=== PATIENT | female | born 1965 | race Caucasian/White ===

== ENCOUNTER 2018-07-15 19:21 | Observation (INO) | payer OTHER, MEDICARE ==
[~2018-07-15] VITALS: Ht 152.4 cm; Wt 53.4 kg
[~2018-07-15 19:21] MED LIST: AMLO10 PO; CHOL10002 PO; FISH1000 PO; IBUHYD; IBUHYD PO; INSULANI SC; INSULANPEN SC; Imitrex100 MG PO; LISI20 PO; LORA.5 PO; META800 PO; METCAR500 PO; MILK THISTLE; MILK THISTLE PO; Milk Thistle175 M1 PO; NITR100CA PO; PARO10 PO; PARO20 PO; PARO30 PO; PROP160ER PO; PROP60 PO; SUMA25 PO; TOPI50 PO; WARF10 PO; ZEBUTAL 50-3251 EACH PO; ZESTRIL40 MG PO
[2018-07-15 21:04] LABS: BASOPHILS ABSOLUTE AUTO 0.02 K/mm3 (0.00-0.23); BASOPHILS PERCENT AUTO 0 % (0-2); EOSINOPHILS ABSOLUTE AUTO 0.29 K/mm3 (0.00-0.68); EOSINOPHILS PERCENT AUTO 4 % (0-6); Hematocrit 38.1 % (33.0-51.0); Hemoglobin 12.4 g/dL (11.5-16.0); IMMATURE GRAN ABSOLUTE AUTO 0.02 K/mm3 (0.00-0.10); IMMATURE GRAN PERCENT AUTO 0 % (0-1); LYMPHOCYTES ABSOLUTE AUTO 3.08 K/mm3 (0.84-5.20); LYMPHOCYTES PERCENT AUTO 44 % (21-46); MONOCYTES ABSOLUTE AUTO 0.39 K/mm3 (0.16-1.47); MONOCYTES PERCENT AUTO 6 % (4-13); Mean Corpuscular HGB Conc 32.5 g/dL (31.5-36.5); Mean Corpuscular Volume 92 fL (80-100); Mean Platelet Volume 11.9 fL (9.1-12.4); NEUTROPHILS ABSOLUTE AUTO 3.24 K/mm3 (1.96-9.15); NEUTROPHILS PERCENT AUTO 46 % (41-73); Platelet Count 112 K/mm3 (150-400); RDW Standard Deviation 46.7 fL (35.1-46.3); Red Blood Cell Count 4.14 M/mm3 (3.80-5.20); White Blood Cell Count 7.04 K/mm3 (4.00-11.30)
[2018-07-15 21:11] LABS: Alanine Aminotransfer (ALT/SGP 179 U/L (12-78); Albumin, Blood 3.2 g/dL (3.4-5.0); Albumin/Globulin Ratio 0.7 (0.8-1.8); Alk Phos 181 U/L (50-136); Anion Gap 8 mmol/L (6-16); Aspartate Aminotrans (AST/SGOT 156 U/L (12-37); Bilirubin, Total 0.3 mg/dL (0.1-1.0); Blood Urea Nitrogen 22 mg/dL (8-24); CO2, Blood 24 mmol/L (21-32); Calcium, Blood 9.3 mg/dL (8.5-10.1); Chloride, Blood 104 mmol/L (98-108); Creatinine, Blood 0.54 mg/dL (0.40-1.00); Globulin, Blood 4.9 g/dL (2.2-4.0); Glomerular Filtration Rate >60 (60-); Glucose, Blood 301 mg/dL (70-99); Potassium, Blood 3.9 mmol/L (3.5-5.5); Sodium, Blood 136 mmol/L (136-145); Total Protein, Blood 8.1 g/dL (6.4-8.2)
[2018-07-15 23:01] LABS: International Normalized Ratio 0.97
[2018-07-16 00:59] LABS: Source, Urine Clean Catch
[2018-07-16 01:02] LABS: Bilirubin, Urine Neg (Neg); Blood, Urine 2+ (Neg); Glucose Qualitative, Urine 4+ (Neg); Ketones, Urine Neg (Neg); Leukocyte Esterase, Urine 1+ (Neg); Nitrite, Urine Neg (Neg); Protein, Urine Neg (Neg); Urobilinogen, Urine NORM (Normal)
[2018-07-16 01:05] LABS: Appearance, Urine Hazy (Clear); Color, Urine Yellow (P-Yellow)
[2018-07-16 01:08] LABS: Bacteria Few /hpf; Mucus Light (0-Heavy); Red Blood Cells, Urine 0-2 /hpf (0-2); Squamous Epithelial Cells Mod /hpf (Few); White Blood Cells, Urine 0-2 /hpf (0-5)
[2018-07-16 02:55] LABS: Hematocrit 32.3 % (33.0-51.0); Hemoglobin 10.5 g/dL (11.5-16.0)
[2018-07-16 04:53] LABS: Hematocrit 32.3 % (33.0-51.0); Hemoglobin 10.3 g/dL (11.5-16.0); Mean Corpuscular HGB 29.9 pg (26.0-34.0); Mean Corpuscular HGB Conc 31.9 g/dL (31.5-36.5); Mean Corpuscular Volume 94 fL (80-100); Mean Platelet Volume 11.7 fL (9.1-12.4); Platelet Count 86 K/mm3 (150-400); RDW Coefficient Variation 13.8 % (11.7-14.2); Red Blood Cell Count 3.45 M/mm3 (3.80-5.20); White Blood Cell Count 4.07 K/mm3 (4.00-11.30)
[2018-07-16 05:33] LABS: Alanine Aminotransfer (ALT/SGP 153 U/L (12-78); Albumin, Blood 2.7 g/dL (3.4-5.0); Albumin/Globulin Ratio 0.7 (0.8-1.8); Alk Phos 155 U/L (50-136); Anion Gap 6 mmol/L (6-16); Aspartate Aminotrans (AST/SGOT 129 U/L (12-37); Bilirubin, Total 0.3 mg/dL (0.1-1.0); Blood Urea Nitrogen 16 mg/dL (8-24); Bun/Creatinine Ratio 30.9 (12.0-20.0); CO2, Blood 24 mmol/L (21-32); Calcium, Blood 7.8 mg/dL (8.5-10.1); Chloride, Blood 110 mmol/L (98-108); Creatinine, Blood 0.52 mg/dL (0.40-1.00); Globulin, Blood 3.9 g/dL (2.2-4.0); Glomerular Filtration Rate >60 (60-); Glucose, Blood 322 mg/dL (70-99); Potassium, Blood 3.7 mmol/L (3.5-5.5); Sodium, Blood 140 mmol/L (136-145); Total Protein, Blood 6.6 g/dL (6.4-8.2)
[2018-07-16 10:20] LABS: Hematocrit 32.4 % (33.0-51.0); Hemoglobin 10.2 g/dL (11.5-16.0)
[2018-07-16 12:29] LABS: Percent Saturation 73.2 % (15.0-50.0)
[2018-07-16 18:45] LABS: Hematocrit 33.9 % (33.0-51.0); Hemoglobin 10.9 g/dL (11.5-16.0)
[2018-07-17 01:56] LABS: Hematocrit 32.3 % (33.0-51.0); Hemoglobin 10.6 g/dL (11.5-16.0)
[2018-07-17 04:49] LABS: BASOPHILS ABSOLUTE AUTO 0.02 K/mm3 (0.00-0.23); BASOPHILS PERCENT AUTO 1 % (0-2); EOSINOPHILS ABSOLUTE AUTO 0.17 K/mm3 (0.00-0.68); EOSINOPHILS PERCENT AUTO 4 % (0-6); Hematocrit 32.4 % (33.0-51.0); Hemoglobin 10.6 g/dL (11.5-16.0); IMMATURE GRAN ABSOLUTE AUTO 0.01 K/mm3 (0.00-0.10); IMMATURE GRAN PERCENT AUTO 0 % (0-1); LYMPHOCYTES ABSOLUTE AUTO 2.02 K/mm3 (0.84-5.20); LYMPHOCYTES PERCENT AUTO 48 % (21-46); MONOCYTES ABSOLUTE AUTO 0.26 K/mm3 (0.16-1.47); MONOCYTES PERCENT AUTO 6 % (4-13); Mean Corpuscular HGB 30.3 pg (26.0-34.0); Mean Corpuscular HGB Conc 32.7 g/dL (31.5-36.5); Mean Corpuscular Volume 93 fL (80-100); Mean Platelet Volume 11.7 fL (9.1-12.4); NEUTROPHILS ABSOLUTE AUTO 1.74 K/mm3 (1.96-9.15); NEUTROPHILS PERCENT AUTO 41 % (41-73); Platelet Count 92 K/mm3 (150-400); RDW Coefficient Variation 13.7 % (11.7-14.2); RDW Standard Deviation 46.6 fL (35.1-46.3); White Blood Cell Count 4.22 K/mm3 (4.00-11.30)
[2018-07-17] MEDS ORDERED: Protonix40 M1 PO (11:14)
[2018-07-17] MEDS ORDERED: INSULANPEN SC (11:23)
[2018-07-18 16:08] LABS: T-TRANSGLUTAMINASE (TTG) IGA <2 U/mL (0-3); T-TRANSGLUTAMINASE (TTG) IGG <2 U/mL (0-5)
[2018-07-19 02:12] LABS: CERULOPLASMIN 27.3 mg/dL (19.0-39.0)
[2018-07-19 07:10] LABS: ALPHA-1-ANTITRYPSIN, SERUM 138 mg/dL (90-200)
[2018-07-19 10:07] LABS: HBSAG SCREEN Negative (Negative); HEP A AB, IGM Negative (Negative); HEP B CORE AB, IGM Negative (Negative); HEP C VIRUS AB >11.0 (0.0-0.9)
[2018-07-20 03:10] LABS: HBSAG SCREEN Negative (Negative); HEP B CORE AB, TOT Negative (Negative); HEP C VIRUS AB >11.0 (0.0-0.9)
== END 2018-07-17 12:52 | disposition home or self-care (01) ==
LOC: ER 19:21 → MEDS 19:22 → ENPENDDIS 07-17 08:46 → MEDS 07-17 12:52
PROVIDERS: Emergency Medicine; Hospitalist; Internal Medicine; Student in an Organized Health Care Education/Training Program
PROC: 0DJ08ZZ Inspection of Upper Intestinal Tract, Via Natural or Artificial Opening Endoscopic (ICD-10-PCS; principal; 2018-07-16 12:30)
PROC: 0DJD8ZZ Inspection of Lower Intestinal Tract, Via Natural or Artificial Opening Endoscopic (ICD-10-PCS; principal; 2018-07-16 12:30)
DX: K64.8 Other hemorrhoids (principal); K22.8 Other specified diseases of esophagus; K31.89 Other diseases of stomach and duodenum; K31.9 Disease of stomach and duodenum, unspecified; K57.30 Diverticulosis of large intestine without perforation or abscess without bleeding; F17.210 Nicotine dependence, cigarettes, uncomplicated; I10 Essential (primary) hypertension; E11.9 Type 2 diabetes mellitus without complications; E78.5 Hyperlipidemia, unspecified; Z88.8 Allergy status to other drugs, medicaments and biological substances; Z79.899 Other long term (current) drug therapy
CPT/HCPCS: 36415; 74177; 76705; 80053; 80074; 81001; 82103; 82272; 82390; 82728; 82947; 83516; 83540; 83550; 85014; 85018; 85025; 85027; 85610; 85730; 86038; 86317; 86704; 86708; 86803; 86850; 86900; 86901; 87086; 87340; 93005; 93010; 96365; 96375; 99285-25; C9113; J0696; J2250; J7030; J7050; J7120; Q9967

== ENCOUNTER 2018-10-14 07:19 | Day surgery (SDC) | payer OTHER, MEDICARE ==
[~2018-10-14] VITALS: Ht 154.9 cm; Wt 55.3 kg
[~2018-10-14 07:19] MED LIST changes: +Protonix40 M1 PO
== END 2018-10-14 10:22 | disposition home or self-care (01) ==
LOC: ORSCSDS 07:19
PROVIDERS: Internal Medicine Gastroenterology
PROC: 0DBN8ZX Excision of Sigmoid Colon, Via Natural or Artificial Opening Endoscopic, Diagnostic (ICD-10-PCS; principal; 2018-10-14 09:00)
PROC: 0DB68ZX Excision of Stomach, Via Natural or Artificial Opening Endoscopic, Diagnostic (ICD-10-PCS; principal; 2018-10-14 09:00)
PROC: 0DB48ZX Excision of Esophagogastric Junction, Via Natural or Artificial Opening Endoscopic, Diagnostic (ICD-10-PCS; principal; 2018-10-14 09:00)
DX: K62.5 Hemorrhage of anus and rectum (principal); R10.9 Unspecified abdominal pain; K63.5 Polyp of colon; K31.7 Polyp of stomach and duodenum; K20.9 Esophagitis, unspecified; K29.70 Gastritis, unspecified, without bleeding; K57.30 Diverticulosis of large intestine without perforation or abscess without bleeding; K64.8 Other hemorrhoids; B19.20 Unspecified viral hepatitis C without hepatic coma; I10 Essential (primary) hypertension; K21.9 Gastro-esophageal reflux disease without esophagitis; E11.9 Type 2 diabetes mellitus without complications; Z79.4 Long term (current) use of insulin; F17.210 Nicotine dependence, cigarettes, uncomplicated; Z79.899 Other long term (current) drug therapy
CPT/HCPCS: 82947; 88305; 88342; J0330; J1980; J2405; J7120

== ENCOUNTER 2019-03-27 09:32 | Day surgery (SDC) | payer OTHER, MEDICARE ==
[~2019-03-27 09:32] MED LIST changes: -PARO30 PO; +Paxil40 MG PO
--- NOTE | 2019-03-27 12:25 | NUR ---
Discharge instructions reviewed with patient. Patient verbalizes understanding. Copy given to patient to take home. PT SISTER IS HERE AND IS RIDE HOME. PT FEELING MUCH BETTER, BANDAIDE INTACT, Discharged via wheelchair to private car for ride home.
== END 2019-03-27 12:22 | disposition home or self-care (01) ==
LOC: US 09:32
DX: B18.2 Chronic viral hepatitis C (principal); K76.0 Fatty (change of) liver, not elsewhere classified
CPT/HCPCS: 47000; 76942; 88307; 88313

== ENCOUNTER 2019-05-15 18:13 | Inpatient (IN) | payer OTHER, MEDICARE ==
[~2019-05-15] VITALS: Ht 154.9 cm; Wt 53.1 kg
[2019-05-15 19:02] LABS: Alanine Aminotransfer (ALT/SGP 79 U/L (12-78); Albumin, Blood 2.8 g/dL (3.4-5.0); Albumin/Globulin Ratio 0.6 (0.8-1.8); Alk Phos 123 U/L (50-136); Anion Gap 9 mmol/L (6-16); Aspartate Aminotrans (AST/SGOT 41 U/L (12-37); Bilirubin, Total 1.1 mg/dL (0.1-1.0); Blood Urea Nitrogen 16 mg/dL (8-24); Bun/Creatinine Ratio 22.7 (12.0-20.0); CO2, Blood 24 mmol/L (21-32); Calcium, Blood 8.7 mg/dL (8.5-10.1); Chloride, Blood 98 mmol/L (98-108); Creatinine, Blood 0.71 mg/dL (0.40-1.00); Globulin, Blood 4.6 g/dL (2.2-4.0); Glomerular Filtration Rate >60 (60-); Glucose, Blood 343 mg/dL (70-99); Potassium, Blood 3.6 mmol/L (3.5-5.5); Sodium, Blood 131 mmol/L (136-145); Total Protein, Blood 7.4 g/dL (6.4-8.2)
[2019-05-15 19:45] LABS: BASOPHILS ABSOLUTE AUTO 0.02 K/mm3 (0.00-0.23); BASOPHILS PERCENT AUTO 0 % (0-2); Hematocrit 33.6 % (33.0-51.0); Hemoglobin 11.4 g/dL (11.5-16.0); LYMPHOCYTES ABSOLUTE AUTO 1.57 K/mm3 (0.84-5.20); LYMPHOCYTES PERCENT AUTO 17 % (21-46); MONOCYTES ABSOLUTE AUTO 0.61 K/mm3 (0.16-1.47); MONOCYTES PERCENT AUTO 7 % (4-13); Mean Corpuscular HGB 30.3 pg (26.0-34.0); Mean Corpuscular HGB Conc 33.9 g/dL (31.5-36.5); Mean Corpuscular Volume 89 fL (80-100); Mean Platelet Volume 12.7 fL (9.1-12.4); Platelet Count 53 K/mm3 (150-400); RDW Coefficient Variation 12.9 % (11.7-14.2); RDW Standard Deviation 42.5 fL (35.1-46.3); Red Blood Cell Count 3.76 M/mm3 (3.80-5.20); White Blood Cell Count 9.11 K/mm3 (4.00-11.30)
[2019-05-15 20:00] LABS: EOSINOPHILS ABSOLUTE AUTO 0.01 K/mm3 (0.00-0.68); EOSINOPHILS PERCENT AUTO 0 % (0-6); IMMATURE GRAN ABSOLUTE AUTO 0.26 K/mm3 (0.00-0.10); IMMATURE GRAN PERCENT AUTO 3 % (0-1); NEUTROPHILS ABSOLUTE AUTO 6.64 K/mm3 (1.96-9.15); NEUTROPHILS PERCENT AUTO 73 % (41-73)
[2019-05-15 20:24] LABS: Source, Urine Clean Catch
[2019-05-15 20:27] LABS: Appearance, Urine Hazy (Clear); Blood, Urine 4+ (Neg); Color, Urine Amber (P-Yellow); Glucose Qualitative, Urine 3+ (Neg); Ketones, Urine 2+ (Neg); Leukocyte Esterase, Urine 1+ (Neg); Nitrite, Urine Neg (Neg); Protein, Urine 3+ (Neg); Urobilinogen, Urine 1+ (Normal)
[2019-05-15 20:28] LABS: Bilirubin, Urine 1+ (Neg)
[2019-05-15 20:33] LABS: Amorphous Light (0-Heavy); Bacteria Many /hpf; Hyaline Casts 0-2 /lpf (0-2); Mucus Light (0-Heavy); Red Blood Cells, Urine 0-2 /hpf (0-2); Squamous Epithelial Cells Mod /hpf (Few)
[2019-05-15] MEDS ORDERED: OMEP20ER PO (21:08)
[2019-05-15] MEDS ORDERED: TRULICITY1.5 MG/0.5 SC (21:09)
[2019-05-16 05:41] LABS: Hematocrit 32.2 % (33.0-51.0); Hemoglobin 10.8 g/dL (11.5-16.0); Mean Corpuscular HGB 29.4 pg (26.0-34.0); Mean Corpuscular HGB Conc 33.5 g/dL (31.5-36.5); Mean Corpuscular Volume 88 fL (80-100); Mean Platelet Volume 11.8 fL (9.1-12.4); Platelet Count 55 K/mm3 (150-400); Red Blood Cell Count 3.67 M/mm3 (3.80-5.20); White Blood Cell Count 8.66 K/mm3 (4.00-11.30)
[2019-05-16 06:01] LABS: Alanine Aminotransfer (ALT/SGP 58 U/L (12-78); Albumin, Blood 2.1 g/dL (3.4-5.0); Albumin/Globulin Ratio 0.5 (0.8-1.8); Alk Phos 93 U/L (50-136); Anion Gap 7 mmol/L (6-16); Aspartate Aminotrans (AST/SGOT 25 U/L (12-37); Bilirubin, Total 0.6 mg/dL (0.1-1.0); Blood Urea Nitrogen 15 mg/dL (8-24); Bun/Creatinine Ratio 24.2 (12.0-20.0); CO2, Blood 23 mmol/L (21-32); Calcium, Blood 7.7 mg/dL (8.5-10.1); Chloride, Blood 105 mmol/L (98-108); Creatinine, Blood 0.62 mg/dL (0.40-1.00); Globulin, Blood 4.3 g/dL (2.2-4.0); Glomerular Filtration Rate >60 (60-); Glucose, Blood 263 mg/dL (70-99); Potassium, Blood 3.2 mmol/L (3.5-5.5); Sodium, Blood 135 mmol/L (136-145); Total Protein, Blood 6.4 g/dL (6.4-8.2)
--- NOTE | 2019-05-16 06:16 | NUR ---
SHIFT SUMMARY: PT IS ALERT AND ORIENTED. PT IS CALM AND COOPERATIVE WITH CARE. PT CALLS APPROPRIATELY. PT IS A STANDBY ASSIST TO THE BATHROOM. FLUIDS RUNNING ORDERED. NSR ON TELE. PT DENIES PAIN, NAUSEA, VOMITING, AND SOB. PT SLEPT INTERMITTENTLY THROUGHOUT THE NIGHT. NO ACUTE CHANGES OR COMPLICATIONS THIS SHIFT. BED IN LOW POSITION, CALL LIGHT WITHIN REACH. WILL CONTINUE TO MONITOR.
--- NOTE | 2019-05-16 17:28 | NUR ---
SHIFT SUMMARY: PT IS A/O X 4 THIS SHIFT WITH NO C/O PAIN. PT HAS BEEN NAPPING ON AND OFF WITH HER SISTER AT THE BEDSIDE. PT WAS ASSISTED WITH A SHOWER THIS AFTERNOON AND LINENS WERE CHANGED. PT DENIES ANY N/V BUT DID REPORT LOOSE STOOL X [address] GARVEY IS AWARE. THERE IS A STOOL SAMPLE PENDING. PT IS RESTING IN BED AND USES CALL LIGHT FOR HELP WHEN NEEDED.
[2019-05-17 05:08] LABS: BASOPHILS ABSOLUTE AUTO 0.01 K/mm3 (0.00-0.23); BASOPHILS PERCENT AUTO 0 % (0-2); EOSINOPHILS ABSOLUTE AUTO 0.12 K/mm3 (0.00-0.68); EOSINOPHILS PERCENT AUTO 2 % (0-6); Hematocrit 33.6 % (33.0-51.0); Hemoglobin 11.2 g/dL (11.5-16.0); IMMATURE GRAN ABSOLUTE AUTO 0.03 K/mm3 (0.00-0.10); IMMATURE GRAN PERCENT AUTO 0 % (0-1); LYMPHOCYTES ABSOLUTE AUTO 1.65 K/mm3 (0.84-5.20); LYMPHOCYTES PERCENT AUTO 25 % (21-46); MONOCYTES ABSOLUTE AUTO 0.34 K/mm3 (0.16-1.47); MONOCYTES PERCENT AUTO 5 % (4-13); Mean Corpuscular HGB 30.1 pg (26.0-34.0); Mean Corpuscular HGB Conc 33.3 g/dL (31.5-36.5); Mean Corpuscular Volume 90 fL (80-100); Mean Platelet Volume 12.5 fL (9.1-12.4); NEUTROPHILS ABSOLUTE AUTO 4.55 K/mm3 (1.96-9.15); NEUTROPHILS PERCENT AUTO 68 % (41-73); RDW Coefficient Variation 13.1 % (11.7-14.2); RDW Standard Deviation 43.2 fL (35.1-46.3); Red Blood Cell Count 3.72 M/mm3 (3.80-5.20)
[2019-05-17 05:10] LABS: Anion Gap 6 mmol/L (6-16); Blood Urea Nitrogen 12 mg/dL (8-24); CO2, Blood 22 mmol/L (21-32); Calcium, Blood 7.9 mg/dL (8.5-10.1); Chloride, Blood 114 mmol/L (98-108); Creatinine, Blood 0.52 mg/dL (0.40-1.00); Glomerular Filtration Rate >60 (60-); Glucose, Blood 215 mg/dL (70-99); Potassium, Blood 3.3 mmol/L (3.5-5.5); Sodium, Blood 142 mmol/L (136-145)
[2019-05-17 05:12] LABS: Platelet Count 74 K/mm3 (150-400)
--- NOTE | 2019-05-17 07:16 | NUR ---
a+o, no major medical changes noted during shift, call light in reach, saline locked, room air, indipendant in room bsr shared with returning day staff
[2019-05-17] MEDS ORDERED: LEVFLO500 (10:04)
--- NOTE | 2019-05-17 10:47 | NUR ---
PT DCD HOME WITH SISTER VIA PRIVATE CAR. ALL DC INSTRUCTIONS, F/U APPTS AND MEDS REVIEWED WITH PT WHO VERBALIZED AN UNDERSTANDING. MEDS FAXED TO [facility] PER HER REQUEST. ALL BELONGINGS SENT WITH PT AND PT STABLE UPON DC.
--- NOTE | 2019-05-29 19:20 | NUR ---
IMM MAILED TO PATIENT
== END 2019-05-17 10:47 | disposition home or self-care (01) | DRG 391 ==
LOC: ER 18:13 → MEDS 18:14 → ER 18:14 → MEDS 18:15 → ER 05-16 00:10 → MEDS 05-16 00:10 → ENPENDDIS 05-17 09:16 → MEDS 05-17 10:23
PROVIDERS: Emergency Medicine; Hospitalist; ADMIT Internal Medicine
DX: A08.4 Viral intestinal infection, unspecified (principal); J18.9 Pneumonia, unspecified organism; I10 Essential (primary) hypertension; E78.5 Hyperlipidemia, unspecified; D69.6 Thrombocytopenia, unspecified; F41.9 Anxiety disorder, unspecified; F32.9 Major depressive disorder, single episode, unspecified; E11.65 Type 2 diabetes mellitus with hyperglycemia; B19.20 Unspecified viral hepatitis C without hepatic coma; Z79.4 Long term (current) use of insulin; Z79.899 Other long term (current) drug therapy; Z88.8 Allergy status to other drugs, medicaments and biological substances
CPT/HCPCS: 36415; 71046; 80048; 80053; 81001; 82947; 83690; 84145; 85025; 85027; 87040; 87070; 87086; 87205; 93005; 93010; 96361; 96365; 96375; 99285-25; J0696; J1885; J1956; J2405; J7030

== ENCOUNTER → 2021-06-21 | Outpatient (CLI) | payer MEDICARE, OTHER ==
[~2021-06-21] MED LIST changes: +LEVFLO500; +OMEP20ER PO; +TRULICITY1.5 MG/0.5 SC
[2021-06-21 19:19] LABS: Source, Urine Clean Catch
[2021-06-21 19:32] LABS: BASOPHILS ABSOLUTE AUTO 0.02 K/mm3 (0.00-0.23); BASOPHILS PERCENT AUTO 0 % (0-2); EOSINOPHILS ABSOLUTE AUTO 0.32 K/mm3 (0.00-0.68); EOSINOPHILS PERCENT AUTO 4 % (0-6); Hematocrit 38.4 % (33.0-51.0); IMMATURE GRAN ABSOLUTE AUTO 0.02 K/mm3 (0.00-0.10); IMMATURE GRAN PERCENT AUTO 0 % (0-1); LYMPHOCYTES ABSOLUTE AUTO 2.02 K/mm3 (0.84-5.20); LYMPHOCYTES PERCENT AUTO 28 % (21-46); MONOCYTES ABSOLUTE AUTO 0.53 K/mm3 (0.16-1.47); MONOCYTES PERCENT AUTO 7 % (4-13); Mean Corpuscular HGB 29.1 pg (26.0-34.0); Mean Corpuscular HGB Conc 33.9 g/dL (31.5-36.5); Mean Corpuscular Volume 86 fL (80-100); Mean Platelet Volume 12.1 fL (9.1-12.4); NEUTROPHILS ABSOLUTE AUTO 4.37 K/mm3 (1.96-9.15); NEUTROPHILS PERCENT AUTO 60 % (41-73); Platelet Count 123 K/mm3 (150-400); RDW Coefficient Variation 13.7 % (11.7-14.2); Red Blood Cell Count 4.46 M/mm3 (3.80-5.20); White Blood Cell Count 7.28 K/mm3 (4.00-11.30)
[2021-06-21 19:44] LABS: Alanine Aminotransfer (ALT/SGP 78 U/L (12-78); Albumin, Blood 2.5 g/dL (3.4-5.0); Albumin/Globulin Ratio 0.5 (0.8-1.8); Alk Phos 222 U/L (50-136); Anion Gap 7 mmol/L (6-16); Aspartate Aminotrans (AST/SGOT 59 U/L (12-37); Bilirubin, Total 0.4 mg/dL (0.1-1.0); Blood Urea Nitrogen 23 mg/dL (8-24); Bun/Creatinine Ratio 32.8 (12.0-20.0); CO2, Blood 22 mmol/L (21-32); Calcium, Blood 8.7 mg/dL (8.5-10.1); Chloride, Blood 112 mmol/L (98-108); Globulin, Blood 5.2 g/dL (2.2-4.0); Glomerular Filtration Rate >60 (60-); Glucose, Blood 264 mg/dL (70-99); Sodium, Blood 141 mmol/L (136-145); Total Protein, Blood 7.7 g/dL (6.4-8.2)
[2021-06-21 19:49] LABS: Bilirubin, Urine Neg (Neg); Blood, Urine 4+ (Neg); Glucose Qualitative, Urine 3+ (Neg); Ketones, Urine Neg (Neg); Leukocyte Esterase, Urine Neg (Neg); Nitrite, Urine Neg (Neg); Protein, Urine 4+ (Neg); Specific Gravity, Urine 1.015 (1.003-1.022); Urobilinogen, Urine NORM (Normal)
[2021-06-21 19:57] LABS: Appearance, Urine Clear (Clear); Color, Urine Yellow (P-Yellow)
[2021-06-21 19:58] LABS: Bacteria Few /hpf; Red Blood Cells, Urine 25-50 /hpf (0-2); Squamous Epithelial Cells Few /hpf (Few); White Blood Cells, Urine Not Seen /hpf (0-5)
== END | disposition home or self-care (01) ==
LOC: LAB SHORT 17:45 → LAB 17:45
PROVIDERS: Nurse Practitioner Family
DX: R10.84 Generalized abdominal pain (principal); Z87.19 Personal history of other diseases of the digestive system
CPT/HCPCS: 80053; 81001; 83690; 85025

== ENCOUNTER → 2021-08-05 | Outpatient (CLI) | payer MEDICARE, OTHER ==
[2021-08-06 16:11] LABS: HPV 16 Negative (Negative); HPV 18 Negative (Negative); HPV OTHER HR TYPES Negative (Negative)
== END | disposition home or self-care (01) ==
LOC: LAB SHORT 14:44
PROVIDERS: Family Medicine
DX: Z01.419 Encounter for gynecological examination (general) (routine) without abnormal findings (principal)
CPT/HCPCS: 87624; G0145

== ENCOUNTER → 2021-10-16 | Outpatient (CLI) | payer MEDICARE, OTHER ==
[~2021-10-16] MED LIST changes: +BASAGLAR K100 UNIT/8 SC; +DYAZIDE 37.5-21 EACH PO; +FAMO20 PO; +PROPRANOLOL HCL80 MG PO; -TRULICITY1.5 MG/0.5 SC; +TRULICITY4.5 MG/0.5 SQ
[2021-10-16 18:56] LABS: Hematocrit 27.8 % (33.0-51.0); Hemoglobin 9.2 g/dL (11.5-16.0); Mean Corpuscular HGB 29.5 pg (26.0-34.0); Mean Corpuscular HGB Conc 33.1 g/dL (31.5-36.5); Mean Corpuscular Volume 89 fL (80-100); Mean Platelet Volume 11.4 fL (9.1-12.4); Platelet Count 124 K/mm3 (150-400); RDW Coefficient Variation 13.8 % (11.7-14.2); RDW Standard Deviation 44.1 fL (35.1-46.3); Red Blood Cell Count 3.12 M/mm3 (3.80-5.20); White Blood Cell Count 6.59 K/mm3 (4.00-11.30)
[2021-10-16 19:14] LABS: Alanine Aminotransfer (ALT/SGP 63 U/L (12-78); Albumin, Blood 2.7 g/dL (3.4-5.0); Albumin/Globulin Ratio 0.7 (0.8-1.8); Alk Phos 123 U/L (50-136); Anion Gap 7 mmol/L (6-16); Aspartate Aminotrans (AST/SGOT 58 U/L (12-37); Bilirubin, Direct <0.1 mg/dL (0.0-0.3); Bilirubin, Indirect Unable to Calculate mg/dL (0.1-0.7); Bilirubin, Total 0.4 mg/dL (0.1-1.0); Blood Urea Nitrogen 29 mg/dL (8-24); Bun/Creatinine Ratio 28.7 (12.0-20.0); CO2, Blood 23 mmol/L (21-32); Calcium, Blood 8.7 mg/dL (8.5-10.1); Chloride, Blood 115 mmol/L (98-108); Creatinine, Blood 1.01 mg/dL (0.40-1.00); Globulin, Blood 4.1 g/dL (2.2-4.0); Glomerular Filtration Rate 56 (60-); Glucose, Blood 145 mg/dL (70-99); Potassium, Blood 3.5 mmol/L (3.5-5.5); Sodium, Blood 145 mmol/L (136-145); Total Protein, Blood 6.8 g/dL (6.4-8.2)
[2021-10-16 19:47] LABS: BASOPHILS ABSOLUTE MAN 0.06 K/mm3 (0.00-0.23); BASOPHILS PERCENT MAN 1 % (0-2); EOSINOPHILS ABSOLUTE MAN 0.59 K/mm3 (0.00-0.68); EOSINOPHILS PERCENT MAN 9 % (0-6); LYMPHOCYTES % ATYPICAL MANUAL 1 % (0-0); LYMPHOCYTES ABSOLUTE MAN 2.17 K/mm3 (0.84-5.20); LYMPHOCYTES PERCENT MAN 32 % (21-46); MONOCYTES ABSOLUTE MAN 0.06 K/mm3 (0.16-1.47); MONOCYTES PERCENT MAN 1 % (4-13); NEUTROPHILS ABSOLUTE MAN 3.69 K/mm3 (1.96-9.15); SEG NEUTROPHILS PERCENT MAN 56 % (41-73); TOTAL CELLS COUNTED 100
== END | disposition home or self-care (01) ==
LOC: LAB SHORT 16:30
PROVIDERS: Nurse Practitioner
DX: K92.1 Melena (principal); R10.11 Right upper quadrant pain
CPT/HCPCS: 80053; 82248; 83690; 85007; 85027

== ENCOUNTER 2021-10-28 16:53 | Emergency (ER) | payer MEDICARE, OTHER ==
[~2021-10-28] VITALS: Ht 154.9 cm; Wt 56.7 kg
[~2021-10-28 16:53] MED LIST changes: -BASAGLAR K100 UNIT/8 SC; -DYAZIDE 37.5-21 EACH PO; -FAMO20 PO; -PROPRANOLOL HCL80 MG PO
[2021-10-28 18:00] LABS: BASOPHILS ABSOLUTE AUTO 0.03 K/mm3 (0.00-0.23); BASOPHILS PERCENT AUTO 0 % (0-2); EOSINOPHILS ABSOLUTE AUTO 0.55 K/mm3 (0.00-0.68); EOSINOPHILS PERCENT AUTO 8 % (0-6); Hemoglobin 11.1 g/dL (11.5-16.0); IMMATURE GRAN ABSOLUTE AUTO 0.02 K/mm3 (0.00-0.10); IMMATURE GRAN PERCENT AUTO 0 % (0-1); LYMPHOCYTES ABSOLUTE AUTO 1.83 K/mm3 (0.84-5.20); LYMPHOCYTES PERCENT AUTO 27 % (21-46); MONOCYTES ABSOLUTE AUTO 0.47 K/mm3 (0.16-1.47); MONOCYTES PERCENT AUTO 7 % (4-13); Mean Corpuscular HGB 29.8 pg (26.0-34.0); Mean Corpuscular HGB Conc 32.6 g/dL (31.5-36.5); Mean Corpuscular Volume 91 fL (80-100); Mean Platelet Volume 11.2 fL (9.1-12.4); NEUTROPHILS ABSOLUTE AUTO 3.86 K/mm3 (1.96-9.15); NEUTROPHILS PERCENT AUTO 57 % (41-73); Platelet Count 112 K/mm3 (150-400); Red Blood Cell Count 3.73 M/mm3 (3.80-5.20); White Blood Cell Count 6.76 K/mm3 (4.00-11.30)
[2021-10-28 18:18] LABS: Alanine Aminotransfer (ALT/SGP 101 U/L (12-78); Albumin/Globulin Ratio 0.7 (0.8-1.8); Alk Phos 147 U/L (50-136); Anion Gap 6 mmol/L (6-16); Aspartate Aminotrans (AST/SGOT 95 U/L (12-37); Bilirubin, Total 0.4 mg/dL (0.1-1.0); Blood Urea Nitrogen 19 mg/dL (8-24); Bun/Creatinine Ratio 22.2 (12.0-20.0); CO2, Blood 28 mmol/L (21-32); Calcium, Blood 8.6 mg/dL (8.5-10.1); Chloride, Blood 108 mmol/L (98-108); Creatinine, Blood 0.85 mg/dL (0.40-1.00); Globulin, Blood 4.2 g/dL (2.2-4.0); Glomerular Filtration Rate >60 (60-); Glucose, Blood 143 mg/dL (70-99); Potassium, Blood 3.5 mmol/L (3.5-5.5); Sodium, Blood 142 mmol/L (136-145); Total Protein, Blood 7.2 g/dL (6.4-8.2); Troponin I <0.015 ng/mL (0.000-0.040)
[2021-10-28] MEDS ORDERED: PROPRANOLOL HCL80 MG PO (19:33)
[2021-10-28] MEDS ORDERED: DYAZIDE 37.5-21 EACH PO (19:33)
[2021-10-28] MEDS ORDERED: FAMO20 PO (19:34)
[2021-10-28] MEDS ORDERED: BASAGLAR K100 UNIT/8 SC (19:35)
== END 2021-10-28 20:01 | disposition home or self-care (01) ==
LOC: ER 16:53
PROVIDERS: Physician Assistant
DX: I10 Essential (primary) hypertension (principal); E11.9 Type 2 diabetes mellitus without complications; E78.5 Hyperlipidemia, unspecified; Z79.899 Other long term (current) drug therapy
CPT/HCPCS: 36415; 80053; 84484; 85025; 93005; 93010; 99283-25; A9270

== ENCOUNTER 2021-12-10 07:36 | Day surgery (SDC) | payer MEDICARE, OTHER ==
[~2021-12-10] VITALS: Ht 154.9 cm; Wt 53.7 kg
[~2021-12-10 07:36] MED LIST changes: +BASAGLAR K100 UNIT/8 SC; +DYAZIDE 37.5-21 EACH PO; +FAMO20 PO; +PROPRANOLOL HCL80 MG PO
== END 2021-12-10 10:10 | disposition home or self-care (01) ==
LOC: ORSCSDS 07:36
PROVIDERS: Internal Medicine Gastroenterology
PROC: 0DJ08ZZ Inspection of Upper Intestinal Tract, Via Natural or Artificial Opening Endoscopic (ICD-10-PCS; principal; 2021-12-10 09:00)
DX: K74.60 Unspecified cirrhosis of liver (principal); D64.9 Anemia, unspecified; E11.9 Type 2 diabetes mellitus without complications; I10 Essential (primary) hypertension; B19.20 Unspecified viral hepatitis C without hepatic coma; F17.210 Nicotine dependence, cigarettes, uncomplicated; Z79.899 Other long term (current) drug therapy
CPT/HCPCS: 82947; J2704; J7120

== ENCOUNTER 2022-01-22 08:37 | Day surgery (SDC) | payer MEDICARE, OTHER ==
[~2022-01-22] VITALS: Ht 154.9 cm; Wt 51.5 kg
== END 2022-01-22 11:23 | disposition home or self-care (01) ==
LOC: ORSCSDS 08:37
PROVIDERS: Internal Medicine Gastroenterology
PROC: 0DB68ZX Excision of Stomach, Via Natural or Artificial Opening Endoscopic, Diagnostic (ICD-10-PCS; principal; 2022-01-22 10:15)
PROC: 0DBK8ZX Excision of Ascending Colon, Via Natural or Artificial Opening Endoscopic, Diagnostic (ICD-10-PCS; principal; 2022-01-22 10:15)
PROC: 0DB98ZX Excision of Duodenum, Via Natural or Artificial Opening Endoscopic, Diagnostic (ICD-10-PCS; principal; 2022-01-22 10:15)
DX: R11.2 Nausea with vomiting, unspecified (principal); D64.9 Anemia, unspecified; R68.81 Early satiety; K74.60 Unspecified cirrhosis of liver; Z12.11 Encounter for screening for malignant neoplasm of colon; Z86.010 Personal history of colon polyps; D12.2 Benign neoplasm of ascending colon; K64.8 Other hemorrhoids; B18.2 Chronic viral hepatitis C; E11.9 Type 2 diabetes mellitus without complications; K57.30 Diverticulosis of large intestine without perforation or abscess without bleeding; K29.70 Gastritis, unspecified, without bleeding; F17.210 Nicotine dependence, cigarettes, uncomplicated; Z79.4 Long term (current) use of insulin; Z79.899 Other long term (current) drug therapy
CPT/HCPCS: 82947; 88305; 88342; J2704; J7120

== ENCOUNTER → 2022-02-12 | Outpatient (CLI) | payer MEDICARE, OTHER ==
[2022-02-12 14:14] LABS: Source, Urine Voided
[2022-02-12 15:42] LABS: Appearance, Urine Clear (Clear); Bilirubin, Urine Neg (Neg); Blood, Urine Neg (Neg); Color, Urine Yellow (P-Yellow); Glucose Qualitative, Urine Neg (Normal); Ketones, Urine Neg (Neg); Leukocyte Esterase, Urine Neg (Neg); Nitrite, Urine Neg (Neg); Protein, Urine 3+ (Neg); Urobilinogen, Urine NORM (Normal)
[2022-02-12 15:46] LABS: Bacteria Not Seen /hpf; Red Blood Cells, Urine Rare /hpf (0-2); Squamous Epithelial Cells Few /hpf (Few); White Blood Cells, Urine 0-2 /hpf (0-5)
== END | disposition home or self-care (01) ==
LOC: LAB SHORT 08:50
PROVIDERS: Internal Medicine Endocrinology, Diabetes & Metabolism
DX: R94.4 Abnormal results of kidney function studies (principal)
CPT/HCPCS: 81001

== ENCOUNTER 2022-10-31 07:25 | Emergency (ER) | payer MEDICARE, OTHER ==
[~2022-10-31] VITALS: Ht 154.9 cm; Wt 61.7 kg
[2022-10-31] MEDS ORDERED: TORSE20 PO (08:09)
[2022-10-31 08:18] LABS: BASOPHILS ABSOLUTE AUTO 0.02 K/mm3 (0.00-0.23); BASOPHILS PERCENT AUTO 0 % (0-2); EOSINOPHILS ABSOLUTE AUTO 0.57 K/mm3 (0.00-0.68); EOSINOPHILS PERCENT AUTO 8 % (0-6); Hematocrit 24.3 % (33.0-51.0); Hemoglobin 7.8 g/dL (11.5-16.0); IMMATURE GRAN ABSOLUTE AUTO 0.02 K/mm3 (0.00-0.10); IMMATURE GRAN PERCENT AUTO 0 % (0-1); LYMPHOCYTES ABSOLUTE AUTO 1.52 K/mm3 (0.84-5.20); LYMPHOCYTES PERCENT AUTO 21 % (21-46); MONOCYTES ABSOLUTE AUTO 0.44 K/mm3 (0.16-1.47); MONOCYTES PERCENT AUTO 6 % (4-13); Mean Corpuscular HGB 29.8 pg (26.0-34.0); Mean Corpuscular HGB Conc 32.1 g/dL (31.5-36.5); Mean Corpuscular Volume 93 fL (80-100); Mean Platelet Volume 12.1 fL (9.1-12.4); NEUTROPHILS ABSOLUTE AUTO 4.52 K/mm3 (1.96-9.15); NEUTROPHILS PERCENT AUTO 64 % (41-73); Platelet Count 115 K/mm3 (150-400); RDW Coefficient Variation 14.9 % (11.7-14.2); RDW Standard Deviation 50.4 fL (35.1-46.3); Red Blood Cell Count 2.62 M/mm3 (3.80-5.20); White Blood Cell Count 7.09 K/mm3 (4.00-11.30)
[2022-10-31 09:26] LABS: Albumin, Blood 2.3 g/dL (3.4-5.0); Albumin/Globulin Ratio 0.5 (0.8-1.8); Bilirubin, Total 0.2 mg/dL (0.1-1.0); Bun/Creatinine Ratio 32.9 (12.0-20.0); Calcium, Blood 8.1 mg/dL (8.5-10.1); Creatinine, Blood 1.49 mg/dL (0.40-1.00); Globulin, Blood 4.2 g/dL (2.2-4.0); Total Protein, Blood 6.5 g/dL (6.4-8.2)
[2022-10-31 09:54] LABS: Influenza A, PCR NEGATIVE (NEGATIVE); Influenza B, PCR NEGATIVE (NEGATIVE); Resp Syncytial Virus, PCR NEGATIVE (NEGATIVE); SARS-Cov-2 (COVID-19) PCR, MMC NEGATIVE (NEGATIVE)
== END 2022-10-31 11:40 | disposition home or self-care (01) ==
LOC: ER 07:25
PROVIDERS: Emergency Medicine
DX: J81.0 Acute pulmonary edema (principal); I10 Essential (primary) hypertension; E11.9 Type 2 diabetes mellitus without complications; Z88.8 Allergy status to other drugs, medicaments and biological substances; Z79.4 Long term (current) use of insulin; Z20.822 Contact with and (suspected) exposure to COVID-19; Z79.899 Other long term (current) drug therapy
CPT/HCPCS: 0241U; 36415; 71046; 80053; 83880; 84484; 85025; 93005; 93010; J1940

== ENCOUNTER 2022-11-04 13:14 | Emergency (ER) | payer MEDICARE, OTHER ==
[~2022-11-04] VITALS: Ht 154.9 cm; Wt 59.0 kg
[~2022-11-04 13:14] MED LIST changes: +TORSE20 PO
[2022-11-04 13:52] LABS: BASOPHILS ABSOLUTE AUTO 0.03 K/mm3 (0.00-0.23); BASOPHILS PERCENT AUTO 0 % (0-2); EOSINOPHILS ABSOLUTE AUTO 0.56 K/mm3 (0.00-0.68); EOSINOPHILS PERCENT AUTO 8 % (0-6); Hematocrit 26.8 % (33.0-51.0); Hemoglobin 8.5 g/dL (11.5-16.0); IMMATURE GRAN ABSOLUTE AUTO 0.03 K/mm3 (0.00-0.10); IMMATURE GRAN PERCENT AUTO 0 % (0-1); LYMPHOCYTES ABSOLUTE AUTO 1.61 K/mm3 (0.84-5.20); LYMPHOCYTES PERCENT AUTO 22 % (21-46); MONOCYTES ABSOLUTE AUTO 0.63 K/mm3 (0.16-1.47); MONOCYTES PERCENT AUTO 8 % (4-13); Mean Corpuscular HGB 29.6 pg (26.0-34.0); Mean Corpuscular HGB Conc 31.7 g/dL (31.5-36.5); Mean Corpuscular Volume 93 fL (80-100); Mean Platelet Volume 11.7 fL (9.1-12.4); NEUTROPHILS ABSOLUTE AUTO 4.61 K/mm3 (1.96-9.15); NEUTROPHILS PERCENT AUTO 62 % (41-73); Platelet Count 136 K/mm3 (150-400); RDW Coefficient Variation 15.1 % (11.7-14.2); RDW Standard Deviation 51.1 fL (35.1-46.3); Red Blood Cell Count 2.87 M/mm3 (3.80-5.20); White Blood Cell Count 7.47 K/mm3 (4.00-11.30)
[2022-11-04 14:31] LABS: Albumin, Blood 2.5 g/dL (3.4-5.0); Albumin/Globulin Ratio 0.5 (0.8-1.8); Bilirubin, Total 0.2 mg/dL (0.1-1.0); Bun/Creatinine Ratio 27.9 (12.0-20.0); Creatinine, Blood 1.79 mg/dL (0.40-1.00); Globulin, Blood 4.6 g/dL (2.2-4.0); Potassium, Blood 3.4 mmol/L (3.5-5.5); Total Protein, Blood 7.1 g/dL (6.4-8.2)
[2022-11-04] MEDS ORDERED: SPIR50 PO (15:27)
[2022-11-04 16:23] LABS: International Normalized Ratio 0.95
== END 2022-11-04 17:05 | disposition home or self-care (01) ==
LOC: ER 13:14
PROVIDERS: Physician Assistant; Student in an Organized Health Care Education/Training Program
DX: I13.0 Hypertensive heart and chronic kidney disease with heart failure and stage 1 through stage 4 chronic kidney disease, or unspecified chronic kidney disease (principal); I50.30 Unspecified diastolic (congestive) heart failure; E11.22 Type 2 diabetes mellitus with diabetic chronic kidney disease; N18.9 Chronic kidney disease, unspecified; D64.9 Anemia, unspecified; E87.6 Hypokalemia; F17.210 Nicotine dependence, cigarettes, uncomplicated; Z79.4 Long term (current) use of insulin; Z79.899 Other long term (current) drug therapy
CPT/HCPCS: 36415; 71046; 80053; 83880; 84484; 85025; 85610; 93005; 93010; A9270

== ENCOUNTER 2022-11-05 13:39 | Observation (INO) | payer MEDICARE, OTHER ==
[~2022-11-05] VITALS: Wt 59.5 kg
[~2022-11-05 13:39] MED LIST changes: +SPIR50 PO
--- NOTE | 2022-11-05 14:17 | NUR ---
Pt. is awake in bed and welcmoes my visit. Pts. sister is present. Pt. is pleasant but displays evidence of concern over the unknowns of her condition. Listen with empathy and a calming presence. Pt. had requested a bible, and this wet plant operator presented her with one. Facilitated a life review and established rapport. Prayed with Pt. Pt. and sister verbalized gratitude for the spiritual care visit.
[2022-11-05 14:34] LABS: BASOPHILS ABSOLUTE AUTO 0.02 K/mm3 (0.00-0.23); BASOPHILS PERCENT AUTO 0 % (0-2); EOSINOPHILS ABSOLUTE AUTO 0.48 K/mm3 (0.00-0.68); EOSINOPHILS PERCENT AUTO 7 % (0-6); Hemoglobin 6.3 g/dL (11.5-16.0); IMMATURE GRAN ABSOLUTE AUTO 0.01 K/mm3 (0.00-0.10); IMMATURE GRAN PERCENT AUTO 0 % (0-1); LYMPHOCYTES ABSOLUTE AUTO 1.73 K/mm3 (0.84-5.20); LYMPHOCYTES PERCENT AUTO 25 % (21-46); MONOCYTES ABSOLUTE AUTO 0.54 K/mm3 (0.16-1.47); MONOCYTES PERCENT AUTO 8 % (4-13); Mean Corpuscular HGB 29.7 pg (26.0-34.0); Mean Corpuscular HGB Conc 31.5 g/dL (31.5-36.5); Mean Corpuscular Volume 94 fL (80-100); Mean Platelet Volume 12.1 fL (9.1-12.4); NEUTROPHILS ABSOLUTE AUTO 4.04 K/mm3 (1.96-9.15); NEUTROPHILS PERCENT AUTO 59 % (41-73); Platelet Count 121 K/mm3 (150-400); RDW Coefficient Variation 15.3 % (11.7-14.2); RDW Standard Deviation 52.8 fL (35.1-46.3); Red Blood Cell Count 2.12 M/mm3 (3.80-5.20); White Blood Cell Count 6.82 K/mm3 (4.00-11.30)
--- NOTE | 2022-11-05 14:45 | NUR ---
PT ADMITTED TO UNIT POST RENAL BX BLEED ON REPEAT IMMAGING. DR OLIVER IN TO ADMIT PT. PT NPO AT THIS TIME.HAD 2ND F/O CT AT APROX 1430. PT DENIES PAIN AT THIS TIME
[2022-11-05 14:47] LABS: International Normalized Ratio 0.98; Prothrombin Time Results 10.3 Sec (9.7-11.5)
[2022-11-05 14:53] LABS: Albumin, Blood 1.9 g/dL (3.4-5.0); Albumin/Globulin Ratio 0.5 (0.8-1.8); Bilirubin, Total 0.3 mg/dL (0.1-1.0); Bun/Creatinine Ratio 28.4 (12.0-20.0); Calcium, Blood 7.3 mg/dL (8.5-10.1); Creatinine, Blood 1.97 mg/dL (0.40-1.00); Globulin, Blood 3.7 g/dL (2.2-4.0); Potassium, Blood 3.9 mmol/L (3.5-5.5); Total Protein, Blood 5.6 g/dL (6.4-8.2)
--- NOTE | 2022-11-05 19:32 | NUR ---
IMAGING PT LEFT FOR IMAGING, IN NO DISTRESS.
[2022-11-05 20:37] LABS: Hematocrit 20.3 % (33.0-51.0); Hemoglobin 6.5 g/dL (11.5-16.0)
--- NOTE | 2022-11-05 21:15 | NUR ---
RADIOLOGY UPDATE DR PELAYO CALLED AND UPDATED ME, JAMAAL ORDOÑEZ, THAT THIS PATIENT HAS A GROWING RETROPERITONEAL HEMATOMA AND THAT THERE IS ONGOING BLEEDING AT THE INTERNAL BIOPSY SITE. DR BUCHANAN WAS THEN CALLED AND UPDATED ABOUT THIS, GAVE HIM DR ALEXANDER PHONE NUMBER. AWAITING A CALL BACK AT THIS TIME. PLAN TO CALL WITH FURTHER CONCERNS.
--- NOTE | 2022-11-05 21:24 | NUR ---
DR BUCHANAN UPDATE DR BUCHANAN CALLED BACK AFTER SPEAKING TO DR PELAYO AND INSTRUCTED ME TO GIVE THE PATIENT THE 1U OF PRBC THAT ARE ORDERED, DO AN H&H 15 MINUTES ATER, AND CONTINUE WITH THE ORDERED Q8 H&H CHECKS. INSTRUCTED TO TRANSFER THE PATIENT FOR INTERVENTIONAL RADIOLOGY IF THE PATIENTS LABS OR VITALS CONTINUE TO TREND DOWN
--- NOTE | 2022-11-06 02:51 | NUR ---
POD1 FOR A RIGHT KIDNEY BIOPSY. DRESSING ON RIGHT FLANK IS C/D/I. VSS. 1U PRCB INFUSED. PT REPORTS FEELING "BETTER". FIRST H&H POST INFUSION IS BEING DRAWN NOW. PLAN FOR Q8 H&H DRAWS. UNKNOWN IF THERE ARE PLANS FOR A REPEAT CT SCAN TODAY. IF LABS ARE STABLE PT SHOULD D/C HOME. NO N/V NOTED, PT TOLLERATING CLEAR LIQUID DIET. VOIDING AND PASSING STOOL W/O DIFFICULTY. THE PATIENT IS CURRENTLY RESTING IN BED, IN NO DISTRESS, CALL LIGHT IN REACH.
[2022-11-06 03:09] LABS: Hematocrit 22.7 % (33.0-51.0); Hemoglobin 7.5 g/dL (11.5-16.0)
[2022-11-06 04:10] LABS: Hematocrit 23.1 % (33.0-51.0); Hemoglobin 7.5 g/dL (11.5-16.0)
[2022-11-06 05:51] LABS: BASOPHILS ABSOLUTE AUTO 0.02 K/mm3 (0.00-0.23); BASOPHILS PERCENT AUTO 0 % (0-2); EOSINOPHILS ABSOLUTE AUTO 0.46 K/mm3 (0.00-0.68); EOSINOPHILS PERCENT AUTO 6 % (0-6); Hematocrit 22.8 % (33.0-51.0); Hemoglobin 7.5 g/dL (11.5-16.0); IMMATURE GRAN ABSOLUTE AUTO 0.03 K/mm3 (0.00-0.10); IMMATURE GRAN PERCENT AUTO 0 % (0-1); LYMPHOCYTES PERCENT AUTO 29 % (21-46); MONOCYTES ABSOLUTE AUTO 0.71 K/mm3 (0.16-1.47); MONOCYTES PERCENT AUTO 9 % (4-13); Mean Corpuscular HGB 29.5 pg (26.0-34.0); Mean Corpuscular HGB Conc 32.9 g/dL (31.5-36.5); Mean Corpuscular Volume 90 fL (80-100); Mean Platelet Volume 12.4 fL (9.1-12.4); NEUTROPHILS ABSOLUTE AUTO 4.61 K/mm3 (1.96-9.15); NEUTROPHILS PERCENT AUTO 56 % (41-73); Platelet Count 117 K/mm3 (150-400); RDW Coefficient Variation 15.6 % (11.7-14.2); RDW Standard Deviation 50.8 fL (35.1-46.3); Red Blood Cell Count 2.54 M/mm3 (3.80-5.20); White Blood Cell Count 8.23 K/mm3 (4.00-11.30)
[2022-11-06 06:15] LABS: Bun/Creatinine Ratio 26.6 (12.0-20.0); Calcium, Blood 7.4 mg/dL (8.5-10.1); Creatinine, Blood 1.88 mg/dL (0.40-1.00); Potassium, Blood 3.5 mmol/L (3.5-5.5)
--- NOTE | 2022-11-06 10:07 | NUR ---
PT REFUSED MEDICATION ADMINISTRATION BY RN SHE TOOK OWN HOME MEDS ROSENDO IN BY SISTER. PT STATES TOOK PROPRANOLOL ER 160MG, TOPIRAMATE 50MG, LISINOPRIL 40MG, AMLODIPINE 10MG, TORSEMIDE 20MG.
--- NOTE | 2022-11-06 11:04 | NUR ---
"Spiritual care | Pt. Request Pt. is awake in bed and welcomes my visit. Pts. sister is present. Pt. is pleasant and rapport is re-established. Pt. is waiting for results from recent scans, normalize the Pt. experience. Pt. displays evidence of encouragement and hope. Considered issues of william and belief. Prayed for Pt. pt. and sister both verbalized gratitude for the spiritual care visit."
[2022-11-06 12:26] LABS: Hematocrit 25.3 % (33.0-51.0); Hemoglobin 8.2 g/dL (11.5-16.0)
--- NOTE | 2022-11-06 17:53 | NUR ---
SHIFT SUMMARY PT HAS REMAINED STABLE T/O SHIFT. NO INCREASE IN PAIN AT/SURROUNDING INSERTION SITE. PT WORKED WITH THERAPY AND WALKER WAS DELIVERED BY [facility] FOR STABLILITY DUE TO RECENT RECCURENT FALLS AT HOME. PT ADVANCED TO LOW SODIUM DIET FOR DINNER. BLOOD GLUCOSE IMPROVED FROM ADMISSION. PLAN TO RE-SCAN IN AM.
[2022-11-07 05:54] LABS: BASOPHILS ABSOLUTE AUTO 0.03 K/mm3 (0.00-0.23); BASOPHILS PERCENT AUTO 0 % (0-2); EOSINOPHILS PERCENT AUTO 8 % (0-6); Hematocrit 22.5 % (33.0-51.0); Hemoglobin 7.2 g/dL (11.5-16.0); IMMATURE GRAN ABSOLUTE AUTO 0.03 K/mm3 (0.00-0.10); IMMATURE GRAN PERCENT AUTO 0 % (0-1); LYMPHOCYTES PERCENT AUTO 26 % (21-46); MONOCYTES ABSOLUTE AUTO 0.78 K/mm3 (0.16-1.47); MONOCYTES PERCENT AUTO 10 % (4-13); Mean Corpuscular HGB 28.9 pg (26.0-34.0); Mean Corpuscular Volume 90 fL (80-100); Mean Platelet Volume 11.7 fL (9.1-12.4); NEUTROPHILS ABSOLUTE AUTO 4.33 K/mm3 (1.96-9.15); NEUTROPHILS PERCENT AUTO 56 % (41-73); Platelet Count 118 K/mm3 (150-400); RDW Coefficient Variation 15.5 % (11.7-14.2); RDW Standard Deviation 50.4 fL (35.1-46.3); Red Blood Cell Count 2.49 M/mm3 (3.80-5.20); White Blood Cell Count 7.77 K/mm3 (4.00-11.30)
[2022-11-07 06:16] LABS: Bun/Creatinine Ratio 24.1 (12.0-20.0); Calcium, Blood 7.8 mg/dL (8.5-10.1); Creatinine, Blood 2.16 mg/dL (0.40-1.00); Potassium, Blood 3.5 mmol/L (3.5-5.5)
--- NOTE | 2022-11-07 07:15 | NUR ---
SUMMARY ALERT,TALKATIVE.NO DRESSING TO KIDNEY SITE.NO BLEEDING.
--- NOTE | 2022-11-07 15:13 | NUR ---
ASSUMED CARE OF PT FROM SARA Garcia RN. PT RESTING ON R SIDE IN BED. DENIES ANY NEEDS AT THIS TIME. CALL LIGHT IN REACH.
[2022-11-07 16:29] LABS: Hematocrit 21.2 % (33.0-51.0)
--- NOTE | 2022-11-07 17:08 | NUR ---
called DR OLIVER REGARDING H&H DC DISCHARGE ORDERS AND DR OLIVER PUTTING IN ORDERS TO TRANSFUSE 1 PRBCS. ADVISED PT. STARTED IV.
--- NOTE | 2022-11-08 05:04 | NUR ---
SHIFT SUMMARY PT HAS HAD A RESTFUL NIGHT OVERALL. SHE RECEIVED 1 UNIT OF PRBCS THAT WAS STARTED BY DAYSHIFT RN CLOSE TO SHIFT CHANGE. REPEAT H&H TO BE DONE THIS AM WITH PLANS FOR POSSIBLE DC TODAY PENDING LAB RESULTS. PT HAS BEEN INDEPENDENT IN ROOM. SHE REPORTS SOME SORENESS TO BIOPSY SITE BUT HAS NOT REQUESTED ANYTHING FOR PAIN, AND DENIES NEEDS WHEN ASKED. BIOPSY SITE WNL. NO ACUTE CHANGES OVERNIGHT. BED IN LOWEST POSITION, CALL LIGHT WITHIN REACH.
[2022-11-08 05:07] LABS: Hematocrit 24.8 % (33.0-51.0); Hemoglobin 8.3 g/dL (11.5-16.0)
[2022-11-08 06:15] LABS: BASOPHILS ABSOLUTE AUTO 0.02 K/mm3 (0.00-0.23); BASOPHILS PERCENT AUTO 0 % (0-2); EOSINOPHILS ABSOLUTE AUTO 0.52 K/mm3 (0.00-0.68); EOSINOPHILS PERCENT AUTO 7 % (0-6); Hematocrit 24.6 % (33.0-51.0); Hemoglobin 8.3 g/dL (11.5-16.0); IMMATURE GRAN ABSOLUTE AUTO 0.01 K/mm3 (0.00-0.10); IMMATURE GRAN PERCENT AUTO 0 % (0-1); LYMPHOCYTES ABSOLUTE AUTO 1.71 K/mm3 (0.84-5.20); LYMPHOCYTES PERCENT AUTO 23 % (21-46); MONOCYTES ABSOLUTE AUTO 0.79 K/mm3 (0.16-1.47); MONOCYTES PERCENT AUTO 11 % (4-13); Mean Corpuscular HGB 29.9 pg (26.0-34.0); Mean Corpuscular HGB Conc 33.7 g/dL (31.5-36.5); Mean Corpuscular Volume 89 fL (80-100); Mean Platelet Volume 11.7 fL (9.1-12.4); NEUTROPHILS ABSOLUTE AUTO 4.32 K/mm3 (1.96-9.15); NEUTROPHILS PERCENT AUTO 59 % (41-73); Platelet Count 115 K/mm3 (150-400); RDW Coefficient Variation 14.4 % (11.7-14.2); RDW Standard Deviation 46.7 fL (35.1-46.3); Red Blood Cell Count 2.78 M/mm3 (3.80-5.20); White Blood Cell Count 7.37 K/mm3 (4.00-11.30)
[2022-11-08 15:11] LABS: Hematocrit 25.5 % (33.0-51.0); Hemoglobin 8.5 g/dL (11.5-16.0)
--- NOTE | 2022-11-08 17:06 | NUR ---
DISCHARGE SUMMARY PT A/O X4; PLEASANT AND COOPERATIVE WITH CARE. H/H STABLE DURING THE SECOND DRAW AND CLEARED TO GO HOME. VSS. DISCHARGED HOME WITH SISTER.
[2022-11-08 17:08] LABS: Bun/Creatinine Ratio 28.5 (12.0-20.0); Calcium, Blood 7.5 mg/dL (8.5-10.1); Creatinine, Blood 1.79 mg/dL (0.40-1.00); Potassium, Blood 3.8 mmol/L (3.5-5.5)
== END 2022-11-08 17:05 | disposition home or self-care (01) ==
LOC: SURS 13:39
PROVIDERS: Internal Medicine; ADMIT Internal Medicine
DX: K91.871 Postprocedural hematoma of a digestive system organ or structure following other procedure (principal); I12.9 Hypertensive chronic kidney disease with stage 1 through stage 4 chronic kidney disease, or unspecified chronic kidney disease; N18.30 Chronic kidney disease, stage 3 unspecified; E11.22 Type 2 diabetes mellitus with diabetic chronic kidney disease; G43.909 Migraine, unspecified, not intractable, without status migrainosus; I50.32 Chronic diastolic (congestive) heart failure; I47.1 Supraventricular tachycardia; F32.A Depression, unspecified; F41.9 Anxiety disorder, unspecified; D62 Acute posthemorrhagic anemia; E11.40 Type 2 diabetes mellitus with diabetic neuropathy, unspecified; E11.319 Type 2 diabetes mellitus with unspecified diabetic retinopathy without macular edema; Z86.19 Personal history of other infectious and parasitic diseases; F15.11 Other stimulant abuse, in remission; K76.9 Liver disease, unspecified; Z79.899 Other long term (current) drug therapy
CPT/HCPCS: 36415; 74176; 74177; 80048; 80053; 82947; 85014; 85018; 85025; 85610; 85730; 86850; 86900; 86901; 86923; 97116; 97161; A9270; G0378; J1815; J7050; P9016; Q9967

== ENCOUNTER 2022-11-29 08:44 | Inpatient (IN) | payer MEDICARE, OTHER ==
[~2022-11-29] VITALS: Ht 152.4 cm; Wt 51.9 kg
[~2022-11-29 08:44] MED LIST changes: -AMLO10 PO; +AMLO5 PO; +PROPRANOLOL HC160 MG PO; -PROPRANOLOL HCL80 MG PO; +TRULICITY4.5 MG/0.5 SC; -TRULICITY4.5 MG/0.5 SQ
[2022-11-29 09:11] LABS: BASOPHILS ABSOLUTE AUTO 0.02 K/mm3 (0.00-0.23); BASOPHILS PERCENT AUTO 0 % (0-2); EOSINOPHILS ABSOLUTE AUTO 0.28 K/mm3 (0.00-0.68); EOSINOPHILS PERCENT AUTO 6 % (0-6); Hematocrit 33.4 % (33.0-51.0); Hemoglobin 11.2 g/dL (11.5-16.0); IMMATURE GRAN ABSOLUTE AUTO 0.01 K/mm3 (0.00-0.10); IMMATURE GRAN PERCENT AUTO 0 % (0-1); LYMPHOCYTES ABSOLUTE AUTO 1.37 K/mm3 (0.84-5.20); LYMPHOCYTES PERCENT AUTO 27 % (21-46); MONOCYTES ABSOLUTE AUTO 0.34 K/mm3 (0.16-1.47); MONOCYTES PERCENT AUTO 7 % (4-13); Mean Corpuscular HGB 29.5 pg (26.0-34.0); Mean Corpuscular HGB Conc 33.5 g/dL (31.5-36.5); Mean Corpuscular Volume 88 fL (80-100); Mean Platelet Volume 11.5 fL (9.1-12.4); NEUTROPHILS ABSOLUTE AUTO 2.99 K/mm3 (1.96-9.15); NEUTROPHILS PERCENT AUTO 60 % (41-73); Platelet Count 173 K/mm3 (150-400); RDW Coefficient Variation 15.4 % (11.7-14.2); RDW Standard Deviation 48.9 fL (35.1-46.3); White Blood Cell Count 5.01 K/mm3 (4.00-11.30)
[2022-11-29 09:25] LABS: Calcium, Ionized (POC) 1.34 mmol/L (1.10-1.46); Chloride (POC) 126 mmol/L (98-108); Creatinine (POC) 3.4 mg/dL (0.6-1.0); Glucose (ISTAT POC) 224 mg/dL (70-99); Hemoglobin (POC) 10.2 g/dL (12.0-16.0); Potassium (POC) 5.7 mmol/L (3.5-5.5); Sodium (POC) 142 mmol/L (135-148); Total CO2 (POC) 9 mmol/L (21-32)
[2022-11-29 09:27] LABS: International Normalized Ratio 0.96; Prothrombin Time Results 10.1 Sec (9.7-11.5)
[2022-11-29 09:30] LABS: Magnesium, Blood 2.8 mg/dL (1.6-2.4); Phosphorus, Blood 7.7 mg/dL (2.5-4.9)
[2022-11-29 09:31] LABS: Albumin, Blood 2.7 g/dL (3.4-5.0); Albumin/Globulin Ratio 0.5 (0.8-1.8); Bilirubin, Total 0.5 mg/dL (0.1-1.0); Bun/Creatinine Ratio 49.3 (12.0-20.0); Calcium, Blood 9.1 mg/dL (8.5-10.1); Creatinine, Blood 3.02 mg/dL (0.40-1.00); Globulin, Blood 5.6 g/dL (2.2-4.0); Potassium, Blood 5.5 mmol/L (3.5-5.5); Total Protein, Blood 8.3 g/dL (6.4-8.2)
[2022-11-29 10:20] LABS: Bicarbonate Venous 8.9 mmol/L (24.0-30.0); PCO2 Venous 26.5 mmHg (38-42)
[2022-11-29 10:25] LABS: pH Blood Venous 7.05 (7.34-7.37)
[2022-11-29] MEDS ORDERED: VITAMIN D5000 UNIT PO (13:50)
[2022-11-29] MEDS ORDERED: LISI20 PO (13:50)
--- NOTE | 2022-11-29 14:32 | NUR ---
PT ARRIVED TO ICU 12 FROM ED. PT STOOD AND TRANSFERRED TO BED WITH MODERATE ASSIST. PT ALERT, ORIENTED TO PERSON AND PLACE. WHEN ASKED THE DATE SHE GETS STUCK REPEATING OCTOBER, EVEN WHEN ASKED WHAT THE YEAR IS. LUNGS ARE CLEAR, RA. PT'S SISTER AT BEDSIDE AND UPDATED ON PLAN OF CARE. MED LIST UPDATED FROM LIST SISTER PROVIDED. PT RESTING QUIETLY. BED ALARM ON.
[2022-11-29 15:44] LABS: Albumin, Blood 2.4 g/dL (3.4-5.0); Anion Gap 8 mmol/L (6-16); Blood Urea Nitrogen 137 mg/dL (8-24); Bun/Creatinine Ratio 51.9 (12.0-20.0); CO2, Blood 10 mmol/L (21-32); Calcium, Blood 8.3 mg/dL (8.5-10.1); Chloride, Blood 126 mmol/L (98-108); Creatinine, Blood 2.64 mg/dL (0.40-1.00); Glomerular Filtration Rate 20 (60-); Glucose, Blood 287 mg/dL (70-99); Phosphorus, Blood 6.4 mg/dL (2.5-4.9); Potassium, Blood 4.6 mmol/L (3.5-5.5); Sodium, Blood 144 mmol/L (136-145)
[2022-11-29 15:52] LABS: Source, Urine Straight Cath
[2022-11-29 16:20] LABS: Bilirubin, Urine Neg (Neg); Blood, Urine 1+ (Neg); Glucose Qualitative, Urine 2+ (Neg); Ketones, Urine Neg (Neg); Leukocyte Esterase, Urine 1+ (Neg); Nitrite, Urine Neg (Neg); Protein, Urine 3+ (Neg); Urobilinogen, Urine NORM (Normal)
[2022-11-29 16:32] LABS: Appearance, Urine Hazy (Clear); Color, Urine Yellow (P-Yellow)
[2022-11-29 16:34] LABS: Amorphous Light (0-Heavy); Bacteria Mod /hpf; Hyaline Casts 0-2 /lpf (0-2); Squamous Epithelial Cells Few /hpf (Few)
--- NOTE | 2022-11-29 17:29 | NUR ---
SHIFT SUMMARY PT HAS BEEN RESTING WHEN LEFT ALONE. SHE REMAINS ALERT, ORIENTED TO PERSON AND PLACE. SHE TAKES AWHILE TO PROCESS COMMANDS, BUT IS ABLE TO EVENTUALLY FOLLOW THEM. SHE WAS ABLE TO GET UP TO THE COMMODE TO VOID WITH ASSISTANCE AND LOTS OF GUIDANCE. LUNGS ARE CLEAR, RA, SR. PT HAS 2 SISTERS AT THE BEDSIDE THAT TEND TO SPEAK FOR HER WHEN PRESENT. BOTH WERE UPDATED. CONTINUE TO MONITOR.
--- NOTE | 2022-11-29 23:19 | NUR ---
ASSUMPTION OF CARE/ASSESSMENT: ASSUMED CARE OF PT AT 1900. PT IS IN BED AND A&O X 2; PT IS ABLE TO STATE ONLY FIRST NAME, AND CITY/STATE CORRECTLY. PT IS CURRENTLY ON RA WITH SPO2 98< AND RR 20-22. PT SR MONITOR WITH HR IN THE 90'S AND SBP 130'S; NO C/O CHEST PAIN OR SOB. PT ABD FLAT WITH HYPERACTIVE BOWEL SOUNDS PRESENT; GOOD PO INTAKE. PPP X 4, SKIN INTACT AND WARM. PT HAS RAC PIC PRESENT AND PATENT; SODIUM BICARB GTT @ 100 MLS/HR. DR TORRES ASSESSED PT VIA TELEHEALTH AT 2144; NO NEW ORDERS RECIEVED. PT ABLE TO USE CALL LIGHT APPROPRIATELY, BED LOWERED, WILL CONTINUE TO MONITOR.
[2022-11-30 03:18] LABS: BASOPHILS ABSOLUTE AUTO 0.01 K/mm3 (0.00-0.23); BASOPHILS PERCENT AUTO 0 % (0-2); EOSINOPHILS ABSOLUTE AUTO 0.24 K/mm3 (0.00-0.68); EOSINOPHILS PERCENT AUTO 4 % (0-6); Hematocrit 22.8 % (33.0-51.0); Hemoglobin 7.9 g/dL (11.5-16.0); IMMATURE GRAN ABSOLUTE AUTO 0.02 K/mm3 (0.00-0.10); IMMATURE GRAN PERCENT AUTO 0 % (0-1); LYMPHOCYTES PERCENT AUTO 25 % (21-46); MONOCYTES ABSOLUTE AUTO 0.44 K/mm3 (0.16-1.47); MONOCYTES PERCENT AUTO 7 % (4-13); Mean Corpuscular HGB 29.4 pg (26.0-34.0); Mean Corpuscular HGB Conc 34.6 g/dL (31.5-36.5); Mean Corpuscular Volume 85 fL (80-100); Mean Platelet Volume 11.1 fL (9.1-12.4); NEUTROPHILS ABSOLUTE AUTO 3.89 K/mm3 (1.96-9.15); NEUTROPHILS PERCENT AUTO 64 % (41-73); Platelet Count 120 K/mm3 (150-400); RDW Coefficient Variation 14.9 % (11.7-14.2); RDW Standard Deviation 45.4 fL (35.1-46.3); Red Blood Cell Count 2.69 M/mm3 (3.80-5.20)
[2022-11-30 03:34] LABS: Albumin, Blood 2.1 g/dL (3.4-5.0); Anion Gap 8 mmol/L (6-16); Blood Urea Nitrogen 124 mg/dL (8-24); Bun/Creatinine Ratio 56.4 (12.0-20.0); CO2, Blood 15 mmol/L (21-32); Calcium, Blood 7.9 mg/dL (8.5-10.1); Chloride, Blood 122 mmol/L (98-108); Glomerular Filtration Rate 25 (60-); Glucose, Blood 244 mg/dL (70-99); Phosphorus, Blood 5.1 mg/dL (2.5-4.9); Potassium, Blood 3.5 mmol/L (3.5-5.5); Sodium, Blood 145 mmol/L (136-145)
--- NOTE | 2022-11-30 06:28 | NUR ---
SHIFT SUMMARY: NO ACUTE CHANGES OVERNIGHT. PT WAS ABLE TO SLEEP THROUGHOUT THE NIGHT. PT UP TO BEDSIDE COMMODE TWICE WITH SBA TO HELP WITH CORDS. VS STABLE THROUGHOUT THE SHIFT. SODIUM BICARB GTT @ 100 MLS. PT USES CALL LIGHT APPROPRIATELY, BED LOWERED, WILL CONTINUE TO MONITOR UNTIL ONCOMING RN ARRIVES.
--- NOTE | 2022-11-30 07:19 | NUR ---
Assumed care at approximately 0700. Report received from nightshift RN. Pt sleeping in bed, on RA. Bicarb infusing at 100 ml/hr. VS stable, no acute needs ATT. Continue to monitor.
--- NOTE | 2022-11-30 16:20 | NUR ---
TRANSFERRED PATIENT AT APPROXIMATELY 1610. VS STABLE, NO ACUTE NEEDS AT TIME OF TRANSFER. ALL PATIENT BELONGINGS SENT WITH PATIENT TO 327.
--- NOTE | 2022-11-30 23:32 | NUR ---
TRANSFER NOTE/SHIFT SUMMARY PT TRANSFERRED FROM PCU TO MED FLOOR TODAY AT APPROX 1630. PT IS AxOx3 WITH OCCASIONAL FORGETFULNESS. PT DENIES PAIN THIS SHIFT. FAMILY IN ROOM FOR SUPPORT. PER WIRELESS TELEGRAPHER, TELE RUNNING SR, VIVI CLEAR T/O. VS REVIEWED. PT IS CURRENTLY RESTING IN BED WITH CALL LIGHT IN REACH. BED ALARM ON FOR IMPULSIVITY AND WEAKNESS.
--- NOTE | 2022-12-01 05:37 | NUR ---
SHIFT SUMMARY PATIENT DENIES PAIN, NAUSEA, AND SHORTNESS OF BREATH. PATIENT IS A SBA WITH THE FWW. PATIENT STEADY, BUT NEEDS HELP WITH IV POLE. BICARB RUNNING AT 100MLS/HR. PATIENT SLEPT MOST OF SHIFT, GETTING UP TWICE TO USE RESTROOM. PATIENT A&O X3 THIS SHIFT. PATIENT VERY PLEASANT AND COOPERATIVE WITH CARE.
[2022-12-01 07:33] LABS: BASOPHILS ABSOLUTE AUTO 0.01 K/mm3 (0.00-0.23); BASOPHILS PERCENT AUTO 0 % (0-2); EOSINOPHILS ABSOLUTE AUTO 0.21 K/mm3 (0.00-0.68); EOSINOPHILS PERCENT AUTO 3 % (0-6); Hemoglobin 8.6 g/dL (11.5-16.0); IMMATURE GRAN ABSOLUTE AUTO 0.01 K/mm3 (0.00-0.10); IMMATURE GRAN PERCENT AUTO 0 % (0-1); LYMPHOCYTES ABSOLUTE AUTO 1.78 K/mm3 (0.84-5.20); LYMPHOCYTES PERCENT AUTO 25 % (21-46); MONOCYTES ABSOLUTE AUTO 0.55 K/mm3 (0.16-1.47); MONOCYTES PERCENT AUTO 8 % (4-13); Mean Corpuscular HGB 29.2 pg (26.0-34.0); Mean Corpuscular HGB Conc 33.1 g/dL (31.5-36.5); Mean Corpuscular Volume 88 fL (80-100); Mean Platelet Volume 11.4 fL (9.1-12.4); NEUTROPHILS ABSOLUTE AUTO 4.49 K/mm3 (1.96-9.15); NEUTROPHILS PERCENT AUTO 64 % (41-73); Platelet Count 120 K/mm3 (150-400); RDW Coefficient Variation 14.9 % (11.7-14.2); RDW Standard Deviation 47.4 fL (35.1-46.3); Red Blood Cell Count 2.95 M/mm3 (3.80-5.20); White Blood Cell Count 7.05 K/mm3 (4.00-11.30)
[2022-12-01 07:54] LABS: Albumin, Blood 2.2 g/dL (3.4-5.0); Albumin/Globulin Ratio 0.4 (0.8-1.8); Bilirubin, Total 0.5 mg/dL (0.1-1.0); Bun/Creatinine Ratio 43.2 (12.0-20.0); Calcium, Blood 7.9 mg/dL (8.5-10.1); Creatinine, Blood 1.92 mg/dL (0.40-1.00); Potassium, Blood 3.8 mmol/L (3.5-5.5); Total Protein, Blood 7.2 g/dL (6.4-8.2)
--- NOTE | 2022-12-01 18:20 | NUR ---
SHIFT SUMMARY- PT AAOX2 TODAY. CONFUSED ABOUT DATE AND PLACE. X1 TO BATHOOM. CALM AND PLEASANT.
--- NOTE | 2022-12-01 20:11 | NUR ---
NURSE NOTE--PHYSICIAN CONTACT PT ELEVATED ABP 174; CALL TO MANAGER DOMESTIC/DR CAMARENA; NEW ORDER FOR NORVASC 5MG PO DAILY AT BEDTIME.
[2022-12-02 07:26] LABS: BASOPHILS ABSOLUTE AUTO 0.01 K/mm3 (0.00-0.23); BASOPHILS PERCENT AUTO 0 % (0-2); EOSINOPHILS ABSOLUTE AUTO 0.19 K/mm3 (0.00-0.68); EOSINOPHILS PERCENT AUTO 3 % (0-6); Hematocrit 22.4 % (33.0-51.0); Hemoglobin 7.5 g/dL (11.5-16.0); IMMATURE GRAN ABSOLUTE AUTO 0.02 K/mm3 (0.00-0.10); IMMATURE GRAN PERCENT AUTO 0 % (0-1); LYMPHOCYTES ABSOLUTE AUTO 1.09 K/mm3 (0.84-5.20); LYMPHOCYTES PERCENT AUTO 15 % (21-46); MONOCYTES ABSOLUTE AUTO 0.49 K/mm3 (0.16-1.47); MONOCYTES PERCENT AUTO 7 % (4-13); Mean Corpuscular HGB 29.5 pg (26.0-34.0); Mean Corpuscular HGB Conc 33.5 g/dL (31.5-36.5); Mean Corpuscular Volume 88 fL (80-100); Mean Platelet Volume 11.3 fL (9.1-12.4); NEUTROPHILS ABSOLUTE AUTO 5.32 K/mm3 (1.96-9.15); NEUTROPHILS PERCENT AUTO 75 % (41-73); Platelet Count 90 K/mm3 (150-400); RDW Coefficient Variation 14.5 % (11.7-14.2); Red Blood Cell Count 2.54 M/mm3 (3.80-5.20); White Blood Cell Count 7.12 K/mm3 (4.00-11.30)
[2022-12-02 07:46] LABS: Anion Gap 3 mmol/L (6-16); Blood Urea Nitrogen 69 mg/dL (8-24); Bun/Creatinine Ratio 37.5 (12.0-20.0); CO2, Blood 24 mmol/L (21-32); Calcium, Blood 7.9 mg/dL (8.5-10.1); Chloride, Blood 115 mmol/L (98-108); Creatinine, Blood 1.84 mg/dL (0.40-1.00); Glomerular Filtration Rate 31 (60-); Glucose, Blood 123 mg/dL (70-99); Phosphorus, Blood 3.6 mg/dL (2.5-4.9); Potassium, Blood 3.8 mmol/L (3.5-5.5); Sodium, Blood 142 mmol/L (136-145)
--- NOTE | 2022-12-02 07:48 | NUR ---
INFORMATION TECHNOLOGY INTERN SUMMARY PT A/OX3. SBP >170; CALL TO SEAMING MACHINE OPERATOR/DR CAMARENA--NEW ORDER FOR 5MG NORVASC DAILY AT BEDTIME. PT PLEASANT AND COOERATIVE. SLEPT WELL T/O THE NIGHT. ABLE TO MAKE NEEDS KNOWN. CALL LIGHT ACCESSIBLE. BED LOCKED/LOW.
--- NOTE | 2022-12-02 12:14 | NUR ---
PT DC IN STABLE CONDITION HOME WITH HOME HEALTH. SISTER TOOK PT HOME. MORGAN ORDOÑEZ BROUGHT PT DOWN TO CAR. ALL BELONGINGS WITH PT.
[2022-12-03] MEDS ORDERED: PAXIL40 MG PO (17:40)
[2022-12-03] MEDS ORDERED: SPIR50 PO (17:41)
[2022-12-03] MEDS ORDERED: BUME1 PO (17:41)
[2022-12-03] MEDS ORDERED: TORSE20 PO (17:41)
[2022-12-03] MEDS ORDERED: Dyazide 37.5-21 EACH PO (17:42)
--- NOTE | 2022-12-08 22:33 | NUR ---
REVIEWED INFORMATION FOR PT'S CURRENT ADMISSION
== END 2022-12-02 12:18 | disposition home health service (06) | DRG 682 ==
LOC: ER 08:44 → ICUW 12:08 → MEDS 11-30 16:13
PROVIDERS: Emergency Medicine; Internal Medicine; Internal Medicine Nephrology; ADMIT Family Medicine
DX: N17.9 Acute kidney failure, unspecified (principal); G93.41 Metabolic encephalopathy; E72.20 Disorder of urea cycle metabolism, unspecified; E87.20 Acidosis, unspecified; I13.0 Hypertensive heart and chronic kidney disease with heart failure and stage 1 through stage 4 chronic kidney disease, or unspecified chronic kidney disease; I50.32 Chronic diastolic (congestive) heart failure; E87.0 Hyperosmolality and hypernatremia; Z66 Do not resuscitate; E11.22 Type 2 diabetes mellitus with diabetic chronic kidney disease; K74.60 Unspecified cirrhosis of liver; F41.9 Anxiety disorder, unspecified; F32.A Depression, unspecified; B18.2 Chronic viral hepatitis C; I35.2 Nonrheumatic aortic (valve) stenosis with insufficiency; N18.30 Chronic kidney disease, stage 3 unspecified; J44.9 Chronic obstructive pulmonary disease, unspecified; K76.9 Liver disease, unspecified; K29.70 Gastritis, unspecified, without bleeding; E87.8 Other disorders of electrolyte and fluid balance, not elsewhere classified; E11.42 Type 2 diabetes mellitus with diabetic polyneuropathy; K72.90 Hepatic failure, unspecified without coma; F17.210 Nicotine dependence, cigarettes, uncomplicated; K76.82 Hepatic encephalopathy; H81.399 Other peripheral vertigo, unspecified ear; F43.10 Post-traumatic stress disorder, unspecified; E11.21 Type 2 diabetes mellitus with diabetic nephropathy; E78.5 Hyperlipidemia, unspecified; E86.0 Dehydration; F15.11 Other stimulant abuse, in remission; E11.319 Type 2 diabetes mellitus with unspecified diabetic retinopathy without macular edema; G43.709 Chronic migraine without aura, not intractable, without status migrainosus; B95.1 Streptococcus, group B, as the cause of diseases classified elsewhere; Z98.890 Other specified postprocedural states; Z90.710 Acquired absence of both cervix and uterus; Z90.722 Acquired absence of ovaries, bilateral; Z88.8 Allergy status to other drugs, medicaments and biological substances; Z79.899 Other long term (current) drug therapy; Z79.4 Long term (current) use of insulin; Z79.811 Long term (current) use of aromatase inhibitors
CPT/HCPCS: 36415; 70450; 71045; 80047; 80053; 80069; 81001; 82140; 82803; 82947; 83735; 83880; 84100; 84145; 84484; 85014; 85025; 85610; 87040; 87086; 87147; 93005; 93010; 96361; 96365; 96366; 97110; 97161; 97165; 97530; 97535; 99285-25; A9270; J1644; J1815; J7030; J7070

== ENCOUNTER 2022-12-05 07:35 | Emergency (ER) | payer MEDICARE, OTHER ==
[~2022-12-05] VITALS: Ht 157.5 cm; Wt 54.4 kg
[~2022-12-05 07:35] MED LIST changes: +BUME1 PO; +Dyazide 37.5-21 EACH PO; +PAXIL40 MG PO; +VITAMIN D5000 UNIT PO
== END 2022-12-05 08:26 | disposition home or self-care (01) ==
LOC: ER 07:35
DX: Z48.00 Encounter for change or removal of nonsurgical wound dressing (principal); H73.22 Unspecified myringitis, left ear; I13.0 Hypertensive heart and chronic kidney disease with heart failure and stage 1 through stage 4 chronic kidney disease, or unspecified chronic kidney disease; I50.30 Unspecified diastolic (congestive) heart failure; N18.30 Chronic kidney disease, stage 3 unspecified; E11.22 Type 2 diabetes mellitus with diabetic chronic kidney disease; E11.40 Type 2 diabetes mellitus with diabetic neuropathy, unspecified; J44.9 Chronic obstructive pulmonary disease, unspecified; Z87.891 Personal history of nicotine dependence; Z88.6 Allergy status to analgesic agent; Z88.8 Allergy status to other drugs, medicaments and biological substances; Z79.899 Other long term (current) drug therapy; Z79.4 Long term (current) use of insulin
CPT/HCPCS: 99282

== ENCOUNTER 2022-12-08 17:27 | Inpatient (IN) | payer MEDICARE, OTHER ==
[~2022-12-08] VITALS: Ht 152.4 cm; Wt 55.7 kg
[2022-12-08 19:59] LABS: BASOPHILS ABSOLUTE AUTO 0.01 K/mm3 (0.00-0.23); BASOPHILS PERCENT AUTO 0 % (0-2); EOSINOPHILS ABSOLUTE AUTO 0.14 K/mm3 (0.00-0.68); EOSINOPHILS PERCENT AUTO 2 % (0-6); Hematocrit 20.7 % (33.0-51.0); Hemoglobin 6.9 g/dL (11.5-16.0); IMMATURE GRAN ABSOLUTE AUTO 0.04 K/mm3 (0.00-0.10); IMMATURE GRAN PERCENT AUTO 1 % (0-1); LYMPHOCYTES ABSOLUTE AUTO 1.22 K/mm3 (0.84-5.20); LYMPHOCYTES PERCENT AUTO 17 % (21-46); MONOCYTES ABSOLUTE AUTO 0.64 K/mm3 (0.16-1.47); MONOCYTES PERCENT AUTO 9 % (4-13); Mean Corpuscular HGB 29.1 pg (26.0-34.0); Mean Corpuscular HGB Conc 33.3 g/dL (31.5-36.5); Mean Corpuscular Volume 87 fL (80-100); Mean Platelet Volume 11.7 fL (9.1-12.4); NEUTROPHILS ABSOLUTE AUTO 5.07 K/mm3 (1.96-9.15); NEUTROPHILS PERCENT AUTO 71 % (41-73); Platelet Count 153 K/mm3 (150-400); RDW Standard Deviation 43.8 fL (35.1-46.3); Red Blood Cell Count 2.37 M/mm3 (3.80-5.20); White Blood Cell Count 7.12 K/mm3 (4.00-11.30)
[2022-12-08 20:30] LABS: Albumin, Blood 1.8 g/dL (3.4-5.0); Albumin/Globulin Ratio 0.3 (0.8-1.8); Bilirubin, Total 0.3 mg/dL (0.1-1.0); Bun/Creatinine Ratio 35.4 (12.0-20.0); Calcium, Blood 9.5 mg/dL (8.5-10.1); Creatinine, Blood 1.44 mg/dL (0.40-1.00); Globulin, Blood 5.5 g/dL (2.2-4.0); Potassium, Blood 3.7 mmol/L (3.5-5.5); Total Protein, Blood 7.3 g/dL (6.4-8.2)
[2022-12-08 22:01] LABS: International Normalized Ratio 0.98; Prothrombin Time Results 10.3 Sec (9.7-11.5)
[2022-12-08] MEDS ORDERED: TOPI50 PO (22:36)
[2022-12-08] MEDS ORDERED: AMOX-CLAV 500-1 EAC5 PO (22:39)
[2022-12-08] MEDS ORDERED: NEOMYCIN-POLYMY10 ML BOTHEARS (22:40)
[2022-12-09 04:51] LABS: BASOPHILS ABSOLUTE AUTO 0.02 K/mm3 (0.00-0.23); BASOPHILS PERCENT AUTO 0 % (0-2); EOSINOPHILS ABSOLUTE AUTO 0.13 K/mm3 (0.00-0.68); EOSINOPHILS PERCENT AUTO 2 % (0-6); Hematocrit 23.3 % (33.0-51.0); IMMATURE GRAN ABSOLUTE AUTO 0.03 K/mm3 (0.00-0.10); IMMATURE GRAN PERCENT AUTO 1 % (0-1); LYMPHOCYTES ABSOLUTE AUTO 1.43 K/mm3 (0.84-5.20); LYMPHOCYTES PERCENT AUTO 22 % (21-46); MONOCYTES ABSOLUTE AUTO 0.67 K/mm3 (0.16-1.47); MONOCYTES PERCENT AUTO 10 % (4-13); Mean Corpuscular HGB 29.5 pg (26.0-34.0); Mean Corpuscular HGB Conc 34.3 g/dL (31.5-36.5); Mean Corpuscular Volume 86 fL (80-100); Mean Platelet Volume 11.4 fL (9.1-12.4); NEUTROPHILS ABSOLUTE AUTO 4.32 K/mm3 (1.96-9.15); NEUTROPHILS PERCENT AUTO 65 % (41-73); Platelet Count 134 K/mm3 (150-400); RDW Coefficient Variation 13.6 % (11.7-14.2); Red Blood Cell Count 2.71 M/mm3 (3.80-5.20)
--- NOTE | 2022-12-09 05:16 | NUR ---
PATIENT ALERT AND ORIENTED, [place] DUE TO RIGHT EAR INFECTION, ULTRAM ORDERED FOR PAIN, ROOM AIR, NO TELE, NPO, CONSULT FOR GI FOR MELENA CALLED THIS AM, 20 RAC W/ LR @75, I UNIT PRBC ADMINISTERED 12/08, HGB NOW 8, UP AD RICHA, ACHS, NO EVENTS OVERNIGHT
[2022-12-09 05:18] LABS: Magnesium, Blood 1.8 mg/dL (1.6-2.4)
[2022-12-09 05:38] LABS: Albumin, Blood 1.7 g/dL (3.4-5.0); Albumin/Globulin Ratio 0.3 (0.8-1.8); Bilirubin, Total 0.5 mg/dL (0.1-1.0); Bun/Creatinine Ratio 33.8 (12.0-20.0); Calcium, Blood 8.7 mg/dL (8.5-10.1); Creatinine, Blood 1.42 mg/dL (0.40-1.00); Globulin, Blood 4.9 g/dL (2.2-4.0); Potassium, Blood 3.3 mmol/L (3.5-5.5); Total Protein, Blood 6.6 g/dL (6.4-8.2)
[2022-12-09] MEDS ORDERED: Ventolin/Prove6.7 GM INH (19:31)
--- NOTE | 2022-12-09 20:00 | NUR ---
SHIFT SUMMARY PTN VERY [place] DUE TO INFECTION IN EARS. PTN HAD SCAN OF EARS AND DR ACEVEDO REVIEWED. PTN SISTER JAYLEEN ADVOCATING FOR PTN AND PRESENT MOST OF SHIFT. DR ACEVEDO COMMUNICATED WITH PTN ON THE WHITE BOARD, EXPLAINING FINDINGS IN EARS AND PLAN. PTN WAS NPO FOR MOST OF DAY AND OFFERED A MEAL TRY WHEN IT WAS BELIEVED AN UPPER GI WOULD NOT BE DONE TODAY. POSSIBLE GI SCOPE TO BE DONE TOMORROW. IV ANTIBIOTICS AND DROPS FOR EARS. CONTINUE TO FOLLOW.
[2022-12-10 05:26] LABS: BASOPHILS ABSOLUTE AUTO 0.01 K/mm3 (0.00-0.23); BASOPHILS PERCENT AUTO 0 % (0-2); EOSINOPHILS ABSOLUTE AUTO 0.21 K/mm3 (0.00-0.68); EOSINOPHILS PERCENT AUTO 4 % (0-6); Hematocrit 23.5 % (33.0-51.0); IMMATURE GRAN ABSOLUTE AUTO 0.04 K/mm3 (0.00-0.10); IMMATURE GRAN PERCENT AUTO 1 % (0-1); LYMPHOCYTES ABSOLUTE AUTO 1.17 K/mm3 (0.84-5.20); LYMPHOCYTES PERCENT AUTO 21 % (21-46); MONOCYTES ABSOLUTE AUTO 0.44 K/mm3 (0.16-1.47); MONOCYTES PERCENT AUTO 8 % (4-13); Mean Corpuscular HGB 29.5 pg (26.0-34.0); Mean Corpuscular Volume 87 fL (80-100); Mean Platelet Volume 11.3 fL (9.1-12.4); NEUTROPHILS ABSOLUTE AUTO 3.65 K/mm3 (1.96-9.15); NEUTROPHILS PERCENT AUTO 66 % (41-73); Platelet Count 161 K/mm3 (150-400); RDW Coefficient Variation 13.9 % (11.7-14.2); RDW Standard Deviation 43.6 fL (35.1-46.3); Red Blood Cell Count 2.71 M/mm3 (3.80-5.20); White Blood Cell Count 5.52 K/mm3 (4.00-11.30)
--- NOTE | 2022-12-10 05:42 | NUR ---
PATIENT ALERT AND ORIENTED, VERY [place] DUE TO RIGHT EAR INFECTION, ON ANTIBIOTIC DROPS FOR OTITIS, ROOM AIR, NO TELE, UP AD RICHA, 20 RAC SL, NPO AT MIDNIGHT FOR EGD BUT GI SIGNED OFF STATING DR ACEVEDO GAVE DIET ORDER SO PATIENT COULD DO EGD OUTPATIENT WITH DR RAYGOZA, POSSIBLE DISCHARGE HOME TODAY. NO EVENTS OVERNIGHT
[2022-12-10 05:48] LABS: Albumin, Blood 1.6 g/dL (3.4-5.0); Albumin/Globulin Ratio 0.3 (0.8-1.8); Bilirubin, Total 0.2 mg/dL (0.1-1.0); Bun/Creatinine Ratio 24.4 (12.0-20.0); Calcium, Blood 8.7 mg/dL (8.5-10.1); Creatinine, Blood 1.8 mg/dL (0.40-1.00); Globulin, Blood 5.2 g/dL (2.2-4.0); Potassium, Blood 3.2 mmol/L (3.5-5.5); Total Protein, Blood 6.8 g/dL (6.4-8.2)
--- NOTE | 2022-12-10 15:54 | NUR ---
SHIFT SUMMARY PT AWAKE DURING SHIFT REPORT, RESTING QUIETLY. PT P[place] AT THIS TIME D/T EAR INFECTION. DR ACEVEDO TO EARLY TO SEE PT. PT CLEARED TO EAT; ADA DIET ORDERED. HX OF CIRRHOSIS, HEP C, CKD 3, HTN, AND DM. PT'S SISTER LATER IN TO SEE PT, ASKING MULTIPLE QUESTIONS. SISTER REQUESTING DIURETICS BE D/C'D. DR ACEVEDO NOTIFIED; NEW ORDERS PLACED. PT UP INDEPENDENTLY IN AND TO [facility]. NO C/O PAIN. CALL LT IN REACH. DENIED FURTHER NEEDS AT THIS TIME.
[2022-12-11 04:49] LABS: BASOPHILS ABSOLUTE AUTO 0.02 K/mm3 (0.00-0.23); BASOPHILS PERCENT AUTO 0 % (0-2); EOSINOPHILS ABSOLUTE AUTO 0.32 K/mm3 (0.00-0.68); EOSINOPHILS PERCENT AUTO 5 % (0-6); Hematocrit 23.3 % (33.0-51.0); IMMATURE GRAN ABSOLUTE AUTO 0.06 K/mm3 (0.00-0.10); IMMATURE GRAN PERCENT AUTO 1 % (0-1); LYMPHOCYTES ABSOLUTE AUTO 1.65 K/mm3 (0.84-5.20); LYMPHOCYTES PERCENT AUTO 24 % (21-46); MONOCYTES ABSOLUTE AUTO 0.55 K/mm3 (0.16-1.47); MONOCYTES PERCENT AUTO 8 % (4-13); Mean Corpuscular HGB 29.5 pg (26.0-34.0); Mean Corpuscular HGB Conc 34.3 g/dL (31.5-36.5); Mean Corpuscular Volume 86 fL (80-100); Mean Platelet Volume 10.9 fL (9.1-12.4); NEUTROPHILS ABSOLUTE AUTO 4.27 K/mm3 (1.96-9.15); NEUTROPHILS PERCENT AUTO 62 % (41-73); Platelet Count 175 K/mm3 (150-400); RDW Coefficient Variation 14.1 % (11.7-14.2); RDW Standard Deviation 43.4 fL (35.1-46.3); Red Blood Cell Count 2.71 M/mm3 (3.80-5.20); White Blood Cell Count 6.87 K/mm3 (4.00-11.30)
[2022-12-11 05:19] LABS: Albumin, Blood 1.8 g/dL (3.4-5.0); Albumin/Globulin Ratio 0.4 (0.8-1.8); Bilirubin, Total 0.2 mg/dL (0.1-1.0); Bun/Creatinine Ratio 28.2 (12.0-20.0); Calcium, Blood 8.4 mg/dL (8.5-10.1); Creatinine, Blood 1.88 mg/dL (0.40-1.00); Globulin, Blood 5.1 g/dL (2.2-4.0); Potassium, Blood 3.4 mmol/L (3.5-5.5); Total Protein, Blood 6.9 g/dL (6.4-8.2)
[2022-12-11] MEDS ORDERED: Acetaminophen325 M1 PO (14:19)
--- NOTE | 2022-12-11 16:39 | NUR ---
PT AWAKE DURING SHIFT REPORT. [place] D/T EAR INFECTION, BUT HEARING IMPROVING WITH MEDICATION. UP INDEPENDENTLY TO BTHRM AND AROUND . DR GARCIA IN TO SEE PT AND SISTER; DISCUSSED PLAN OF CARE. DR GARCIA WAITING FOR DR PERDOMO TO ADVISE ON EAR MEDICATION. DR GARCIA LATER TO TO DISCUSS PLAN OF CARE AND DISCHARGE INSTRUCTIONS. D/C ORDERS PLACED. MEDS FAXED TO [facility] PER PT REQUEST. D/C INSTRUCTIONS REVIEWED WITH PT AND SISTER; VERBALIZED UNDERSTANDING. PT ASSISTER OUT TO CAR VIA W/C WITH ALL BELONGINGS.
== END 2022-12-11 15:07 | disposition home or self-care (01) | DRG 812 ==
LOC: ER 17:27 → MEDS 17:28
PROVIDERS: Family Medicine; Student in an Organized Health Care Education/Training Program; ADMIT Student in an Organized Health Care Education/Training Program
PROC: 30233N1 Transfusion of Nonautologous Red Blood Cells into Peripheral Vein, Percutaneous Approach (ICD-10-PCS; principal; 2022-12-08)
DX: D62 Acute posthemorrhagic anemia (principal); K92.1 Melena; F17.213 Nicotine dependence, cigarettes, with withdrawal; I13.0 Hypertensive heart and chronic kidney disease with heart failure and stage 1 through stage 4 chronic kidney disease, or unspecified chronic kidney disease; I50.32 Chronic diastolic (congestive) heart failure; K92.2 Gastrointestinal hemorrhage, unspecified; K74.60 Unspecified cirrhosis of liver; H91.93 Unspecified hearing loss, bilateral; G43.709 Chronic migraine without aura, not intractable, without status migrainosus; H66.93 Otitis media, unspecified, bilateral; F32.A Depression, unspecified; F41.9 Anxiety disorder, unspecified; R04.0 Epistaxis; E11.22 Type 2 diabetes mellitus with diabetic chronic kidney disease; B18.2 Chronic viral hepatitis C; N18.30 Chronic kidney disease, stage 3 unspecified; I35.2 Nonrheumatic aortic (valve) stenosis with insufficiency; K29.70 Gastritis, unspecified, without bleeding; E11.319 Type 2 diabetes mellitus with unspecified diabetic retinopathy without macular edema; H92.03 Otalgia, bilateral; H72.93 Unspecified perforation of tympanic membrane, bilateral; K72.90 Hepatic failure, unspecified without coma; E78.5 Hyperlipidemia, unspecified; J44.9 Chronic obstructive pulmonary disease, unspecified; F43.10 Post-traumatic stress disorder, unspecified; E11.42 Type 2 diabetes mellitus with diabetic polyneuropathy; Z98.890 Other specified postprocedural states; Z90.710 Acquired absence of both cervix and uterus; Z88.8 Allergy status to other drugs, medicaments and biological substances; Z79.899 Other long term (current) drug therapy; Z79.4 Long term (current) use of insulin; Z90.722 Acquired absence of ovaries, bilateral; Z79.2 Long term (current) use of antibiotics
CPT/HCPCS: 36415; 36430; 70482; 80053; 82140; 82272; 82947; 83735; 85025; 85610; 86850; 86900; 86901; 86923; 96375; 96376; 97110; 97116; 97161; 97165; 97535; 99284-25; A9270; C9113; G0378; J0696; J1815; J7030; J7120; P9016; Q9967

== ENCOUNTER 2023-01-13 13:40 | Inpatient (IN) | payer MEDICARE, OTHER ==
[~2023-01-13] VITALS: Ht 152.4 cm; Wt 57.4 kg
[~2023-01-13 13:40] MED LIST changes: +AMOX-CLAV 500-1 EAC5 PO; +Acetaminophen325 M1 PO; +NEOMYCIN-POLYMY10 ML BOTHEARS; +Ventolin/Prove6.7 GM INH
[2023-01-13 14:21] LABS: BASOPHILS ABSOLUTE AUTO 0.01 K/mm3 (0.00-0.23); BASOPHILS PERCENT AUTO 0 % (0-2); EOSINOPHILS ABSOLUTE AUTO 0.31 K/mm3 (0.00-0.68); EOSINOPHILS PERCENT AUTO 5 % (0-6); Hematocrit 22.8 % (33.0-51.0); Hemoglobin 7.5 g/dL (11.5-16.0); IMMATURE GRAN ABSOLUTE AUTO 0.01 K/mm3 (0.00-0.10); IMMATURE GRAN PERCENT AUTO 0 % (0-1); LYMPHOCYTES PERCENT AUTO 22 % (21-46); MONOCYTES ABSOLUTE AUTO 0.41 K/mm3 (0.16-1.47); MONOCYTES PERCENT AUTO 7 % (4-13); Mean Corpuscular HGB 29.5 pg (26.0-34.0); Mean Corpuscular HGB Conc 32.9 g/dL (31.5-36.5); Mean Corpuscular Volume 90 fL (80-100); Mean Platelet Volume 10.6 fL (9.1-12.4); NEUTROPHILS ABSOLUTE AUTO 3.89 K/mm3 (1.96-9.15); NEUTROPHILS PERCENT AUTO 66 % (41-73); Platelet Count 112 K/mm3 (150-400); RDW Coefficient Variation 15.2 % (11.7-14.2); RDW Standard Deviation 49.4 fL (35.1-46.3); Red Blood Cell Count 2.54 M/mm3 (3.80-5.20); White Blood Cell Count 5.93 K/mm3 (4.00-11.30)
[2023-01-13 14:37] LABS: Albumin, Blood 2.3 g/dL (3.4-5.0); Albumin/Globulin Ratio 0.5 (0.8-1.8); Bilirubin, Total 0.3 mg/dL (0.1-1.0); Bun/Creatinine Ratio 24.1 (12.0-20.0); Calcium, Blood 9.3 mg/dL (8.5-10.1); Creatinine, Blood 1.91 mg/dL (0.40-1.00); Globulin, Blood 4.4 g/dL (2.2-4.0); Potassium, Blood 3.7 mmol/L (3.5-5.5); Total Protein, Blood 6.7 g/dL (6.4-8.2)
[2023-01-13 17:31] LABS: International Normalized Ratio 0.96; Prothrombin Time Results 10.1 Sec (9.7-11.5)
--- NOTE | 2023-01-13 22:31 | NUR ---
PATIENT TO ROOM FROM ER AT 1999. PATIENT IS ALERT AND ORIENTED X4. CAN BE FORGETFUL. 02 SATS >93 ON RA. DENIES SOB. HR ST 102, BP HYPERTENSIVE WITH NICARDIPINE INFUSING ON ARRIVAL. SYSTOLIC DROPPED TO 140s, DR. MAYERS NOTIFIED AND PO MEDICATION GIVEN AND NICARDIPNE STOPPED. PARAMETERS TO RESTART NICARDIPINE AND MAINTAIN BP <180, AND TURN OFF IF SYSTOLC <140. PATIENT DENIES CP/PRESSURE. CALLED PATIENTS SISTER WHO HELPS WITH HEALTH DECISIONS TO VERIFY MEDICATIONS. PATIENT AND HER SISTER ALSO AGREED THAT PATIENT WANTS TO BE A DNI. 1 UNIT PRBCs INFUSED. PATIENT INDEPENDENT IN THE BED. CALL LIGHT IN REACH
[2023-01-14 03:28] LABS: Hematocrit 24.2 % (33.0-51.0); Mean Corpuscular HGB Conc 33.1 g/dL (31.5-36.5); Mean Corpuscular Volume 88 fL (80-100); Mean Platelet Volume 10.6 fL (9.1-12.4); Platelet Count 95 K/mm3 (150-400); RDW Coefficient Variation 15.1 % (11.7-14.2); RDW Standard Deviation 47.8 fL (35.1-46.3); Red Blood Cell Count 2.76 M/mm3 (3.80-5.20); White Blood Cell Count 7.16 K/mm3 (4.00-11.30)
[2023-01-14 03:47] LABS: Bun/Creatinine Ratio 26.8 (12.0-20.0); Calcium, Blood 8.6 mg/dL (8.5-10.1); Creatinine, Blood 1.9 mg/dL (0.40-1.00); Potassium, Blood 3.3 mmol/L (3.5-5.5)
--- NOTE | 2023-01-14 05:44 | NUR ---
SHIFT SUMMARY PATIENT REMIANS ALERT AND ORIENTED X4. 02 SATS >93% ON RA, DENIES SOB. HR SR 80s, BP HYPERTENSIVE BUT REMAINS <180, NICARDIPINE GTT IS OFF, SEE FLOW SHEET. DENIES CP PRESSURE. UP TO BEDSIDE COMMADE, 1 PERSON ASSIST. INDEPENDENT IN BED. CALL LIGHT IN REACH
--- NOTE | 2023-01-14 09:22 | NUR ---
CARE OF PT ASSUMED AT 0700. PT AWAKE AND ALERT WITH SISTER AT THE BEST SIDE. PT C/O ANDERSON 12/25. C/O HEART BURN FROM K+. DENIES C/O CHEST PAIN, SOB. CRACKERS RELIEVED HEART BURN. BP TRENDING DOWN. NICARDIPINE GTT HAS BEEN OFF. PT SBA TO COMMODE THEN UP TO CHAIR FOR BREAKFAST. DR ORDOÑEZ PLACED NEW ORDERS. PT NOW MED STATUS W TELE.
--- NOTE | 2023-01-14 11:47 | NUR ---
PT TO HAVE MRI AT 1200, PT STATES SHE IS CLAUSTROPHOBIC. DR OLIVER CALLED, ATIVAN 1MG PO ORDERED AND GIVEN.
--- NOTE | 2023-01-14 12:03 | NUR ---
PT TO MRI AT 1150 VIA W/C.
--- NOTE | 2023-01-14 15:28 | NUR ---
Pt. is awake and sitting in a recliner and welcomes my visit. Pt. is pleasant. Pt. is unsettled about an unclear diagnosis. Listen with empathy and a calm presence. Facilitate a life review that included some family health history. Pt. didsplayed evidence of being aware and engaged. Rapport is established. Prayed with pt. Pt. verbalized gratitude for the spiritual care visit.
--- NOTE | 2023-01-14 16:04 | NUR ---
P.T. AND O.T. WORKED WITH PT TODAY. PT UP TO CHAIR FOR ENTIRE SHIFT. LABETALOL 10MG GIVEN ONCE FOR SBP >180. FAMILY AT BEDSIDE VISITING NOW, PT W/O COMPLAINTS.
--- NOTE | 2023-01-14 19:50 | NUR ---
SHIFT SUMMARY PTN TRANSFER FROM ICU AT 1700. PTN ACCOMPANIED BY HER SISTER JAYLEEN WHO SHE LIVES WITH AND WHO CARES FOR HER. PTN RESTS COMFORTABLY END SHIFT. REPORT GIVEN TO TECHNICAL SUPPORT [employer] TIAGO GAMEZ.
[2023-01-15 05:44] LABS: BASOPHILS ABSOLUTE AUTO 0.01 K/mm3 (0.00-0.23); BASOPHILS PERCENT AUTO 0 % (0-2); EOSINOPHILS ABSOLUTE AUTO 0.26 K/mm3 (0.00-0.68); EOSINOPHILS PERCENT AUTO 6 % (0-6); Hematocrit 24.4 % (33.0-51.0); IMMATURE GRAN ABSOLUTE AUTO 0.01 K/mm3 (0.00-0.10); IMMATURE GRAN PERCENT AUTO 0 % (0-1); LYMPHOCYTES ABSOLUTE AUTO 1.37 K/mm3 (0.84-5.20); LYMPHOCYTES PERCENT AUTO 31 % (21-46); MONOCYTES ABSOLUTE AUTO 0.37 K/mm3 (0.16-1.47); MONOCYTES PERCENT AUTO 8 % (4-13); Mean Corpuscular HGB 29.2 pg (26.0-34.0); Mean Corpuscular HGB Conc 32.8 g/dL (31.5-36.5); Mean Corpuscular Volume 89 fL (80-100); Mean Platelet Volume 11.3 fL (9.1-12.4); NEUTROPHILS ABSOLUTE AUTO 2.38 K/mm3 (1.96-9.15); NEUTROPHILS PERCENT AUTO 54 % (41-73); Platelet Count 82 K/mm3 (150-400); RDW Standard Deviation 48.7 fL (35.1-46.3); Red Blood Cell Count 2.74 M/mm3 (3.80-5.20)
[2023-01-15 06:00] LABS: Albumin/Globulin Ratio 0.5 (0.8-1.8); Bilirubin, Total 0.3 mg/dL (0.1-1.0); Calcium, Blood 8.1 mg/dL (8.5-10.1); Creatinine, Blood 2.3 mg/dL (0.40-1.00); Globulin, Blood 3.9 g/dL (2.2-4.0); Potassium, Blood 3.9 mmol/L (3.5-5.5); Total Protein, Blood 5.9 g/dL (6.4-8.2)
--- NOTE | 2023-01-15 07:51 | NUR ---
REELING MACHINE OPERATOR SUMMARY PATIENT SLEPT INTERMITTANTLY OVERNIGHT. NO CONFUSION, OR VERTIGO NOTED. BP'S STAYED IN THE 150'S TO 160'S THROUGHOUT THE SHIFT. PATIENT IS ALERT AND ORIENTED X4. QUIET, BUT PLEASANT AND COOPERATIVE WITH CARE. MAKES HER NEEDS KNOWN. LOOKING FORWARD TO GOING HOME SOON.
--- NOTE | 2023-01-15 16:37 | NUR ---
SHIFT SUMMARY: PATIENT A&OX4. CALM, PLEASANT AND COOPERATIVE c CARE. USES CALL LIGHT APPROPRIATELY AND ABLE TO MAKE NEEDS KNOWN. PATIENT WORK c PT/OT MOBILITY THIS AM. PT/OT RECOMMENEDED HH SERVICES. PATIENT AMBULATES TO BATHROOM c MINIMAL ASSIST. PATIENT HAD SHOWER AND TOLERATED WELL. DENIES SOB, CP/PRESSURE, N/V, AND GENERALIZED PAIN. PATIENT WAS OOB AND SITTING UP IN THE CHAIR FOR ABOUT 2 HRS THIS PM. ON TELE, SR HR 89 BPM T/O SHIFT, PER KNOCKOUT WORKER. SBP RANGES 160'S-180'S THIS SHIFT. RECEIVED SCHEDULED MEDS PER EMAR. IV TO LAC SALINE LOCKED. CALL LIGHT IN REACH.
[2023-01-16 05:30] LABS: BASOPHILS ABSOLUTE AUTO 0.01 K/mm3 (0.00-0.23); BASOPHILS PERCENT AUTO 0 % (0-2); EOSINOPHILS ABSOLUTE AUTO 0.39 K/mm3 (0.00-0.68); EOSINOPHILS PERCENT AUTO 7 % (0-6); Hematocrit 24.4 % (33.0-51.0); Hemoglobin 7.9 g/dL (11.5-16.0); IMMATURE GRAN ABSOLUTE AUTO 0.02 K/mm3 (0.00-0.10); IMMATURE GRAN PERCENT AUTO 0 % (0-1); LYMPHOCYTES ABSOLUTE AUTO 1.27 K/mm3 (0.84-5.20); LYMPHOCYTES PERCENT AUTO 22 % (21-46); MONOCYTES ABSOLUTE AUTO 0.49 K/mm3 (0.16-1.47); MONOCYTES PERCENT AUTO 8 % (4-13); Mean Corpuscular HGB 28.8 pg (26.0-34.0); Mean Corpuscular HGB Conc 32.4 g/dL (31.5-36.5); Mean Corpuscular Volume 89 fL (80-100); Mean Platelet Volume 11.5 fL (9.1-12.4); NEUTROPHILS ABSOLUTE AUTO 3.71 K/mm3 (1.96-9.15); NEUTROPHILS PERCENT AUTO 63 % (41-73); Platelet Count 93 K/mm3 (150-400); RDW Coefficient Variation 14.8 % (11.7-14.2); Red Blood Cell Count 2.74 M/mm3 (3.80-5.20); White Blood Cell Count 5.89 K/mm3 (4.00-11.30)
--- NOTE | 2023-01-16 06:02 | NUR ---
PATIENT IS ALERT AND ORIENTED X4, COOPERATIVE WITH CARE. STRICT I/O'S THIS SHIFT. HOWEVER, NO FLUID RESTRICTIONS ARE ORDERED? BLE EDEMA 3+ WITH NEW ONSET SMALL SCATTERED BLISTERS. LUNGS ARE CLEAR, TELE AFIB WITH BBB. NO PAIN OR SOB. WILL CONT TO MONITOR.
[2023-01-16 06:15] LABS: Bun/Creatinine Ratio 27.5 (12.0-20.0); Calcium, Blood 7.5 mg/dL (8.5-10.1); Potassium, Blood 3.6 mmol/L (3.5-5.5)
--- NOTE | 2023-01-16 06:22 | NUR ---
PATIENT SLEPT WELL THROUGH THE NIGHT, ORIENTED X4, TELE NS, HTN, OTHERWISE VSS. NO OTHER ISSUES TO REPORT.
[2023-01-16] MEDS ORDERED: CATAPRES0.1 MG PO (12:36)
--- NOTE | 2023-01-16 13:16 | NUR ---
SHIFT/DISCHARGE SUMMARY: PATIENT A&OX4. CALM, PLEASANT, AND COOPERATIVE c CARE. USES CALL LIGHT APPROPRIATELY AND ABLE TO MAKE NEEDS KNOWN. PATIENT DENIES CP/PRESSURE, SOB, N/V AND GENERALIZED PAIN. PATIENT ON TELE, SR HR AT 76 BPM, PER BIOFUELS PRODUCTION TECHNICIAN NOMI. PATIENT AMBULATES IN ROOM INDEPENDENTLY. CONTINENT OF URINE AND STOOL. PATIENT SBP IN THE 150'S IT'S IMPROVING. VITAL SIGNS REVIEWED. RECEIVED SCHEDULED MEDS PER EMAR. IV TO LAC DC'D. PATIENT DISCHARGE HOME. DISCHARGE INSTRUCTION PACKET GIVEN TO PATIENT. EDUCATE PATIENT REGARDING ADMITTING DX, S/S, TX AND NEW PRESCRIBED MEDICATIONS. PATIENT AND SISTER AT BEDSIDE STATED UNDERSTANDIMG AND NO FURTHER QUESTIONS. RX WAS FAXED TO PATIENT PREFERRED PHARMACY. ALL PATIENT PERSONAL BELONGINGS WERE SENT HOME c THE PATIENT. PATIENT LEFT THE ROOM AT AROUND 1315. PATIENT WAS TRANSPORTED VIA WHEELCHAIR BY VENEER STAPLER STAFF, [place] TO PATIENT SISTER VEHICLE.
== END 2023-01-16 13:23 | disposition home or self-care (01) | DRG 305 ==
LOC: ER 13:40 → ICUW 13:41 → ICUE 13:41 → MEDS 01-14 16:59
PROVIDERS: Emergency Medicine; Internal Medicine; Student in an Organized Health Care Education/Training Program; ADMIT Internal Medicine
PROC: 30233N1 Transfusion of Nonautologous Red Blood Cells into Peripheral Vein, Percutaneous Approach (ICD-10-PCS; principal; 2023-01-13)
DX: I16.0 Hypertensive urgency (principal); I16.1 Hypertensive emergency; N17.9 Acute kidney failure, unspecified; I50.32 Chronic diastolic (congestive) heart failure; K74.60 Unspecified cirrhosis of liver; E11.22 Type 2 diabetes mellitus with diabetic chronic kidney disease; N18.30 Chronic kidney disease, stage 3 unspecified; Z66 Do not resuscitate; D63.1 Anemia in chronic kidney disease; F41.8 Other specified anxiety disorders; B18.2 Chronic viral hepatitis C; I35.2 Nonrheumatic aortic (valve) stenosis with insufficiency; I13.0 Hypertensive heart and chronic kidney disease with heart failure and stage 1 through stage 4 chronic kidney disease, or unspecified chronic kidney disease; J44.9 Chronic obstructive pulmonary disease, unspecified; E11.42 Type 2 diabetes mellitus with diabetic polyneuropathy; F43.10 Post-traumatic stress disorder, unspecified; E11.319 Type 2 diabetes mellitus with unspecified diabetic retinopathy without macular edema; G43.709 Chronic migraine without aura, not intractable, without status migrainosus; E78.5 Hyperlipidemia, unspecified; F15.11 Other stimulant abuse, in remission; R41.0 Disorientation, unspecified; H81.399 Other peripheral vertigo, unspecified ear; Z87.19 Personal history of other diseases of the digestive system; Z88.8 Allergy status to other drugs, medicaments and biological substances; Z79.899 Other long term (current) drug therapy; Z79.4 Long term (current) use of insulin; Z79.2 Long term (current) use of antibiotics; Z79.51 Long term (current) use of inhaled steroids; Z98.890 Other specified postprocedural states; Z90.710 Acquired absence of both cervix and uterus; Z90.722 Acquired absence of ovaries, bilateral; Z87.891 Personal history of nicotine dependence
CPT/HCPCS: 36415; 36430; 70551; 71046; 80048; 80053; 82947; 84484; 85025; 85027; 85610; 86850; 86900; 86901; 86923; 93005; 93010; 94760; 96365; 96372; 96375; 96376; 97110; 97161; 97165; 97530; 97535; 99285-25; A9270; G0378; J0360; J1644; J1815; J2405; J7030; J7050; P9016

== ENCOUNTER → 2023-01-18 | Outpatient (CLI) | payer MEDICARE, OTHER ==
[~2023-01-18] MED LIST changes: +CATAPRES0.1 MG PO
[2023-01-18 15:44] LABS: BASOPHILS ABSOLUTE AUTO 0.01 K/mm3 (0.00-0.23); BASOPHILS PERCENT AUTO 0 % (0-2); EOSINOPHILS ABSOLUTE AUTO 0.39 K/mm3 (0.00-0.68); EOSINOPHILS PERCENT AUTO 8 % (0-6); Hematocrit 26.4 % (33.0-51.0); Hemoglobin 8.8 g/dL (11.5-16.0); IMMATURE GRAN ABSOLUTE AUTO 0.01 K/mm3 (0.00-0.10); IMMATURE GRAN PERCENT AUTO 0 % (0-1); LYMPHOCYTES ABSOLUTE AUTO 1.26 K/mm3 (0.84-5.20); LYMPHOCYTES PERCENT AUTO 25 % (21-46); MONOCYTES ABSOLUTE AUTO 0.36 K/mm3 (0.16-1.47); MONOCYTES PERCENT AUTO 7 % (4-13); Mean Corpuscular HGB 29.8 pg (26.0-34.0); Mean Corpuscular HGB Conc 33.3 g/dL (31.5-36.5); Mean Corpuscular Volume 90 fL (80-100); Mean Platelet Volume 11.1 fL (9.1-12.4); NEUTROPHILS PERCENT AUTO 60 % (41-73); Platelet Count 116 K/mm3 (150-400); RDW Coefficient Variation 15.1 % (11.7-14.2); RDW Standard Deviation 48.3 fL (35.1-46.3); Red Blood Cell Count 2.95 M/mm3 (3.80-5.20); White Blood Cell Count 5.13 K/mm3 (4.00-11.30)
[2023-01-18 15:54] LABS: Albumin, Blood 2.3 g/dL (3.4-5.0); Albumin/Globulin Ratio 0.5 (0.8-1.8); Bilirubin, Total 0.3 mg/dL (0.1-1.0); Bun/Creatinine Ratio 19.8 (12.0-20.0); Calcium, Blood 8.7 mg/dL (8.5-10.1); Creatinine, Blood 2.07 mg/dL (0.40-1.00); Globulin, Blood 4.4 g/dL (2.2-4.0); Potassium, Blood 3.8 mmol/L (3.5-5.5); Total Protein, Blood 6.7 g/dL (6.4-8.2)
== END | disposition home or self-care (01) ==
LOC: LAB 15:37 → LAB SHORT 15:37
PROVIDERS: Family Medicine
DX: I10 Essential (primary) hypertension (principal); D64.9 Anemia, unspecified; R07.89 Other chest pain
CPT/HCPCS: 80053; 84484; 85025; 85379

== ENCOUNTER 2023-01-29 10:03 | Emergency (ER) | payer MEDICARE, OTHER ==
[~2023-01-29] VITALS: Ht 154.9 cm; Wt 58.1 kg
[2023-01-29 13:00] VITALS: BP 208/88
[2023-01-29] MEDS ORDERED: AMOCLA875 PO (13:03)
== END 2023-01-29 13:25 | disposition home or self-care (01) ==
LOC: ER 10:03
DX: R04.0 Epistaxis (principal); I13.0 Hypertensive heart and chronic kidney disease with heart failure and stage 1 through stage 4 chronic kidney disease, or unspecified chronic kidney disease; I50.30 Unspecified diastolic (congestive) heart failure; N18.30 Chronic kidney disease, stage 3 unspecified; E11.22 Type 2 diabetes mellitus with diabetic chronic kidney disease; J44.9 Chronic obstructive pulmonary disease, unspecified; E11.40 Type 2 diabetes mellitus with diabetic neuropathy, unspecified; Z88.6 Allergy status to analgesic agent; Z88.8 Allergy status to other drugs, medicaments and biological substances; Z79.899 Other long term (current) drug therapy; Z79.4 Long term (current) use of insulin; Z87.891 Personal history of nicotine dependence
CPT/HCPCS: 30903; 99283-25; A9270

== ENCOUNTER 2023-05-06 17:27 | Inpatient (IN) | payer MEDICARE, OTHER ==
[~2023-05-06] VITALS: Ht 152.4 cm; Wt 57.7 kg
[~2023-05-06 17:27] MED LIST changes: +AMOCLA875 PO; +POTCHL20ER PO
[2023-05-06 18:01] LABS: BASOPHILS ABSOLUTE AUTO 0.02 K/mm3 (0.00-0.23); BASOPHILS PERCENT AUTO 0 % (0-2); EOSINOPHILS ABSOLUTE AUTO 0.76 K/mm3 (0.00-0.68); EOSINOPHILS PERCENT AUTO 9 % (0-6); Hematocrit 25.7 % (33.0-51.0); Hemoglobin 8.4 g/dL (11.5-16.0); IMMATURE GRAN ABSOLUTE AUTO 0.03 K/mm3 (0.00-0.10); IMMATURE GRAN PERCENT AUTO 0 % (0-1); LYMPHOCYTES ABSOLUTE AUTO 1.64 K/mm3 (0.84-5.20); LYMPHOCYTES PERCENT AUTO 18 % (21-46); MONOCYTES ABSOLUTE AUTO 0.53 K/mm3 (0.16-1.47); MONOCYTES PERCENT AUTO 6 % (4-13); Mean Corpuscular HGB 28.4 pg (26.0-34.0); Mean Corpuscular HGB Conc 32.7 g/dL (31.5-36.5); Mean Corpuscular Volume 87 fL (80-100); Mean Platelet Volume 11.5 fL (9.1-12.4); NEUTROPHILS ABSOLUTE AUTO 5.94 K/mm3 (1.96-9.15); NEUTROPHILS PERCENT AUTO 67 % (41-73); Platelet Count 150 K/mm3 (150-400); RDW Coefficient Variation 15.1 % (11.7-14.2); RDW Standard Deviation 47.4 fL (35.1-46.3); Red Blood Cell Count 2.96 M/mm3 (3.80-5.20); White Blood Cell Count 8.92 K/mm3 (4.00-11.30)
[2023-05-06 18:38] LABS: Albumin, Blood 2.6 g/dL (3.4-5.0); Albumin/Globulin Ratio 0.5 (0.8-1.8); Bilirubin, Total 0.6 mg/dL (0.1-1.0); Bun/Creatinine Ratio 15.7 (12.0-20.0); Creatinine, Blood 2.99 mg/dL (0.40-1.00); Globulin, Blood 4.9 g/dL (2.2-4.0); Total Protein, Blood 7.5 g/dL (6.4-8.2)
[2023-05-06] MEDS ORDERED: TORSE20 (19:28)
[2023-05-07 00:25] VITALS: BP 177/80
[2023-05-07] MEDS ORDERED: SPIR25 PO (00:32)
[2023-05-07] MEDS ORDERED: TORS10 PO (00:33)
[2023-05-07 01:15] LABS: BASOPHILS ABSOLUTE AUTO 0.03 K/mm3 (0.00-0.23); BASOPHILS PERCENT AUTO 0 % (0-2); EOSINOPHILS ABSOLUTE AUTO 0.55 K/mm3 (0.00-0.68); EOSINOPHILS PERCENT AUTO 6 % (0-6); Hematocrit 27.3 % (33.0-51.0); Hemoglobin 8.9 g/dL (11.5-16.0); IMMATURE GRAN ABSOLUTE AUTO 0.03 K/mm3 (0.00-0.10); IMMATURE GRAN PERCENT AUTO 0 % (0-1); LYMPHOCYTES ABSOLUTE AUTO 1.47 K/mm3 (0.84-5.20); LYMPHOCYTES PERCENT AUTO 16 % (21-46); MONOCYTES ABSOLUTE AUTO 0.42 K/mm3 (0.16-1.47); MONOCYTES PERCENT AUTO 5 % (4-13); Mean Corpuscular HGB 28.3 pg (26.0-34.0); Mean Corpuscular HGB Conc 32.6 g/dL (31.5-36.5); Mean Corpuscular Volume 87 fL (80-100); Mean Platelet Volume 11.8 fL (9.1-12.4); NEUTROPHILS PERCENT AUTO 72 % (41-73); Platelet Count 150 K/mm3 (150-400); RDW Coefficient Variation 15.3 % (11.7-14.2); RDW Standard Deviation 47.1 fL (35.1-46.3); Red Blood Cell Count 3.15 M/mm3 (3.80-5.20)
[2023-05-07 02:24] LABS: Albumin, Blood 2.7 g/dL (3.4-5.0); Albumin/Globulin Ratio 0.6 (0.8-1.8); Bilirubin, Total 0.6 mg/dL (0.1-1.0); Bun/Creatinine Ratio 14.9 (12.0-20.0); Calcium, Blood 9.1 mg/dL (8.5-10.1); Creatinine, Blood 3.08 mg/dL (0.40-1.00); Globulin, Blood 4.9 g/dL (2.2-4.0); Potassium, Blood 3.8 mmol/L (3.5-5.5); Total Protein, Blood 7.6 g/dL (6.4-8.2)
--- NOTE | 2023-05-07 04:45 | NUR ---
REPORT FROM ED RN- PT TRANSRERRED TO ROOM VIA GURARASH- PT ON 2L VIA NC- PT AMBULATED TO BR WITHOUT PROBLEMS, ASSESSED PT FOR RISK OF IGNITION SOURCE, PT DENIED HAVING IGNITION SOURCE- ADMIT ASSESSMENT DONE- PT REQUESTED SNACK- PT ATE SNACK WITHOUT C/O NAUSEA- BED LOW POSITION, CALL LIGHT WITHIN REACH
[2023-05-07 05:34] VITALS: BP 179/77
[2023-05-07] MEDS ORDERED: BASAGLAR K100 UNIT/1 SC (06:09)
[2023-05-07 06:30] LABS: Source, Urine Clean Catch
[2023-05-07 06:33] LABS: Bilirubin, Urine Neg (Neg); Blood, Urine 2+ (Neg); Glucose Qualitative, Urine 2+ (Neg); Ketones, Urine Neg (Neg); Leukocyte Esterase, Urine Neg (Neg); Nitrite, Urine Neg (Neg); Protein, Urine 4+ (Neg); Urobilinogen, Urine NORM (Normal)
[2023-05-07 07:18] LABS: Appearance, Urine Hazy (Clear); Color, Urine Pale Yellow (P-Yellow)
[2023-05-07 07:25] LABS: Bacteria Many /hpf; Squamous Epithelial Cells Rare /hpf (Few); White Blood Cells, Urine 0-2 /hpf (0-5)
[2023-05-07 07:36] VITALS: BP 176/81
[2023-05-07 15:37] VITALS: BP 163/77
--- NOTE | 2023-05-07 19:40 | NUR ---
SUMMARY- PT A/O X4. INDEPENDANT TO BATHROOM. RECEIVING DIURETICS AND VOIDING. STRICT I/O. PT HAS DECREASED APPETITE. DENIES PAIN. LUNGS HAVE CRACKLES IN THE BASES. EDEMA TO LE +1-2, RESOLVING. ARMS +1-2 EDEMA AND RESOLVING WELL. PT HAD ECHO DONE TODAY. SISTERS AT BEDSIDE ON/OFF ALL DAY, INVOLVED IN PT CARE. REPORT TO VICENTE ORDOÑEZ
[2023-05-07 20:14] VITALS: BP 169/79
[2023-05-08 03:36] VITALS: BP 178/75
--- NOTE | 2023-05-08 06:15 | NUR ---
Shift Summary AOx4, independent in the room, strict I+O. Pt slept well t/o the night. Only trace edema was noted BLE although pt still c/o difficulty breathing and a cough. HoB elevated 35 degrees. Pt has high systolic BP around 178, MAP of 109. Spoke to hospitalist about BP who reviewed her chart and BP meds, no new orders.
--- NOTE | 2023-05-08 08:00 | NUR ---
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 trace edema noted to b/l ankles and tops of feet, ppp+1, cap refill <3sec, vs stable, afebrile, btx4, voids without diff, skin c/w/d, maew, up ad josiah in room, gait steady, nikhil, call light in reach.
[2023-05-08 08:22] VITALS: BP 179/70
[2023-05-08 14:37] VITALS: BP 160/77
[2023-05-08 16:17] VITALS: BP 174/78
--- NOTE | 2023-05-08 18:15 | NUR ---
pt had lots of company today, is doing well, states she is breathing easier, no acute changes this shift. call light in reach.
[2023-05-08 20:55] VITALS: BP 174/75
[2023-05-09] VITALS (7 sets, daily range): BP systolic 151–177; BP diastolic 67–79
--- NOTE | 2023-05-09 06:55 | NUR ---
BP'S RUNNING HIGH IN THE 170'S OVER 70'S. APPRESOLINE ADDED QID AND AMLODIPINE MODIFIED TO BID. OK TO WAIT FOR AM ADMINISTRATION. NO OTHER CHANGES TO REPORT.
--- NOTE | 2023-05-09 08:15 | NUR ---
pt laying in bed awake a/ox4, pleasant and coopertive with care, follows commands well, reports woke up with a h/a, but already had tylenol, slept well last night, lungs are clear in upper sawyer, dim in bases, crackles very faint, no cough noted, on 2 liters o2 via n/c, hrr, murmur noted, very trace edema noted to b/l ankles, pppd+2, cap refill <3sec, vs stable, afebrile, iv site to lfa site is clear and patent, btx4, hypoactive, reports no bm since she has been in hosp, will ask for bowel care, voids without diff, skin c/w/d, nikhil decker, call light in reach.
[2023-05-09 10:02] LABS: BASOPHILS ABSOLUTE AUTO 0.01 K/mm3 (0.00-0.23); BASOPHILS PERCENT AUTO 0 % (0-2); EOSINOPHILS ABSOLUTE AUTO 0.42 K/mm3 (0.00-0.68); EOSINOPHILS PERCENT AUTO 7 % (0-6); Hematocrit 26.5 % (33.0-51.0); Hemoglobin 8.7 g/dL (11.5-16.0); IMMATURE GRAN ABSOLUTE AUTO 0.02 K/mm3 (0.00-0.10); IMMATURE GRAN PERCENT AUTO 0 % (0-1); LYMPHOCYTES ABSOLUTE AUTO 1.01 K/mm3 (0.84-5.20); LYMPHOCYTES PERCENT AUTO 17 % (21-46); MONOCYTES ABSOLUTE AUTO 0.39 K/mm3 (0.16-1.47); MONOCYTES PERCENT AUTO 7 % (4-13); Mean Corpuscular HGB 28.6 pg (26.0-34.0); Mean Corpuscular HGB Conc 32.8 g/dL (31.5-36.5); Mean Corpuscular Volume 87 fL (80-100); Mean Platelet Volume 11.8 fL (9.1-12.4); NEUTROPHILS PERCENT AUTO 69 % (41-73); Platelet Count 116 K/mm3 (150-400); RDW Coefficient Variation 14.9 % (11.7-14.2); RDW Standard Deviation 47.1 fL (35.1-46.3); Red Blood Cell Count 3.04 M/mm3 (3.80-5.20); White Blood Cell Count 5.95 K/mm3 (4.00-11.30)
[2023-05-09 10:13] LABS: Bun/Creatinine Ratio 17.1 (12.0-20.0); Calcium, Blood 8.9 mg/dL (8.5-10.1); Creatinine, Blood 3.22 mg/dL (0.40-1.00); Potassium, Blood 3.5 mmol/L (3.5-5.5)
--- NOTE | 2023-05-09 18:32 | NUR ---
pt was started on bowel care today and did have results, no acute changes this shift, call light in reach.
[2023-05-10] VITALS (8 sets, daily range): BP systolic 119–171; BP diastolic 58–86
[2023-05-10 05:16] LABS: BASOPHILS ABSOLUTE AUTO 0.02 K/mm3 (0.00-0.23); BASOPHILS PERCENT AUTO 0 % (0-2); EOSINOPHILS PERCENT AUTO 7 % (0-6); Hematocrit 24.8 % (33.0-51.0); Hemoglobin 7.9 g/dL (11.5-16.0); IMMATURE GRAN ABSOLUTE AUTO 0.03 K/mm3 (0.00-0.10); IMMATURE GRAN PERCENT AUTO 1 % (0-1); LYMPHOCYTES ABSOLUTE AUTO 1.34 K/mm3 (0.84-5.20); LYMPHOCYTES PERCENT AUTO 24 % (21-46); MONOCYTES ABSOLUTE AUTO 0.47 K/mm3 (0.16-1.47); MONOCYTES PERCENT AUTO 8 % (4-13); Mean Corpuscular HGB 28.1 pg (26.0-34.0); Mean Corpuscular HGB Conc 31.9 g/dL (31.5-36.5); Mean Corpuscular Volume 88 fL (80-100); Mean Platelet Volume 11.6 fL (9.1-12.4); NEUTROPHILS ABSOLUTE AUTO 3.36 K/mm3 (1.96-9.15); NEUTROPHILS PERCENT AUTO 60 % (41-73); Platelet Count 108 K/mm3 (150-400); RDW Coefficient Variation 14.9 % (11.7-14.2); RDW Standard Deviation 47.1 fL (35.1-46.3); Red Blood Cell Count 2.81 M/mm3 (3.80-5.20); White Blood Cell Count 5.62 K/mm3 (4.00-11.30)
[2023-05-10 05:43] LABS: Bun/Creatinine Ratio 18.2 (12.0-20.0); Creatinine, Blood 3.25 mg/dL (0.40-1.00); Potassium, Blood 3.5 mmol/L (3.5-5.5)
--- NOTE | 2023-05-10 06:29 | NUR ---
PATIENT REMAINS ALERT ANDORIENTED X4, COOPERATIVE WITH CARE. REPORTS SOME DIZZINESS WITH AMBULATION AND WAS COOPERATIVE WITH CALLING FOR A STAND BY ASSIST. SOME HTN, BUT LOOKS TO BE IMPROVING. CRACKLES IN THE BASES WITH A PRODUCTIVE COUGH. NO OTHER ISSUES TO REPORT.
--- NOTE | 2023-05-10 18:01 | NUR ---
PATIENT IS ALERT AND ORIENTED AND COOPERATIVE WITH CARE. CHANGES WERE MADE TO HER BP MEDS THIS MORNING. HER BP THIS AFTERNOON WAS 134/65 mm Hg. CRACKLES IN THE LUNG BASES. NO NEW CONCERNS TODAY. WILL CONTINUE TO MONITOR
[2023-05-11 01:49] VITALS: BP 147/74
--- NOTE | 2023-05-11 05:27 | NUR ---
PATIENT REMAINS ALERT AND ORIENTED X4, COOPERATIVE WITH CARE. SHE REQUESTED TO HOLD CATAPRES DUE TO BP OF 119/86, WHICH SHE FELT WAS TOO LOW. ADMINSITERED LATER IN THE SHIFT PER HER REQUEST SHE FELT ANXIOUS AND HAD A ANDERSON HER BP WAS RISING 147/74. NO OTHER ISSUES THROUGHOUT THE NIGHT. WILL CONT TO MONITOR.
[2023-05-11 07:50] VITALS: BP 143/68
[2023-05-11 09:26] VITALS: BP 139/39
[2023-05-11] MEDS ORDERED: FURO40 PO (12:55)
[2023-05-11] MEDS ORDERED: TOPI50 PO (12:55)
[2023-05-11] MEDS ORDERED: MIRALAX17 GM PO (12:55)
[2023-05-11] MEDS ORDERED: NIFE60ER PO (12:55)
--- NOTE | 2023-05-11 14:42 | NUR ---
PATIENT DISCHARGED AT 1400. THE PATIENT'S SISTER GAVE HER A RIDE HOME. MEDS FAXED TO [facility]. DISCHARGE PAPERWORK WAS DISCUSSED WITH THE PATIENT, WHO SHOWED A CLEAR UNDERSTANDING OF THE ORDERS. ANNETTE REMOVED THE IV.
== END 2023-05-11 14:01 | disposition home or self-care (01) | DRG 291 ==
LOC: ER 17:27 → MEDS 23:25 → EDPENDDISDT 05-11 13:58 → EDPENDDISTM 05-11 13:58 → ENPENDDIS 05-11 13:58 → MEDS 05-11 14:01
PROVIDERS: Family Medicine; Internal Medicine; Physician Assistant; ADMIT Student in an Organized Health Care Education/Training Program
DX: I13.0 Hypertensive heart and chronic kidney disease with heart failure and stage 1 through stage 4 chronic kidney disease, or unspecified chronic kidney disease (principal); I50.33 Acute on chronic diastolic (congestive) heart failure; J96.01 Acute respiratory failure with hypoxia; N18.4 Chronic kidney disease, stage 4 (severe); C22.0 Liver cell carcinoma; I35.1 Nonrheumatic aortic (valve) insufficiency; K74.60 Unspecified cirrhosis of liver; B19.20 Unspecified viral hepatitis C without hepatic coma; E11.22 Type 2 diabetes mellitus with diabetic chronic kidney disease; E78.5 Hyperlipidemia, unspecified; D63.1 Anemia in chronic kidney disease; G43.709 Chronic migraine without aura, not intractable, without status migrainosus; F41.0 Panic disorder [episodic paroxysmal anxiety]; E87.8 Other disorders of electrolyte and fluid balance, not elsewhere classified; J44.9 Chronic obstructive pulmonary disease, unspecified; E21.3 Hyperparathyroidism, unspecified; F41.8 Other specified anxiety disorders; I35.0 Nonrheumatic aortic (valve) stenosis; F43.10 Post-traumatic stress disorder, unspecified; G62.9 Polyneuropathy, unspecified; Z85.05 Personal history of malignant neoplasm of liver; Z88.8 Allergy status to other drugs, medicaments and biological substances; Z79.899 Other long term (current) drug therapy; Z79.4 Long term (current) use of insulin
CPT/HCPCS: 36415; 71046; 80048; 80053; 81001; 82947; 83880; 84145; 84484; 85025; 87077; 87086; 87186; 93005; 93010; 93306; 94760; 96374; 96375; 99285-25; A9270; J1650; J1815; J1940; J2405

== ENCOUNTER 2023-05-16 16:53 | Inpatient (IN) | payer MEDICARE, OTHER ==
[~2023-05-16] VITALS: Ht 154.9 cm; Wt 54.5 kg
[2023-05-16] VITALS (9 sets, daily range): BP systolic 149–176; BP diastolic 83–121
[~2023-05-16 16:53] MED LIST changes: +BASAGLAR K100 UNIT/1 SC; +FURO40 PO; +MIRALAX17 GM PO; +NIFE90ER PO; +SPIR25 PO; +TORS10 PO; +TORSE20
[2023-05-16 17:12] LABS: BASOPHILS ABSOLUTE AUTO 0.07 K/mm3 (0.00-0.23); BASOPHILS PERCENT AUTO 1 % (0-2); EOSINOPHILS ABSOLUTE AUTO 0.88 K/mm3 (0.00-0.68); EOSINOPHILS PERCENT AUTO 7 % (0-6); Hematocrit 30.7 % (33.0-51.0); Hemoglobin 9.2 g/dL (11.5-16.0); IMMATURE GRAN ABSOLUTE AUTO 0.06 K/mm3 (0.00-0.10); IMMATURE GRAN PERCENT AUTO 1 % (0-1); LYMPHOCYTES ABSOLUTE AUTO 4.27 K/mm3 (0.84-5.20); LYMPHOCYTES PERCENT AUTO 33 % (21-46); MONOCYTES ABSOLUTE AUTO 0.92 K/mm3 (0.16-1.47); MONOCYTES PERCENT AUTO 7 % (4-13); Mean Corpuscular HGB 28.7 pg (26.0-34.0); Mean Corpuscular Volume 96 fL (80-100); Mean Platelet Volume 11.6 fL (9.1-12.4); NEUTROPHILS ABSOLUTE AUTO 6.85 K/mm3 (1.96-9.15); NEUTROPHILS PERCENT AUTO 53 % (41-73); Platelet Count 225 K/mm3 (150-400); RDW Standard Deviation 52.4 fL (35.1-46.3); Red Blood Cell Count 3.21 M/mm3 (3.80-5.20); White Blood Cell Count 13.05 K/mm3 (4.00-11.30)
[2023-05-16 17:18] LABS: PCO2 Arterial 51.2 mmHg (35-45); PO2 Arterial 71.9 mmHg (80-100); pH Blood Arterial 7.08 (7.35-7.45)
[2023-05-16 17:26] LABS: Albumin, Blood 2.6 g/dL (3.4-5.0); Albumin/Globulin Ratio 0.5 (0.8-1.8); Bilirubin, Total 0.5 mg/dL (0.1-1.0); Bun/Creatinine Ratio 19.6 (12.0-20.0); Calcium, Blood 8.3 mg/dL (8.5-10.1); Creatinine, Blood 3.01 mg/dL (0.40-1.00); Globulin, Blood 5.5 g/dL (2.2-4.0); Potassium, Blood 5.2 mmol/L (3.5-5.5); Total Protein, Blood 8.1 g/dL (6.4-8.2)
[2023-05-16 17:45] LABS: Calcium, Ionized (POC) 1.14 mmol/L (1.10-1.46); Chloride (POC) 113 mmol/L (98-108); Creatinine (POC) 3.3 mg/dL (0.6-1.0); Glucose (ISTAT POC) 215 mg/dL (70-99); Hemoglobin (POC) 9.5 g/dL (12.0-16.0); Potassium (POC) 5.2 mmol/L (3.5-5.5); Sodium (POC) 141 mmol/L (135-148); Total CO2 (POC) 18 mmol/L (21-32)
[2023-05-16 18:43] LABS: Influenza A, PCR NEGATIVE (NEGATIVE); Influenza B, PCR NEGATIVE (NEGATIVE); Resp Syncytial Virus, PCR NEGATIVE (NEGATIVE); SARS-Cov-2 (COVID-19) PCR, MMC NEGATIVE (NEGATIVE)
[2023-05-16] MEDS ORDERED: TRULICITY4.5 MG/0.5 SQ (21:07)
[2023-05-17] VITALS (71 sets, daily range): BP systolic 84–188; BP diastolic 55–135
[2023-05-17 01:42] LABS: Source, Urine Foley catheter
[2023-05-17 01:50] LABS: Bilirubin, Urine Neg (Neg); Blood, Urine 2+ (Neg); Glucose Qualitative, Urine 3+ (Neg); Ketones, Urine Neg (Neg); Leukocyte Esterase, Urine Neg (Neg); Nitrite, Urine Neg (Neg); Protein, Urine 4+ (Neg); Specific Gravity, Urine 1.015 (1.003-1.022); Urobilinogen, Urine NORM (Normal)
[2023-05-17 01:52] LABS: Appearance, Urine Clear (Clear); Color, Urine Yellow (P-Yellow)
[2023-05-17 01:57] LABS: Red Blood Cells, Urine 0-2 /hpf (0-2)
[2023-05-17 01:58] LABS: Bacteria Few /hpf; Squamous Epithelial Cells Rare /hpf (Few)
[2023-05-17 03:55] LABS: BASOPHILS ABSOLUTE AUTO 0.01 K/mm3 (0.00-0.23); BASOPHILS PERCENT AUTO 0 % (0-2); EOSINOPHILS ABSOLUTE AUTO 0.04 K/mm3 (0.00-0.68); EOSINOPHILS PERCENT AUTO 1 % (0-6); Hematocrit 22.9 % (33.0-51.0); Hemoglobin 7.5 g/dL (11.5-16.0); IMMATURE GRAN ABSOLUTE AUTO 0.05 K/mm3 (0.00-0.10); IMMATURE GRAN PERCENT AUTO 1 % (0-1); LYMPHOCYTES ABSOLUTE AUTO 0.76 K/mm3 (0.84-5.20); LYMPHOCYTES PERCENT AUTO 12 % (21-46); MONOCYTES ABSOLUTE AUTO 0.19 K/mm3 (0.16-1.47); MONOCYTES PERCENT AUTO 3 % (4-13); Mean Corpuscular HGB 28.7 pg (26.0-34.0); Mean Corpuscular HGB Conc 32.8 g/dL (31.5-36.5); Mean Platelet Volume 11.8 fL (9.1-12.4); NEUTROPHILS ABSOLUTE AUTO 5.39 K/mm3 (1.96-9.15); NEUTROPHILS PERCENT AUTO 84 % (41-73); Platelet Count 152 K/mm3 (150-400); RDW Coefficient Variation 14.8 % (11.7-14.2); RDW Standard Deviation 47.8 fL (35.1-46.3); Red Blood Cell Count 2.61 M/mm3 (3.80-5.20); White Blood Cell Count 6.44 K/mm3 (4.00-11.30)
[2023-05-17 03:56] LABS: Mean Corpuscular Volume 88 fL (80-100)
[2023-05-17 04:14] LABS: Albumin, Blood 2.1 g/dL (3.4-5.0); Albumin/Globulin Ratio 0.5 (0.8-1.8); Bilirubin, Total 0.4 mg/dL (0.1-1.0); Bun/Creatinine Ratio 18.9 (12.0-20.0); Calcium, Blood 7.8 mg/dL (8.5-10.1); Creatinine, Blood 3.34 mg/dL (0.40-1.00); Globulin, Blood 4.5 g/dL (2.2-4.0); Magnesium, Blood 2.6 mg/dL (1.6-2.4); Potassium, Blood 4.2 mmol/L (3.5-5.5); Total Protein, Blood 6.6 g/dL (6.4-8.2)
[2023-05-17 05:04] LABS: PCO2 Arterial 32.2 mmHg (35-45); PO2 Arterial 144 mmHg (80-100); pH Blood Arterial 7.36 (7.35-7.45)
--- NOTE | 2023-05-17 05:44 | NUR ---
NOC SHIFT SUMMARY PT ADMITTED TO ICU FROM ER AT 2024. ARRIVED INTUBATED AND LIGHTLY SEDATED. SISTER (MARTHA) AND OTHER FAMILY MEMBERS TO BEDSIDE. ADVISED FAMILY OF VISITING HOURS AND ORIENTED TO ROOM AND UNIT. PT WAS RECENTLY (1 WEEK AGO) HOSPITALIZED HERE. SISTER TO BRING IN ADVANCED DIRECTIVE AND POLST 05/17 AM. PT FOLLOWS ALL COMMANDS AND NODS APPROPRIATELY. ADMISSION COMPLETED WITH FAMILY. SR, BP ELEVATED, ON NITRO DRIP. BP DROPPED SIGNIFICANTLY AFTER STARTING PO/PT ANTIHYPERTENSIVE, NITRO DRIP PLACED ON STANDBY. SLIGHT CRACKLES BILATERALLY, 40 MG LASIX IV GIVEN ORDERED AT 0200. VENT SETTINGS 16/350/5/30%, MORNING ABG COMPLETED BY RT. OGT CLAMPED. ABD SLIGHTLY DISTENDED BUT SOFT. GARCIA TO GRAVITY DRAINING CLEAR YELLOW URINE. SKIN INTACT. PIV X3 ALL FLUSH WELL. FAMILY UPDATED VIA PHONE THIS AM. ALL QUESTIONS ANSWERED AND SUPPORT PROVIDED. HOURLY ROUNDING COMPLETED FOR SAFETY. NO IGNITION SOURCES IDENTIFIED IN ROOM, PT IS NOT IGNITION RISK WHILE INTUBATED, SEDATED AND RESTRAINED. QUIT SMOKING 1-2 WEEKS AGO PER FAMILY. FAMILY ADVISED OF DANGER OF IGNITION SOURCES AND AGREE NOT TO HAVE THEM PRESENT IN PT'S ROOM OR ON CAMPUS.
--- NOTE | 2023-05-17 09:19 | NUR ---
SHIFT ASSESSMENT ASSUMED CARE OF PT @ 0700. BEDSIDE REPORT RECEIVED FROM ALBERTO ORDOÑEZ. PT INTUBATED AND LIGHTLY SEDATED. OPENS EYES TO VERBAL STIMULI, SHAKES HEAD YES/NO TO QUESTIONS. COMMUNICATES THE BEST SHE CAN BY POINTING, USING CALL LIGHT APPROPRIATELY. TOLERATING VENTILATOR BUT OCCASIONALLY REACHES FOR ETT, REMAINS IN SOFT WRIST RESTRAINTS. GARCIA CATH PATENT, DRAINING ALBERTO URINE.
--- NOTE | 2023-05-17 14:18 | NUR ---
Upon receiving a referral for spiritual care, I visited the patient. Patient is lying in bed and alert. PAtient is intubated and so communication is strained. When asked if the patient is holding up okay, the patient waffles her hand back and forth. I asked her if I could say a prayer for her the patient nodded affirmingly. I gladly provided prayer according to the Faith [employer] william that is listed under her christian preference. She is tearful during the prayerbut looks me in the eyes and nods a "yes'" and gives me a thumbs up following the prayer. She works hard to mouth a "thank you." I will continue to remain available to patient and family.
--- NOTE | 2023-05-17 19:22 | NUR ---
SHIFT SUMMARY PT REMAINS INTUBATED AND LIGHTLY SEDATED. VENT SETTINGS-SPONT:09/21 @ 30% c SATS >95%. PROPOFOL @ 15MCG'S. PT ALERT AND ORIENTED, COMMUNICATING EFFECTIVELY WITH PEN & PAPER, ASSISTING WITH TURNS. OGT CLAMPED, NO BM. GARCIA CATH DRAINING LIGHT YELLOW URINE. PT DENIES PAIN AT THIS TIME. PT REMINDED THAT THIS IS A NO SMOKING FACILITY, DOES NOT SMOKE ANYMORE NOR HAS ACCESS TO DUCTFIXING PLUMBER/ TOBACCO.
[2023-05-18] VITALS (52 sets, daily range): BP systolic 130–188; BP diastolic 70–103
--- NOTE | 2023-05-18 00:11 | NUR ---
ASSUMED CARE OF PT AT 1915 BEDSIDE REPORT RECEIVED FROM TIAGO OMER. PT IS INTUBATED ON SPONTANEOUS SETTINGS, PLAN IS TO EXTUBATE IN AM IF REMAINS STABLE. A/O, WRITING TO COMMUNICATE AND IS UNRESTRAINED. MOVES SELF IN BED, ASSISTED WITH LINES/TUBES/CORDS. SR-ST 90'S-100'S. BP ELEVATED AT 156/80. ORAL ANTIHYPERTENSIVES GIVEN. OGT CLAMPED, MEDS GIVEN PER TUBE. GARCIA IN PLACE, PATENT AND DRAINING CLEAR YELLOW URINE. BUMEX IVP GIVEN. SKIN UNCHANED. WEAKNESS IMPROVING. SEVERAL FAMILY MEMBERS IN TO VISIT TODAY, UPDATED ON POC AND PT CONDITION. PIV X3, ALL FLUSH WELL. RN TO CONTINUE TO MONITOR.
[2023-05-18 03:40] LABS: Hemoglobin 8.1 g/dL (11.5-16.0); Mean Corpuscular HGB 28.7 pg (26.0-34.0); Mean Corpuscular HGB Conc 32.4 g/dL (31.5-36.5); Mean Corpuscular Volume 89 fL (80-100); Mean Platelet Volume 11.3 fL (9.1-12.4); Platelet Count 157 K/mm3 (150-400); RDW Coefficient Variation 15.1 % (11.7-14.2); RDW Standard Deviation 49.1 fL (35.1-46.3); Red Blood Cell Count 2.82 M/mm3 (3.80-5.20); White Blood Cell Count 9.99 K/mm3 (4.00-11.30)
[2023-05-18 04:00] LABS: Bun/Creatinine Ratio 17.5 (12.0-20.0); Calcium, Blood 7.8 mg/dL (8.5-10.1); Creatinine, Blood 3.65 mg/dL (0.40-1.00); Magnesium, Blood 2.6 mg/dL (1.6-2.4); Potassium, Blood 3.9 mmol/L (3.5-5.5)
--- NOTE | 2023-05-18 05:20 | NUR ---
NOC SHIFT SUMMARY PT PLEASANT AND COOPERATIVE, FOLLOWS ALL COMMANDS, MAKES NEEDS KNOWN BY WRITING OR NODDING. RESTRAINTS REMAIN OFF AND PT VERY CAREFUL WITH LINES/TUBES AT THIS TIME. SR-ST 90'S-LOW 100'S. BP 164/89. SCHEDULED ANTIHYPERTENSIVES AND DIURETIC GIVEN ORDERED. VENT SETTINGS REMAIN UNCHANGED, PT HAS TOLERATED SPONTANEOUS SETTINGS FOR THE DURATION OF THE SHIFT WITH NO DISTRESS NOTED. ETT SECRETIONS LESS TODAY. EXPECT EXTUBATION THIS AM IF PT REMAINS STABLE. PIV X3 FLUSH WELL. 2 BROTHERS IN TO VISIT EARLY IN SHIFT, UPDATED ON POC AND QUESTIONS ANSWERED. RN TO CONTINUE TO MONITOR
--- NOTE | 2023-05-18 10:42 | NUR ---
SHIFT ASSESSMENT ASSUMED CARE OF PT @ 0700. BEDSIDE REPORT RECEIVED FROM TIAGO DOMINGUEZ. PT INITIALLY INTUBATED AND LIGHTLY SEDATED. EXTUBATED @ 0900 TO 2L VIA NC. PT A&OX4, FOLLOWING COMMANDS, ANDRES. VOICE REMAINS WEAK BUT COMMUNICATING. GARCIA CATH DRAINING LIGHT YELLOW URINE, STRICT I&O'S. PT NPO, WILL PERFORM BEDSIDE SWALLOW THIS MORNING.
--- NOTE | 2023-05-18 18:19 | NUR ---
SHIFT SUMMARY THIS RN ASSUMED CARE OF THE PT AT APPROX 1630. THE PT WAS EXTUBATED TODAY AND IS MAINTAINING SPO2 >94% ON RM AIR. PT DENIES ANY PAIN OR SOB. PT HAD VISITORS ALL AFTERNOON SHE SAT IN THE RECLINER AND VISITED WITH THEM . HER BP IS MODERATELY ELEVATED W SBP IN THE 140'S. THE MONITOR IS SHOWING AFIB 110'S-120'S. THE PT'S GARCIA CATHETER WAS DC'D THIS AFTERNOON AND SHE IS VOIDING WELL ON THE TOILET. PT IS EATING HER DINNER AND DENYING ANY FURTHER NEEDS AT THIS TIME.
--- NOTE | 2023-05-18 19:37 | NUR ---
ASSUMED CARE OF PT AT 1915 PT IS RESTING ON HER SIDE, A/0x4. C/O MILD THROAT DISCOMFORT FROM ETT BUT DENIES ANY OTHER PAIN OR DISCOMFORT. BP 163/87. PT CONVERTED FROM AFIB 130'S TO SR DURING BEDSIDE SHIFT REPORT. ON ROOM AIR, CLEAR LIQUID DIET, APPETITE POOR. DENIES NAUSEA. HAS NOT VOIDED SINCE REMOVAL OF GARCIA, DOES NOT CURRENTLY FEEL THE URGE TO VOID. SKIN UNCHANGED. PIV X3. RN TO CONTINUE TO MONITOR.
[2023-05-19] VITALS (12 sets, daily range): BP systolic 135–185; BP diastolic 66–114
[2023-05-19 03:39] LABS: BASOPHILS ABSOLUTE AUTO 0.02 K/mm3 (0.00-0.23); BASOPHILS PERCENT AUTO 0 % (0-2); EOSINOPHILS ABSOLUTE AUTO 0.42 K/mm3 (0.00-0.68); EOSINOPHILS PERCENT AUTO 6 % (0-6); Hematocrit 25.4 % (33.0-51.0); Hemoglobin 8.3 g/dL (11.5-16.0); IMMATURE GRAN ABSOLUTE AUTO 0.03 K/mm3 (0.00-0.10); IMMATURE GRAN PERCENT AUTO 0 % (0-1); LYMPHOCYTES ABSOLUTE AUTO 1.88 K/mm3 (0.84-5.20); LYMPHOCYTES PERCENT AUTO 28 % (21-46); MONOCYTES ABSOLUTE AUTO 0.61 K/mm3 (0.16-1.47); MONOCYTES PERCENT AUTO 9 % (4-13); Mean Corpuscular HGB 28.9 pg (26.0-34.0); Mean Corpuscular HGB Conc 32.7 g/dL (31.5-36.5); Mean Corpuscular Volume 89 fL (80-100); Mean Platelet Volume 11.2 fL (9.1-12.4); NEUTROPHILS ABSOLUTE AUTO 3.74 K/mm3 (1.96-9.15); NEUTROPHILS PERCENT AUTO 56 % (41-73); Platelet Count 166 K/mm3 (150-400); RDW Coefficient Variation 14.7 % (11.7-14.2); RDW Standard Deviation 47.4 fL (35.1-46.3); Red Blood Cell Count 2.87 M/mm3 (3.80-5.20)
[2023-05-19 03:56] LABS: Bun/Creatinine Ratio 17.4 (12.0-20.0); Calcium, Blood 7.6 mg/dL (8.5-10.1); Creatinine, Blood 3.8 mg/dL (0.40-1.00); Magnesium, Blood 2.6 mg/dL (1.6-2.4); Phosphorus, Blood 7.4 mg/dL (2.5-4.9); Potassium, Blood 3.7 mmol/L (3.5-5.5)
--- NOTE | 2023-05-19 05:13 | NUR ---
NOC SHIFT SUMMARY PT SLEPT MOST OF SHIFT. OOB WITH STANDBY ASSIST TO THE COMMODE. PT STABLE ON HER FEET, REPORTEDLY USES A WALKER AT BASELINE, HAS DECLINED TO USE ONE IN ICU ROOM. CONVERTED OUT OF AFIB TO SR AT APPROX 1900 WITH NO RETURN OF AFIB. ON ROOM AIR TO MAINTAIN O2 SAT > 94%. DENIES SOB. SNACK GIVEN AND TOLERATED WELL WITH NO GI UPSET. SMALL BMX 1, HAS VOIDED 3 TIMES. SKIN INTACT, NO BREAKDOWN FROM PRESSURE OBSERVED. PIV X3, ALL FLUSH WELL. PT STATES SHE QUIT SMOKING THIS PAST MONTH AND HAS NO ACCESS TO IGNITION SOURCES. SISTER TOOK ALL BELONGINGS HOME. NO FAMILY AT BEDSIDE CURRENTLY. HOURLY ROUNDING COMPLETED TO ENSURE SAFETY. RN TO CONTINUE TO MONITOR.
--- NOTE | 2023-05-19 07:16 | NUR ---
Assumed care. Bedside report received from nightshift RN. Pt resting in bed, A&O, on RA. No acute needs at time of report. Pt hypertensive, VS otherwise in normal range. Will continue to monitor.
--- NOTE | 2023-05-19 15:56 | NUR ---
Patient is lying in bed and alert. She tells me about her son that at age 1, her divorce, her struggles with drugs and alcohol and her medical problems. She also talks about her spiritual journey, and how she has struggled with william at times but states that, at this season of her life, she feels close to God and finds much inspiration from prayer. She understands that she has a rough road ahead but feels that "with God's help" she can make it through all the obstacles. I provide therapeutic listening and prayer. I will continue to remain available to patient and family,
--- NOTE | 2023-05-19 19:05 | NUR ---
Shift summary. Pt independent in room today. Status changed to PCU. Pt had urinary retention this afternoon requiring straight cath. VS stable this shift see chart for further details. Hourly rounding for ignition risk completed, nothing noted. Report given to restaurant shift leader RN.
--- NOTE | 2023-05-19 20:50 | NUR ---
ASSUMED CARE PT IS A&O X4; SPO2 >92% ON RA; MAP >65. PT DENIES CP, SOB, OR NAUSEA. CRACKLES NOTED IN BILATERAL LOWER LOBES.
--- NOTE | 2023-05-20 00:30 | NUR ---
TRANSFER PT TRANSFERRED TO PCU 18 W/ BELONGINGS AND MEDICATION. IGNITION RISK EDUCATION AND HOURLY ROUNDING DONE.
[2023-05-20 04:15] LABS: BASOPHILS ABSOLUTE AUTO 0.02 K/mm3 (0.00-0.23); BASOPHILS PERCENT AUTO 0 % (0-2); EOSINOPHILS ABSOLUTE AUTO 0.57 K/mm3 (0.00-0.68); EOSINOPHILS PERCENT AUTO 8 % (0-6); Hematocrit 22.2 % (33.0-51.0); Hemoglobin 7.2 g/dL (11.5-16.0); IMMATURE GRAN ABSOLUTE AUTO 0.02 K/mm3 (0.00-0.10); IMMATURE GRAN PERCENT AUTO 0 % (0-1); LYMPHOCYTES ABSOLUTE AUTO 2.01 K/mm3 (0.84-5.20); LYMPHOCYTES PERCENT AUTO 28 % (21-46); MONOCYTES ABSOLUTE AUTO 0.52 K/mm3 (0.16-1.47); MONOCYTES PERCENT AUTO 7 % (4-13); Mean Corpuscular HGB 28.8 pg (26.0-34.0); Mean Corpuscular HGB Conc 32.4 g/dL (31.5-36.5); Mean Corpuscular Volume 89 fL (80-100); Mean Platelet Volume 11.7 fL (9.1-12.4); NEUTROPHILS ABSOLUTE AUTO 3.99 K/mm3 (1.96-9.15); NEUTROPHILS PERCENT AUTO 56 % (41-73); Platelet Count 176 K/mm3 (150-400); RDW Coefficient Variation 14.7 % (11.7-14.2); RDW Standard Deviation 47.5 fL (35.1-46.3); White Blood Cell Count 7.13 K/mm3 (4.00-11.30)
[2023-05-20 04:31] LABS: Calcium, Blood 7.4 mg/dL (8.5-10.1); Creatinine, Blood 3.99 mg/dL (0.40-1.00); Magnesium, Blood 2.6 mg/dL (1.6-2.4); Phosphorus, Blood 7.5 mg/dL (2.5-4.9); Potassium, Blood 3.2 mmol/L (3.5-5.5)
--- NOTE | 2023-05-20 05:14 | NUR ---
EOS NOTE: PATIENT A/OX4, SBA DUE TO HX OF FALLS AND MULTIPLE LINES/CORDS ATTACHED. Q4 BLADDER SCANNED >650, PT HAD MULTIPLE UNSUCCESSFUL ATTEMPTS TO EMPTY BLADDER ON HER OWN. STRAIGHT CATH OUTPUT 750ML. BREATH SOUNDS ARE CLEAR THROUGHOUT, CRACKLES ARE AUDIBLE TO BASES OF THE LUNGS. VSS.
[2023-05-20 07:16] VITALS: BP 144/84
[2023-05-20 08:10] VITALS: BP 177/89
--- NOTE | 2023-05-20 10:24 | NUR ---
DR. MILLER WAS CONSULTED I CALLED DR. MILLER THIS AM ABOUT THE NEW CONSULT. HE ORDERED SOME PO K DUE TO A LOW K OF 3.2. A RENAL ULTRA SOUND WAS OBTAINED, A GARCIA CATH WAS PLACED, AND A 24HR URINE WAS STARTED 05/19 1000. ANGELA SAW THIS PT THIS AM.
[2023-05-20 10:35] LABS: Source, Urine Foley catheter
[2023-05-20 11:27] LABS: Appearance, Urine Clear (Clear); Bilirubin, Urine Neg (Neg); Blood, Urine 2+ (Neg); Color, Urine Yellow (P-Yellow); Glucose Qualitative, Urine 2+ (Neg); Ketones, Urine Neg (Neg); Leukocyte Esterase, Urine Neg (Neg); Nitrite, Urine Neg (Neg); Protein, Urine 4+ (Neg); Urobilinogen, Urine NORM (Normal)
[2023-05-20 11:34] VITALS: BP 103/56
[2023-05-20 11:43] LABS: Amorphous Light (0-Heavy); Bacteria Not Seen /hpf; Granular Casts 0-2 /lpf (0); Mucus Light (0-Heavy); Squamous Epithelial Cells Not Seen /hpf (Few); White Blood Cells, Urine Not Seen /hpf (0-5)
[2023-05-20 14:11] LABS: Hematocrit 24.7 % (33.0-51.0); Hemoglobin 8.2 g/dL (11.5-16.0)
[2023-05-20 15:11] VITALS: BP 113/104
--- NOTE | 2023-05-20 17:07 | NUR ---
SHIFT SUMMARY PT IS A&OX4, SBA FOR TRANSFER, HAD A GARCIA PLACED DUE TO RETENTION AND A 24 HR URINE WAS STARTED TODAY AT 1000. BP WAS ELEVATED THIS AM AND DR. ORDOÑEZ MADE SOME CHANGES TO BETTER CONTROL HER PRESSURES. DR. MILLER WAS CONSULTED AND IS FOLLOWING THE PT'S CASE. ON TELE SHE HAS BEEN SR 70'S-90'S AN SHE HAS BEEN ON ROOM AIR. PT DENIES ANGINA OR SOB. NO ACUTE EVENTS. PT AND FAMILY EDUCATED ON FIRE IGNITION RISK AND SAFETY. SEE NOTES FOR ANY UPDATES.
[2023-05-20 20:00] VITALS: BP 138/75
[2023-05-21] VITALS (12 sets, daily range): BP systolic 123–180; BP diastolic 71–124
[2023-05-21 04:15] LABS: BASOPHILS ABSOLUTE AUTO 0.01 K/mm3 (0.00-0.23); BASOPHILS PERCENT AUTO 0 % (0-2); EOSINOPHILS ABSOLUTE AUTO 0.36 K/mm3 (0.00-0.68); EOSINOPHILS PERCENT AUTO 7 % (0-6); Hemoglobin 6.9 g/dL (11.5-16.0); IMMATURE GRAN ABSOLUTE AUTO 0.01 K/mm3 (0.00-0.10); IMMATURE GRAN PERCENT AUTO 0 % (0-1); LYMPHOCYTES ABSOLUTE AUTO 1.41 K/mm3 (0.84-5.20); LYMPHOCYTES PERCENT AUTO 28 % (21-46); MONOCYTES ABSOLUTE AUTO 0.43 K/mm3 (0.16-1.47); MONOCYTES PERCENT AUTO 9 % (4-13); Mean Corpuscular HGB Conc 32.9 g/dL (31.5-36.5); Mean Corpuscular Volume 88 fL (80-100); Mean Platelet Volume 11.4 fL (9.1-12.4); NEUTROPHILS ABSOLUTE AUTO 2.79 K/mm3 (1.96-9.15); NEUTROPHILS PERCENT AUTO 56 % (41-73); Platelet Count 136 K/mm3 (150-400); RDW Coefficient Variation 14.7 % (11.7-14.2); RDW Standard Deviation 47.1 fL (35.1-46.3); Red Blood Cell Count 2.38 M/mm3 (3.80-5.20); White Blood Cell Count 5.01 K/mm3 (4.00-11.30)
[2023-05-21 04:37] LABS: Albumin, Blood 2.1 g/dL (3.4-5.0); Anion Gap 9 mmol/L (6-16); Blood Urea Nitrogen 74 mg/dL (8-24); Bun/Creatinine Ratio 19.3 (12.0-20.0); CO2, Blood 23 mmol/L (21-32); Calcium, Blood 7.6 mg/dL (8.5-10.1); Chloride, Blood 110 mmol/L (98-108); Creatinine, Blood 3.84 mg/dL (0.40-1.00); Glomerular Filtration Rate 13 (60-); Glucose, Blood 165 mg/dL (70-99); Magnesium, Blood 2.4 mg/dL (1.6-2.4); Phosphorus, Blood 6.4 mg/dL (2.5-4.9); Potassium, Blood 3.5 mmol/L (3.5-5.5); Sodium, Blood 142 mmol/L (136-145)
--- NOTE | 2023-05-21 07:02 | NUR ---
SHIFT SUMMARY PT HAS SLEPT WELL THROUGHOUT THE SHIFT. PT HAS BEEN DRINKING FLUIDS WELL. PT GARCIA HAS BEEN DRAINING TO GRAVITY. PT 24 HR URINE IS BEING COLLECTED. PT HGB WAS NOTED AND RESIDENT WAS CALLED AND UNIT OF PRBC WAS ORDERED. PT DENIES SOB OR CX PAIN. CALL LIGHT IN REACH.
[2023-05-21 11:19] LABS: Protein, Urine Quantitative 236.9 mg/dL (0.0-11.9)
[2023-05-21 17:00] LABS: Hematocrit 30.9 % (33.0-51.0); Hemoglobin 10.4 g/dL (11.5-16.0)
--- NOTE | 2023-05-21 18:03 | NUR ---
PT RECIEVED 1 UNIT OF PRBC TODAY, WITH INCREASE IN HGB TO 10.4. PT A/O X4. DENIES SOB OR CP. LUNGS COARSE TO CLEAR IN UPPER LOBES AND DIMENISHED IN THE BASES BILAT. VSS, WITH SOME HYPERTENSION THIS AFTERNOON THAT RESOLVED WITH SCHEDULED MEDICATIONS. PT WAS ABLE TO AMBULATE TO BATHROOM FOR SHOWER WITH FWW. PT ABLE TO MAKE NEEDS KNOWN, USES CALL LIGHT APPROPRIATELY. ANSWERS QUESTIONS APPROPRIATELY IN FULL SENTENCES
--- NOTE | 2023-05-21 21:14 | NUR ---
ASSUMPTION OF CARE: IGNITION EDUCATION PROVIDED. NO CONCERNS. PATIENT IS ALERT AND ORIENTED X 4. PLEASANT COOPERATIVE WITH CARE. RA, COARSE TO DIM LUNGS. IMPROVING. SPO2 >96% ON RA AT THIS TIME DENIES CHEST PAIN PRESSURE OR SOB. INFUSING NS. VSS WILL CONTINUE TO MONITOR SHIFT CHANGE.
[2023-05-22] VITALS: BP 146/69
--- NOTE | 2023-05-22 03:46 | NUR ---
EOS: ONLY CHANGE TO PATIENT SINCE ASSUMPTION IS PATIENT BLOOD PRESSURE HAS BEEN SLIGHLTY INCREASING TO A SYSTOLIC NOW OF 160'S. PATIENT KIDNEY PATIENT, ALONG WITH LAYING ON ARM, WILL CONTINUE TO MONITOR UNTIL >170 THEN CALL PROVIDER FOR RECOMMENDATIONS. PATIENT HAS ALSO BEEN ON HYDRATION OF FLUIDS, LUNGS SOUNDS FREE OF FLUID DURING REASSESSMENT AT 031. ADM REASON FLASH PULM ACCORDING TO HOSPITALIST NOTE.
[2023-05-22 04:13] LABS: Hematocrit 25.4 % (33.0-51.0); Hemoglobin 8.4 g/dL (11.5-16.0)
[2023-05-22 04:32] LABS: Albumin, Blood 2.1 g/dL (3.4-5.0); Anion Gap 10 mmol/L (6-16); Blood Urea Nitrogen 80 mg/dL (8-24); Bun/Creatinine Ratio 22.2 (12.0-20.0); CO2, Blood 21 mmol/L (21-32); Calcium, Blood 7.9 mg/dL (8.5-10.1); Chloride, Blood 114 mmol/L (98-108); Creatinine, Blood 3.61 mg/dL (0.40-1.00); Glomerular Filtration Rate 14 (60-); Glucose, Blood 128 mg/dL (70-99); Magnesium, Blood 2.3 mg/dL (1.6-2.4); Phosphorus, Blood 5.8 mg/dL (2.5-4.9); Potassium, Blood 3.7 mmol/L (3.5-5.5); Sodium, Blood 145 mmol/L (136-145)
[2023-05-22 08:23] VITALS: BP 178/77
--- NOTE | 2023-05-22 11:51 | NUR ---
PT A/O X4. DENIES CP OR SOB. VSS, WITH SOME HYPERTENSION. PT IS SEEN BY DR ORDOÑEZ, PT WILL BE D/C HOME TODAY. PT'S CATHETER IS CLAMPED TO BLADDER TRAIN PRIOR TO DC. LS COARSE TO DIM T/O. NO RESPIRATORY DISTRESS NOTED. FAMILY IN AND OUT OF ROOM.
--- NOTE | 2023-05-22 12:52 | NUR ---
PT EDUCATED ON FIRE SAFETY RISK, DENIES FIRE IGNITION SOURCES
[2023-05-22] MEDS ORDERED: BUME1 PO (14:11)
[2023-05-22 15:30] VITALS: BP 157/75
--- NOTE | 2023-05-22 16:24 | NUR ---
IV D/C AND DRESSED BY TECH. PT PROVIDED WITH DC TEACHING, SHE EXPRESSED UNDERSTANDING OF DC TEACHING. PT WAS ABLE TO VOID 200ML URINE 2 HOURS POST GARCIA REMOVAL. PT EDUCATED ON BLADDER TRAINING AND EXPRESSED UNDERSTANDING OF TEACHING. MEDICATIONS FAXED TO [facility]
== END 2023-05-22 16:57 | disposition home or self-care (01) | DRG 208 ==
LOC: ER 16:53 → PCU 19:03 → ICUE 19:03 → PCU 05-20 00:22
PROVIDERS: Internal Medicine; Internal Medicine Critical Care Medicine; Internal Medicine Nephrology; Student in an Organized Health Care Education/Training Program; ADMIT Student in an Organized Health Care Education/Training Program
PROC: 5A09357 Assistance with Respiratory Ventilation, Less than 24 Consecutive Hours, Continuous Positive Airway Pressure (ICD-10-PCS; 2023-05-15)
PROC: 5A1945Z Respiratory Ventilation, 24-96 Consecutive Hours (ICD-10-PCS; principal; 2023-05-16)
PROC: 0BH17EZ Insertion of Endotracheal Airway into Trachea, Via Natural or Artificial Opening (ICD-10-PCS; 2023-05-16)
PROC: 4A133R1 Monitoring of Arterial Saturation, Peripheral, Percutaneous Approach (ICD-10-PCS; 2023-05-16)
PROC: 0DH67UZ Insertion of Feeding Device into Stomach, Via Natural or Artificial Opening (ICD-10-PCS; 2023-05-19)
PROC: 0T9B70Z Drainage of Bladder with Drainage Device, Via Natural or Artificial Opening (ICD-10-PCS; 2023-05-20)
PROC: 30233N1 Transfusion of Nonautologous Red Blood Cells into Peripheral Vein, Percutaneous Approach (ICD-10-PCS; 2023-05-21)
DX: J96.21 Acute and chronic respiratory failure with hypoxia (principal); I50.33 Acute on chronic diastolic (congestive) heart failure; I13.0 Hypertensive heart and chronic kidney disease with heart failure and stage 1 through stage 4 chronic kidney disease, or unspecified chronic kidney disease; E87.29 Other acidosis; N18.4 Chronic kidney disease, stage 4 (severe); N17.9 Acute kidney failure, unspecified; K76.6 Portal hypertension; J96.22 Acute and chronic respiratory failure with hypercapnia; D63.1 Anemia in chronic kidney disease; E11.22 Type 2 diabetes mellitus with diabetic chronic kidney disease; J44.9 Chronic obstructive pulmonary disease, unspecified; E11.319 Type 2 diabetes mellitus with unspecified diabetic retinopathy without macular edema; I08.3 Combined rheumatic disorders of mitral, aortic and tricuspid valves; Z79.4 Long term (current) use of insulin; Z79.899 Other long term (current) drug therapy; G43.909 Migraine, unspecified, not intractable, without status migrainosus; E86.9 Volume depletion, unspecified; F41.9 Anxiety disorder, unspecified; E87.6 Hypokalemia; E83.39 Other disorders of phosphorus metabolism; E83.41 Hypermagnesemia; E78.5 Hyperlipidemia, unspecified; Z20.822 Contact with and (suspected) exposure to COVID-19; K74.60 Unspecified cirrhosis of liver; R77.8 Other specified abnormalities of plasma proteins; R33.9 Retention of urine, unspecified; F15.11 Other stimulant abuse, in remission; E11.40 Type 2 diabetes mellitus with diabetic neuropathy, unspecified; F43.10 Post-traumatic stress disorder, unspecified; F32.A Depression, unspecified; Z90.710 Acquired absence of both cervix and uterus; Z90.722 Acquired absence of ovaries, bilateral; Z98.890 Other specified postprocedural states; Z87.891 Personal history of nicotine dependence; Z88.8 Allergy status to other drugs, medicaments and biological substances; Z86.19 Personal history of other infectious and parasitic diseases
CPT/HCPCS: 0241U; 31500; 36415; 36430; 36600; 51701; 51702; 71045; 76770; 80047; 80048; 80053; 80069; 81001; 82570; 82803; 82947; 83605; 83735; 83880; 84100; 84156; 84300; 84484; 84540; 85014; 85018; 85025; 85027; 86850; 86900; 86901; 86923; 87040; 87070; 87205; 93005; 93010; 93971; 94002; 94003; 94640; 94664; 94760; 94762; 96365-59; 96366-59; 96368; 96375-59; 97110; 97162; 97165; 97530; 99285-25; A9270; C9113; J0360; J0456; J0696; J0881; J1644; J1815; J1940; J2704; J2930; J7030; J7050; P9016

== ENCOUNTER → 2023-06-10 | Outpatient (CLI) | payer MEDICARE, OTHER ==
[~2023-06-10] MED LIST changes: +BUME2 PO; +TRULICITY4.5 MG/0.5 SQ
[2023-06-10 12:28] LABS: Protein, Urine Quantitative 573.7 mg/dL (0.0-11.9)
== END | disposition home or self-care (01) ==
LOC: LAB 08:13 → LAB SHORT 08:13
PROVIDERS: Internal Medicine Nephrology
DX: N18.30 Chronic kidney disease, stage 3 unspecified (principal); D63.1 Anemia in chronic kidney disease; N25.81 Secondary hyperparathyroidism of renal origin; E55.9 Vitamin D deficiency, unspecified; E78.00 Pure hypercholesterolemia, unspecified; R76.9 Abnormal immunological finding in serum, unspecified; R94.5 Abnormal results of liver function studies; R94.6 Abnormal results of thyroid function studies
CPT/HCPCS: 81050; 82043; 82570; 84156

== ENCOUNTER 2023-06-13 20:51 | Emergency (ER) | payer MEDICARE, OTHER ==
[~2023-06-13] VITALS: Ht 154.9 cm; Wt 57.1 kg
[~2023-06-13 20:51] MED LIST changes: -BUME2 PO
[2023-06-13 21:27] LABS: BASOPHILS ABSOLUTE AUTO 0.03 K/mm3 (0.00-0.23); BASOPHILS PERCENT AUTO 0 % (0-2); EOSINOPHILS ABSOLUTE AUTO 0.62 K/mm3 (0.00-0.68); EOSINOPHILS PERCENT AUTO 8 % (0-6); Hematocrit 30.6 % (33.0-51.0); Hemoglobin 9.9 g/dL (11.5-16.0); IMMATURE GRAN ABSOLUTE AUTO 0.01 K/mm3 (0.00-0.10); IMMATURE GRAN PERCENT AUTO 0 % (0-1); LYMPHOCYTES ABSOLUTE AUTO 1.74 K/mm3 (0.84-5.20); LYMPHOCYTES PERCENT AUTO 24 % (21-46); MONOCYTES ABSOLUTE AUTO 0.53 K/mm3 (0.16-1.47); MONOCYTES PERCENT AUTO 7 % (4-13); Mean Corpuscular HGB 28.7 pg (26.0-34.0); Mean Corpuscular HGB Conc 32.4 g/dL (31.5-36.5); Mean Corpuscular Volume 89 fL (80-100); Mean Platelet Volume 11.7 fL (9.1-12.4); NEUTROPHILS ABSOLUTE AUTO 4.41 K/mm3 (1.96-9.15); NEUTROPHILS PERCENT AUTO 60 % (41-73); Platelet Count 128 K/mm3 (150-400); RDW Coefficient Variation 15.5 % (11.7-14.2); RDW Standard Deviation 49.9 fL (35.1-46.3); Red Blood Cell Count 3.45 M/mm3 (3.80-5.20); White Blood Cell Count 7.34 K/mm3 (4.00-11.30)
[2023-06-13 22:03] LABS: Albumin, Blood 2.5 g/dL (3.4-5.0); Albumin/Globulin Ratio 0.6 (0.8-1.8); Bilirubin, Total 0.4 mg/dL (0.1-1.0); Bun/Creatinine Ratio 19.4 (12.0-20.0); Calcium, Blood 7.8 mg/dL (8.5-10.1); Creatinine, Blood 2.83 mg/dL (0.40-1.00); Globulin, Blood 4.3 g/dL (2.2-4.0); Potassium, Blood 4.3 mmol/L (3.5-5.5); Total Protein, Blood 6.8 g/dL (6.4-8.2)
[2023-06-13] MEDS ORDERED: BUME2 PO (22:20)
[2023-06-13] MEDS ORDERED: BUME1 PO (22:21)
[2023-06-13 22:28] VITALS: BP 148/75
== END 2023-06-13 23:15 | disposition home or self-care (01) ==
LOC: ER 20:51
PROVIDERS: Physician Assistant
DX: I13.0 Hypertensive heart and chronic kidney disease with heart failure and stage 1 through stage 4 chronic kidney disease, or unspecified chronic kidney disease (principal); I50.9 Heart failure, unspecified; N18.30 Chronic kidney disease, stage 3 unspecified; E11.22 Type 2 diabetes mellitus with diabetic chronic kidney disease; G43.909 Migraine, unspecified, not intractable, without status migrainosus; Z88.8 Allergy status to other drugs, medicaments and biological substances; Z79.899 Other long term (current) drug therapy; Z79.4 Long term (current) use of insulin
CPT/HCPCS: 71046; 80053; 83880; 85025; 99284-25; A9270

== ENCOUNTER → 2023-07-05 | Outpatient (CLI) | payer MEDICARE, OTHER ==
[~2023-07-05] MED LIST changes: +BUME2 PO
[2023-07-05 11:46] LABS: Protein, Urine Quantitative 480.3 mg/dL (0.0-11.9)
== END ==
LOC: LAB 10:18 → LAB SHORT 10:18
PROVIDERS: Internal Medicine Nephrology
DX: N18.30 Chronic kidney disease, stage 3 unspecified (principal); R76.9 Abnormal immunological finding in serum, unspecified; R94.5 Abnormal results of liver function studies; R94.6 Abnormal results of thyroid function studies; D52.8 Other folate deficiency anemias; N25.81 Secondary hyperparathyroidism of renal origin
CPT/HCPCS: 81050; 82043; 82570; 84156

== ENCOUNTER 2023-07-21 08:55 | Inpatient (IN) | payer MEDICARE, OTHER ==
[~2023-07-21] VITALS: Ht 162.6 cm; Wt 50.7 kg
[2023-07-21] VITALS (32 sets, daily range): BP systolic 150–208; BP diastolic 72–142
[2023-07-21 09:04] LABS: Base Excess Venous -9.4 mmol/L; Bicarbonate Venous 16.9 mmol/L (24.0-30.0); PCO2 Venous 49.3 mmHg (38-42)
[2023-07-21 09:05] LABS: pH Blood Venous 7.19 (7.34-7.37)
[2023-07-21 09:55] LABS: Calcium, Ionized (POC) 1.11 mmol/L (1.10-1.46); Chloride (POC) 113 mmol/L (98-108); Creatinine (POC) 4.1 mg/dL (0.6-1.0); Glucose (ISTAT POC) 227 mg/dL (70-99); Hemoglobin (POC) 13.6 g/dL (12.0-16.0); Potassium (POC) 4.5 mmol/L (3.5-5.5); Sodium (POC) 143 mmol/L (135-148); Total CO2 (POC) 22 mmol/L (21-32)
[2023-07-21 09:57] LABS: BASOPHILS ABSOLUTE AUTO 0.05 K/mm3 (0.00-0.23); BASOPHILS PERCENT AUTO 0 % (0-2); EOSINOPHILS ABSOLUTE AUTO 1.32 K/mm3 (0.00-0.68); EOSINOPHILS PERCENT AUTO 10 % (0-6); Hematocrit 39.3 % (33.0-51.0); Hemoglobin 11.8 g/dL (11.5-16.0); IMMATURE GRAN ABSOLUTE AUTO 0.06 K/mm3 (0.00-0.10); IMMATURE GRAN PERCENT AUTO 0 % (0-1); LYMPHOCYTES ABSOLUTE AUTO 2.16 K/mm3 (0.84-5.20); LYMPHOCYTES PERCENT AUTO 16 % (21-46); MONOCYTES ABSOLUTE AUTO 0.76 K/mm3 (0.16-1.47); MONOCYTES PERCENT AUTO 6 % (4-13); Mean Corpuscular HGB 28.8 pg (26.0-34.0); Mean Corpuscular Volume 96 fL (80-100); Mean Platelet Volume 11.5 fL (9.1-12.4); NEUTROPHILS ABSOLUTE AUTO 9.29 K/mm3 (1.96-9.15); NEUTROPHILS PERCENT AUTO 68 % (41-73); NRBC ABSOLUTE 0.02 K/mm3 (0.00-0.02); NRBC Auto 0.1 /100 WBC (0.0-0.2); Platelet Count 176 K/mm3 (150-400); RDW Coefficient Variation 17.4 % (11.7-14.2); RDW Standard Deviation 58.3 fL (35.1-46.3); White Blood Cell Count 13.64 K/mm3 (4.00-11.30)
[2023-07-21 10:39] LABS: Calcium, Blood 8.3 mg/dL (8.5-10.1); Creatinine, Blood 3.67 mg/dL (0.40-1.00); Potassium, Blood 4.6 mmol/L (3.5-5.5); Total Protein, Blood 8.2 g/dL (6.4-8.2)
[2023-07-21 10:40] LABS: Albumin, Blood 2.6 g/dL (3.4-5.0); Albumin/Globulin Ratio 0.5 (0.8-1.8); Bilirubin, Total 0.7 mg/dL (0.1-1.0); Globulin, Blood 5.6 g/dL (2.2-4.0)
[2023-07-21 12:29] LABS: Influenza A, PCR NEGATIVE (NEGATIVE); Influenza B, PCR NEGATIVE (NEGATIVE); Resp Syncytial Virus, PCR NEGATIVE (NEGATIVE); SARS-Cov-2 (COVID-19) PCR, MMC NEGATIVE (NEGATIVE)
[2023-07-21 13:21] LABS: PCO2 Arterial 35.9 mmHg (35-45); PO2 Arterial 83.5 mmHg (80-100); pH Blood Arterial 7.32 (7.35-7.45)
[2023-07-21 13:27] LABS: Source, Urine Foley catheter
[2023-07-21 13:30] LABS: Appearance, Urine Clear (Clear); Bilirubin, Urine Neg (Neg); Blood, Urine 3+ (Neg); Color, Urine Yellow (P-Yellow); Glucose Qualitative, Urine 3+ (Neg); Ketones, Urine Neg (Neg); Leukocyte Esterase, Urine Neg (Neg); Nitrite, Urine Neg (Neg); Protein, Urine 4+ (Neg); Specific Gravity, Urine 1.015 (1.003-1.022); Urobilinogen, Urine NORM (Normal)
[2023-07-21 13:48] LABS: Bacteria Few /hpf; Squamous Epithelial Cells Few /hpf (Few); Yeast/Fungi Urine Few /hpf
--- NOTE | 2023-07-21 14:43 | NUR ---
ARRIVAL TO ICU PT ARRIVES AT 1300 FOR RESP FAILURE. REPORT FROM JER ORDOÑEZ. PT ON VENT, AC/VC 16/380/7/55%. LUNGS COARSE THROUGHOUT, DIM IN BASES. MODERATE AMOUNT OF THICK YELLOW/PINK SPUTUM FROM ETT. PROPOFOL GTT INFUSING, FENTANYL ORDERED. RASS -4 ON ARRIVAL, NOW -2. NODDING HEAD, FOLLOWING COMMANDS. SR, RATE 80'S. HTN NOTED. 1+ EDEMA TO BLE, LASIX GIVEN. OGT TO LIS, ABD ROUND, SOFT, NON TENDER, BT X 4. GARCIA PATENT, DRAINING CLEAR YELLOW URINE TO GRAVITY. ECCHYMOSIS TO LUE, PETECHIA TO RUE. BLANCHABLE REDNESS TO COCCYX. PIV X 2. SISTER AT BEDSIDE. UPDATED. WILL CONTINUE TO MONITOR.
[2023-07-21] MEDS ORDERED: BASAGLAR K100 UNIT/8 SQ (14:56)
[2023-07-21] MEDS ORDERED: POTA8 PO (15:00)
--- NOTE | 2023-07-21 17:46 | NUR ---
SHIFT SUMMARY NO ACUTE CHANGES SINCE ARRIVAL. VENT SETTINGS AC/VC 16/380/7/35%. LUNGS COARSE. SMALL AMOUNT OF SECRETIONS FROM ETT. RASS -2. PROPOFOL AND FENTANYL GTT STARTED FOR SEDATION AND PAIN. HTN NOTED, MEDICATED c HYDRALAZINE AND LABATOLOL c MINIMAL RESULTS. PT HAS HX OF HTN AND SISTER JAYLEEN STATES HTN DESPITE MEDS. SR, RATE 80-90'S. GARCIA PATENT, DIURESED, 700 ML CLEAR YELLOW URINE OUT. WILL CONTINUE TO MONITOR UNTIL REPORT TO ONCOMING NURSE.
--- NOTE | 2023-07-21 19:15 | NUR ---
ASSUMPTION OF CARE: RECEIVED REPORT FROM GONZÁLEZ ORDOÑEZ. PT INTUBATED AND SEDATED. VENT SETTINGS AC/VC 16/380/7/35%. SPO2 >94%. PROPOFOL INFUSING AT 40 MCG/MIN. FENTANYL INFUSING VIA RELAY TELEGRAPHER AT 25 AN ADJUNCT TO SEDATION. AWAKENS TO VERBAL STIMULI, ABLE TO SHAKE HEAD YES AND NO AND FOLLOW COMMANDS. SUCTIONING THICK SANTOYO SECRETIONS. COUGH, GAG AND SWALLOW IN TACT. LUNG SOUNDS COARSE AND DIM. CONTINUOUS CARDIAC MONITORING IN PLACE, SR WITH HR 80'S. SBP 170'S, MEDICATED PER DEC. GARCIA IN PLACE AND DRAINING YELLOW URINE TO GRAVITY. PER DR. MILLER 2 MG BUMEX ADMINISTERED. MEDIUM FORMED BM THIS SHIFT. OG TUBE SET TO LOW INTERMITTENT SUCTION PUTTING OUT MODERATE AMOUNTS OF GREEN LIQUID.
[2023-07-21 21:47] LABS: Albumin, Blood 2.1 g/dL (3.4-5.0); Anion Gap 12 mmol/L (6-16); Blood Urea Nitrogen 90 mg/dL (8-24); Bun/Creatinine Ratio 25.3 (12.0-20.0); CO2, Blood 20 mmol/L (21-32); Calcium, Blood 7.9 mg/dL (8.5-10.1); Chloride, Blood 116 mmol/L (98-108); Creatinine, Blood 3.56 mg/dL (0.40-1.00); Glomerular Filtration Rate 14 (60-); Glucose, Blood 153 mg/dL (70-99); Phosphorus, Blood 8.3 mg/dL (2.5-4.9); Potassium, Blood 3.7 mmol/L (3.5-5.5); Sodium, Blood 148 mmol/L (136-145)
[2023-07-22] VITALS (47 sets, daily range): BP systolic 130–196; BP diastolic 65–114
[2023-07-22 03:39] LABS: BASOPHILS ABSOLUTE AUTO 0.02 K/mm3 (0.00-0.23); BASOPHILS PERCENT AUTO 0 % (0-2); EOSINOPHILS ABSOLUTE AUTO 0.18 K/mm3 (0.00-0.68); EOSINOPHILS PERCENT AUTO 2 % (0-6); Hematocrit 32.1 % (33.0-51.0); Hemoglobin 9.7 g/dL (11.5-16.0); IMMATURE GRAN ABSOLUTE AUTO 0.03 K/mm3 (0.00-0.10); IMMATURE GRAN PERCENT AUTO 0 % (0-1); LYMPHOCYTES ABSOLUTE AUTO 0.91 K/mm3 (0.84-5.20); LYMPHOCYTES PERCENT AUTO 11 % (21-46); MONOCYTES ABSOLUTE AUTO 0.51 K/mm3 (0.16-1.47); MONOCYTES PERCENT AUTO 6 % (4-13); Mean Corpuscular HGB 28.7 pg (26.0-34.0); Mean Corpuscular HGB Conc 30.2 g/dL (31.5-36.5); Mean Corpuscular Volume 95 fL (80-100); NEUTROPHILS ABSOLUTE AUTO 6.51 K/mm3 (1.96-9.15); NEUTROPHILS PERCENT AUTO 80 % (41-73); Platelet Count 116 K/mm3 (150-400); RDW Coefficient Variation 17.4 % (11.7-14.2); RDW Standard Deviation 57.7 fL (35.1-46.3); Red Blood Cell Count 3.38 M/mm3 (3.80-5.20); White Blood Cell Count 8.16 K/mm3 (4.00-11.30)
[2023-07-22 04:06] LABS: Magnesium, Blood 2.4 mg/dL (1.6-2.4)
[2023-07-22 04:18] LABS: Anion Gap 13 mmol/L (6-16); Blood Urea Nitrogen 88 mg/dL (8-24); Bun/Creatinine Ratio 23.3 (12.0-20.0); CO2, Blood 18 mmol/L (21-32); Calcium, Blood 7.7 mg/dL (8.5-10.1); Chloride, Blood 116 mmol/L (98-108); Creatinine, Blood 3.78 mg/dL (0.40-1.00); Glomerular Filtration Rate 13 (60-); Glucose, Blood 147 mg/dL (70-99); Potassium, Blood 3.8 mmol/L (3.5-5.5); Sodium, Blood 147 mmol/L (136-145)
[2023-07-22 04:19] LABS: Phosphorus, Blood 8.6 mg/dL (2.5-4.9)
--- NOTE | 2023-07-22 06:17 | NUR ---
SHIFT SUMMARY: PT REMAINS INTUBATED AND SEDATED T/O THE SHIFT. AC/VC 16/380/7/35%. SPO2 >95%. SUCTIONING SANTOYO, THICK SECRETIONS T/O THE NIGHT. LUNG SOUNDS REMAIN COARSE AND DIM. PROPOFOL INFUSING AT 45 MCG/MIN. TITRATED FOR VENT COMPLIANCE AND COMFORT. PT TOLERATING WELL. FENTANYL ASSISTANT TEACHER PRIMARY AT 25 MCG/HR AN ADJUNCT TO SEDATION. ABLE TO OPEN EYES TO VERBAL STIMULI. ABLE TO FOLLOW COMMANDS AND SHAKE HEAD YES AND NO. CARDIAC MONITORING IN PLACE SINUS RHYTHM, WITH AN EPISODE OF AFIB, WHICH RESOLVED ON ITS OWN. SBP 170'S, MEDICATED PER DEC WITH MINIMAL CHANGES. HR 70'S-80'S. OG TUBE IN PLACE WITH FREE WATER FLUSHES AT [address] SPRAGUE. GARCIA REMAINS IN PLACE, PATENT AND DRAINING MODERATE AMOUNTS OF YELLOW URINE TO GRAVITY. FREQUENT BOWEL MOVEMENTS T/O THE SHIFT. PIV TO RIGHT AC INFUSING. PIV TO LEFT WRIST SALINE LOCKED. SOFT WRIST RESTRAINTS BILATERAL FOR SAFETY AND PREVENTION OF PULLING OF TUBE. BED LOW AND LOCKED.
--- NOTE | 2023-07-22 08:53 | NUR ---
ASSUMED CARE REPORT FROM BRENDAN/LAUREN RN AT 0700. PT INTUBATED AND SEDATED. VENT SETTINGS AC/VC 16/380/7/35%. LUNGS CLEAR, DIM IN BASES. MODERATE AMOUNT OF THICK, SANTOYO/YELLOW SECRETIONS FROM ETT. COUGH/GAG/SWALLOW REFLEX PRESENT. PROPOFOL AND FENTANYL GTT FOR PAIN AND SEDATION. RASS -2. SEDATION VACATION AND SBT TO BE COMPLETED DURING ROUNDS. PT OPENS EYES TO VERBAL STIMULI, FOLLOWS SIMPLE COMMANDS, NODS HEAD TO YES/NO QUESTIONS. SR, RATE 70-80'S. HTN NOTED. HOME HTN MEDS VIA OGT. OGT c 250 ML FLUSHES q6. ABD ROUND, SOFT, NON TENDER, BT X 4. SOFT, BROWN BM'S. GARCIA PATENT, DRAINING CLEAR YELLOW URINE TO GRAVITY FOR STRICK I&O'S. PIV X 2. WILL CONTINUE TO MONITOR.
--- NOTE | 2023-07-22 11:32 | NUR ---
EXTUBATED SEDATION ON STANDBY AND ON SPONT FOR APPROX 1 HOURS. TOLERATED WELL. EXTUBATED AT 1120. RESTRAINTS REMOVED. FAMILY AT BEDSIDE. RESTING VOICE, ABLE TO NOD AND FOLLOW COMMANDS. PLACED ON 3L VIA NC. LUNGS CLEAR. WILL CONTINUE TO MONITOR.
--- NOTE | 2023-07-22 17:34 | NUR ---
SHIFT SUMMARY PT EXTUBATED THIS SHIFT, SEE PREVIOUS NOTE. TOLERATING WELL. 3L VIA NC, O2 SATS >92%. LUNGS CLEAR, SLIGHTLY DIM IN BASES. ENCOURAGED USE OF FLUTTER VALVE. A&OX 3. FOLLOWS COMMANDS. PT IN SR MOST OF SHIFT, RECENTLY CONVERTED TO AFIB, RATE 90-120'S. ASYMPTOMATIC. HTN THIS SHIFT, PT REPORTS BP DIFFICULT TO CONTROL, OFTEN >200 SBP AT HOME. MEDICATED c HOME CLONIDINE AND HYDRALYZINE IVP ORDERED. PASSED BEDSIDE SWALLOW. TOLERATING PO WELL. GARCIA PATENT, DRAINING CLEAR YELLOW URINE TO GRAVITY. PIV X 2. WILL CONTINUE TO MONITOR.
--- NOTE | 2023-07-22 19:25 | NUR ---
ASSESSMENT/ASSUMED CARE PT SITTING UP IN BED WITH BLANKET OVER HER HEAD. ANSWERS QUESTIONS APPROP. A&O X4. DENIES PAIN OR DISCOMFORT. LUNGS CLEAR BUT DECREASED ON 3 LITERS VIA NC. PT STATES,"MY SOB IS IMPROVED. JUST A LITTLE BIT THERE WITH MOVEMENT". OCC PRODUCTIVE COUGH. HEART RATE IRREGULAR AFIB IN THE 130-140'S. BP STABLE. TRACE TO 1+ BILAT LOWER EXT EDEMA. PT MAWE. TURNING SELF IN BED. BT+ HYPOACTIVE. TAKING CLEAR LIQUIDS WITHOUT DIFFICULTY. GARCIA CATH PATENT DRAINING CLEAR YELLOW URINE. CATH CARE DONE. PT INCONT STOOL. JAELYN CARE AND LINEN CHANGE DONE. IV LEFT WRIST WITH NS TKO, SITE CLEAR. IV RIGHT AC SALINE LOCKED, SITE CLEAR. TEMP 100.5, WILL CALL .
--- NOTE | 2023-07-22 20:22 | NUR ---
SPOKE WITH DR HENSON REGARDING PT HEART RATE 130-140'S AFIB, BP 131/91, AND TEMP 100.5. RECEIVED ORDER FOR TYENOL FOR FEVER. PT RECEIVED TOPROL XL ALREADY FOR HEART RATE, NO NEW ORDERS FOR HEART RATE AT THIS TIME.
--- NOTE | 2023-07-22 21:47 | NUR ---
RHYTHM CHANGE PT CONVERTED TO SINUS RHYTHM IN THE 'S. SEE STRIP.
[2023-07-23] VITALS (33 sets, daily range): BP systolic 150–191; BP diastolic 67–88
--- NOTE | 2023-07-23 | NUR ---
PT SITTING UP IN BED EATING SNACK AFTER RECEIVING 2 UNIT INSULIN.
--- NOTE | 2023-07-23 02:37 | NUR ---
PT UP TO BSC WITH ONE ASSIST. HAD SMALL LIQUID BROWN STOOL. STOOD WITH WALKER AND WALKED TO TOP OF BED WITH STANDBY ASSIST. MIN HELP GETTING BACK TO BED. PT MOVING AND TURNING SELF IN BED. WARM BLANKETS GIVEN
[2023-07-23 04:01] LABS: BASOPHILS ABSOLUTE AUTO 0.03 K/mm3 (0.00-0.23); BASOPHILS PERCENT AUTO 0 % (0-2); EOSINOPHILS ABSOLUTE AUTO 0.31 K/mm3 (0.00-0.68); EOSINOPHILS PERCENT AUTO 3 % (0-6); Hematocrit 31.9 % (33.0-51.0); Hemoglobin 9.5 g/dL (11.5-16.0); IMMATURE GRAN ABSOLUTE AUTO 0.04 K/mm3 (0.00-0.10); IMMATURE GRAN PERCENT AUTO 0 % (0-1); LYMPHOCYTES ABSOLUTE AUTO 1.46 K/mm3 (0.84-5.20); LYMPHOCYTES PERCENT AUTO 14 % (21-46); MONOCYTES ABSOLUTE AUTO 0.63 K/mm3 (0.16-1.47); MONOCYTES PERCENT AUTO 6 % (4-13); Mean Corpuscular HGB 28.6 pg (26.0-34.0); Mean Corpuscular HGB Conc 29.8 g/dL (31.5-36.5); Mean Corpuscular Volume 96 fL (80-100); Mean Platelet Volume 12.5 fL (9.1-12.4); NEUTROPHILS ABSOLUTE AUTO 8.07 K/mm3 (1.96-9.15); NEUTROPHILS PERCENT AUTO 77 % (41-73); Platelet Count 119 K/mm3 (150-400); RDW Coefficient Variation 17.8 % (11.7-14.2); RDW Standard Deviation 61.6 fL (35.1-46.3); Red Blood Cell Count 3.32 M/mm3 (3.80-5.20); White Blood Cell Count 10.54 K/mm3 (4.00-11.30)
[2023-07-23 04:15] LABS: Magnesium, Blood 2.7 mg/dL (1.6-2.4)
--- NOTE | 2023-07-23 04:41 | NUR ---
HTN BP 164/80 MAP 105 HEART RATE 84, MED WITH HYDRALAZINE 10 MG
[2023-07-23 04:44] LABS: Anion Gap 11 mmol/L (6-16); Blood Urea Nitrogen 94 mg/dL (8-24); Bun/Creatinine Ratio 22.1 (12.0-20.0); CO2, Blood 18 mmol/L (21-32); Calcium, Blood 7.4 mg/dL (8.5-10.1); Chloride, Blood 115 mmol/L (98-108); Creatinine, Blood 4.25 mg/dL (0.40-1.00); Glomerular Filtration Rate 11 (60-); Glucose, Blood 169 mg/dL (70-99); Potassium, Blood 4.2 mmol/L (3.5-5.5); Sodium, Blood 144 mmol/L (136-145)
[2023-07-23 04:45] LABS: Phosphorus, Blood 9.6 mg/dL (2.5-4.9)
--- NOTE | 2023-07-23 05:42 | NUR ---
SHIFT SUMMARY PT RESTING QUIETLY. MOVING SELF IN BED. UP TO BSC WITH STANDBY ASSIST DURING THE NIGHT, HAD SMALL LIQUID STOOL. PT CONVERTED FROM AFIB WITH RVR IN THE 130-140'S TO NSR 80-90'S DURING THE NIGHT. HTN MED WITH HYDRALAZINE ONCE DURING THE NIGHT FOR SBP GREATER THAN 160. PT ALSO RECEIVED TOPROL XL AND CATAPRES BEFORE CONVERTING BACK TO SINUS RHYTHM. CRITICAL PHOS 9.[address] MILLER THIS AM, NO NEW ORDERS. DECREASED URINE OUTPUT NOTED WITH WORSENING KIDNEY FUCTION THIS AM. PT REMAINS ON 3 LITERS O2 VIA NC. SOB NOTED WITH ACTIVITY, BUT RESOLVES WITH REST. REPORT TO ON COMING NURSE
--- NOTE | 2023-07-23 09:33 | NUR ---
RESPIRATORY DISTRESS PT INITIALLY AWAKE, ALERT, AND ON 3L O2 NC AT START OF SHIFT WITHOUT DIFFICULTY BREATHING. PT REPORTED INCREASING SOB AND NAUSEA. 02 TITRATED UP TO 15L HIFLOW AND PT WITH CONTINUED DISTRESS WITH RR LOW 40'S. RT NOTIFIED AND DR DE LA ROSA NOTIFIED. PT PLACED ON BIPAP 10/5, FIO2 60%. PT MED WITH ATIVAN PER EMAR. PT RESTING QUIETLY AT THIS TIME ON BIPAP. SPO2 RECOVERED TO >92% AT THIS TIME. DR HENSON IN TO SEE PT AND UPDATED PT FAMILY AT BEDSIDE. WILL CONTINUE TO MONITOR.
--- NOTE | 2023-07-23 17:31 | NUR ---
SHIFT SUMMARY PT HAS MADE IMPROVEMENTS WITH RESPIRATORY STATUS THIS AFTERNOON SINCE EPISODE OF DISTRESS THIS AM. SEE PREVIOUS NOTE FOR MORE INFO. PT IS DROWSEY, BUT AWAKENS EASILY TO VERBAL STIMULI AND ANSWERS QUESTIONS APPROPRIATELY. PT DOES NOT COMPLAIN OF SOB AT THIS TIME. PT HAS ALTERNATED FROM BIPAP 10/5, FIO2 45% AND HIFLOW NC AT 5L. SPO2 REMAINS >90%. PT HAS RECIEVED 2 DOSES OF IV BUMEX PER EMAR. GARCIA TEMP PROBE REMAINS IN PLACE WITH CLEAR YELLOW URINE OUTPUT NOTED. PT TAKING PO INTAKE WELL THIS EVENING. PT ABLE TO ASSIST WITH REPOSITIONING IN BED. VITAL SIGNS STABLE AT THIS TIME. PT FAMILY AT BEDSIDE MOST OF THIS SHIFT. WILL CONTINUE TO MONITOR AND REPORT OFF TO ONCOMING RN.
--- NOTE | 2023-07-23 19:50 | NUR ---
ASSUMED CARE CARE WAS ASSUMED OF PT AT 1900, REPORT GIVEN BY HE ORDOÑEZ. PT A/O X4. PT IS ABLE TO ANSWER QUESTIONS APPROPRIATELY AND PARTICIPATE IN CONVERSATION. PT ON 5 L HI-FLOW N/C, TOLERATING WELL. O2 SATS > 90%. LUNG CORTES CLEAR T/O. CARDIAC MONITORING REFLECTS NSR, HR 80s. SBP HYPERTENSIVE, SBP 180s. PT MEDICATED PER EMAR WITH SCHEDULED BP MED. NS TKO INFUSING THROUGH L PIV. RIGHT PIV SL. GARCIA PATENT AND DRAINING TO GRAVITY. BIPAP AT BEDSIDE IF PT BEGINS TO FEEL SHORT OF BREATH.
--- NOTE | 2023-07-23 20:30 | NUR ---
PT BEGAN TO FEEL SOB,
--- NOTE | 2023-07-23 20:35 | NUR ---
PT BEGAN TO FEEL SOB, LUNG CORTES SOUNDING MORE COARSE. RT CALLED TO BEDSIDE, PT PUT ON BIPAP. BIPAP SETTINGS CURRENTLY 06/22, PT TOLERATING WELL, O2 SATS > 90%.
[2023-07-24] VITALS (38 sets, daily range): BP systolic 115–185; BP diastolic 48–144
[2023-07-24 04:12] LABS: Hematocrit 28.8 % (33.0-51.0); Hemoglobin 8.9 g/dL (11.5-16.0); Mean Corpuscular HGB 28.6 pg (26.0-34.0); Mean Corpuscular HGB Conc 30.9 g/dL (31.5-36.5); Mean Corpuscular Volume 93 fL (80-100); Mean Platelet Volume 12.9 fL (9.1-12.4); Platelet Count 110 K/mm3 (150-400); RDW Coefficient Variation 17.5 % (11.7-14.2); RDW Standard Deviation 57.9 fL (35.1-46.3); Red Blood Cell Count 3.11 M/mm3 (3.80-5.20); White Blood Cell Count 11.76 K/mm3 (4.00-11.30)
[2023-07-24 04:55] LABS: Magnesium, Blood 2.6 mg/dL (1.6-2.4)
[2023-07-24 05:52] LABS: Albumin, Blood 1.9 g/dL (3.4-5.0); Anion Gap 11 mmol/L (6-16); Blood Urea Nitrogen 97 mg/dL (8-24); Bun/Creatinine Ratio 21.1 (12.0-20.0); CO2, Blood 18 mmol/L (21-32); Calcium, Blood 7.1 mg/dL (8.5-10.1); Chloride, Blood 113 mmol/L (98-108); Creatinine, Blood 4.59 mg/dL (0.40-1.00); Glomerular Filtration Rate 10 (60-); Glucose, Blood 145 mg/dL (70-99); Phosphorus, Blood 8.1 mg/dL (2.5-4.9); Potassium, Blood 3.6 mmol/L (3.5-5.5); Sodium, Blood 142 mmol/L (136-145)
--- NOTE | 2023-07-24 06:20 | NUR ---
SHIFT SUMMARY SHAHRZAD REMAINS A/O X4. PT HAS SWITCHED BETWEEN 5 L HI-FLOW N/C AND BIPAP DURING THE NIGHT. PT CURRENTLY ON 5 L HI-FLOW N/C, O2 SATS > 95%. CARDIAC MONITORING REFLECTED NSR AT THE BEGINNING OF THE SHIFT, PT NOW HAVING PAROXYSMAL AFIB. SBP HAS REMAINED HYPERTENSIVE, MEDICATED PER EMAR. HR 80s-110s. NS TKO INFUSING. GARCIA PATENT AND DRAINING TO GRAVITY. DR. MILLER NOTIFIED OF AM LABS. WILL CONTINUE TO MONITOR UNTIL CARE IS TRANSITIONED TO DAY SHIFT.
--- NOTE | 2023-07-24 11:55 | NUR ---
REASSESSMENT PT HAS BEEN UP IN THE CHAIR MOST OF THE MORNING ON 4L/NC WITH SPO2 IN THE LOW 90S, CURRENTLY 92% WHILE EATING LUNCH. HER LUNGS HAVE BEEN CLEAR IN THE UPPERS, DIM AND COARSE IN THE BASES. SR IN THE 70S, BP ELEVATED STILL WITH SBP IN THE 60S AT TIMES. PT IS ON HER HOME CLONIDINE ALREADY AND DISCUSSED STARTING SOME OF HER OTHER HOME BP MEDS WITH DR HENSON AND HE WILL REVIEW AND PLACE ORDERS. EATING WELL, GOOD URINE OUTPUT SO FAR. PT'S SISTERS VISITED AND WERE UPDATED. DR. HENSON GAVE ORDER FOR PT TO BE PCU STATUS.
--- NOTE | 2023-07-24 16:26 | NUR ---
PT REQUESTED TO TAKE A BREAK OFF OF BIPAP, SO SHE WAS PLACED ON 4L/NC. PT'S BREATHING QUICKLY BECAME MORE LABORED AND SPO2 WAS ONLY 85%. OXYGEN INCREAED TO 6L AND SPO2 89%, BUT BREATHING STILL LABORED AND RR MID 30S. LUNG SOUNDS HAVE CRACKLES IN THE BASE ON THE L AND PRISON UP ON THE R. AFTER ABOUT 10 MINUTES PT PLACED BACK ON BIPAP AND SPO2 UP TO 92% AND BREATHING MORE RELAXED. CALLED DR. DE LA ROSA AND NOTIFIED HIM OF CHANGE FROM THIS MORNING. PT HAS BEEN DRINKING A LOT OF FLUIDS TODAY SO 1500 FLUID RESTRICTION ORDERED AND EXPLAINED TO PT. ORDER FOR DIURETICS RECEIVED WELL, SEE MAR. CONTINUING TO MONITOR.
--- NOTE | 2023-07-24 17:49 | NUR ---
SHIFT SUMMARY PT DID WELL ON 4L/NC THIS AM, BUT AROUND LUNCH TIME SHE STARTED FEELING A LITTLE SHORT OF BREATH AND WENT BACK ON THE BIPAP. THE DYSPNEA HAS CONTINUED THROUGHOUT THE AFTERNOON AND PT REMAINS ON BIPAP CURRENTLY. PT RECEIVED THE BUMEX, BUT HAS ONLY HAD 135ML OF URINE OUT SINCE. SPOKE WITH DR. MILLER AND RECEIVED ORDERS FOR METOLAZONE AND ALSO TO START PHOSLO WITH MEALS. PT'S HR IS SR WITH PAC, RATE IN THE 90S, SBP 170S. PT ATE BREAKFAST AND LUNCH, DINNER HELD DUE TO DYSPNEA AND PT REQUIRING THE BIPAP. CONTINUING TO MONITOR.
--- NOTE | 2023-07-24 22:25 | NUR ---
ASSUMED CARE CARE WAS ASSUMED OF PT AT 1900, REPORT GIVEN BY JORDY ORDOÑEZ. PT A/O X4. PT ABLE TO PARTICIPATE IN CONVERSATION AND ANSWER QUESTIONS APPROPRIATELY. PT ON BIPAP, TOLERATING WELL. O2 SATS > 90%. BIPAP SETTINGS 9/5 FiO2 40%. CARDIAC MONITORING REFLECTS PT HAVING PAROXYSMAL AFIB AND THEN CONVERTING BACK TO NSR. HR 80s-110s. SBP 150s-160s. RECIEVED VERBAL ORDERS FROM DR. MILLER FOR PT TO RECIEVE IV BUMEX, MEDICATED PER EMAR. JOSE PATENT AND DRAINING TO GRAVITY.
[2023-07-25] VITALS (28 sets, daily range): BP systolic 100–141; BP diastolic 51–99
[2023-07-25 03:54] LABS: BASOPHILS ABSOLUTE AUTO 0.02 K/mm3 (0.00-0.23); BASOPHILS PERCENT AUTO 0 % (0-2); EOSINOPHILS ABSOLUTE AUTO 0.15 K/mm3 (0.00-0.68); EOSINOPHILS PERCENT AUTO 1 % (0-6); Hematocrit 29.2 % (33.0-51.0); Hemoglobin 9.2 g/dL (11.5-16.0); IMMATURE GRAN ABSOLUTE AUTO 0.04 K/mm3 (0.00-0.10); IMMATURE GRAN PERCENT AUTO 0 % (0-1); LYMPHOCYTES ABSOLUTE AUTO 0.85 K/mm3 (0.84-5.20); LYMPHOCYTES PERCENT AUTO 7 % (21-46); MONOCYTES ABSOLUTE AUTO 0.73 K/mm3 (0.16-1.47); MONOCYTES PERCENT AUTO 6 % (4-13); Mean Corpuscular HGB 28.8 pg (26.0-34.0); Mean Corpuscular HGB Conc 31.5 g/dL (31.5-36.5); Mean Corpuscular Volume 91 fL (80-100); Mean Platelet Volume 12.1 fL (9.1-12.4); NEUTROPHILS ABSOLUTE AUTO 11.03 K/mm3 (1.96-9.15); NEUTROPHILS PERCENT AUTO 86 % (41-73); Platelet Count 122 K/mm3 (150-400); RDW Coefficient Variation 17.1 % (11.7-14.2); RDW Standard Deviation 56.4 fL (35.1-46.3); White Blood Cell Count 12.82 K/mm3 (4.00-11.30)
[2023-07-25 04:14] LABS: Albumin, Blood 1.9 g/dL (3.4-5.0); Anion Gap 12 mmol/L (6-16); Blood Urea Nitrogen 93 mg/dL (8-24); CO2, Blood 17 mmol/L (21-32); Calcium, Blood 7.5 mg/dL (8.5-10.1); Chloride, Blood 110 mmol/L (98-108); Creatinine, Blood 4.42 mg/dL (0.40-1.00); Glomerular Filtration Rate 11 (60-); Glucose, Blood 198 mg/dL (70-99); Magnesium, Blood 2.4 mg/dL (1.6-2.4); Phosphorus, Blood 7.6 mg/dL (2.5-4.9); Potassium, Blood 3.3 mmol/L (3.5-5.5); Sodium, Blood 139 mmol/L (136-145)
--- NOTE | 2023-07-25 06:02 | NUR ---
SHIFT SUMMARY PT REMAINS A/O X4. PT HAS BEEN ABLE TO MAKE NEEDS KNOWN AND PARTICIPATE IN CONVERSATION. PT HAS SWITCHED BETWEEN BIPAP AND 5 L N/C DURING THE NIGHT. PT TOLERATES BOTH WELL. O2 SATS > 02%. CARDIAC MONITORING HAS SHOWN RHYTHM THAT CONVERTS FROM AFIB TO NSR T/O THE NIGHT. AT ONE POINT PT HAD A HR THAT SUSTAINED ABOVE 140, MEDICATION GIVEN PER EMAR. PT'S HR CURRENTLY 90s-110s. SBP 120s-130s. GARCIA PATENT AND DRAINING TO GRAVITY. PT HAD 1300 ML OUT THIS SHIFT. PT ABLE TO AMBULATE TO BSC WITH 1 NURSE ASSIST. WILL CONTINUE TO MONITOR UNTIL CARE IS TRANSITIONED TO DAY SHIFT.
--- NOTE | 2023-07-25 08:46 | NUR ---
ASSUMPTION OF CARE REPORT RECEIVED FROM NOC RN. PT RESTING IN BED, ALERT AND ORIENTED X4. PT ASKS APPROPRIATE QUESTIONS, FOLLOWS COMMANDS AND IS ABLE TO MAKE HER NEEDS KNOWN. HR 90-100'S, MAP >65. CRACKLES AUSCULTATED BILATERALLY, PT ON 5LPM VIA NC, OXYGEN SATURATION >95%. TEMP GARCIA IN PLACE DRAINING TO GRAVITY. PIV TO RAC, PIV TO LEFT FOREARM. SISTER AT THE BEDSIDE.
--- NOTE | 2023-07-25 09:36 | NUR ---
PT UPDATE DR. DE LA ROSA AT THE BEDSIDE, PT/OT ORDERED.
--- NOTE | 2023-07-25 10:21 | NUR ---
RESPIRATORY UPDATE PT BEGINNING TO FEEL SHORT OF BREATH, OXYGEN SATURATION DECREASED TO 84%, BIPAP PLACED. OXYGEN SATURATION NOW >95%.
--- NOTE | 2023-07-25 11:45 | NUR ---
PT UPDATE PT OFF BIPAP AND PLACED BACK ON 5LPM VIA NC, OXYGEN SATURATION >95%. PT UP TO BEDSIDE RECLINER FOR LUNCH.
--- NOTE | 2023-07-25 17:40 | NUR ---
SHIFT SUMMARY PT UP IN BEDSIDE RECLINER, PT HAS BEEN IN THE RECLINER FOR THE MAJORITY OF THE SHIFT. ALERT AND ORIENTED X4, ASKS APPROPRIATE QUESTIONS AND FOLLOWS COMMANDS. HR 90-110 SINUS WITH PAC'S, MAP > 65. PT HAD ONE BOUT OF SHORTNESS OF BREATH, BIPAP PLACED AND LEFT ON FOR ABOUT 2 HOURS. BIPAP REMOVED AND PT SWITCHED TO 5L VIA NC. OXYGEN TITRATED DOWN TO 2LPM VIA NC, OXYGEN SATURATION >95%. NO COMPLAINTS OF SOB OR DIZZINESS. PIV TO RAC AND LEFT FOREARM. JOSE SOARES'Dwaine TODAY. PATIENT WORKED WITH PT THIS SHIFT.
--- NOTE | 2023-07-25 19:00 | NUR ---
ASSUME CARE: I have assumed care of this patient.
[2023-07-26] VITALS (11 sets, daily range): BP systolic 107–159; BP diastolic 54–109
[2023-07-26 03:22] LABS: Hematocrit 24.8 % (33.0-51.0); Hemoglobin 7.7 g/dL (11.5-16.0)
[2023-07-26 04:04] LABS: Albumin, Blood 1.7 g/dL (3.4-5.0); Anion Gap 8 mmol/L (6-16); Blood Urea Nitrogen 100 mg/dL (8-24); Bun/Creatinine Ratio 22.6 (12.0-20.0); CO2, Blood 22 mmol/L (21-32); Chloride, Blood 110 mmol/L (98-108); Creatinine, Blood 4.42 mg/dL (0.40-1.00); Glomerular Filtration Rate 11 (60-); Glucose, Blood 166 mg/dL (70-99); Magnesium, Blood 2.7 mg/dL (1.6-2.4); Phosphorus, Blood 7.1 mg/dL (2.5-4.9); Potassium, Blood 3.7 mmol/L (3.5-5.5); Sodium, Blood 140 mmol/L (136-145)
--- NOTE | 2023-07-26 05:30 | NUR ---
SHIFT SUMMARY: Yuliya has been out of bed to the commode several times. She is plesantly A/O x 4 and denies any complaints of pain. She tolerated BIPAP for several hours, but requested NC at 0300 due to claustrophobia. PO intake 200mls this shift. IVs saline locked. Total fluid balance -570. HR converting between afib and sinus arrythmia.
--- NOTE | 2023-07-26 07:15 | NUR ---
CARE ASSUMPTION DURING BEDSIDE SHIFT REPORT W MEKA ORDOÑEZ THE PT IS LYING IN BED AWAKE WEARING 5L NC. PT IS ALERT AND COMMUNICATING APPROPRIATELY W STAFF. PT DENIES ANY PAIN OR NAUSEA AT THIS TIME. MONITOR SHOWING SINUS ARRYTHMIA IN THE 80'S. BP WNL ND STABLE AT THIS TIME.
--- NOTE | 2023-07-26 13:02 | NUR ---
ASSUMED CARE PT BROUGHT OVER FROM ICU BY WHEELCHAIR. PT ABLE TO STAND AND TRANSFER WITH 1 ASSIST TO BED. BP STABLE. HR SINUS ARRHYTHMIA. 02 SATS ABOVE 90% ON 3L NC. PT DENIES ANY PAIN. PT ANSWERING ORIENTATION QUESTIONS APPROPRIATELY. LS CRACKLES IN THE BASES. WILL CONTINUE TO MONITOR CLOSELY. BED ALARM ON FOR SAFETY
--- NOTE | 2023-07-26 13:22 | NUR ---
Spiritual care visit conducted. Patient is lying in bed and alert. She immeidately tells me about her medical issues and the topics of discussion for her. She talks about balancing dialysis with heart issues and with liver cancer. She wonders about with dignity and how one who is a [employer] might approach this subject. She also emphasizes her strong feelings of hope and solid reasons to live and to fight. She shares about her solid support from her sister Pearl and her william. I normalize her experience, reinforce helpful attitudes and perspectives and provide therapeutic listening, gentle application counselor, theological insights and prayer. Patient showed signs of being inspired and encouraged. I will continue to remain available to patient and family.
--- NOTE | 2023-07-26 17:21 | NUR ---
SHIFT SUMMARY PT REMAINS ALERT AND ORIENTED. BP STABLE. 02 SATS REMAIN ABOVE 90% ON 3L NC. PT CONTINUES TO DENY ANY PAIN. PT ABLE TO REPOSITION HERSELF IN THE BED INDEPENDENTLY. WILL CONTINUE TO MONITOR AND REPORT TO ONCOMING RN
--- NOTE | 2023-07-26 21:13 | NUR ---
ASSUMED CARE PT IS A&O X4; VSS EXCEPT FOR HR IN 90-100'S AFIB. PT IS PLEASANT AND COOPERATIVE. AMBULATES WELL TO RESTROOM WITH STAND BY ASSIST. UPDATE PT'S SISTER CALLED TO NOTIFY THAT PT WAS HALLUCINATING WHILE ON THE PHONE AND STATED THAT PT WAS "SEEING PEOPLE". ASKED PT WHAT SHE WAS SEEING AND PT STATED THAT SHE WOULD RANDOMLY SEE PEOPLE THAT LOOKED LIKE "PROJECTIONS", MADE WORSE WHEN HOLDING A SHEET UP. PT STATED THAT SHE WAS NOT SEEING ANYONE WHILE THIS RN WAS IN THE ROOM. DR PICHARDO NOTIFIED AND STATED HE WILL COME TAKE A LOOK AT THE PT. PT IS RESTING QUIETLY OTHERWISE.
--- NOTE | 2023-07-26 22:53 | NUR ---
UPDATE PT HAVING PANIC ATTACK AND CALLED SISTER. SISTER IS NOW AT BEDSIDE AND IS STAYING THE NIGHT. PT STATES SHE IS DOING BETTER; STILL HAS NOT HAD ANY MORE HALLUCINATIONS SINCE INITIAL COMPLAINT.
[2023-07-27 04:04] LABS: Hematocrit 23.7 % (33.0-51.0); Hemoglobin 7.3 g/dL (11.5-16.0)
[2023-07-27 04:37] LABS: Albumin, Blood 1.8 g/dL (3.4-5.0); Anion Gap 7 mmol/L (6-16); Blood Urea Nitrogen 96 mg/dL (8-24); Bun/Creatinine Ratio 22.3 (12.0-20.0); CO2, Blood 23 mmol/L (21-32); Calcium, Blood 8.4 mg/dL (8.5-10.1); Chloride, Blood 112 mmol/L (98-108); Glomerular Filtration Rate 11 (60-); Glucose, Blood 168 mg/dL (70-99); Magnesium, Blood 2.9 mg/dL (1.6-2.4); Phosphorus, Blood 7.6 mg/dL (2.5-4.9); Potassium, Blood 4.2 mmol/L (3.5-5.5); Sodium, Blood 142 mmol/L (136-145)
--- NOTE | 2023-07-27 05:09 | NUR ---
SHIFT SUMMARY PT REMAINS A&O X4; AND HASN'T HAD ANY HALLUCINATIONS SINCE INITIAL COMPLAINT PER PT. SISTER AT BEDSIDE HELPED W/ PT'S ANXIETY. PT'S SISTER ALSO STATED THAT PT HALLUCINATED DURING LAST ADMIT WHEN PT WAS ADMITTED FOR DEHYDRATION. USING CALL LIGHT APPROPRIATELY AND AMBULATING WELL. ON BIPAP WHILE SLEEPING, TOLERATING WELL. NO OTHER ACUTE EVENTS OVERNIGHT.
[2023-07-27 06:53] VITALS: BP 151/79
--- NOTE | 2023-07-27 07:39 | NUR ---
Received in room report from Mc ORDOÑEZ. Patient awake with family at bedside. She is alert and oriented and able to communuicate her needs. She is on BiPAP 9/5 and sats 100% and transferred her to MD at 2L O2 and sats 100%. She states visual hallucinations and family states post eye injections left eye patient states looks like robotic figures with objects. Patient recieved 150 ml ice chips post bipap for hydration. She is on 1L fluid restriction. No current signs of edema on distal extremities. Patient is spontaneous getting out of bed and family in room allows, bed alarm on. Patient MAEW but weak and needs SBA with transfer.
[2023-07-27 11:49] VITALS: BP 149/74
--- NOTE | 2023-07-27 12:21 | NUR ---
Patient has had PT and OT work with her and Dr Vee also has been by. She continues to be alert and oriented and able to communicate her needs. She remains on NC 1.5 L O2 and sats >95%. She is SBA and bed alarm on. She has ST by and because no lower denture will have to remains on soft diet and she is ok with that. VSS.
--- NOTE | 2023-07-27 15:30 | NUR ---
patient has been resting on 1.5 L O2 via NC and sats >95%. She remains a SBA and up to BSC. Family at bedside. No significant changes with patient.
--- NOTE | 2023-07-27 17:52 | NUR ---
Patient went off to imaging in wheelchair and tolerated well. She has been sitting at bedside watching TV. She remains on 1L Fluid restriction. She is alert and oriented and is able to communicate her needs. She continues on 1.5 Liter O2 via NC and sats >90%. She will have BiPAP available for sleep 06/22 if needed. SBA with transfer and bed alarm in place for patient safety. CBG's today below 200 and all needed 2 units coverage each time. Patient denies no current needs.
[2023-07-27 19:59] VITALS: BP 153/74
[2023-07-28] VITALS (41 sets, daily range): BP systolic 114–198; BP diastolic 56–129
[2023-07-28 03:40] LABS: BASOPHILS ABSOLUTE AUTO 0.01 K/mm3 (0.00-0.23); BASOPHILS PERCENT AUTO 0 % (0-2); EOSINOPHILS ABSOLUTE AUTO 0.32 K/mm3 (0.00-0.68); EOSINOPHILS PERCENT AUTO 7 % (0-6); Hematocrit 22.4 % (33.0-51.0); Hemoglobin 6.8 g/dL (11.5-16.0); IMMATURE GRAN ABSOLUTE AUTO 0.03 K/mm3 (0.00-0.10); IMMATURE GRAN PERCENT AUTO 1 % (0-1); LYMPHOCYTES ABSOLUTE AUTO 0.91 K/mm3 (0.84-5.20); LYMPHOCYTES PERCENT AUTO 20 % (21-46); MONOCYTES ABSOLUTE AUTO 0.38 K/mm3 (0.16-1.47); MONOCYTES PERCENT AUTO 9 % (4-13); Mean Corpuscular HGB 28.6 pg (26.0-34.0); Mean Corpuscular HGB Conc 30.4 g/dL (31.5-36.5); Mean Corpuscular Volume 94 fL (80-100); Mean Platelet Volume 12.2 fL (9.1-12.4); NEUTROPHILS ABSOLUTE AUTO 2.83 K/mm3 (1.96-9.15); NEUTROPHILS PERCENT AUTO 63 % (41-73); Platelet Count 128 K/mm3 (150-400); RDW Coefficient Variation 16.3 % (11.7-14.2); RDW Standard Deviation 55.2 fL (35.1-46.3); Red Blood Cell Count 2.38 M/mm3 (3.80-5.20); White Blood Cell Count 4.48 K/mm3 (4.00-11.30)
[2023-07-28 04:15] LABS: Magnesium, Blood 2.7 mg/dL (1.6-2.4)
[2023-07-28 04:18] LABS: Albumin, Blood 1.7 g/dL (3.4-5.0); Albumin/Globulin Ratio 0.4 (0.8-1.8); Bilirubin, Total 0.3 mg/dL (0.1-1.0); Bun/Creatinine Ratio 26.8 (12.0-20.0); Calcium, Blood 8.6 mg/dL (8.5-10.1); Creatinine, Blood 4.07 mg/dL (0.40-1.00); Globulin, Blood 4.5 g/dL (2.2-4.0); Phosphorus, Blood 6.5 mg/dL (2.5-4.9); Potassium, Blood 4.5 mmol/L (3.5-5.5); Total Protein, Blood 6.2 g/dL (6.4-8.2)
[2023-07-28 04:40] LABS: PCO2 Arterial 42.5 mmHg (35-45); pH Blood Arterial 7.36 (7.35-7.45)
--- NOTE | 2023-07-28 06:02 | NUR ---
PATIENT UPDATE/SHIFT SUMMARY PT HAD BEEN SR WITH PAC'S DURING THE MAJORITY OF THIS SHIFT, SHORT RUNS OF SVT NOTED WITH HR INCREASING BRIEFLY TO THE 150'S. OTHER VITALS HAD BEEN STABLE. NO NEW CHANGES TO NEURO; OCCASIONAL ANXIETY. AT APPROXIMATELY 0342 AM, THIS RN WAS CALLED INTO THE ROOM D/T PT REPORTING CHEST PAIN WHICH WAS 2/10 AND DULL. EKG DONE. CALLED. MD PICHARDO TO BEDSIDE TO EXAMINE PATIENT. AROUND 0400. AT THIS TIME THE CHEST PAIN INCREASED TO 10/10 PT WITH SEVERE ANXIETY AND WAS CALLING OUT FOR HELP. PT REMAINED ON BIPAP BUT BEGAN TO REMOVE IT AND WAS DESATTING TO THE 70'S DESPITE BIPAP WITH BLEED IN OF 15L. RT TASHA CALLED TO BEDSIDE TO ADJUST BIPAP SETTINGS AND PLACE BACK ON V60 BIPAP MACHINE. REPEAT EKG RECEIVED AT TIME OF MD'S ARRIVAL TO ROOM. MD MAYERS NOTIFIED AND SENT EKG'S TO VERIFY IF STEMI, D/T SUSPICIOUS ST ELEVATION'S NOTED IN V2; MD MAYERS VERBALIZED NO CONCERN FOR STEMI AFTER SEEING EKG. ORDER FOR STAT CXR AND ABG. MORPHINE AND ATIVAN GIVEN PER MD PICHARDO ORDER FOR ANXIETY AND CHEST PAIN. PT WITH TACHYCARDIA AT THIS TIME, SVT WITH HR 150-170'S. BP ELEVATED WITH SBP 200'S. LOPRESSOR PUSH GIVEN PER EMAR. HR DECREASED TO 80'S; WITH NO FURTHER TACHYCARDIA NOTED. SBP 160-170'S. MD MAYERS TO BEDSIDE TO EXAMINE PATIENT. ORDER FOR IV BUMEX PER MD MAYERS. MD MAYERS WITH ORDER TO NOT GIVE UNIT OF PRBC'S D/T RESPIRATORY DISTRESS. PT IS LETHARGIC BUT RESPONDS TO VERBAL STIMULUS. PUREWICK PLACED AND PT EDUCATED ON BEDREST STATUS. IV BUMEX GIVEN PER EMAR. IV LABETALOL GIVEN FOR CONTINUED SBP 170'S. PT REMAINS ON BIPAP 16/8 AND 60% FIO2, RR 20-22 AT THIS TIME. PT ANXIOUS WHEN AROUSED. BED ALARM ON FOR SAFETY. PT REMAINS ON FLUID RESTRICTION AND ONLY RECEIVED 100ML'S DURING THIS SHIFT PRIOR TO EVENT. EKG'S ON CHART. PT APPEARS TO BE SLEEPING AT THIS TIME WITH EQUAL CHEST RISE/FALL NOTED. NO ACUTE DISTRESS NOTED AT THIS TIME.
[2023-07-28 09:15] LABS: PCO2 Arterial 41.2 mmHg (35-45); PO2 Arterial 104 mmHg (80-100); pH Blood Arterial 7.39 (7.35-7.45)
--- NOTE | 2023-07-28 10:11 | NUR ---
[address] Felix during rounding. He had talked with Dr. Barnes and the pt will be having a dialysis port placed, hopefully today. PRACHI Cerda consultation was called into the office by Aubrie Holland RN for this purpose. Pt is tolerating eating while on room air, sitting on the side of the bed. She is still somewhat confused, but directable. Two sisters Nancy and Pearl are in the room with her. After breakfast she was tired and lay down on the bed, spo2 dropped to 83%. she refused the bipap mask. Able to place 2 l/min of O2 by nasal prongs and she recovered her spo2 to 90%.
--- NOTE | 2023-07-28 10:55 | NUR ---
Assisted minimally to bedside commode. she is still somewhat disoriented, but is voicing needs and following directions. Her sister Pearl is at the bedside. Pt is asking "what is going on". Staff and family are reoriented her as needed. She is cooperative.
--- NOTE | 2023-07-28 12:45 | NUR ---
pt NPO after lunch for possible permacath placement today. No word back yet from Dr. Ugalde's office.
--- NOTE | 2023-07-28 12:47 | NUR ---
Abdominal ultrasound completed in the pt's room. PT's son Antoine is at bedside, sleeping in the recliner chair.
--- NOTE | 2023-07-28 14:02 | NUR ---
PT IS ALERT AND ORIENTED X 3, WAS UNABLE TO TELL ME WHY SHE IS IN THE HOSPITAL THIS MORNING, SLEEPY BUT EASILY AROUSABLE. SR 90'S-100'S, BP ELEVATED & MEDICATED PER MD JYOTI DISCUSSED GETTING A PORT PLACED FOR DIALYSIS, PT NOW NPO. PT DENIES CHEST PAIN/PRESSURE. PT ON RA-2L, PT HAS BEEN DROUSY TODAY, 2L NC NEEDED WHEN SHE FALLS ASLEEP, BIPAP AT NIGHT. PT HAD PURWICK IN PLACE AT BEGINNING OF SHIFT, WE HAVE BEEN GETTING HER UP TO BEDSIDE COMMODE TODAY AND PT IS TOLERATING WELL. IV L FOREARM PATENT, FLUSHED AND SALINE LOCKED WHEN MEDS NOT BEING GIVEN. PT HAS BEEN VISIING WITH FAMILY THE MAJORITY OF THE DAY. SHE IS TAKING A NAP NOW AND FAMILY WENT DOWN TO [place]. PT STATED SLIGHT PAIN ON SIDE OF HER R RIBS, BUT PT STATED THAT IS NORMAL FOR HER. LUNG SOUNDS ARE CLEAR YET DIMINISHED IN BASES. CIRILO HOSE ARE IN PLACE. PT RESTING IN BED, CALL LIGHT WITHIN REACH.
--- NOTE | 2023-07-28 18:19 | NUR ---
SHIFT SUMMARY NO ACUTE CHANGES, SEE PREVIOUS NOTES. AWAITING PT TO HAVE PORT PLACED FOR DIALYSIS, [facility] HAD AN EMERGENCY THAT HAD TO GO BEFORE HER. SOON PATIENT LEAVES TO HAVE PORT PLACED, NURSE FOR DIALYSIS NEEDS TO BE CALLED SO SHE CAN GET PREPARED AND BE READY TO DIALYZE PT WHEN SHE RETURNS TO UNIT FROM [facility], IF PT HAS NOT LEFT BEFORE SHIFT CHANGE I PLAN TO PASS THAT ON IN REPORT. ATTEMPTED TO CALL PT'S SISTER AND UPDATE HER BUT THE NUMBER GIVEN WON'T GO THROUGH. PT'S HR CURRENTLY FLUCTUATING BETWEEN 90'S-150'S, BP 142/89, WOKE PT UP TO ASSESS HER & SHE DENIES CHEST PAIN/PRESSURE, DIZZINESS, ANXIETY, SOB. PT FELL BACK TO SLEEP QUICKLY. LINE ASSIGNER HERE TO TAKE PT TO HAVE DIALYSIS PORT PLACED.
--- NOTE | 2023-07-28 20:43 | NUR ---
PATIENT UPDATE/ASSUMPTION OF CARE PT BACK FROM [facility] AT 1940. PT A&O X4. BEDSIDE REPORT TAKEN FROM CODING SPEC RN'S. PERMCATH HEPARIN LOCKED IN RIGHT CHEST WALL. DRESSING C/D/I. PT DENIES TENDERNESS. NO BLEEDING, DISCOLORATION, SWELLING NOTED AT THIS TIME. BP ELEVATED WITH SBP 170'S AT TIME OF ARRIVAL. SBP NOW 140'S AT TIME OF WRITING THIS NOTE AFTER SCHEDULED MEDICATIONS. ON 3L VIA NC WITH SPO2 >90%. SR WITH PAC'S, HR 80'S. PT DENIES CHEST PAIN/PRESSURE AND SOB. PT VERBALIZED UNDERSTANDING DIALYSIS PROCEDURE. THIS RN SPOKE WITH MD MILLER REGARDING HGB OF 6.8; ORDER FOR 1UNIT PRBC'S TO BE TRANSFUSED WITH DIALYSIS. ORDERS PLACED. BORDER GUARD MEENAKSHI AWARE. PT CURRENTLY RECEIVED DIALYSIS WITH BORDER GUARD AT BEDSIDE. THIS RN ATTEMPTED TO CALL SISTER JAYLEEN AND NIECE VINI X2; BUSY SIGNALS HEARD FOR BOTH PHONE NUMBERS; PT AWARE. BED IN LOWEST POSITION AND CALL LIGHT WITHIN REACH.
--- NOTE | 2023-07-28 23:28 | NUR ---
PATIENT UPDATE PATIENT FINISHED WITH DIALYSIS AT THIS TIME. PT NOTED TO BE GOING IN/OUT OF AFIB/SVT AT TIMES DURING DIALYSIS; OTHERWISE PT HAS BEEN SR WITH HR 80'S. PT DENIES CHEST PAIN/PRESSURE. PT DISCONNECTED FROM DIALYSIS WITH NOTED HR MAINTAINING 120-140'S. SBP 130'S. IV LOPRESSOR PUSH GIVEN; SEE EMAR. AT THIS TIME HR 100'S; OCCASIONAL P WAVES NOTED. BP REMAINS STABLE. PT REPORTS COMFORT. BED IN LOWEST POSITION. BED ALARM ON. CALL LIGHT WITHIN REACH.
[2023-07-29] VITALS (22 sets, daily range): BP systolic 121–185; BP diastolic 54–91
[2023-07-29 04:03] LABS: Hematocrit 24.6 % (33.0-51.0); Hemoglobin 7.8 g/dL (11.5-16.0)
--- NOTE | 2023-07-29 04:23 | NUR ---
SHIFT SUMMARY SEE PREVIOUS NOTES. PT CURRENTLY IN SR WITH PAC'S, HR 80-90'S. OCCASIONALLY PT APPEARS TO BE FLIPPING INTO AFIB PER MORTGAGE LOAN INTERVIEWER YONATAN, WITH HR 90-110'S. SHORT RUNS OF SVT NOTED. PT DENIES CHEST PAIN/PRESSURE AND SOB AT REST. PT ON 2L VIA NC WITH SPO2 >90%. BIPAP 12/6 AND 25% FIO2 USED FOR 3-4 HOURS WHILE SLEEPING. PT REPORTS FEELING "BETTER" SINCE FINISHING DIALYSIS. PT UP TO BSC WITH STANDBY ASSIST AND FWW. PERMCATH ON RIGHT CHEST WALL CONTINUES TO BE WNL AND UNCHANGED FROM PRIOR ASSESSMENT. DRESSING C/D/I. PT REPORTS OCCASIONAL TENDERNESS WHEN MOVING SHOULDER. NO NEURO CHANGES NOTED. PT A&O X4 AND CALLING APPROPRIATELY. BED IN LOWEST POSITION AND CALL LIGHT WITHIN REACH. BED ALARM ON. THIS RN WILL REPORT TO ONCOMING RN.
[2023-07-29 04:26] LABS: Albumin, Blood 1.8 g/dL (3.4-5.0); Anion Gap 4 mmol/L (6-16); Blood Urea Nitrogen 50 mg/dL (8-24); Bun/Creatinine Ratio 21.6 (12.0-20.0); CO2, Blood 31 mmol/L (21-32); Calcium, Blood 7.9 mg/dL (8.5-10.1); Chloride, Blood 102 mmol/L (98-108); Creatinine, Blood 2.31 mg/dL (0.40-1.00); Glomerular Filtration Rate 24 (60-); Glucose, Blood 143 mg/dL (70-99); Phosphorus, Blood 3.6 mg/dL (2.5-4.9); Potassium, Blood 3.6 mmol/L (3.5-5.5); Sodium, Blood 137 mmol/L (136-145)
--- NOTE | 2023-07-29 07:52 | NUR ---
Dr. Barnes here to see the patient. Sister Pearl is at the bedside. Pt is much less confused and less drowsy this morning compared to yesterday. States that she still feels a little disoriented, but she is much clearer.
--- NOTE | 2023-07-29 08:58 | NUR ---
PT AWAKE, ALERT, AND ORIENTED X 4 TODAY. HER SISTERS GOT HERE THIS MORNING AND HAVE BEEN IN THE ROOM VISITING WITH HER. PT IS MORE TALKATIVE AND LESS DROWSY THAN YESTERDAY. PT HR/RHYTHM MAT PER TELE MONITOR 80'S-130'S. PT DENIES CHEST PAIN/PRESSURE. PT ON 2L NC MAINTAINING O2 SATURATION ABOVE 92%, PT DENIES SOB. PT UP TO BEDSIDE COMMODE. PT RECEIVING DIALYSIS IN HER ROOM NOW.
--- NOTE | 2023-07-29 13:10 | NUR ---
Pt resting in bed upon arrival. Pt's brother CJ at bedside. Engaged in therapeutic listening as Pt reports not being and has one son. She reports having a child that at the age of 1 due to heart issues. Pt reports her nephew, brother, and sisters are supportive. Engaged in therapeutic conversation regarding advanced care planning. Educated on disease process including trajectory. Discussed the importance of planning for the future including considering hospice at some point. Continued therapeutic listening, validated concerns, and answered questions. Pt reports having anxiety being a DNR. Validated concerns, educated on life sustaining treatments including risks and implications to CPR. Pt appears to be more at ease regarding choice of DNR. Pt's brother also discusses his experience regarding CPR performed on his late by paramedics. He reports his and was disturbing for him to watch resuscitation efforts on his . Continued therapeutic visit. Spoke with Primary RN Nitza and discussed case. Palliative Care will remain available
--- NOTE | 2023-07-29 17:08 | NUR ---
SHIFT SUMMARY; BOB TRANSFERRED TO MED FLOOR FROM PCU AT 1400 TODAY. HER FAMILY ACCOMPANIED HER. PATIENT RECEIVED DIALYSIS TODAY. HER BLOOD PRESSURE REMAINS ELEVATED AND CLONIDINE AND COREG ARE ADMIN PER SCHEDULED ORDERS. SHE IS AO X S4. SHE HAS MUCH CONCERN ABOUT HER CODE STATUS AND IS WANTING TO THINK MORE ABOUT WHETHER OR NOT TO BE A FULL CODE OR A DNR. CALL TO HE [facility] OK TO CHANGE HER TO FULL CODE.
[2023-07-30] VITALS (16 sets, daily range): BP systolic 126–212; BP diastolic 65–114
--- NOTE | 2023-07-30 03:44 | NUR ---
SHIFT SUMMARY. SHIFT HAS BEEN MOSTLY UNREMARKABLE. PT IS AOX4, PLEASANT, COOPERATIVE WITH CARE. SOMEWHAT MUMBLED SPEECH. SBA TO BEDSIDE COMMODE, CALLS APPROPRIATELY. BED ALARM REMAINS IN PLACE FOR SAFETY. TELE ON WITH NO EVENTS THUS FAR THIS SHIFT. TOLERATING FLUID RESTRICTION WELL. REFUSED NIGHT TIME CPAP BUT REQUESTED 1.5 L O2 VIA NC IN ITS PLACE. SATTING WELL ON THAT WHILE SLEEPING AND HAS BEEN SATTING WELL ON ROOM AIR WHILE AWAKE, CONTINUOUS PULSE OX REMAINS IN PLACE. NO COMPLAINTS OF PAIN THIS SHIFT. BED LOCKED IN LOWEST POSITION. CALL LIGHT LEFT WITHIN REACH.
[2023-07-30 05:38] LABS: BASOPHILS ABSOLUTE AUTO 0.02 K/mm3 (0.00-0.23); BASOPHILS PERCENT AUTO 0 % (0-2); EOSINOPHILS PERCENT AUTO 6 % (0-6); Hematocrit 25.7 % (33.0-51.0); Hemoglobin 8.1 g/dL (11.5-16.0); IMMATURE GRAN ABSOLUTE AUTO 0.03 K/mm3 (0.00-0.10); IMMATURE GRAN PERCENT AUTO 1 % (0-1); LYMPHOCYTES PERCENT AUTO 24 % (21-46); MONOCYTES PERCENT AUTO 11 % (4-13); Mean Corpuscular HGB 28.3 pg (26.0-34.0); Mean Corpuscular HGB Conc 31.5 g/dL (31.5-36.5); Mean Corpuscular Volume 90 fL (80-100); NEUTROPHILS ABSOLUTE AUTO 3.17 K/mm3 (1.96-9.15); NEUTROPHILS PERCENT AUTO 58 % (41-73); Platelet Count 137 K/mm3 (150-400); RDW Coefficient Variation 15.1 % (11.7-14.2); RDW Standard Deviation 49.6 fL (35.1-46.3); Red Blood Cell Count 2.86 M/mm3 (3.80-5.20); White Blood Cell Count 5.42 K/mm3 (4.00-11.30)
[2023-07-30 06:20] LABS: Albumin, Blood 1.9 g/dL (3.4-5.0); Albumin/Globulin Ratio 0.4 (0.8-1.8); Bilirubin, Total 0.3 mg/dL (0.1-1.0); Bun/Creatinine Ratio 16.3 (12.0-20.0); Calcium, Blood 8.1 mg/dL (8.5-10.1); Creatinine, Blood 2.83 mg/dL (0.40-1.00); Globulin, Blood 4.5 g/dL (2.2-4.0); Magnesium, Blood 2.2 mg/dL (1.6-2.4); Phosphorus, Blood 4.9 mg/dL (2.5-4.9); Potassium, Blood 3.9 mmol/L (3.5-5.5); Total Protein, Blood 6.4 g/dL (6.4-8.2)
--- NOTE | 2023-07-30 20:54 | NUR ---
SHIFT SUMMARY: AT START OF SHIFT, PT'S BREATHING WAS LABORED, HAD O2 @ 1.5 L/MIN NC. SHE WAS QUITE ANXIOUS, AFRAID SHE WAS GOING TO . EDUCATED HER ABOUT HER FLUID STATUS AND THAT SHE WOULD FEEL BETTER AFTER HD. DIRECTOR OF SUSTAINABILITY PROGRAMS CALLED SEVERAL TIMES REGARDING PT'S HR ESCALATING TO 150'S AT TIMES DURING DIALYSIS (NO MEDS GIVEN PRIOR TO HD). AFTER MEDICATIONS GIVEN, HR RETURNED WNL. BREATHING MUCH BETTER AFTER HD; ROOM AIR SATURATION WAS 86-88% ON RA WHILE NAPPING, PLACED O2 @ 1 L/MIN NC AND O2 SAT RECOVERED TO 95%. UNDERSTANDS AND IS COMPLIANT WITH FLUID RESTRICTION. POLST FORM SIGNED BY PROVIDER, COPY IN CHART.
[2023-07-31] VITALS (18 sets, daily range): BP systolic 77–183; BP diastolic 40–108
--- NOTE | 2023-07-31 03:55 | NUR ---
SHIFT SUMMARY. SHIFT HAS BEEN MOSTLY UNREMARKABLE. PT AOX4, PLEASANT, COOPERATIVE WITH CARE. SOMEWHAT ANXIOUS. CONTINUES TO SAT WELL ON ROOM AIR WHILE AWAKE BUT WEARS 1-1.5 L O2 WHILE SLEEPING PRIMARILY FOR COMFORT SHE DOES NOT WANT TO WEAR CPAP. NO PAIN REPORTED THIS SHIFT. HIGH BP THIS MORNING ON VITAL ROUNDS. ADMINISTERED PRN LABETALOL, NOTIFIED TELE, AND EDUCATED PT. PT HAS BEEN ABLE TO SLEEP THROUGH MOST OF SHIFT AND CALLS APPROPRIATELY FOR ASSISTANCE. BED LOCKED IN LOWEST POSITION. CALL LIGHT LEFT WITHIN REACH.
[2023-07-31 04:47] LABS: Hematocrit 24.5 % (33.0-51.0); Hemoglobin 7.7 g/dL (11.5-16.0)
[2023-07-31 05:08] LABS: Magnesium, Blood 2.1 mg/dL (1.6-2.4)
[2023-07-31 05:10] LABS: Albumin, Blood 1.8 g/dL (3.4-5.0); Anion Gap 6 mmol/L (6-16); Blood Urea Nitrogen 37 mg/dL (8-24); Bun/Creatinine Ratio 12.5 (12.0-20.0); CO2, Blood 35 mmol/L (21-32); Chloride, Blood 99 mmol/L (98-108); Creatinine, Blood 2.95 mg/dL (0.40-1.00); Glomerular Filtration Rate 18 (60-); Glucose, Blood 146 mg/dL (70-99); Phosphorus, Blood 4.8 mg/dL (2.5-4.9); Potassium, Blood 3.7 mmol/L (3.5-5.5); Sodium, Blood 140 mmol/L (136-145)
--- NOTE | 2023-07-31 16:00 | NUR ---
SHIFT SUMMARY PT AWAKE DURING SHIFT REPORT, SITTING UP IN BED, WATCHING TV. NO C/O. PT ON CONT BIOX WITH SAT AT 100% ON 1L FOR HS. PT PLACED ON RA WITH BIOX AT 97%. PT TO D/C TO HOME WHEN DIALYSIS BED AVAILABLE. PT HAVING DIALYSIS IN HOSPITAL FOR PAST 4 DAYS. VISITORS TO EARLY AND STAYING OFF AND ON THRU OUT THE DAY. LUNGS T/O WITH FINE CRACKLES SCATTERED IN BASES. 1L FR PER DAY. PT TOLERATING WELL TO PRESENT. UP INDEPENDENTLY TO BSC. UP TO SHOWER THIS AFTERNOON. DENIES FURTHER NEEDS. CALL LT IN REACH.
[2023-08-01 03:55] VITALS: BP 178/75
[2023-08-01 04:52] LABS: Hematocrit 23.8 % (33.0-51.0); Hemoglobin 7.3 g/dL (11.5-16.0)
--- NOTE | 2023-08-01 05:18 | NUR ---
SHIFT SUMMARY PRN LABETALOL GIVEN X2 THIS SHIFT FOR SBP OVER 160.
[2023-08-01 05:20] LABS: Albumin, Blood 1.9 g/dL (3.4-5.0); Anion Gap 4 mmol/L (6-16); Blood Urea Nitrogen 39 mg/dL (8-24); Bun/Creatinine Ratio 13.3 (12.0-20.0); CO2, Blood 34 mmol/L (21-32); Calcium, Blood 8.2 mg/dL (8.5-10.1); Chloride, Blood 103 mmol/L (98-108); Creatinine, Blood 2.94 mg/dL (0.40-1.00); Glomerular Filtration Rate 18 (60-); Glucose, Blood 173 mg/dL (70-99); Magnesium, Blood 2.2 mg/dL (1.6-2.4); Potassium, Blood 3.6 mmol/L (3.5-5.5); Sodium, Blood 141 mmol/L (136-145)
[2023-08-01 07:36] VITALS: BP 185/97
[2023-08-01 13:11] LABS: HBSAG SCREEN Negative (Negative); HCV AB Reactive (Non Reactive); HEP A AB, IGM Negative (Negative); HEP B CORE AB, IGM Negative (Negative); HEPATITIS C QUANTITATION HCV Not Detected IU/mL (.)
--- NOTE | 2023-08-01 15:46 | NUR ---
SHIFT SUMMARY PT AWAKE AT START OF SHIFT, SITTING UP IN BED WATCHING TV. VISITORS IN EARLY TODAY AT BS BEFORE BREAKFAST AND HERE OFF AND ON ALL DAY. DR ACEVEDO IN TO SEE PT EARLY AND DISCUSS PLAN OF CARE. BP MEDS ADJUSTED FOR CONTINUED HTN. PT CONTINUES TO WAIT FOR OUTPT DIALYSIS CHAIR. NO DIALYSIS IN HOSPITAL TODAY. PT TO HAVE DIALYSIS TOMORROW, PRIOR TO D/C HOME. PT IS NOW UP INDEPENDENTLY IN AND TO BTHRM, USING FWW. PT REMAINS ON BASELINE RA. VÁSQUEZ AND CO-OP WITH CARE. NO C/O. CALL LT IN REACH.
--- NOTE | 2023-08-01 16:22 | NUR ---
PT'S SISTER IN THIS AFTERNOON REQUESTING RENAL DIET EDU; OBTAINED AND GIVEN TO PT AND SISTER FOR D/C TOMORROW. DIETARY CONSULT ORDERED FOR TOMORROW.
[2023-08-01 19:14] VITALS: BP 186/67
[2023-08-01 20:57] VITALS: BP 189/70
[2023-08-02] VITALS (15 sets, daily range): BP systolic 161–199; BP diastolic 72–88
--- NOTE | 2023-08-02 04:46 | NUR ---
SHIFT SUMMARY BP ELEVATED ALL NIGHT. PRN HYRDALAZINE GIVEN X1 WITH NO EFFECT. LAST SET OF VS, BP ELEVATED, HOWEVER PT DID NOT WANT TO TAKE HYDRALAZINE AT THIS TIME BECAUSE IT DID NOT WORK PREVIOUSLY AND SHES NERVOUS ABOUT TAKING TOO MUCH BP MEDS.
[2023-08-02 05:07] LABS: Hematocrit 25.7 % (33.0-51.0)
[2023-08-02 05:18] LABS: Albumin, Blood 2.1 g/dL (3.4-5.0); Anion Gap 7 mmol/L (6-16); Blood Urea Nitrogen 58 mg/dL (8-24); Bun/Creatinine Ratio 16.7 (12.0-20.0); CO2, Blood 31 mmol/L (21-32); Calcium, Blood 8.7 mg/dL (8.5-10.1); Chloride, Blood 102 mmol/L (98-108); Creatinine, Blood 3.47 mg/dL (0.40-1.00); Glomerular Filtration Rate 15 (60-); Glucose, Blood 158 mg/dL (70-99); Magnesium, Blood 2.5 mg/dL (1.6-2.4); Phosphorus, Blood 4.9 mg/dL (2.5-4.9); Potassium, Blood 3.9 mmol/L (3.5-5.5); Sodium, Blood 140 mmol/L (136-145)
[2023-08-02] MEDS ORDERED: Isosorbide Mono30 MG PO (12:35)
[2023-08-02] MEDS ORDERED: CARV3.125 PO (12:35)
[2023-08-02] MEDS ORDERED: LOSA50 PO (12:36)
--- NOTE | 2023-08-02 14:04 | NUR ---
PATIENT DISCHARGED TO HOME ACCOMPANIED BY HER SISTER. TELEMETRY AND IV SALINE LOCK REMOVED WITHOUT INCIDENT. PT AND HER SISTER HAD TEACHING SESSION WITH Angel RITCHIE EVENT DESIGNER ABOUT FOOD RESTRICTIONS R/T DIALYSIS AND RENAL DISEASE. VERBALIZED UNDERSTANDING OF D/C INSTRUCTIONS. OFF UNIT VIA W/C AT 1350. NO PERSONAL BELONGINGS LEFT BEHIND IN ROOM.
== END 2023-08-02 13:50 | disposition home or self-care (01) | DRG 871 ==
LOC: ER 08:55 → MEDS 11:15 → ICUE 11:15 → PCU 11:15 → ICUE 12:53 → PCU 07-26 12:40 → MEDS 07-29 13:32
PROVIDERS: Emergency Medicine; Internal Medicine Critical Care Medicine; Internal Medicine Nephrology; Student in an Organized Health Care Education/Training Program; ADMIT Family Medicine
PROC: 5A1935Z Respiratory Ventilation, Less than 24 Consecutive Hours (ICD-10-PCS; principal; 2023-07-21)
PROC: 0BH17EZ Insertion of Endotracheal Airway into Trachea, Via Natural or Artificial Opening (ICD-10-PCS; 2023-07-21)
PROC: 3E03329 Introduction of Other Anti-infective into Peripheral Vein, Percutaneous Approach (ICD-10-PCS; 2023-07-21)
PROC: 5A09457 Assistance with Respiratory Ventilation, 24-96 Consecutive Hours, Continuous Positive Airway Pressure (ICD-10-PCS; 2023-07-22)
PROC: B24BZZZ Ultrasonography of Heart with Aorta (ICD-10-PCS; 2023-07-23)
PROC: 0JH63XZ Insertion of Tunneled Vascular Access Device into Chest Subcutaneous Tissue and Fascia, Percutaneous Approach (ICD-10-PCS; 2023-07-28)
PROC: 02HV33Z Insertion of Infusion Device into Superior Vena Cava, Percutaneous Approach (ICD-10-PCS; 2023-07-28)
PROC: B518ZZA Fluoroscopy of Superior Vena Cava, Guidance (ICD-10-PCS; 2023-07-28)
PROC: 5A1D70Z Performance of Urinary Filtration, Intermittent, Less than 6 Hours Per Day (ICD-10-PCS; 2023-08-02)
DX: A41.9 Sepsis, unspecified organism (principal); I50.33 Acute on chronic diastolic (congestive) heart failure; J96.01 Acute respiratory failure with hypoxia; J96.02 Acute respiratory failure with hypercapnia; J18.9 Pneumonia, unspecified organism; N18.6 End stage renal disease; I13.2 Hypertensive heart and chronic kidney disease with heart failure and with stage 5 chronic kidney disease, or end stage renal disease; N17.9 Acute kidney failure, unspecified; C22.0 Liver cell carcinoma; J44.0 Chronic obstructive pulmonary disease with (acute) lower respiratory infection; K76.6 Portal hypertension; N25.81 Secondary hyperparathyroidism of renal origin; E87.20 Acidosis, unspecified; E87.0 Hyperosmolality and hypernatremia; Z66 Do not resuscitate; E11.22 Type 2 diabetes mellitus with diabetic chronic kidney disease; D63.1 Anemia in chronic kidney disease; K74.60 Unspecified cirrhosis of liver; I48.91 Unspecified atrial fibrillation; K72.90 Hepatic failure, unspecified without coma; F41.8 Other specified anxiety disorders; E83.39 Other disorders of phosphorus metabolism; E83.41 Hypermagnesemia; F17.210 Nicotine dependence, cigarettes, uncomplicated; B18.2 Chronic viral hepatitis C; G43.909 Migraine, unspecified, not intractable, without status migrainosus; I08.0 Rheumatic disorders of both mitral and aortic valves; E78.5 Hyperlipidemia, unspecified; E11.40 Type 2 diabetes mellitus with diabetic neuropathy, unspecified; E11.319 Type 2 diabetes mellitus with unspecified diabetic retinopathy without macular edema; Z88.8 Allergy status to other drugs, medicaments and biological substances; Z79.4 Long term (current) use of insulin; Z99.2 Dependence on renal dialysis; Z87.19 Personal history of other diseases of the digestive system; Z88.6 Allergy status to analgesic agent; Z11.52 Encounter for screening for COVID-19
CPT/HCPCS: 0241U; 31500; 36415; 36430; 36558; 36600; 51702; 71045; 71046; 76770; 76937; 77001; 80047; 80053; 80069; 80074; 81001; 82803; 82947; 83036; 83605; 83735; 83880; 84100; 84484; 85014; 85018; 85025; 85027; 86850; 86900; 86901; 86923; 87040; 87070; 87077; 87147; 87186; 87205; 92526; 92610; 93005; 93010; 93306; 94002; 94003; 94660; 94664; 94762; 96365-59; 96366-59; 96368; 96375-59; 97110; 97116; 97162; 97166; 97530; 97535; 99152; 99291-25; 99292; A9270; C1750; C1769; C1894; C9113; J0330; J0360; J0456; J0696; J0881; J1644; J1940; J2060; J2250; J2270; J2405; J2704; J3010; J7030; J7040; J7050; P9016

== ENCOUNTER → 2023-09-24 | Outpatient (CLI) | payer MEDICARE, OTHER ==
[~2023-09-24] MED LIST changes: +BASAGLAR K100 UNIT/8 SQ; +CARV3.125 PO; +Isosorbide Mono30 MG PO; +LOSA50 PO; +POTA8 PO
[2023-09-24 15:45] LABS: BASOPHILS ABSOLUTE AUTO 0.01 K/mm3 (0.00-0.23); BASOPHILS PERCENT AUTO 0 % (0-2); EOSINOPHILS ABSOLUTE AUTO 0.09 K/mm3 (0.00-0.68); EOSINOPHILS PERCENT AUTO 3 % (0-6); Hematocrit 25.5 % (33.0-51.0); Hemoglobin 8.7 g/dL (11.5-16.0); IMMATURE GRAN ABSOLUTE AUTO 0.01 K/mm3 (0.00-0.10); IMMATURE GRAN PERCENT AUTO 0 % (0-1); LYMPHOCYTES ABSOLUTE AUTO 0.35 K/mm3 (0.84-5.20); LYMPHOCYTES PERCENT AUTO 12 % (21-46); MONOCYTES ABSOLUTE AUTO 0.45 K/mm3 (0.16-1.47); MONOCYTES PERCENT AUTO 15 % (4-13); Mean Corpuscular HGB Conc 34.1 g/dL (31.5-36.5); Mean Corpuscular Volume 91 fL (80-100); Mean Platelet Volume 11.6 fL (9.1-12.4); NEUTROPHILS ABSOLUTE AUTO 2.01 K/mm3 (1.96-9.15); NEUTROPHILS PERCENT AUTO 69 % (41-73); Platelet Count 98 K/mm3 (150-400); RDW Coefficient Variation 15.7 % (11.7-14.2); RDW Standard Deviation 50.4 fL (35.1-46.3); Red Blood Cell Count 2.81 M/mm3 (3.80-5.20); White Blood Cell Count 2.92 K/mm3 (4.00-11.30)
[2023-09-24 15:53] LABS: Albumin/Globulin Ratio 0.8 (0.8-1.8); Bilirubin, Total 0.7 mg/dL (0.1-1.0); Bun/Creatinine Ratio 13.9 (12.0-20.0); Calcium, Blood 9.3 mg/dL (8.5-10.1); Creatinine, Blood 5.96 mg/dL (0.40-1.00); Potassium, Blood 4.6 mmol/L (3.5-5.5)
== END ==
LOC: LAB SHORT 15:40 → LAB 15:40
PROVIDERS: Physician Assistant Surgical
DX: N18.9 Chronic kidney disease, unspecified (principal)
CPT/HCPCS: 80053; 83880; 85025

== ENCOUNTER 2023-11-22 22:03 | Emergency (ER) | payer MEDICARE, OTHER ==
[~2023-11-22] VITALS: Ht 152.4 cm; Wt 59.0 kg
[2023-11-23 00:12] LABS: BASOPHILS ABSOLUTE AUTO 0.02 K/mm3 (0.00-0.23); BASOPHILS PERCENT AUTO 0 % (0-2); EOSINOPHILS ABSOLUTE AUTO 0.34 K/mm3 (0.00-0.68); EOSINOPHILS PERCENT AUTO 7 % (0-6); Hematocrit 29.7 % (33.0-51.0); Hemoglobin 9.8 g/dL (11.5-16.0); IMMATURE GRAN ABSOLUTE AUTO 0.01 K/mm3 (0.00-0.10); IMMATURE GRAN PERCENT AUTO 0 % (0-1); LYMPHOCYTES ABSOLUTE AUTO 1.09 K/mm3 (0.84-5.20); LYMPHOCYTES PERCENT AUTO 21 % (21-46); MONOCYTES ABSOLUTE AUTO 0.46 K/mm3 (0.16-1.47); MONOCYTES PERCENT AUTO 9 % (4-13); Mean Corpuscular HGB 31.3 pg (26.0-34.0); Mean Corpuscular Volume 95 fL (80-100); Mean Platelet Volume 10.6 fL (9.1-12.4); NEUTROPHILS ABSOLUTE AUTO 3.35 K/mm3 (1.96-9.15); NEUTROPHILS PERCENT AUTO 64 % (41-73); Platelet Count 131 K/mm3 (150-400); RDW Coefficient Variation 13.1 % (11.7-14.2); RDW Standard Deviation 45.2 fL (35.1-46.3); Red Blood Cell Count 3.13 M/mm3 (3.80-5.20); White Blood Cell Count 5.27 K/mm3 (4.00-11.30)
[2023-11-23 00:30] LABS: Albumin, Blood 3.2 g/dL (3.4-5.0); Albumin/Globulin Ratio 0.7 (0.8-1.8); Bilirubin, Total 0.6 mg/dL (0.1-1.0); Bun/Creatinine Ratio 16.6 (12.0-20.0); Calcium, Blood 9.6 mg/dL (8.5-10.1); Creatinine, Blood 3.38 mg/dL (0.40-1.00); Globulin, Blood 4.6 g/dL (2.2-4.0); Potassium, Blood 4.7 mmol/L (3.5-5.5); Total Protein, Blood 7.8 g/dL (6.4-8.2)
[2023-11-23 01:25] VITALS: BP 163/73
[2023-11-23] MEDS ORDERED: BASAGLAR K100 UNIT/1 SC (16:30)
[2023-11-23] MEDS ORDERED: Calcium Acetat667 MG PO (16:32)
== END 2023-11-23 01:24 | disposition home or self-care (01) ==
LOC: ER 22:03
PROVIDERS: Emergency Medicine
DX: T82.42XA Displacement of vascular dialysis catheter, initial encounter (principal); Y71.8 Miscellaneous cardiovascular devices associated with adverse incidents, not elsewhere classified; I13.0 Hypertensive heart and chronic kidney disease with heart failure and stage 1 through stage 4 chronic kidney disease, or unspecified chronic kidney disease; E11.22 Type 2 diabetes mellitus with diabetic chronic kidney disease; N18.30 Chronic kidney disease, stage 3 unspecified; I50.30 Unspecified diastolic (congestive) heart failure; E11.40 Type 2 diabetes mellitus with diabetic neuropathy, unspecified; E11.319 Type 2 diabetes mellitus with unspecified diabetic retinopathy without macular edema; J44.9 Chronic obstructive pulmonary disease, unspecified; Z88.8 Allergy status to other drugs, medicaments and biological substances; Z79.899 Other long term (current) drug therapy; Z79.4 Long term (current) use of insulin; Z87.891 Personal history of nicotine dependence
CPT/HCPCS: 80053; 85025; 99284

== ENCOUNTER 2023-11-24 06:54 | Day surgery (SDC) | payer MEDICARE, OTHER ==
[~2023-11-24] VITALS: Ht 152.4 cm; Wt 61.2 kg
[2023-11-24] VITALS (9 sets, daily range): BP systolic 179–210; BP diastolic 86–101
[~2023-11-24 06:54] MED LIST changes: +Calcium Acetat667 MG PO
[2023-11-24] MEDS ORDERED: NS 250 ML IV ONE (07:44)
[2023-11-24] MEDS ORDERED: Heparin Sodium 1000 Units/ML 10ML MDV ONE (07:45)
[2023-11-24] MEDS ORDERED: FentaNYL Citrate 50 MCG/ML 2 ML Injection ONE (08:14)
[2023-11-24] MEDS ORDERED: NS 1,000 ML IV ONE (08:14)
[2023-11-24] MEDS ORDERED: Midazolam HCl 1MG / ML 2ML Vial ONE (08:14)
[2023-11-24] MEDS ORDERED: HydrALAZINE HCl 20 MG / ML 1ML Vial IV PRN (10:10)
[2023-11-24] MEDS ORDERED: HydrALAZINE HCl 20 MG / ML 1ML Vial ONE (10:11)
--- NOTE | 2023-11-24 10:14 | NUR ---
ICE PACK PROVIDED TO PATIENT PER REQUEST FOR PAIN RELIEF. PT BP IS ELEVATED SEE FLOW SHEET. DR. HOFFMAN NOTIFIED AND HYDRALAZINE ORDERED. 10MG IV GIVEN AT THIS TIME, ORDERS FOR ADDITIONAL 10MG IN 30 MIN IF BP DOES NOT REDUCE.
--- NOTE | 2023-11-24 10:50 | NUR ---
bp reduced with hydralazine admin. vss. pt assisted to get dressed. discharge instructions reviewed. iv removed cathter intact. pt. assisted out via wheel chair to front doors where sister is to drive pt home. dialysis catheter dressing cdi.
== END 2023-11-24 11:25 | disposition home or self-care (01) ==
LOC: MHTC 06:54
DX: Z45.2 Encounter for adjustment and management of vascular access device (principal); N18.6 End stage renal disease; D63.1 Anemia in chronic kidney disease; Z87.891 Personal history of nicotine dependence; Z88.8 Allergy status to other drugs, medicaments and biological substances; E11.622 Type 2 diabetes mellitus with other skin ulcer
CPT/HCPCS: 36581; 76937; 99152; 99153; C1750; C1769; C1894; J0360; J1644; J2250; J3010; J7030; J7050

== ENCOUNTER 2024-02-01 09:47 | Inpatient (IN) | payer MEDICARE, OTHER ==
[~2024-02-01] VITALS: Ht 152.4 cm; Wt 60.3 kg
[~2024-02-01 09:47] MED LIST changes: +HYDR1TAB94 PO; +LIDO700A20 TOP; +LOSA25 PO; -LOSA50 PO
[2024-02-01 10:20] LABS: BASOPHILS ABSOLUTE AUTO 0.01 K/mm3 (0.00-0.23); BASOPHILS PERCENT AUTO 0 % (0-2); EOSINOPHILS ABSOLUTE AUTO 0.07 K/mm3 (0.00-0.68); EOSINOPHILS PERCENT AUTO 1 % (0-6); Hematocrit 29.2 % (33.0-51.0); Hemoglobin 9.7 g/dL (11.5-16.0); IMMATURE GRAN ABSOLUTE AUTO 0.02 K/mm3 (0.00-0.10); IMMATURE GRAN PERCENT AUTO 0 % (0-1); LYMPHOCYTES ABSOLUTE AUTO 0.72 K/mm3 (0.84-5.20); LYMPHOCYTES PERCENT AUTO 13 % (21-46); MONOCYTES ABSOLUTE AUTO 0.43 K/mm3 (0.16-1.47); MONOCYTES PERCENT AUTO 8 % (4-13); Mean Corpuscular HGB 30.3 pg (26.0-34.0); Mean Corpuscular HGB Conc 33.2 g/dL (31.5-36.5); Mean Corpuscular Volume 91 fL (80-100); Mean Platelet Volume 11.3 fL (9.1-12.4); NEUTROPHILS ABSOLUTE AUTO 4.48 K/mm3 (1.96-9.15); NEUTROPHILS PERCENT AUTO 78 % (41-73); Platelet Count 168 K/mm3 (150-400); RDW Coefficient Variation 13.8 % (11.7-14.2); RDW Standard Deviation 46.3 fL (35.1-46.3); White Blood Cell Count 5.73 K/mm3 (4.00-11.30)
[2024-02-01 10:49] LABS: Albumin, Blood 2.6 g/dL (3.4-5.0); Albumin/Globulin Ratio 0.6 (0.8-1.8); Bilirubin, Total 0.5 mg/dL (0.1-1.0); Bun/Creatinine Ratio 12.7 (12.0-20.0); Creatinine, Blood 4.24 mg/dL (0.40-1.00); Globulin, Blood 4.7 g/dL (2.2-4.0); Magnesium, Blood 2.2 mg/dL (1.6-2.4); Phosphorus, Blood 5.7 mg/dL (2.5-4.9); Potassium, Blood 3.9 mmol/L (3.5-5.5); Total Protein, Blood 7.3 g/dL (6.4-8.2)
[2024-02-01] MEDS ORDERED: Furosemide 10 MG/ML 10ML Vial IV ONE ×2 (11:20→17:50)
[2024-02-01 11:56] LABS: Bicarbonate Venous 30.1 mmol/L (24.0-30.0); PCO2 Venous 45.9 mmHg (38-42); pH Blood Venous 7.44 (7.34-7.37)
[2024-02-01] MEDS ORDERED: Ondansetron HCl 2 MG / ML 2ML Vial IV PRN (14:30)
[2024-02-01] MEDS ORDERED: Insulin Human Lispro 100 Units/ML 3ML Syringe SC SCH (16:30)
[2024-02-01 16:42] VITALS: BP 167/67
[2024-02-01] MEDS ORDERED: Carvedilol 3.125 MG Tab PO SCH (17:00)
[2024-02-01] MEDS ORDERED: Darbepoetin Alfa in Polysorbat 25 MCG/0.42 ML Syringe SC ONE (18:00)
--- NOTE | 2024-02-01 18:30 | NUR ---
ADMISSION AND SHIFT SUMMARY PATIENT ADMITTED TO MEDICAL FLOOR FOR FLUID OVERLOAD. PATIENT ALERT AND INTERACTIVE. PATIENT STATES THAT SHE DOES NOT KNOW HER MEDICATIONS. PATIENT STATES HER SISTER MANAGES HER MEDICATIONS. PATIENT ABLE TO AMBULATE INDEPENDENTLY BUT NEEDS SUPERVISION BECAUSE OF O2 TUBING. PATIENT NEW TO DIALYSIS AND NEEDING MORE EDUCATION RELATED TO DIET AND DIALYSIS.
[2024-02-01 19:51] VITALS: BP 205/71
[2024-02-01] MEDS ORDERED: Insulin Glargine-Yfgn 100 Unit/mL 3 ML SYR SC SCH (21:00)
[2024-02-01] MEDS ORDERED: Isosorbide Mononitrate 30 MG TABCR PO SCH (21:00)
[2024-02-01] MEDS ORDERED: CloNIDine 0.1 MG Tab PO SCH (21:00)
[2024-02-01] MEDS ORDERED: Losartan Potassium 25 MG Tab PO SCH (21:00)
[2024-02-01] MEDS ORDERED: TRULICITY4.5 MG/0.5 SC (22:43)
[2024-02-01] MEDS ORDERED: CALCIUM ACETAT667 M2 PO (22:45)
[2024-02-01] MEDS ORDERED: HYDROCODONE-AC1 EA19 PO (22:46)
[2024-02-01] MEDS ORDERED: MIDO5 PO (22:47)
[2024-02-01 23:10] VITALS: BP 182/67
[2024-02-02] VITALS (16 sets, daily range): BP systolic 125–191; BP diastolic 47–108
[2024-02-02 06:24] LABS: Hemoglobin 8.8 g/dL (11.5-16.0)
[2024-02-02 07:11] LABS: Albumin, Blood 2.5 g/dL (3.4-5.0); Anion Gap 12 mmol/L (3-11); Blood Urea Nitrogen 72 mg/dL (8-24); Bun/Creatinine Ratio 13.7 (12.0-20.0); CO2, Blood 29 mmol/L (21-32); Calcium, Blood 11.6 mg/dL (8.5-10.1); Chloride, Blood 95 mmol/L (98-108); Creatinine, Blood 5.24 mg/dL (0.40-1.00); Glomerular Filtration Rate 9 (60-); Glucose, Blood 242 mg/dL (70-99); Magnesium, Blood 2.2 mg/dL (1.6-2.4); Phosphorus, Blood 7.7 mg/dL (2.5-4.9); Potassium, Blood 3.9 mmol/L (3.5-5.5); Sodium, Blood 132 mmol/L (136-145)
--- NOTE | 2024-02-02 07:22 | NUR ---
shift summary BP at begining of shift 205/71. scheduled bp meds given as ordered. bp recheck = 182/67. will continue to monitor. no other events overnight.
[2024-02-02] MEDS ORDERED: Heparin Sodium,Porcine 5,000 UNIT/0.5 ML SDV SC SCH (09:00)
[2024-02-02] MEDS ORDERED: Bumetanide 1 MG Tab PO SCH (09:00)
[2024-02-02] MEDS ORDERED: AmLODIPine Besylate 5 MG Tab PO SCH (09:00)
[2024-02-02] MEDS ORDERED: Anticoagulant Sod Citrate Soln 3 ML SYR INJ PRN (10:50)
--- NOTE | 2024-02-02 18:00 | NUR ---
SHIFT SUMMARY PATIENT ALERT AND INTERACTIVE BUT FLAT. PATIENT CONTINUES TO ASK QUESTIONS ABOUT DIALYSIS, DIET AND DIABETES. PATIENT MAKES EXCUSES OF WHY SHE IS UNABLE TO FOLLOW PLAN. PATIENT ALSO ADMITS THAT SHE HAS TROUBLE TAKING HER MEDS ORDERED. PATIENT REPORTS THAT SHE TELLS DIALYSIS THAT SHE DOES NOT LIKE TO HAVE MORE THAN 2 L REMOVED EACH DIALYSIS. PATIENT HAD INPATIENT DIALYSIS TODAY. EDUCATION PROVIDED TO SISTER ALONG WITH PATIENT ABOUT DIALYSIS, DIET, DIABETES, AND SAFETY RISK WITH LIVING ALONE.
[2024-02-02] MEDS ORDERED: BUME2 PO (19:13)
[2024-02-02] MEDS ORDERED: PROPRANOLOL HC160 MG PO (19:14)
[2024-02-03 03:16] VITALS: BP 152/66
--- NOTE | 2024-02-03 04:14 | NUR ---
pt awoke once durring night with c/o panic feeling. pt states she feels some discomfort in her chest and then talked about the feeling of being "kidnaped like on tv and you have to find your way out". pt given a cool wash cloth for her forehead and alowed to talk about her life stressers with theraputic listening. pt able to calm down and states she feels better.
[2024-02-03 05:36] LABS: Hematocrit 27.2 % (33.0-51.0); Hemoglobin 8.9 g/dL (11.5-16.0)
[2024-02-03 06:03] LABS: Albumin, Blood 2.4 g/dL (3.4-5.0); Anion Gap 9 mmol/L (3-11); Blood Urea Nitrogen 47 mg/dL (8-24); Bun/Creatinine Ratio 11.4 (12.0-20.0); CO2, Blood 31 mmol/L (21-32); Calcium, Blood 10.5 mg/dL (8.5-10.1); Chloride, Blood 102 mmol/L (98-108); Creatinine, Blood 4.14 mg/dL (0.40-1.00); Glomerular Filtration Rate 12 (60-); Glucose, Blood 136 mg/dL (70-99); Magnesium, Blood 2.1 mg/dL (1.6-2.4); Phosphorus, Blood 5.7 mg/dL (2.5-4.9); Potassium, Blood 3.4 mmol/L (3.5-5.5); Sodium, Blood 139 mmol/L (136-145)
[2024-02-03] MEDS ORDERED: Potassium Chloride 10 Meq Tablet SA PO ONE (06:40)
[2024-02-03 07:37] VITALS: BP 159/71
[2024-02-03] MEDS ORDERED: Regadenoson 0.4 MG/5 ML SYRINGE ONE (14:30)
[2024-02-03 15:28] VITALS: BP 161/54
--- NOTE | 2024-02-03 17:11 | NUR ---
SHIFT SUMMARY: PATIENT IS ALERT AND ORIENTED X4, BUT CONFUSED/FORGETFUL/FLIGHTS OR IDEAS. SHE IS PLEASANT AND COOPERATIVE/SBA, SHE UNDERWENT A STRESS TEST TODAY AND DUE TO THAT, DIALYSIS GOT RESCHEDULED TO TOMORROW 02/04/24. HER SISTERS HAVE BEEN VISITING THROUGHOUT THE SHIFT AND HAVE BEEN ASSISTING IN PATIENT CARE. THEY MADE A COMMENT ABOUT TAKING THE PATIENT HOME. CHEST CT SHOWED FINDINGS OF PNEUMONIA/PNEUMONITIS; PULMONOLY DR. HENSON WAS CONSULTED; HE CAME BY. PATIENT IS BACK IN BED FROM THE SHOWER, CALL LIGHT WITHIN REACH, NO SIGNS OR SYMPTOMS OF DISTRESS, PLAN OF CARE ONGOING.
[2024-02-03 19:38] VITALS: BP 154/67
[2024-02-04] VITALS (17 sets, daily range): BP systolic 124–176; BP diastolic 56–85
[2024-02-04 05:31] LABS: Hematocrit 26.9 % (33.0-51.0); Hemoglobin 8.8 g/dL (11.5-16.0)
[2024-02-04 05:57] LABS: Albumin, Blood 2.4 g/dL (3.4-5.0); Anion Gap 11 mmol/L (3-11); Blood Urea Nitrogen 65 mg/dL (8-24); Bun/Creatinine Ratio 12.7 (12.0-20.0); CO2, Blood 28 mmol/L (21-32); Calcium, Blood 10.5 mg/dL (8.5-10.1); Chloride, Blood 101 mmol/L (98-108); Creatinine, Blood 5.12 mg/dL (0.40-1.00); Glomerular Filtration Rate 9 (60-); Glucose, Blood 236 mg/dL (70-99); Magnesium, Blood 2.1 mg/dL (1.6-2.4); Phosphorus, Blood 6.1 mg/dL (2.5-4.9); Potassium, Blood 3.9 mmol/L (3.5-5.5); Sodium, Blood 136 mmol/L (136-145)
--- NOTE | 2024-02-04 16:07 | NUR ---
SHIFT SUMMARY MS PONCE IS ABLE TO ANSWER ORIENTATION QUESTIONS APPROPRIATELY, IS GENERALLY FORGETFUL. SHE HAS A LEFT CHEST HEMODIALYSIS CATHETER AND R ARM FISTULA WITH GOOD BRUIT/THRILL. SHE HAD DIALYSIS THIS MORNING. SUPPORTIVE FAMILY AT BEDSIDE. PT C/O GENERAL WEAKNESS AND OCCASIONAL SHORT-LASTING DIZZY EPISODES, ABLE TO STAND AND WALK TO THE BATHROOM WITH MINIMAL ASSISTANCE. TOLERATED SITTING UP IN THE CHAIR WELL FOR ABOUT 2 HOURS. BREATHING WELL WITHOUT SOB ON ROOM AIR, PULSE OX CHECKS MID 90S. NO COUGH OBSERVED THIS SHIFT, SPUTUM REMAINS UNCOLLECTED. BED LOW, CALL LIGHT IN REACH, BED ALARM ON.
--- NOTE | 2024-02-04 16:21 | NUR ---
RN NOTE O2 SAT LOW TO MID 80S ON AMBULATING. 90S AT REST. USING 2L NC WHEN WALKING.
--- NOTE | 2024-02-04 17:29 | NUR ---
RN UPDATE ON 1L NC AT REST AFTER FEELING SLIGHTLY SOB AND SAT 86% RA MID 90S ON 1L NC
[2024-02-04] MEDS ORDERED: PARoxetine HCl 20 MG Tab PO SCH (20:10)
[2024-02-05] VITALS (15 sets, daily range): BP systolic 111–168; BP diastolic 54–83
--- NOTE | 2024-02-05 04:48 | NUR ---
NO ACUTE CHANGES, PLEASANT TO CARE, ALERT AND ORIENTED FORGETFUL AT TIMES, DENIES NV OR PAIN, REPORTS FEELING ANXIOUS WITH SOB, PATIENT HAD NOT BEEN RECEIVING PAXIL, PAXIL RESTARTED LAST NIGHT, NO TELE EVENTS, 1L NC AT REST, BASELINE AT HOME NO OXYGEN, PATIENT LIVES BY HERSELF, GOOD FAMILY SUPPORT, HOME HEALTH ORDERED, WILL RELAY TO AM RN
[2024-02-05 04:57] LABS: BASOPHILS ABSOLUTE AUTO 0.01 K/mm3 (0.00-0.23); BASOPHILS PERCENT AUTO 0 % (0-2); EOSINOPHILS ABSOLUTE AUTO 0.18 K/mm3 (0.00-0.68); EOSINOPHILS PERCENT AUTO 4 % (0-6); Hemoglobin 9.5 g/dL (11.5-16.0); IMMATURE GRAN ABSOLUTE AUTO 0.04 K/mm3 (0.00-0.10); IMMATURE GRAN PERCENT AUTO 1 % (0-1); LYMPHOCYTES ABSOLUTE AUTO 0.89 K/mm3 (0.84-5.20); LYMPHOCYTES PERCENT AUTO 19 % (21-46); MONOCYTES ABSOLUTE AUTO 0.43 K/mm3 (0.16-1.47); MONOCYTES PERCENT AUTO 9 % (4-13); Mean Corpuscular HGB 29.8 pg (26.0-34.0); Mean Corpuscular HGB Conc 31.7 g/dL (31.5-36.5); Mean Corpuscular Volume 94 fL (80-100); NEUTROPHILS ABSOLUTE AUTO 3.07 K/mm3 (1.96-9.15); NEUTROPHILS PERCENT AUTO 66 % (41-73); Platelet Count 177 K/mm3 (150-400); RDW Coefficient Variation 14.1 % (11.7-14.2); RDW Standard Deviation 48.2 fL (35.1-46.3); Red Blood Cell Count 3.19 M/mm3 (3.80-5.20); White Blood Cell Count 4.62 K/mm3 (4.00-11.30)
[2024-02-05 05:21] LABS: Albumin, Blood 2.5 g/dL (3.4-5.0); Albumin/Globulin Ratio 0.5 (0.8-1.8); Bilirubin, Total 0.6 mg/dL (0.1-1.0); Bun/Creatinine Ratio 10.1 (12.0-20.0); Calcium, Blood 10.5 mg/dL (8.5-10.1); Creatinine, Blood 4.47 mg/dL (0.40-1.00); Globulin, Blood 4.9 g/dL (2.2-4.0); Phosphorus, Blood 5.9 mg/dL (2.5-4.9); Potassium, Blood 3.9 mmol/L (3.5-5.5); Total Protein, Blood 7.4 g/dL (6.4-8.2)
[2024-02-05] MEDS ORDERED: Losartan Potassium 50 MG Tab PO SCH (09:00)
--- NOTE | 2024-02-05 15:25 | NUR ---
SHIFT SUMMARY MS PONCE HAD DIALYSIS THIS MORNING. THIS AFTERNOON SHE SAT UP IN THE CHAIR FOR A COUPLE OF HOURS, WALKED IN THE HALLWAY WITH WALKER ON 2L O2 NC. SHE SAT AND RESTED HALF WAY THROUGH HER WALK. ON 1L NC WHEN RESTING. FLUID RESTRICTION OF 1L OVER 24HRS EXPLAINED TO MS PONCE AND HER SISTERS. PLAN IS FOR DISCHARGE HOME TOMORROW, HER SISTER IS PLANNING TO STAY WITH HER FOR A FEW DAYS UNTIL A EMERGENCY MANAGEMENT COORDINATOR IS ESTABLISHED. BED LOW, CALL LIGHT IN REACH, BED AND CHAIR ALARMS IN USE.
[2024-02-06] VITALS (13 sets, daily range): BP systolic 104–169; BP diastolic 49–76
--- NOTE | 2024-02-06 05:11 | NUR ---
NO ACUTE CHANGES, WORKING ON HOME WITH HOME HEALTH ORDERS, PLEASANT TO CARE, USES CALL LIGHT APPROPRIATELY, 91% ON 1L NC, OXYGEN BASELINE AT HOME IS NO OXYGEN, WILL RELAY TO PM TIAGO
[2024-02-06 05:37] LABS: BASOPHILS ABSOLUTE AUTO 0.01 K/mm3 (0.00-0.23); BASOPHILS PERCENT AUTO 0 % (0-2); EOSINOPHILS ABSOLUTE AUTO 0.16 K/mm3 (0.00-0.68); EOSINOPHILS PERCENT AUTO 3 % (0-6); Hematocrit 30.5 % (33.0-51.0); IMMATURE GRAN ABSOLUTE AUTO 0.04 K/mm3 (0.00-0.10); IMMATURE GRAN PERCENT AUTO 1 % (0-1); LYMPHOCYTES ABSOLUTE AUTO 0.94 K/mm3 (0.84-5.20); LYMPHOCYTES PERCENT AUTO 19 % (21-46); MONOCYTES PERCENT AUTO 10 % (4-13); Mean Corpuscular HGB 30.6 pg (26.0-34.0); Mean Corpuscular HGB Conc 32.8 g/dL (31.5-36.5); Mean Corpuscular Volume 93 fL (80-100); Mean Platelet Volume 11.1 fL (9.1-12.4); NEUTROPHILS ABSOLUTE AUTO 3.25 K/mm3 (1.96-9.15); NEUTROPHILS PERCENT AUTO 66 % (41-73); Platelet Count 199 K/mm3 (150-400); RDW Coefficient Variation 14.2 % (11.7-14.2); RDW Standard Deviation 47.5 fL (35.1-46.3); Red Blood Cell Count 3.27 M/mm3 (3.80-5.20)
[2024-02-06 06:06] LABS: Albumin, Blood 2.6 g/dL (3.4-5.0); Albumin/Globulin Ratio 0.5 (0.8-1.8); Bilirubin, Total 0.5 mg/dL (0.1-1.0); Bun/Creatinine Ratio 9.4 (12.0-20.0); Calcium, Blood 10.9 mg/dL (8.5-10.1); Creatinine, Blood 4.14 mg/dL (0.40-1.00); Globulin, Blood 5.1 g/dL (2.2-4.0); Magnesium, Blood 2.3 mg/dL (1.6-2.4); Phosphorus, Blood 5.7 mg/dL (2.5-4.9); Potassium, Blood 3.7 mmol/L (3.5-5.5); Total Protein, Blood 7.7 g/dL (6.4-8.2)
--- NOTE | 2024-02-06 15:32 | NUR ---
DISCHARGE NOTE MS PONCE WAS DISCHARGED HOME AT 1530HRS WITH HOME OXYGEN, ESCORTED VIA WHEELCHCAIR WITH RESOURCE TEACHER AND HER SISTER. PT AND HER SISTER VERBALISED UNDERSTANDING OF WRITTEN AND VERBAL DISCHARGE INSTRUCTIONS WITH NO NEW QUESTIONS OR CONCERNS. PIV WAS REMOVED PRIOR TO DISCHARGE. MS PONCE GOT HEMODIALYSIS THIS MORNING, HAD PHYSICAL THERAPY EVALUATION AND HOME OXYGEN EVALUATION TODAY. SHE WALKED IN THE HALLS WITH MOSTLY STEADY GAIT WITH 4 WHEEL WALKER. O2 SAT HIGH 90S AT REST, REQUIRING OXYGEN WITH EXCERTION. HER SISTER SAID THAT SHE IS STAYING WITH HER UNTIL MORE PERMANENT SOLUTION.
== END 2024-02-06 15:31 | disposition home health service (06) | DRG 291 ==
LOC: ER 09:47 → MEDS 14:29 → ENPENDDIS 02-06 15:11 → EDPENDDIS 02-06 15:11 → MEDS 02-06 15:31
PROVIDERS: Family Medicine; Internal Medicine Nephrology; Student in an Organized Health Care Education/Training Program; ADMIT Hospitalist
PROC: 5A1D70Z Performance of Urinary Filtration, Intermittent, Less than 6 Hours Per Day (ICD-10-PCS; principal; 2024-02-01)
DX: I13.2 Hypertensive heart and chronic kidney disease with heart failure and with stage 5 chronic kidney disease, or end stage renal disease (principal); I50.33 Acute on chronic diastolic (congestive) heart failure; N18.6 End stage renal disease; C22.0 Liver cell carcinoma; N25.81 Secondary hyperparathyroidism of renal origin; E87.1 Hypo-osmolality and hyponatremia; E11.22 Type 2 diabetes mellitus with diabetic chronic kidney disease; J98.4 Other disorders of lung; J44.9 Chronic obstructive pulmonary disease, unspecified; I20.9 Angina pectoris, unspecified; B19.20 Unspecified viral hepatitis C without hepatic coma; D63.1 Anemia in chronic kidney disease; E86.9 Volume depletion, unspecified; E83.52 Hypercalcemia; F32.9 Major depressive disorder, single episode, unspecified; Z98.890 Other specified postprocedural states; Z99.2 Dependence on renal dialysis; Z90.710 Acquired absence of both cervix and uterus; Z88.8 Allergy status to other drugs, medicaments and biological substances; Z79.899 Other long term (current) drug therapy; Z79.4 Long term (current) use of insulin
CPT/HCPCS: 36415; 71046; 71250; 78452; 80053; 80069; 82140; 82803; 82947; 83735; 83880; 83970; 84100; 85014; 85018; 85025; 93005; 93010; 93017; 94760; 94761; 96374; 97110; 97161; 97530; 99285-25; A9270; A9500; J0881; J1644; J1815; J1940; J2785

== ENCOUNTER 2024-02-14 09:11 | Emergency (ER) | payer MEDICARE, OTHER ==
[~2024-02-14] VITALS: Ht 152.4 cm; Wt 60.3 kg
[~2024-02-14 09:11] MED LIST changes: +CALCIUM ACETAT667 M2 PO; +HYDROCODONE-AC1 EA19 PO; +MIDO5 PO
[2024-02-14 09:57] LABS: BASOPHILS ABSOLUTE AUTO 0.01 K/mm3 (0.00-0.23); BASOPHILS PERCENT AUTO 0 % (0-2); EOSINOPHILS ABSOLUTE AUTO 0.12 K/mm3 (0.00-0.68); EOSINOPHILS PERCENT AUTO 3 % (0-6); Hematocrit 27.5 % (33.0-51.0); Hemoglobin 9.1 g/dL (11.5-16.0); IMMATURE GRAN ABSOLUTE AUTO 0.02 K/mm3 (0.00-0.10); IMMATURE GRAN PERCENT AUTO 0 % (0-1); LYMPHOCYTES ABSOLUTE AUTO 0.74 K/mm3 (0.84-5.20); LYMPHOCYTES PERCENT AUTO 16 % (21-46); MONOCYTES ABSOLUTE AUTO 0.44 K/mm3 (0.16-1.47); MONOCYTES PERCENT AUTO 9 % (4-13); Mean Corpuscular HGB 31.1 pg (26.0-34.0); Mean Corpuscular HGB Conc 33.1 g/dL (31.5-36.5); Mean Corpuscular Volume 94 fL (80-100); Mean Platelet Volume 11.6 fL (9.1-12.4); NEUTROPHILS ABSOLUTE AUTO 3.33 K/mm3 (1.96-9.15); NEUTROPHILS PERCENT AUTO 72 % (41-73); Platelet Count 152 K/mm3 (150-400); RDW Coefficient Variation 14.8 % (11.7-14.2); RDW Standard Deviation 50.2 fL (35.1-46.3); Red Blood Cell Count 2.93 M/mm3 (3.80-5.20); White Blood Cell Count 4.66 K/mm3 (4.00-11.30)
[2024-02-14 10:20] LABS: Albumin, Blood 2.8 g/dL (3.4-5.0); Albumin/Globulin Ratio 0.6 (0.8-1.8); Bilirubin, Total 0.6 mg/dL (0.1-1.0); Bun/Creatinine Ratio 8.4 (12.0-20.0); Calcium, Blood 10.2 mg/dL (8.5-10.1); Creatinine, Blood 2.15 mg/dL (0.40-1.00); Globulin, Blood 4.8 g/dL (2.2-4.0); Potassium, Blood 3.3 mmol/L (3.5-5.5); Total Protein, Blood 7.6 g/dL (6.4-8.2)
--- NOTE | 2024-02-14 11:54 | NUR ---
Pt sent to ER for poor tolerance of Dialysis today and UF. Noted to have confussiona dn low blood pressure. Family relays worsening tolerance of fluid removal and and feeling more fatigued, constipated and decline in activity. They had questions about levels of care. Pt was concerned that if she stopped dialysis it would be like assited suicide. Review what assited suicide looks like. She is a person of william and had fear over this process. He family feels she is getting closer to the end of her life. Pt looks fvery pale and frail. She is trudggling with tolerance and senses she may not be able to do dialysis. [facility]. We reviewed that hospice is comfort and dignity and support in the natural progression of of end of life and she can limit her medications and work with the staff and chaplian on a william based comforting passing with her family support. Will update [facility] on ER visit and follw up with family.
[2024-02-14 12:01] VITALS: BP 198/64
== END 2024-02-14 12:05 | disposition home or self-care (01) ==
LOC: ER 09:11
PROVIDERS: Emergency Medicine
DX: I13.2 Hypertensive heart and chronic kidney disease with heart failure and with stage 5 chronic kidney disease, or end stage renal disease (principal); E11.22 Type 2 diabetes mellitus with diabetic chronic kidney disease; N18.6 End stage renal disease; I50.30 Unspecified diastolic (congestive) heart failure; J81.1 Chronic pulmonary edema; Z99.2 Dependence on renal dialysis; E78.5 Hyperlipidemia, unspecified; J44.9 Chronic obstructive pulmonary disease, unspecified; F43.10 Post-traumatic stress disorder, unspecified; E11.40 Type 2 diabetes mellitus with diabetic neuropathy, unspecified; Z87.891 Personal history of nicotine dependence
CPT/HCPCS: 71045; 80053; 85025; 99285-25

== ENCOUNTER 2024-06-23 13:18 | Emergency (ER) | payer MEDICARE, OTHER ==
[~2024-06-23] VITALS: Ht 152.4 cm; Wt 64.4 kg
[2024-06-23 19:24] LABS: BASOPHILS ABSOLUTE AUTO 0.01 K/mm3 (0.00-0.23); BASOPHILS PERCENT AUTO 0 % (0-2); EOSINOPHILS ABSOLUTE AUTO 0.18 K/mm3 (0.00-0.68); EOSINOPHILS PERCENT AUTO 2 % (0-6); Hematocrit 29.6 % (33.0-51.0); Hemoglobin 9.7 g/dL (11.5-16.0); IMMATURE GRAN ABSOLUTE AUTO 0.05 K/mm3 (0.00-0.10); IMMATURE GRAN PERCENT AUTO 1 % (0-1); LYMPHOCYTES ABSOLUTE AUTO 1.05 K/mm3 (0.84-5.20); LYMPHOCYTES PERCENT AUTO 12 % (21-46); MONOCYTES ABSOLUTE AUTO 0.55 K/mm3 (0.16-1.47); MONOCYTES PERCENT AUTO 6 % (4-13); Mean Corpuscular HGB 30.4 pg (26.0-34.0); Mean Corpuscular HGB Conc 32.8 g/dL (31.5-36.5); Mean Corpuscular Volume 93 fL (80-100); Mean Platelet Volume 11.5 fL (9.1-12.4); NEUTROPHILS ABSOLUTE AUTO 7.16 K/mm3 (1.96-9.15); NEUTROPHILS PERCENT AUTO 80 % (41-73); Platelet Count 147 K/mm3 (150-400); RDW Coefficient Variation 15.3 % (11.7-14.2); RDW Standard Deviation 49.7 fL (35.1-46.3); Red Blood Cell Count 3.19 M/mm3 (3.80-5.20)
[2024-06-23 19:41] LABS: Albumin, Blood 3.2 g/dL (3.4-5.0); Albumin/Globulin Ratio 0.6 (0.8-1.8); Bilirubin, Total 0.9 mg/dL (0.1-1.0); Bun/Creatinine Ratio 21.2 (12.0-20.0); Calcium, Blood 9.4 mg/dL (8.5-10.1); Creatinine, Blood 3.26 mg/dL (0.40-1.00); Globulin, Blood 5.1 g/dL (2.2-4.0); Potassium, Blood 4.2 mmol/L (3.5-5.5); Total Protein, Blood 8.3 g/dL (6.4-8.2)
[2024-06-23] MEDS ORDERED: RENVELA800 MG PO (19:41)
[2024-06-23] MEDS ORDERED: GABA100 PO (19:42)
[2024-06-23 20:30] LABS: Source, Urine Clean Catch
[2024-06-23 20:35] LABS: Appearance, Urine Hazy (Clear); Bilirubin, Urine Neg (Neg); Blood, Urine 2+ (Neg); Color, Urine Yellow (P-Yellow); Glucose Qualitative, Urine 4+ (Neg); Ketones, Urine Neg (Neg); Leukocyte Esterase, Urine Neg (Neg); Nitrite, Urine Neg (Neg); Protein, Urine 4+ (Neg); Specific Gravity, Urine 1.015 (1.003-1.022); Urobilinogen, Urine NORM (Normal)
[2024-06-23] MEDS ORDERED: Insulin Regular 100 Unit/ML 1ML Dose SC ONE (20:35)
[2024-06-23 20:46] LABS: Amorphous Light (0-Heavy); Bacteria Many /hpf; Mucus Light (0-Heavy); Squamous Epithelial Cells Mod /hpf (Few)
[2024-06-23 22:00] VITALS: BP 185/100
== END 2024-06-23 22:15 | disposition home or self-care (01) ==
LOC: ER 13:18
PROVIDERS: Emergency Medicine
DX: R41.82 Altered mental status, unspecified (principal); E11.65 Type 2 diabetes mellitus with hyperglycemia; E86.1 Hypovolemia; I13.2 Hypertensive heart and chronic kidney disease with heart failure and with stage 5 chronic kidney disease, or end stage renal disease; I50.30 Unspecified diastolic (congestive) heart failure; N18.6 End stage renal disease; Z99.2 Dependence on renal dialysis; Z88.8 Allergy status to other drugs, medicaments and biological substances; Z79.899 Other long term (current) drug therapy; Z79.4 Long term (current) use of insulin; E11.22 Type 2 diabetes mellitus with diabetic chronic kidney disease; E78.5 Hyperlipidemia, unspecified; J44.9 Chronic obstructive pulmonary disease, unspecified; E11.40 Type 2 diabetes mellitus with diabetic neuropathy, unspecified; E11.319 Type 2 diabetes mellitus with unspecified diabetic retinopathy without macular edema; Z87.891 Personal history of nicotine dependence
CPT/HCPCS: 70450; 80053; 81001; 82947; 85025; J1815

== ENCOUNTER 2024-10-20 09:00 | Inpatient (IN) | payer MEDICARE, OTHER ==
[2024-10-20] VITALS (13 sets, daily range): BP systolic 97–161; BP diastolic 61–83
[~2024-10-20] VITALS: Ht 152.4 cm; Wt 69.2 kg
[~2024-10-20 09:00] MED LIST changes: +GABA100 PO; +RENVELA800 MG PO
[2024-10-20] MEDS ORDERED: CILO100 PO (09:26)
[2024-10-20] MEDS ORDERED: LOSA25 PO (09:27)
[2024-10-20] MEDS ORDERED: PANT40 PO (09:28)
[2024-10-20] MEDS ORDERED: Diltiazem HCl 5 MG / ML 5ML Vial IV ONE ×3 (09:35→11:15)
[2024-10-20] MEDS ORDERED: Ondansetron HCl 2 MG / ML 2ML Vial IV ONE (09:55)
[2024-10-20 09:56] LABS: BASOPHILS ABSOLUTE AUTO 0.03 K/mm3 (0.00-0.23); BASOPHILS PERCENT AUTO 1 % (0-2); EOSINOPHILS ABSOLUTE AUTO 0.26 K/mm3 (0.00-0.68); EOSINOPHILS PERCENT AUTO 4 % (0-6); Hematocrit 41.7 % (33.0-51.0); Hemoglobin 13.8 g/dL (11.5-16.0); IMMATURE GRAN ABSOLUTE AUTO 0.01 K/mm3 (0.00-0.10); IMMATURE GRAN PERCENT AUTO 0 % (0-1); LYMPHOCYTES ABSOLUTE AUTO 1.12 K/mm3 (0.84-5.20); LYMPHOCYTES PERCENT AUTO 17 % (21-46); MONOCYTES ABSOLUTE AUTO 0.67 K/mm3 (0.16-1.47); MONOCYTES PERCENT AUTO 10 % (4-13); Mean Corpuscular HGB 31.2 pg (26.0-34.0); Mean Corpuscular HGB Conc 33.1 g/dL (31.5-36.5); Mean Corpuscular Volume 94 fL (80-100); Mean Platelet Volume 10.4 fL (9.1-12.4); NEUTROPHILS ABSOLUTE AUTO 4.48 K/mm3 (1.96-9.15); NEUTROPHILS PERCENT AUTO 68 % (41-73); Platelet Count 203 K/mm3 (150-400); RDW Coefficient Variation 14.6 % (11.7-14.2); RDW Standard Deviation 50.4 fL (35.1-46.3); Red Blood Cell Count 4.42 M/mm3 (3.80-5.20); White Blood Cell Count 6.57 K/mm3 (4.00-11.30)
[2024-10-20 10:26] LABS: Albumin/Globulin Ratio 0.7 (0.8-1.8); Bilirubin, Total 1.1 mg/dL (0.1-1.0); Bun/Creatinine Ratio 8.4 (12.0-20.0); Calcium, Blood 10.1 mg/dL (8.5-10.1); Creatinine, Blood 2.96 mg/dL (0.40-1.00); Globulin, Blood 5.6 g/dL (2.2-4.0); Potassium, Blood 3.3 mmol/L (3.5-5.5); Total Protein, Blood 9.6 g/dL (6.4-8.2)
[2024-10-20] MEDS ORDERED: dilTIAZem HCL 100 MG in NS 100 ML IV SCH (11:15)
[2024-10-20] MEDS ORDERED: dilTIAZem HCL 125 MG in Dextrose 5% 100 ML IV SCH (11:40)
[2024-10-20] MEDS ORDERED: Potassium Chloride 20 MEQ TabCR PO ONE ×2 (13:00→15:35)
[2024-10-20] MEDS ORDERED: FLU VACC TS2024-25(6MOS UP)/PF 45 MCG/0.5 ML SYRINGE IM SCH (13:00)
[2024-10-20] MEDS ORDERED: Ondansetron 4 MG TAB PO PRN (13:00)
[2024-10-20] MEDS ORDERED: Sevelamer Carbonate 800 MG Tab PO SCH (14:00)
[2024-10-20] MEDS ORDERED: CloNIDine 0.1 MG Tab PO SCH (14:00)
[2024-10-20] MEDS ORDERED: Propranolol HCL 80 MG CAPCR PO SCH (14:00)
--- NOTE | 2024-10-20 14:32 | NUR ---
ARRIVAL TO UNIT REPORT RECEIVED FROM [facility]ITY CENTER COORDINATOR. PT ARRIVES ON HOSPITAL BED AND TRANSFERED TO PCU BED VIA SLIDE SHEET. SHE IS ON ROOM AIR, SATTING ABOVE 90%, HR IN 100'S, BP STABLE. A/OX4, MAKES NEEDS KNOWN, OBEYS COMMANDS.
[2024-10-20] MEDS ORDERED: Potassium Chloride 10 Meq Tablet SA PO ONE ×2 (15:40→16:50)
[2024-10-20 16:30] LABS: Magnesium, Blood 2.1 mg/dL (1.6-2.4)
[2024-10-20 16:33] LABS: Potassium, Blood 3.5 mmol/L (3.5-5.5); Thyroid Stimulating Hormone 1.28 uIU/mL (0.360-4.800)
--- NOTE | 2024-10-20 17:36 | NUR ---
THIS AFTERNOON, IMAGING CALLED REGARDING ORDERED CT SCAN WITH CONTRAST FOR AN ORDER FOR DIALYSIS AFTER CT WITH CONTRAST DUE TO KIDNEY FUNCTION. DR MILLER CONTACTED AND AGREED. ON-CALL REPAIR COIL WINDER CONTACTED AND CONFIRMED DIALYSIS IN THE MORNING. IMAGING NOTIFIED OF TIME OF ANTICIPATED DIALYSIS.
--- NOTE | 2024-10-20 17:43 | NUR ---
SHIFT SUMMARY NO ACUTE EVENTS THIS SHIFT. PT CURRENTLY ON 1L NC (BASELINE IS 2L NC PRN) AND SATTING ABOVE 90%. VSS. CARDIZEM RUNNING AT 10.
[2024-10-20] MEDS ORDERED: Acetaminophen 325 MG TABLET PO PRN (19:50)
[2024-10-20] MEDS ORDERED: Insulin Glargine-Yfgn 100 Unit/mL 3 ML SYR SC SCH (21:00)
[2024-10-20] MEDS ORDERED: Cilostazol 50 MG Tab PO SCH (21:00)
[2024-10-20] MEDS ORDERED: Isosorbide Mononitrate 30 MG TABCR PO SCH (21:00)
[2024-10-20] MEDS ORDERED: Losartan Potassium 25 MG Tab PO SCH (21:00)
[2024-10-20] MEDS ORDERED: Gabapentin 100 MG Cap PO SCH (21:00)
[2024-10-21] VITALS (16 sets, daily range): BP systolic 81–129; BP diastolic 40–73
[2024-10-21 05:32] LABS: BASOPHILS ABSOLUTE AUTO 0.03 K/mm3 (0.00-0.23); BASOPHILS PERCENT AUTO 1 % (0-2); EOSINOPHILS ABSOLUTE AUTO 0.35 K/mm3 (0.00-0.68); EOSINOPHILS PERCENT AUTO 6 % (0-6); IMMATURE GRAN ABSOLUTE AUTO 0.01 K/mm3 (0.00-0.10); IMMATURE GRAN PERCENT AUTO 0 % (0-1); LYMPHOCYTES ABSOLUTE AUTO 1.54 K/mm3 (0.84-5.20); LYMPHOCYTES PERCENT AUTO 24 % (21-46); MONOCYTES ABSOLUTE AUTO 0.74 K/mm3 (0.16-1.47); MONOCYTES PERCENT AUTO 12 % (4-13); Mean Corpuscular HGB 31.3 pg (26.0-34.0); Mean Corpuscular HGB Conc 32.5 g/dL (31.5-36.5); Mean Corpuscular Volume 96 fL (80-100); Mean Platelet Volume 10.6 fL (9.1-12.4); NEUTROPHILS ABSOLUTE AUTO 3.63 K/mm3 (1.96-9.15); NEUTROPHILS PERCENT AUTO 58 % (41-73); Platelet Count 202 K/mm3 (150-400); RDW Standard Deviation 52.9 fL (35.1-46.3); Red Blood Cell Count 4.15 M/mm3 (3.80-5.20)
[2024-10-21 05:51] LABS: Albumin, Blood 3.5 g/dL (3.4-5.0); Albumin/Globulin Ratio 0.7 (0.8-1.8); Bilirubin, Total 0.9 mg/dL (0.1-1.0); Bun/Creatinine Ratio 9.3 (12.0-20.0); Creatinine, Blood 5.07 mg/dL (0.40-1.00); Magnesium, Blood 2.2 mg/dL (1.6-2.4); Phosphorus, Blood 4.8 mg/dL (2.5-4.9); Potassium, Blood 4.3 mmol/L (3.5-5.5); Total Protein, Blood 8.5 g/dL (6.4-8.2)
[2024-10-21] MEDS ORDERED: Pantoprazole Sodium 40 MG Tab PO SCH (06:00)
--- NOTE | 2024-10-21 06:37 | NUR ---
SHIFT SUMMARY: PT IS A&OX4, PLEASANT AND COOPERATIVE WITH CARE. VSS ON 1L NC. PT IS SR 70'S- 80'S, THE ENTIRETY OF THIS SHIFT. DC'D DILTIAZEM GTT AROUND 2350. DENIES PAIN THIS SHIFT. TOLERATING A CONS CARB/HEART HEALTHY DIET. VOIDING SCANT AMOUNT OF YELLOW URINE. X1 SMALL HARD PELLET BM. PT FEELS CONSTIPATED. X1 ASSIST. BED IN LOWEST POSITION, CALL LIGHT WITHIN REACH. CALLS APPROPRIATELY AND IS ABLE TO ADVOCATE NEEDS EFFECTIVELY.
[2024-10-21] MEDS ORDERED: Insulin Human Lispro 100 Units/ML 3ML Syringe SC SCH (07:30)
[2024-10-21] MEDS ORDERED: Heparin Sodium 5000 Units/ML 1ML MDV SC SCH (08:00)
--- NOTE | 2024-10-21 08:34 | NUR ---
PT DOWN TO DIALYSIS VIA HOSPITAL BED AND ON RA AT 0830 . PT ABLE TO TRANSFER FROM CHAIR TO BED ON HER OWN FOR TRANSSPORT TO DIALYSIS, TOLERATED WELL.
[2024-10-21] MEDS ORDERED: PARoxetine HCl 20 MG Tab PO SCH ×2 (09:00)
[2024-10-21] MEDS ORDERED: Enoxaparin 30 MG/0.3 ML SYR SC SCH (09:00)
[2024-10-21] MEDS ORDERED: Enoxaparin 40 MG/0.4 ML SYR SC SCH (09:00)
[2024-10-21] MEDS ORDERED: Bumetanide 1 MG Tab PO SCH (09:00)
[2024-10-21] MEDS ORDERED: Cholecalciferol 1000 Unit Tablet (=25MCG) PO SCH (09:00)
[2024-10-21] MEDS ORDERED: Midodrine 5 MG Tab PO SCH (09:13)
--- NOTE | 2024-10-21 09:55 | NUR ---
MORNING NOTE ASSUMED CARE AT 0700, PT IN IMAGING FOR CT WITH CONTRAST. PT RETURNED AT 0720. VSS. PT ON 1L OF O2, SATS ABOVE 90%. PT TO DIALYSIS THIS MORNING.
--- NOTE | 2024-10-21 11:01 | NUR ---
PT BACK TO PCU FROM DIALYSIS AT 1100. PT ON 2L NC, TITRATED TO RA PT SATS WERE AT 100%. VSS UPON RETURN TO ROOM.
--- NOTE | 2024-10-21 12:25 | NUR ---
1200 PT CURRENTLY RESTING IN BED. NO REPORT OF SOB, CHEST PAIN/PRESSURE AT THIS TIME. PT SISTER AT BEDSIDE AND UPDATED. PT A/OX4 AND COOPERATIVE OF CARE. HR REMAINS SR AT THIS TIME.
[2024-10-21] MEDS ORDERED: MIDO5 PO (13:10)
[2024-10-21] MEDS ORDERED: ONDA4 PO (13:11)
--- NOTE | 2024-10-21 14:07 | NUR ---
DISCHARGE UPDATE DISCHARGE PACKET GONE OVER WITH PT AND PT SISTER AT 1350. PT DISCHARGED AT 1405 VIA WHEELCAHIR AND ON RA. PT ABLE TO TRANSFER SELF TO AND FROM WHEELCHAIR ON HER OWN, TOERATED WELL. PT PERSONAL BELONGS IN BAGS AND WITH PT AT TIME OF DISCHARGE. DISCHARGE PACKET WITH PT AT TIME OF DISCHARGE.
[2024-10-22] MEDS ORDERED: Misc. Injectable SC SCH (13:25)
== END 2024-10-21 14:00 | disposition home or self-care (01) | DRG 308 ==
LOC: ER 09:00 → ERHOLD 12:57 → PCU 12:57
PROVIDERS: Emergency Medicine; Internal Medicine Nephrology; ADMIT Internal Medicine
DX: I48.91 Unspecified atrial fibrillation (principal); N18.6 End stage renal disease; I50.32 Chronic diastolic (congestive) heart failure; I13.2 Hypertensive heart and chronic kidney disease with heart failure and with stage 5 chronic kidney disease, or end stage renal disease; C22.0 Liver cell carcinoma; K72.90 Hepatic failure, unspecified without coma; E11.22 Type 2 diabetes mellitus with diabetic chronic kidney disease; Z99.2 Dependence on renal dialysis; G43.909 Migraine, unspecified, not intractable, without status migrainosus; E78.5 Hyperlipidemia, unspecified; J44.9 Chronic obstructive pulmonary disease, unspecified; I35.0 Nonrheumatic aortic (valve) stenosis; F43.10 Post-traumatic stress disorder, unspecified; B18.2 Chronic viral hepatitis C; E87.6 Hypokalemia; M81.0 Age-related osteoporosis without current pathological fracture; G25.81 Restless legs syndrome; E11.40 Type 2 diabetes mellitus with diabetic neuropathy, unspecified; E11.319 Type 2 diabetes mellitus with unspecified diabetic retinopathy without macular edema; E11.51 Type 2 diabetes mellitus with diabetic peripheral angiopathy without gangrene; Z90.710 Acquired absence of both cervix and uterus; Z88.8 Allergy status to other drugs, medicaments and biological substances; Z79.899 Other long term (current) drug therapy; Z90.722 Acquired absence of ovaries, bilateral; Z90.79 Acquired absence of other genital organ(s); Z98.890 Other specified postprocedural states; Z87.891 Personal history of nicotine dependence
CPT/HCPCS: 36415; 71045; 71260; 74177; 80053; 82947; 83735; 84100; 84132; 84443; 84484; 85025; 93005; 93010; 96374; 96375; 96376; 99285-25; A9270; J1644; J1815; J2405; Q9967

== ENCOUNTER 2024-10-30 10:55 | Inpatient (IN) | payer MEDICARE, OTHER ==
[~2024-10-30] VITALS: Ht 154.9 cm; Wt 69.9 kg
[2024-10-30] VITALS (16 sets, daily range): BP systolic 100–165; BP diastolic 50–88
[~2024-10-30 10:55] MED LIST changes: +CILO100 PO; +ONDA4 PO; +PANT40 PO
[2024-10-30 11:49] LABS: BASOPHILS ABSOLUTE AUTO 0.03 K/mm3 (0.00-0.23); BASOPHILS PERCENT AUTO 0 % (0-2); EOSINOPHILS PERCENT AUTO 3 % (0-6); Hematocrit 36.3 % (33.0-51.0); Hemoglobin 12.1 g/dL (11.5-16.0); IMMATURE GRAN ABSOLUTE AUTO 0.03 K/mm3 (0.00-0.10); IMMATURE GRAN PERCENT AUTO 0 % (0-1); LYMPHOCYTES ABSOLUTE AUTO 1.15 K/mm3 (0.84-5.20); LYMPHOCYTES PERCENT AUTO 13 % (21-46); MONOCYTES ABSOLUTE AUTO 0.72 K/mm3 (0.16-1.47); MONOCYTES PERCENT AUTO 8 % (4-13); Mean Corpuscular HGB Conc 33.3 g/dL (31.5-36.5); Mean Corpuscular Volume 96 fL (80-100); Mean Platelet Volume 11.6 fL (9.1-12.4); NEUTROPHILS ABSOLUTE AUTO 6.49 K/mm3 (1.96-9.15); NEUTROPHILS PERCENT AUTO 75 % (41-73); Platelet Count 151 K/mm3 (150-400); RDW Coefficient Variation 15.4 % (11.7-14.2); RDW Standard Deviation 53.2 fL (35.1-46.3); Red Blood Cell Count 3.78 M/mm3 (3.80-5.20); White Blood Cell Count 8.72 K/mm3 (4.00-11.30)
[2024-10-30 12:00] LABS: Albumin, Blood 3.4 g/dL (3.4-5.0); Albumin/Globulin Ratio 0.7 (0.8-1.8); Bilirubin, Total 1.2 mg/dL (0.1-1.0); Bun/Creatinine Ratio 16.4 (12.0-20.0); Calcium, Blood 9.6 mg/dL (8.5-10.1); Creatinine, Blood 5.6 mg/dL (0.40-1.00); Globulin, Blood 4.9 g/dL (2.2-4.0); Potassium, Blood 5.2 mmol/L (3.5-5.5); Total Protein, Blood 8.3 g/dL (6.4-8.2)
[2024-10-30] MEDS ORDERED: Diltiazem HCl 5 MG / ML 5ML Vial IV ONE (12:35)
[2024-10-30 13:17] LABS: Source, Urine Clean Catch
[2024-10-30] MEDS ORDERED: TRULICITY0.75 MG/01 (13:20)
[2024-10-30] MEDS ORDERED: Rena-Vite Tabl0.8 MG PO (13:21)
[2024-10-30] MEDS ORDERED: CLOP75 PO (13:21)
[2024-10-30 13:29] LABS: Appearance, Urine Clear (Clear); Bilirubin, Urine Neg (Neg); Blood, Urine 3+ (Neg); Color, Urine Yellow (P-Yellow); Glucose Qualitative, Urine 3+ (Neg); Ketones, Urine Neg (Neg); Leukocyte Esterase, Urine Neg (Neg); Nitrite, Urine Neg (Neg); Protein, Urine 4+ (Neg); Urobilinogen, Urine NORM (Normal)
[2024-10-30 13:57] LABS: Bacteria Few /hpf; Red Blood Cells, Urine 0-2 /hpf (0-2); Squamous Epithelial Cells Few /hpf (Few); White Blood Cells, Urine 0-2 /hpf (0-5)
[2024-10-30] MEDS ORDERED: Ondansetron HCl 2 MG / ML 2ML Vial IV PRN (16:05)
[2024-10-30] MEDS ORDERED: FLU VACC TS2024-25(6MOS UP)/PF 45 MCG/0.5 ML SYRINGE IM SCH (16:10)
[2024-10-30] MEDS ORDERED: Bisacodyl 10 MG Supp PR PRN (16:10)
[2024-10-30] MEDS ORDERED: Ondansetron 4 MG TAB PO PRN (16:20)
[2024-10-30] MEDS ORDERED: Midodrine 5 MG Tab PO SCH (18:00)
--- NOTE | 2024-10-30 18:37 | NUR ---
RECEIVED REPORT FROM ED RN FOR TRANSFER POST DIALYSIS
[2024-10-30] MEDS ORDERED: Metoprolol Tartrate 25 MG Tab PO SCH (21:00)
[2024-10-30] MEDS ORDERED: Heparin Sodium,Porcine 5,000 UNIT/0.5 ML SDV SC SCH (21:00)
[2024-10-30] MEDS ORDERED: Gabapentin 100 MG Cap PO SCH (21:00)
[2024-10-30] MEDS ORDERED: Cilostazol 50 MG Tab PO SCH (21:00)
[2024-10-30] MEDS ORDERED: Heparin Sodium 5000 Units/ML 1ML MDV SC SCH (21:00)
[2024-10-30] MEDS ORDERED: Losartan Potassium 25 MG Tab PO SCH (21:00)
[2024-10-30] MEDS ORDERED: Isosorbide Mononitrate 30 MG TABCR PO SCH (21:00)
[2024-10-30] MEDS ORDERED: Insulin Regular 100 UNIT/ML 10ML Vial SC SCH (21:00)
[2024-10-31] VITALS (27 sets, daily range): BP systolic 71–149; BP diastolic 39–86
[2024-10-31 05:08] LABS: BASOPHILS ABSOLUTE AUTO 0.01 K/mm3 (0.00-0.23); BASOPHILS PERCENT AUTO 0 % (0-2); EOSINOPHILS PERCENT AUTO 3 % (0-6); Hematocrit 36.8 % (33.0-51.0); Hemoglobin 12.4 g/dL (11.5-16.0); IMMATURE GRAN ABSOLUTE AUTO 0.02 K/mm3 (0.00-0.10); IMMATURE GRAN PERCENT AUTO 0 % (0-1); LYMPHOCYTES ABSOLUTE AUTO 1.34 K/mm3 (0.84-5.20); LYMPHOCYTES PERCENT AUTO 23 % (21-46); MONOCYTES ABSOLUTE AUTO 0.66 K/mm3 (0.16-1.47); MONOCYTES PERCENT AUTO 11 % (4-13); Mean Corpuscular HGB 31.8 pg (26.0-34.0); Mean Corpuscular HGB Conc 33.7 g/dL (31.5-36.5); Mean Corpuscular Volume 94 fL (80-100); Mean Platelet Volume 11.2 fL (9.1-12.4); NEUTROPHILS ABSOLUTE AUTO 3.71 K/mm3 (1.96-9.15); NEUTROPHILS PERCENT AUTO 62 % (41-73); Platelet Count 163 K/mm3 (150-400); RDW Coefficient Variation 15.2 % (11.7-14.2); White Blood Cell Count 5.94 K/mm3 (4.00-11.30)
[2024-10-31 05:23] LABS: Albumin, Blood 3.3 g/dL (3.4-5.0); Albumin/Globulin Ratio 0.7 (0.8-1.8); Bun/Creatinine Ratio 13.8 (12.0-20.0); Calcium, Blood 8.7 mg/dL (8.5-10.1); Creatinine, Blood 4.48 mg/dL (0.40-1.00); Globulin, Blood 4.9 g/dL (2.2-4.0); Magnesium, Blood 2.3 mg/dL (1.6-2.4); Phosphorus, Blood 6.8 mg/dL (2.5-4.9); Potassium, Blood 4.1 mmol/L (3.5-5.5); Total Protein, Blood 8.2 g/dL (6.4-8.2)
[2024-10-31] MEDS ORDERED: Vitamin B Cmplx/Vit C/Folic Ac 1 Tab PO SCH (06:00)
[2024-10-31] MEDS ORDERED: Pantoprazole Sodium 40 MG Tab PO SCH (06:00)
[2024-10-31] MEDS ORDERED: Calcium Acetate 667 MG Gel Cap PO SCH (08:30)
[2024-10-31] MEDS ORDERED: Sevelamer Carbonate 800 MG Tab PO SCH ×2 (08:30)
[2024-10-31] MEDS ORDERED: Insulin Glargine-Yfgn 100 Unit/mL 3 ML SYR SC SCH (09:00)
[2024-10-31] MEDS ORDERED: PARoxetine HCl 10 MG Tab PO SCH (09:00)
[2024-10-31] MEDS ORDERED: Clopidogrel Bisulfate 75 MG Tab PO SCH (09:00)
[2024-10-31] MEDS ORDERED: Bumetanide 1 MG Tab PO SCH (09:00)
[2024-10-31] MEDS ORDERED: Cholecalciferol 1000 Unit Tablet (=25MCG) PO SCH (09:00)
[2024-10-31] MEDS ORDERED: Anticoagulant Sod Citrate Soln 3 ML SYR INJ PRN (09:25)
--- NOTE | 2024-10-31 11:16 | NUR ---
PT TRANSPORTED TO DIALYSIS VIA PCU BED AROUND 0840. DIALYSIS COMPLETE, PT TRANSPORTED BACK TO PCU ROOM.
--- NOTE | 2024-10-31 18:25 | NUR ---
SHIFT SUMMARY PT A&O X4, CALM, COOPERATIVE TO CARE. PT HAS BEEN CONVERTING FROM AFIB TO SINUS FREQUENTLY, HR IN THE 90'S-130'S, DENIES CP/PRESSURE, NUMB/TINGLING, SBP SOFT AT TIMES, MIDOR[place] ORDERED TID. O2 >92% PT ON RA AT THIS TIME, SHE REPORTS 2L NOC AT HOME. PT ON DIAYLISIS, SHE HAS A FISTULA AND RIGHT PORT. PT RECEIVED DIALYSIS THIS MORNING. SHE IS ON A CARDIZEM GTT AT 5. CARDIOLOGY CONSULT CALLED IN. PT RESTING IN BED. DENIES ANY QUESTIONS/CONCERNS AT THIS TIME. WILL MONITOR PT AND REPORT TO CONSTRUCTION SALES REPRESENTATIVE RN.
[2024-11-01] VITALS (24 sets, daily range): BP systolic 77–143; BP diastolic 35–86
[2024-11-01 04:05] LABS: Hematocrit 35.8 % (33.0-51.0); Hemoglobin 11.7 g/dL (11.5-16.0)
[2024-11-01 04:23] LABS: Albumin, Blood 3.2 g/dL (3.4-5.0); Anion Gap 14 mmol/L (3-11); Blood Urea Nitrogen 50 mg/dL (8-24); Bun/Creatinine Ratio 10.3 (12.0-20.0); CO2, Blood 27 mmol/L (21-32); Calcium, Blood 8.7 mg/dL (8.5-10.1); Chloride, Blood 102 mmol/L (98-108); Creatinine, Blood 4.84 mg/dL (0.40-1.00); Glomerular Filtration Rate 10 (60-); Glucose, Blood 155 mg/dL (70-99); Magnesium, Blood 2.3 mg/dL (1.6-2.4); Phosphorus, Blood 6.2 mg/dL (2.5-4.9); Sodium, Blood 139 mmol/L (136-145)
--- NOTE | 2024-11-01 04:55 | NUR ---
shift summary. shift has been unremarkable. pt aox4, pleasant, cooperative, able to make needs known. has been able to rest comfortably throughout most of shift. vitals have remained stable. has maintained adequate saturation on 2 l o2 via nc. dilt shut off early in shift d/t pt heart rate being consistently below <90. since that time, pt has run anywhere in the 80s-100s range with no instances of sustained tachycardia. running sinus rhythm at this time. has denied pain throughout shift. no urine output this shift. pt reports not typically peeing on days after receiving dialysis. bed locked in lowest position. call light left within reach. continuing to monitor.
[2024-11-01] MEDS ORDERED: Anticoagulant Sod Citrate Soln 3 ML SYR INJ PRN (07:20)
[2024-11-01] MEDS ORDERED: Metoprolol Tartrate 25 MG Tab PO SCH (14:00)
[2024-11-01] MEDS ORDERED: Metoprolol Tartrate 50 MG Tab PO SCH (18:00)
--- NOTE | 2024-11-01 18:37 | NUR ---
SHIFT SUMMARY PT A&O X4, CALM, COOPERATIVE TO CARE. AT START OF SHIFT PT IN SR IN THE 90'S. PT LEFT FOR DIALYSIS AROUND 0830, WHILE IN DIALYSIS PT CONVERTED TO AFIB WITH HR IN THE 120'S. PT REPORTED FLUTTERING FEELING IN HER CHEST BUT DENIES ANDERSON/DIZZY. PT ARRIVED BACK TO PCU SBP IN THE 120'S, HR STILL IN THE 120'S. PT HR INCREASED TO 170 BUT THEN DECREASED BACK TO THE 130'S. CARDIZEM GTT RESTARTED AT 5 WITH NO IMPROVMENT IN HR THEN INCREASED TO 10. PROVIDER NOTIFIED OF INCREASE IN HR AND PT CONVERSION TO AFIB. CARDIOLOGY NOTIFIED, ORDER FOR METOPROLOL INCREASED. PT THEN CONVERTED BACK TO SR, HR IN THE 90'S TO LOW 100'S, SBP STABLE. O2 >92% ON RA, PT DENIES SOB. PT REPORTS 2L VIA NC AT BEDTIME/DAY NEEDED. PT RESTING IN BED AT THIS TIME. PROVIDER TO DISCUSS PLAN WITH DR. MILLER AND F/U WITH PT. PLAN FOR PT TO D/C TOMORROW. PT DENIES QUESTIONS/CONCERNS AT THIS TIME. WILL MONITOR PT AND REPORT TO FIRE BATTALION CHIEF RN.
[2024-11-01] MEDS ORDERED: Apixaban 5 MG Tab PO SCH (21:00)
[2024-11-02 00:35] VITALS: BP 112/69
[2024-11-02 03:59] LABS: Hematocrit 36.2 % (33.0-51.0); Hemoglobin 11.8 g/dL (11.5-16.0)
[2024-11-02 04:54] VITALS: BP 146/68
[2024-11-02 04:56] LABS: Magnesium, Blood 2.1 mg/dL (1.6-2.4)
[2024-11-02 04:57] LABS: Albumin, Blood 3.2 g/dL (3.4-5.0); Anion Gap 15 mmol/L (3-11); Blood Urea Nitrogen 57 mg/dL (8-24); Bun/Creatinine Ratio 11.2 (12.0-20.0); CO2, Blood 24 mmol/L (21-32); Calcium, Blood 8.3 mg/dL (8.5-10.1); Chloride, Blood 101 mmol/L (98-108); Creatinine, Blood 5.07 mg/dL (0.40-1.00); Glomerular Filtration Rate 9 (60-); Glucose, Blood 160 mg/dL (70-99); Phosphorus, Blood 6.3 mg/dL (2.5-4.9); Potassium, Blood 4.5 mmol/L (3.5-5.5); Sodium, Blood 135 mmol/L (136-145)
--- NOTE | 2024-11-02 05:10 | NUR ---
SHIFT SUMMARY. SHIFT HAS BEEN UNREMARKABLE. PT AOX4, PLEASANT, COOPERATIVE WITH CARE, ABLE TO MAKE NEEDS KNOWN. SHIFT HAS BEEN UNREMARKABLE. CONTINUES TO DENY PAIN. HAS BEEN RUNNING SINUS THROUGHOUT SHIFT. VITALS HAVE BEEN STABLE. INDEPENDENT TRANSFER WITHIN ROOM, CALLS APPROPRIATELY FOR ASSISTANCE. NO URINE OUTPUT GIVEN PT HAD DIALYSIS YESTERDAY. 1 BM THIS SHIFT. BED LOCKED IN LOWEST POSITION. CALL LIGHT LEFT WITHIN REACH. CONTINUING TO MONITOR.
[2024-11-02 07:27] VITALS: BP 122/78
[2024-11-02 11:21] VITALS: BP 131/75
[2024-11-02] MEDS ORDERED: PARO30 PO (11:22)
[2024-11-02] MEDS ORDERED: METO100 PO (11:23)
[2024-11-02] MEDS ORDERED: ELIQUIS5 M2 PO (11:23)
--- NOTE | 2024-11-02 12:45 | NUR ---
Discharge Home Pt A&O x4. VSS. Spo2 > 92% on 1L NC. Pt reports having oxygen at home & wearing 2L NC at home while sleeping & PRN during the day w/ activities. Monitor showing SR, HR 80s-90s this shift. w/ orders for discharge home w/ home health. Pt scheduled for dialysis tomorrow morning per usual home routine & has follow up appointment w/ PCP. Pt sister at bedside, discharge instructions reviewed w/ pt & pt sister. Discharge instructions sent home w/ pt. PIV removed. Pt taken out in wheelchair w/ belongings @ 4020.
[2024-11-02] MEDS ORDERED: Metoprolol Tartrate 50 MG Tab PO SCH (21:00)
== END 2024-11-02 12:35 | disposition home health service (06) | DRG 308 ==
LOC: ER 10:55 → PCU 10:56
PROVIDERS: Internal Medicine Nephrology; Student in an Organized Health Care Education/Training Program; ADMIT Family Medicine
PROC: 5A1D70Z Performance of Urinary Filtration, Intermittent, Less than 6 Hours Per Day (ICD-10-PCS; principal; 2024-10-30)
DX: I48.0 Paroxysmal atrial fibrillation (principal); N18.6 End stage renal disease; I50.32 Chronic diastolic (congestive) heart failure; I13.2 Hypertensive heart and chronic kidney disease with heart failure and with stage 5 chronic kidney disease, or end stage renal disease; E87.1 Hypo-osmolality and hyponatremia; E87.20 Acidosis, unspecified; C22.0 Liver cell carcinoma; Z66 Do not resuscitate; E11.22 Type 2 diabetes mellitus with diabetic chronic kidney disease; E11.51 Type 2 diabetes mellitus with diabetic peripheral angiopathy without gangrene; M81.0 Age-related osteoporosis without current pathological fracture; G25.81 Restless legs syndrome; D63.1 Anemia in chronic kidney disease; E87.5 Hyperkalemia; K74.69 Other cirrhosis of liver; K21.9 Gastro-esophageal reflux disease without esophagitis; F32.A Depression, unspecified; E11.42 Type 2 diabetes mellitus with diabetic polyneuropathy; I25.10 Atherosclerotic heart disease of native coronary artery without angina pectoris; Z99.2 Dependence on renal dialysis; E88.09 Other disorders of plasma-protein metabolism, not elsewhere classified; E83.39 Other disorders of phosphorus metabolism; Z88.8 Allergy status to other drugs, medicaments and biological substances; Z79.4 Long term (current) use of insulin; Z79.02 Long term (current) use of antithrombotics/antiplatelets; Z79.85 Long-term (current) use of injectable non-insulin antidiabetic drugs; Z87.891 Personal history of nicotine dependence; Z86.19 Personal history of other infectious and parasitic diseases
CPT/HCPCS: 36415; 71046; 76705; 80053; 80069; 81001; 82947; 83735; 84100; 84484; 85014; 85018; 85025; 93005; 93010; 94760; 94762; 96365; 96366; 99285-25; A9270; G0378; J1644; J1815

== ENCOUNTER 2024-11-13 04:43 | Inpatient (IN) | payer MEDICARE, OTHER ==
[~2024-11-13] VITALS: Ht 154.9 cm; Wt 77.3 kg
[2024-11-13] VITALS (16 sets, daily range): BP systolic 70–168; BP diastolic 30–83
[~2024-11-13 04:43] MED LIST changes: +CLOP75 PO; +ELIQUIS5 M2 PO; +METO100 PO; +PARO30 PO; +Rena-Vite Tabl0.8 MG PO; +TRULICITY0.75 MG/01
[2024-11-13 06:30] LABS: BASOPHILS ABSOLUTE AUTO 0.02 K/mm3 (0.00-0.23); BASOPHILS PERCENT AUTO 0 % (0-2); EOSINOPHILS ABSOLUTE AUTO 0.21 K/mm3 (0.00-0.68); EOSINOPHILS PERCENT AUTO 2 % (0-6); Hematocrit 26.6 % (33.0-51.0); Hemoglobin 8.5 g/dL (11.5-16.0); IMMATURE GRAN ABSOLUTE AUTO 0.02 K/mm3 (0.00-0.10); IMMATURE GRAN PERCENT AUTO 0 % (0-1); LYMPHOCYTES ABSOLUTE AUTO 0.92 K/mm3 (0.84-5.20); LYMPHOCYTES PERCENT AUTO 11 % (21-46); MONOCYTES PERCENT AUTO 7 % (4-13); Mean Corpuscular HGB 31.8 pg (26.0-34.0); Mean Corpuscular Volume 100 fL (80-100); Mean Platelet Volume 10.6 fL (9.1-12.4); NEUTROPHILS ABSOLUTE AUTO 6.98 K/mm3 (1.96-9.15); NEUTROPHILS PERCENT AUTO 80 % (41-73); Platelet Count 138 K/mm3 (150-400); RDW Coefficient Variation 16.1 % (11.7-14.2); RDW Standard Deviation 58.1 fL (35.1-46.3); Red Blood Cell Count 2.67 M/mm3 (3.80-5.20); White Blood Cell Count 8.75 K/mm3 (4.00-11.30)
[2024-11-13 06:54] LABS: Magnesium, Blood 2.5 mg/dL (1.6-2.4)
[2024-11-13 07:08] LABS: Albumin, Blood 2.8 g/dL (3.4-5.0); Albumin/Globulin Ratio 0.7 (0.8-1.8); Bilirubin, Total 0.6 mg/dL (0.1-1.0); Bun/Creatinine Ratio 15.5 (12.0-20.0); Creatinine, Blood 6.21 mg/dL (0.40-1.00); Globulin, Blood 4.2 g/dL (2.2-4.0); Potassium, Blood 6.2 mmol/L (3.5-5.5)
[2024-11-13] MEDS ORDERED: CALCIUM GLUC IN NACL, ISO-OSM 100 ML IV ONE (07:10)
[2024-11-13] MEDS ORDERED: Insulin Regular 100 Unit/ML 1ML Dose IV ONE (07:15)
[2024-11-13] MEDS ORDERED: FLU VACC TS2024-25(6MOS UP)/PF 45 MCG/0.5 ML SYRINGE IM PRN (09:05)
[2024-11-13] MEDS ORDERED: Insulin Human Lispro 100 Units/ML 3ML Syringe SC SCH (11:30)
[2024-11-13 12:08] LABS: Hematocrit 20.2 % (33.0-51.0); Hemoglobin 6.5 g/dL (11.5-16.0)
[2024-11-13] MEDS ORDERED: Sodium Zirconium Cyclosilicate 10 GM Packet PO SCH (12:25)
--- NOTE | 2024-11-13 12:25 | NUR ---
arrival to pcu patient arrived to pcu at 1130 and walked into the room from [facility] in the hallway. patient reports dizziness when getting up and walking, and once sitting back down dizzines is subsides. vital signs stable. bp soft, map 60. tele sinus rhythm 80s. patient is alert and oriented x4. patient is able to make needs known and uses call light appropriately since arriving to unit. see admit shift assessment for further detials. patient med rec is complete. admit is compelte. md talavera in to see patient and discussed plan of care. md ern in to see patient and plan to go to dialysis today. md guaman spoke on the phone with this rn.
[2024-11-13] MEDS ORDERED: Anticoagulant Sod Citrate Soln 3 ML SYR INJ PRN (13:40)
[2024-11-13] MEDS ORDERED: Midodrine 5 MG Tab PO SCH (14:00)
[2024-11-13] MEDS ORDERED: Ondansetron HCl 2 MG / ML 2ML Vial IV PRN (15:15)
[2024-11-13] MEDS ORDERED: Metoprolol Tartrate 1 MG/ML 5 ML VIAL IV PRN (17:00)
[2024-11-13 17:26] LABS: International Normalized Ratio 1.01
[2024-11-13 17:27] LABS: Prothrombin Time Results 10.8 Sec (9.7-11.5)
--- NOTE | 2024-11-13 18:11 | NUR ---
shift summary patient had dialysis today and during dialysis patient blood pressure dropped and dialysis nurse gave a bolus due to patient blood pressure in systolic in the 70s and throwing up. after bolus blood pressure systolic 160s. see vital signs section. patient tele aflutter at 1442 from sinus rhythm. patient returned from dialysis and blood pressure stable. this rn updated md talavera on patient time at dialysis and switching into aflutter. medications ordered see orders. petre in to see patient while in dialysis and plan to monitor at this time. plan up to date
[2024-11-13 18:25] LABS: Hematocrit 31.4 % (33.0-51.0); Hemoglobin 10.4 g/dL (11.5-16.0)
[2024-11-13] MEDS ORDERED: Insulin Human Lispro 100 Units/ML 3ML Syringe SC ONE (20:35)
[2024-11-13] MEDS ORDERED: Gabapentin 100 MG Cap PO SCH (21:00)
[2024-11-13] MEDS ORDERED: Insulin Glargine-Yfgn 100 Unit/mL 3 ML SYR SC SCH (21:00)
[2024-11-14] VITALS (24 sets, daily range): BP systolic 77–164; BP diastolic 40–82
[2024-11-14 00:35] LABS: Hematocrit 24.8 % (33.0-51.0); Hemoglobin 8.5 g/dL (11.5-16.0)
[2024-11-14] MEDS ORDERED: Pantoprazole Sodium 40 MG Tab PO SCH (06:00)
[2024-11-14] MEDS ORDERED: Vitamin B Cmplx/Vit C/Folic Ac 1 Tab PO SCH (06:00)
[2024-11-14 06:38] LABS: BASOPHILS ABSOLUTE AUTO 0.02 K/mm3 (0.00-0.23); BASOPHILS PERCENT AUTO 0 % (0-2); EOSINOPHILS ABSOLUTE AUTO 0.21 K/mm3 (0.00-0.68); EOSINOPHILS PERCENT AUTO 3 % (0-6); Hematocrit 23.1 % (33.0-51.0); IMMATURE GRAN ABSOLUTE AUTO 0.05 K/mm3 (0.00-0.10); IMMATURE GRAN PERCENT AUTO 1 % (0-1); LYMPHOCYTES ABSOLUTE AUTO 1.23 K/mm3 (0.84-5.20); LYMPHOCYTES PERCENT AUTO 16 % (21-46); MONOCYTES ABSOLUTE AUTO 0.64 K/mm3 (0.16-1.47); MONOCYTES PERCENT AUTO 8 % (4-13); Mean Corpuscular HGB 31.7 pg (26.0-34.0); Mean Corpuscular HGB Conc 34.6 g/dL (31.5-36.5); NEUTROPHILS ABSOLUTE AUTO 5.52 K/mm3 (1.96-9.15); NEUTROPHILS PERCENT AUTO 72 % (41-73); Platelet Count 128 K/mm3 (150-400); RDW Coefficient Variation 16.4 % (11.7-14.2); Red Blood Cell Count 2.52 M/mm3 (3.80-5.20); White Blood Cell Count 7.67 K/mm3 (4.00-11.30)
[2024-11-14 06:41] LABS: Mean Corpuscular Volume 92 fL (80-100)
[2024-11-14 06:56] LABS: Albumin, Blood 2.4 g/dL (3.4-5.0); Anion Gap 16 mmol/L (3-11); Blood Urea Nitrogen 78 mg/dL (8-24); Bun/Creatinine Ratio 15.3 (12.0-20.0); CO2, Blood 25 mmol/L (21-32); Calcium, Blood 7.9 mg/dL (8.5-10.1); Chloride, Blood 99 mmol/L (98-108); Creatinine, Blood 5.09 mg/dL (0.40-1.00); Glomerular Filtration Rate 9 (60-); Glucose, Blood 214 mg/dL (70-99); Magnesium, Blood 1.9 mg/dL (1.6-2.4); Phosphorus, Blood 6.4 mg/dL (2.5-4.9); Potassium, Blood 4.5 mmol/L (3.5-5.5); Sodium, Blood 135 mmol/L (136-145)
[2024-11-14] MEDS ORDERED: Albumin (Human) 25gm/100ml 100 ML IV PRN (08:25)
[2024-11-14] MEDS ORDERED: Cholecalciferol 1000 Unit Tablet (=25MCG) PO SCH (09:00)
[2024-11-14] MEDS ORDERED: PARoxetine HCl 20 MG Tab PO SCH (09:00)
[2024-11-14] MEDS ORDERED: Sevelamer Carbonate 800 MG Tab PO SCH (09:00)
[2024-11-14 14:32] LABS: Hemoglobin 6.4 g/dL (11.5-16.0)
[2024-11-14] MEDS ORDERED: NS 500 ML IV SCH (15:20)
--- NOTE | 2024-11-14 17:52 | NUR ---
SHIFT SUMMARY PT A&Ox4, CALLS AND COMMUNICATES NEEDS APROPRIATELY. BP STABLE, SINUS 80's, DENIES CP/PRESSURE. PT CONVERTED TO AFIB AT APPROXIMATELY 0945, REPORTED MILD CHEST DISCOMFORT, BP REMAINED STABLE, CONVERTED BACK TO SINUS 80's WITHOUT INTERVENTION. PT WITH SMALL, INCONTINENT BLOODY STOOLS, REPORTS THEY ARE LESS FREQUENT THAN PREVIOUS SHIFT. NO C/O PAIN. ONE EPISODE OF NAUSEA WITH NO EMESIS. PT RECIEVING UNIT OF PRBCs AT THIS TIME. NO OTHER EVENTS, WILL REPORT TO ONCOMING RN.
[2024-11-14] MEDS ORDERED: Metoprolol Tartrate 25 MG Tab PO SCH (21:00)
[2024-11-15] VITALS (15 sets, daily range): BP systolic 90–149; BP diastolic 49–104
[2024-11-15 04:47] LABS: Hematocrit 23.3 % (33.0-51.0); Hemoglobin 8.1 g/dL (11.5-16.0)
[2024-11-15 04:57] LABS: Albumin, Blood 2.8 g/dL (3.4-5.0); Anion Gap 11 mmol/L (3-11); Blood Urea Nitrogen 51 mg/dL (8-24); Bun/Creatinine Ratio 12.4 (12.0-20.0); CO2, Blood 28 mmol/L (21-32); Calcium, Blood 7.9 mg/dL (8.5-10.1); Chloride, Blood 100 mmol/L (98-108); Creatinine, Blood 4.12 mg/dL (0.40-1.00); Glomerular Filtration Rate 12 (60-); Glucose, Blood 141 mg/dL (70-99); Magnesium, Blood 2.1 mg/dL (1.6-2.4); Phosphorus, Blood 6.1 mg/dL (2.5-4.9); Potassium, Blood 3.4 mmol/L (3.5-5.5); Sodium, Blood 136 mmol/L (136-145)
--- NOTE | 2024-11-15 06:28 | NUR ---
SHIFT SUMMARY NO ACUTE CHANGES DURING NOC. SLEPT INTERMITTENTLY. ROUSES EASILY TO STIMULI. VSS T/O NOC. O2 2L NC WHILE ASLEEP. RESPIRATIONS EVEN AND UNLABORED AT REST. UP TO BSC WITH STANDBY ASSIST. OCCASIONALLY C/O MILD DIZZINESS WHEN FIRST GETTING OUT OF BED. VOIDING WITHOUT DIFFICULTY. NO STOOL T/O NOC. HgB IMPROVED THIS AM. KAITLIN FISTULA WITH GOOD BRUIT/THRILL. DENIES C/O PAIN OR NAUSEA. PLAN OF CARE ONGOING. WILL REPORT TO ONCOMING RN WHEN AVAILABLE.
[2024-11-15] MEDS ORDERED: Potassium Chloride 20 MEQ TabCR PO ONE (07:05)
[2024-11-15] MEDS ORDERED: Potassium Chloride 10 Meq Tablet SA PO ONE (10:10)
[2024-11-15 12:24] LABS: Hematocrit 19.6 % (33.0-51.0); Hemoglobin 6.9 g/dL (11.5-16.0)
--- NOTE | 2024-11-15 16:16 | NUR ---
SUMMARY PATIENT HAVING FREQUENT BLOODY LIQUID STOOLS, H&H ORDERED AND HGB WAS 6.9 DR. BEE NOTIFIED. 1 UNIT OF BLOOD ORDERED AND ADMINISTERED. BP STABLE, DR RAYGOZA IN AND PLAN FOR SCOPE TMRW 11/16. PATIENT WAS SYMPTOMATIC AND THIS RN EDUCATED PATIENT TO USE CALL LIGHT IF NEEDING TO USE TH RESTROOM/BSC. 2L NC FOR COMFORT SATS REMAIN >95%. PATIENT FAMILY IN T/O THE DAY TO VISIT AND MADE AWARE OF PLAN OF CARE. CALL LIGHT IN REACH.
--- NOTE | 2024-11-15 18:22 | NUR ---
PROGRESS PATIENT UP TO COMMODE HAVING LARGE BLOODY STOOLS LAB WAS IN TO DRAW A H&H. PATIENT IS STILL ON COMMODE, ASYMPTOMATIC AT THIS TIME. BP STABLE 125/89 AT THIS TIME MAP 102.
[2024-11-15] MEDS ORDERED: Sodium, Potassium,Mag Sulfates 354 ML PO SCH (19:00)
[2024-11-15 19:41] LABS: Hematocrit 19.9 % (33.0-51.0)
[2024-11-15] MEDS ORDERED: Ondansetron HCl 2 MG / ML 2ML Vial IV ONE (22:45)
[2024-11-15] MEDS ORDERED: Gabapentin 100 MG Cap PO ONE (22:45)
[2024-11-16] VITALS (28 sets, daily range): BP systolic 79–155; BP diastolic 34–130
[2024-11-16 02:00] LABS: Hematocrit 17.2 % (33.0-51.0); Hemoglobin 5.9 g/dL (11.5-16.0)
--- NOTE | 2024-11-16 06:23 | NUR ---
SHIFT SUMMARY ASSUMED CARE OF PT AT APPROX 1900. PT A&O4, COOPERATIVE IN CARE AND ABLE TO EXPRESS NEEDS. PT DENIES CP/PRESS AND SOB. PT STARTED BOWEL PREP PRIOR TO SHIFT CHANGE AND BMS HAVE BEEN FREQUENT AND BLOODY WITH CLOTS. OVERNIGHT PT C/O NAUSEA AND LEG CRAMPS, NOTIFIED MD, ORDERS GIVEN. PT DID REPORT SOME DIZZINESS WHEN GETTING UP TO BSC. H&H REPORTED A CRITICAL LEVEL, MD NOTIFIED AND ORDERS GIVEN FOR 2U PRBCs TO BE GIVEN. CURRENTLY, LAST UNIT BEING INFUSED. 1H POST INFUSION LABS CAN BE DRAWN. PT BED IN LOWEST POSITION AND CALL LIGHT WITHIN REACH.
[2024-11-16] MEDS ORDERED: Anticoagulant Sod Citrate Soln 3 ML SYR INJ PRN (07:20)
[2024-11-16 11:16] LABS: BASOPHILS ABSOLUTE AUTO 0.01 K/mm3 (0.00-0.23); BASOPHILS PERCENT AUTO 0 % (0-2); EOSINOPHILS ABSOLUTE AUTO 0.07 K/mm3 (0.00-0.68); EOSINOPHILS PERCENT AUTO 1 % (0-6); Hematocrit 22.5 % (33.0-51.0); Hemoglobin 8.2 g/dL (11.5-16.0); IMMATURE GRAN ABSOLUTE AUTO 0.03 K/mm3 (0.00-0.10); IMMATURE GRAN PERCENT AUTO 1 % (0-1); LYMPHOCYTES ABSOLUTE AUTO 1.37 K/mm3 (0.84-5.20); LYMPHOCYTES PERCENT AUTO 21 % (21-46); MONOCYTES ABSOLUTE AUTO 0.43 K/mm3 (0.16-1.47); MONOCYTES PERCENT AUTO 7 % (4-13); Mean Corpuscular HGB 31.8 pg (26.0-34.0); Mean Corpuscular HGB Conc 36.4 g/dL (31.5-36.5); Mean Platelet Volume 10.9 fL (9.1-12.4); NEUTROPHILS ABSOLUTE AUTO 4.67 K/mm3 (1.96-9.15); NEUTROPHILS PERCENT AUTO 71 % (41-73); Platelet Count 80 K/mm3 (150-400); RDW Coefficient Variation 14.1 % (11.7-14.2); RDW Standard Deviation 43.8 fL (35.1-46.3); Red Blood Cell Count 2.58 M/mm3 (3.80-5.20); White Blood Cell Count 6.58 K/mm3 (4.00-11.30)
[2024-11-16 11:30] LABS: Mean Corpuscular Volume 87 fL (80-100)
--- NOTE | 2024-11-16 11:40 | NUR ---
MD AT BEDSIDE: CRISTAL AT BEDSIDE AND CHATTED WITH PATIENT. AWARE THAT PATIENT COMPLETED DIALYSIS, HAD 2 UNITS OF PRBC'S AND WILL BE GOING TO GET A SCOPE AROUND 12. MD NOTIFIED ABOUT THE LAB RESULTS. PATIENT CONTINUES TO HAVE BLOODY ATTENDS CHANGES. HAS CALL LIGHT WITHIN REACH AND BED AT THE LOWEST POSITION.
[2024-11-16 12:33] LABS: Albumin, Blood 2.3 g/dL (3.4-5.0); Anion Gap 11 mmol/L (3-11); Blood Urea Nitrogen 15 mg/dL (8-24); Bun/Creatinine Ratio 10.1 (12.0-20.0); CO2, Blood 31 mmol/L (21-32); Calcium, Blood 7.2 mg/dL (8.5-10.1); Chloride, Blood 98 mmol/L (98-108); Creatinine, Blood 1.48 mg/dL (0.40-1.00); Glomerular Filtration Rate 40 (60-); Glucose, Blood 157 mg/dL (70-99); Potassium, Blood 2.9 mmol/L (3.5-5.5); Sodium, Blood 137 mmol/L (136-145)
[2024-11-16 12:35] LABS: Phosphorus, Blood 2.1 mg/dL (2.5-4.9)
[2024-11-16 13:29] LABS: Hematocrit 21.6 % (33.0-51.0); Hemoglobin 7.7 g/dL (11.5-16.0)
[2024-11-16 13:49] LABS: Albumin, Blood 2.2 g/dL (3.4-5.0); Anion Gap 13 mmol/L (3-11); Blood Urea Nitrogen 23 mg/dL (8-24); Bun/Creatinine Ratio 8.3 (12.0-20.0); CO2, Blood 29 mmol/L (21-32); Calcium, Blood 7.2 mg/dL (8.5-10.1); Chloride, Blood 99 mmol/L (98-108); Creatinine, Blood 2.77 mg/dL (0.40-1.00); Glomerular Filtration Rate 19 (60-); Glucose, Blood 172 mg/dL (70-99); Magnesium, Blood 1.7 mg/dL (1.6-2.4); Phosphorus, Blood 3.8 mg/dL (2.5-4.9); Potassium, Blood 3.6 mmol/L (3.5-5.5); Sodium, Blood 137 mmol/L (136-145)
[2024-11-16] MEDS ORDERED: Lactated Ringer's 1,000 ML IV SCH (13:55)
[2024-11-16] MEDS ORDERED: NS 1,000 ML IV SCH (14:00)
--- NOTE | 2024-11-16 14:19 | NUR ---
PT BROUGHT FROM FLOOR TO DAY SURGERY FOR PROCEDURE. History, Chart, Medications and Allergies reviewed before start of procedure. Lungs clear T/O to Auscultation. Patient confirms NPO status and agrees with scheduled surgery. Pre-Op teaching done. Pt verbalizes understanding. PT BELONGINGS LEFT IN PERSONAL ROOM IN PCU.
[2024-11-16] MEDS ORDERED: propofoL 50 ML IV ONE (14:40)
[2024-11-16] MEDS ORDERED: Lidocaine HCl 2% 10 ML SDA ONE (14:42)
--- NOTE | 2024-11-16 14:55 | NUR ---
11/16/24 1455 Toya Engle 1445- MONITOR INTACT WITH CONTINUOUS PULSE OXIMETRY, CONTINUOUS END TITAL CO2, AND INTERMITTENT BLOOD PRESSURE.3-LEAD EKG REVIEWED WITH PHYSICIAN PRIOR TO START OF PROCEDURE.O2 VIA POM INTACT THROUGHOUT SEDATION/PROCEDURE.DR. FLORES PROVIDING ANESTHESIA-SEE ANESTHESIA RECORD.
--- NOTE | 2024-11-16 15:44 | NUR ---
PATIENT RETRUNED FROM SCOPE. ONE POLYP WAS REMOVED AND THE NOTES ARE IN THE CHART.
[2024-11-16] MEDS ORDERED: Darbepoetin Alfa in Polysorbat 25 MCG/0.42 ML Syringe SC SCH (16:00)
--- NOTE | 2024-11-16 17:20 | NUR ---
SHIFT SUMMARY: PATIENT IS ALERT AND ORIENTED X4 AND ACTIVE IN HER CARE. ON TELE SHOWING SINUS RYTHM WITH RATE IN 70'S. SATTING >92% ON ROOM AIR, EVEN AND UNLABORED RESPRATIONS AT REST, DOES WEAR OXYGEN AT NIGHT OR WHEN SHE FEELS SHORT OF BREATH. HAD A SCOPE DONE TODAY, NO ACTIVE BLEEDS AND ONLY 1 POLYP WAS REMOVED, SEE PROCEDURE NOTES. PATIENT IS ON A RENAL DIET AND WAS GIVEN DINNER AFTER RETURNING FROM THE SCOPE. MILELR CONTINUES TO MONITOR PATIENT. DIALYSIS WAS DONE THIS MORNING PRIOR TO SCOPE AND PATIENT TOLERATED IT WELL. THE SISTER WAS AT BEDSIDE FOR A BIT. PATIENT AWARE WE WILL BE WAITING FOR A PLAN MOVING FORWARD SINCE THERE WAS NOT ACTIVE BLEEDING. THIS RN WILL CONTINUE TO MONITOR PATIENT THORUGHOUT THE END OF SHIFT AND PIT AND AUXILIARIES SUPERVISOR RN WILL TAKE OVER CARE.
[2024-11-16 18:29] LABS: Hematocrit 22.1 % (33.0-51.0); Hemoglobin 7.7 g/dL (11.5-16.0)
[2024-11-17] VITALS (9 sets, daily range): BP systolic 132–159; BP diastolic 62–85
[2024-11-17 00:31] LABS: Hematocrit 18.2 % (33.0-51.0); Hemoglobin 6.4 g/dL (11.5-16.0)
--- NOTE | 2024-11-17 05:53 | NUR ---
SHIFT SUMMARY ASSUMED CARE OF PT AT APPROX 1900. PT A&O4, COOPERATIVE IN CARE AND ABLE TO EXPRESS NEEDS. PT DENIES CP/PRESSURE AND SOB. PT HAD TO BE PLACED ON 2L NC WHILE SLEEPING. PT REPORTED SMALL BLOODY STOOL AT THE BEGINING OF SHIFT BUT FLUSHED BEFORE LETTING PRIMARY RN SEE IT. NO OTHER BLOODY STOOLS REPORTED OVERNIGHT. MIDNIGHT HGB INDICATED 6.4, STORAGE FACILITY RENTAL CLERK NOTIFIED MD, ORDERS PLACED FOR 1U PRBCs. MORNING LABS TO BE DRAWN 1HR POST TRANSFUSION. PT REPORTS FEELING BETTER TODAY AND HAS BEEN GETTING UP TO AMBULATE TO RR. REMINDED PT TO USE CALL LIGHT FOR STAND BY ASSISTANCE. PT BED IN LOWEST POSITION AND CALL LIGHT WITHIN REACH.
--- NOTE | 2024-11-17 07:35 | NUR ---
ASSUMPTION NOTE: THIS RN TO ASSUME CARE OF PATIENT. PATIENT ON THE PHONE WITH SISTER. ONE UNIT OF PRBC'S IS CURRENTLY FLUSHING AND WILL FINISH UP SOON. VITAL SIGNS TAKEN AND PATIENT STABLE. PATIENT HAS THE BED IN LOWEST POSITION AN CALL LIGHT WITHIN REACH.
[2024-11-17 08:47] LABS: BASOPHILS ABSOLUTE AUTO 0.01 K/mm3 (0.00-0.23); BASOPHILS PERCENT AUTO 0 % (0-2); EOSINOPHILS ABSOLUTE AUTO 0.09 K/mm3 (0.00-0.68); EOSINOPHILS PERCENT AUTO 2 % (0-6); Hematocrit 23.6 % (33.0-51.0); Hemoglobin 8.1 g/dL (11.5-16.0); IMMATURE GRAN ABSOLUTE AUTO 0.03 K/mm3 (0.00-0.10); IMMATURE GRAN PERCENT AUTO 1 % (0-1); LYMPHOCYTES ABSOLUTE AUTO 1.13 K/mm3 (0.84-5.20); LYMPHOCYTES PERCENT AUTO 19 % (21-46); MONOCYTES ABSOLUTE AUTO 0.51 K/mm3 (0.16-1.47); MONOCYTES PERCENT AUTO 9 % (4-13); Mean Corpuscular HGB 30.8 pg (26.0-34.0); Mean Corpuscular HGB Conc 34.3 g/dL (31.5-36.5); Mean Corpuscular Volume 90 fL (80-100); Mean Platelet Volume 11.4 fL (9.1-12.4); NEUTROPHILS PERCENT AUTO 70 % (41-73); Platelet Count 81 K/mm3 (150-400); RDW Coefficient Variation 14.2 % (11.7-14.2); RDW Standard Deviation 44.6 fL (35.1-46.3); Red Blood Cell Count 2.63 M/mm3 (3.80-5.20); White Blood Cell Count 5.87 K/mm3 (4.00-11.30)
[2024-11-17 08:59] LABS: Albumin, Blood 2.6 g/dL (3.4-5.0); Anion Gap 13 mmol/L (3-11); Blood Urea Nitrogen 35 mg/dL (8-24); CO2, Blood 28 mmol/L (21-32); Calcium, Blood 6.9 mg/dL (8.5-10.1); Chloride, Blood 97 mmol/L (98-108); Creatinine, Blood 3.89 mg/dL (0.40-1.00); Glomerular Filtration Rate 13 (60-); Glucose, Blood 179 mg/dL (70-99); Magnesium, Blood 1.9 mg/dL (1.6-2.4); Phosphorus, Blood 5.4 mg/dL (2.5-4.9); Potassium, Blood 3.5 mmol/L (3.5-5.5); Sodium, Blood 134 mmol/L (136-145)
[2024-11-17 11:55] LABS: Hematocrit 22.3 % (33.0-51.0); Hemoglobin 7.7 g/dL (11.5-16.0)
--- NOTE | 2024-11-17 14:02 | NUR ---
this rn called dialysis nurse to see where the patient fit on the schedule as md was wanting her to get dialysis prior to discharge. the rn I spoke to stated they were not able to remove any fluid yesterday 11.16 and they only cleaned her blood and that would be the only thing they did today as well. she stated she would like the defenitive yes that patient will discharge and she will reach out to dr.kumar gascaarding futher orders.
[2024-11-17 16:07] LABS: Hemoglobin 7.7 g/dL (11.5-16.0)
--- NOTE | 2024-11-17 17:32 | NUR ---
SHIFT SUMMARY: PATIENT IS ALERT AND ORIENTED X4 AND ACTIVE IN HERE CARE. IS ON TELE SHOWING SINUS RYTHM WITH RATE IN 80'S. SATTING >92% ON ROOM AIR, EVEN AND UNLABORED RESPIRATIONS AT REST, DOES WEAR 2 LITERS VIA NASAL CANNULA AT NIGHT. PATIENT WAS GIVEN ONE UNIT OF PACKED RED BLOOD CELLS DURING DECK MATE AND WAS ENDED AT THE BEGINNING OF MY SHIFT TODAY 1.31. LABS WERE DRAWN AND AFTER THAT HEMOGLOBIN WAS STABLE AT 8. MD CAME BY AND LATER LABS WERE DRAWN AND PATIENT AT 7, MD PLACED ORDERS FOR DISCHARGE BUT PER ANGELA GEIGER HE WOULD LIKE HER TO GET DIALYSIS PRIOR TO LEAVING AND THAT WOULDN'T BE DONE UNTIL 2.. MORNING OF. PATIENT AWARE AND SHE CALLED HER SISTER LETTING HER KNOW THE PLAN FOR TOMORROW. THIS RN WILL CONTINUE TO MONITOR PATIENT UNTIL DECK MATE RN TAKES OVER CARE.
[2024-11-17] MEDS ORDERED: METO25 PO (17:53)
[2024-11-18] VITALS (14 sets, daily range): BP systolic 131–175; BP diastolic 58–113
[2024-11-18 04:28] LABS: BASOPHILS ABSOLUTE AUTO 0.01 K/mm3 (0.00-0.23); BASOPHILS PERCENT AUTO 0 % (0-2); EOSINOPHILS ABSOLUTE AUTO 0.11 K/mm3 (0.00-0.68); EOSINOPHILS PERCENT AUTO 2 % (0-6); Hematocrit 21.3 % (33.0-51.0); Hemoglobin 7.4 g/dL (11.5-16.0); IMMATURE GRAN ABSOLUTE AUTO 0.02 K/mm3 (0.00-0.10); IMMATURE GRAN PERCENT AUTO 0 % (0-1); LYMPHOCYTES ABSOLUTE AUTO 0.85 K/mm3 (0.84-5.20); LYMPHOCYTES PERCENT AUTO 16 % (21-46); MONOCYTES ABSOLUTE AUTO 0.41 K/mm3 (0.16-1.47); MONOCYTES PERCENT AUTO 8 % (4-13); Mean Corpuscular HGB 31.5 pg (26.0-34.0); Mean Corpuscular HGB Conc 34.7 g/dL (31.5-36.5); Mean Corpuscular Volume 91 fL (80-100); Mean Platelet Volume 11.3 fL (9.1-12.4); NEUTROPHILS ABSOLUTE AUTO 3.92 K/mm3 (1.96-9.15); NEUTROPHILS PERCENT AUTO 74 % (41-73); Platelet Count 81 K/mm3 (150-400); RDW Coefficient Variation 14.9 % (11.7-14.2); RDW Standard Deviation 46.5 fL (35.1-46.3); Red Blood Cell Count 2.35 M/mm3 (3.80-5.20); White Blood Cell Count 5.32 K/mm3 (4.00-11.30)
[2024-11-18 04:47] LABS: Albumin, Blood 2.5 g/dL (3.4-5.0); Anion Gap 12 mmol/L (3-11); Blood Urea Nitrogen 41 mg/dL (8-24); Bun/Creatinine Ratio 8.9 (12.0-20.0); CO2, Blood 27 mmol/L (21-32); Calcium, Blood 7.1 mg/dL (8.5-10.1); Chloride, Blood 98 mmol/L (98-108); Creatinine, Blood 4.59 mg/dL (0.40-1.00); Glomerular Filtration Rate 10 (60-); Glucose, Blood 209 mg/dL (70-99); Phosphorus, Blood 6.2 mg/dL (2.5-4.9); Potassium, Blood 4.4 mmol/L (3.5-5.5); Sodium, Blood 133 mmol/L (136-145)
--- NOTE | 2024-11-18 05:26 | NUR ---
LEONIDES MEHTA ASSUMED CARE OF PT AT APPROX 1900. PT A&O4, COOPERATIVE IN CARE AND ABLE TO EXPRESS NEEDS. PT DENIES SOB AND CP/PRESSURE. PT NOW AMBULATORY TO RR AND BM OVERNIGHT SHOWED NO JUANCARLOS RED BLOODY STOOL. NO ACUTE CARDIAC EVENTS OVERNIGHT. PT IS IN GOOD SPIRITS AND EXPRESSES HER EXCITEMENT TO GO HOME. PT'S BED IN LOWEST POSITION AND CALL LIGHT WIHIN REACH.
[2024-11-18] MEDS ORDERED: Anticoagulant Sod Citrate Soln 3 ML SYR INJ PRN (07:20)
[2024-11-18] MEDS ORDERED: Loperamide HCl 2 MG Cap PO ONE (08:05)
--- NOTE | 2024-11-18 13:26 | NUR ---
DISCHARGE SUMMARY PT A&Ox4, CALLS AND COMMUNICATES NEEDS APPOPRIATELY. BP STABLE, SINUS 80's, DENIES CP/PRESSURE. SpO2> 92% RA WHILE AWAKE, 2L VIA NC WHILE ASLEEP, DENIES SOB. IND IN ROOM. C/O LOOSE, NON-BLOODY, STOOL, ORDERS PLACED. NO C/O SUMMER. DISCHARGE INSTRUCTIONS PROVIDED. PT TAKEN OUT VIA WHEELCHAIR WITH ALL PT BELONGINGS BY THIS RN AT APPROXIMATELY 1310.
== END 2024-11-18 13:10 | disposition home or self-care (01) | DRG 377 ==
LOC: ER 04:43 → ERHOLD 09:01 → PCU 09:01
PROVIDERS: Emergency Medicine; Internal Medicine Gastroenterology; Internal Medicine Nephrology; ADMIT Family Medicine
PROC: 30233N1 Transfusion of Nonautologous Red Blood Cells into Peripheral Vein, Percutaneous Approach (ICD-10-PCS; 2024-11-13)
PROC: 5A1D70Z Performance of Urinary Filtration, Intermittent, Less than 6 Hours Per Day (ICD-10-PCS; 2024-11-13)
PROC: 0DBK8ZZ Excision of Ascending Colon, Via Natural or Artificial Opening Endoscopic (ICD-10-PCS; principal; 2024-11-16 14:00)
DX: K57.31 Diverticulosis of large intestine without perforation or abscess with bleeding (principal); N18.6 End stage renal disease; D62 Acute posthemorrhagic anemia; I50.32 Chronic diastolic (congestive) heart failure; I13.2 Hypertensive heart and chronic kidney disease with heart failure and with stage 5 chronic kidney disease, or end stage renal disease; N25.81 Secondary hyperparathyroidism of renal origin; Z66 Do not resuscitate; I16.1 Hypertensive emergency; K76.6 Portal hypertension; E87.1 Hypo-osmolality and hyponatremia; E11.22 Type 2 diabetes mellitus with diabetic chronic kidney disease; B19.20 Unspecified viral hepatitis C without hepatic coma; K72.90 Hepatic failure, unspecified without coma; I35.0 Nonrheumatic aortic (valve) stenosis; F32.A Depression, unspecified; F43.10 Post-traumatic stress disorder, unspecified; E78.5 Hyperlipidemia, unspecified; K74.60 Unspecified cirrhosis of liver; E11.40 Type 2 diabetes mellitus with diabetic neuropathy, unspecified; E11.319 Type 2 diabetes mellitus with unspecified diabetic retinopathy without macular edema; E11.51 Type 2 diabetes mellitus with diabetic peripheral angiopathy without gangrene; E11.65 Type 2 diabetes mellitus with hyperglycemia; E87.5 Hyperkalemia; G43.909 Migraine, unspecified, not intractable, without status migrainosus; M81.0 Age-related osteoporosis without current pathological fracture; G25.81 Restless legs syndrome; E87.6 Hypokalemia; I48.0 Paroxysmal atrial fibrillation; I95.9 Hypotension, unspecified; K21.9 Gastro-esophageal reflux disease without esophagitis; K31.89 Other diseases of stomach and duodenum; E11.43 Type 2 diabetes mellitus with diabetic autonomic (poly)neuropathy; K31.84 Gastroparesis; D63.1 Anemia in chronic kidney disease; K64.8 Other hemorrhoids; J44.9 Chronic obstructive pulmonary disease, unspecified; K63.5 Polyp of colon; E83.51 Hypocalcemia; E88.09 Other disorders of plasma-protein metabolism, not elsewhere classified; F41.0 Panic disorder [episodic paroxysmal anxiety]; Z98.890 Other specified postprocedural states; Z90.710 Acquired absence of both cervix and uterus; Z88.5 Allergy status to narcotic agent; Z88.8 Allergy status to other drugs, medicaments and biological substances; Z99.2 Dependence on renal dialysis; Z87.19 Personal history of other diseases of the digestive system; Z79.01 Long term (current) use of anticoagulants; Z85.89 Personal history of malignant neoplasm of other organs and systems; Z79.4 Long term (current) use of insulin; Z79.899 Other long term (current) drug therapy; Z87.891 Personal history of nicotine dependence; Z90.89 Acquired absence of other organs; Z90.722 Acquired absence of ovaries, bilateral
CPT/HCPCS: 36415; 36430; 80053; 80069; 82607; 82746; 82947; 83735; 85014; 85018; 85025; 85610; 85730; 86850; 86900; 86901; 86923; 88305; 93005; 93010; 96374; 99285-25; A9270; C1751; J0612; J0881; J1815; J2003; J2405; J2704; J7040; P9016; P9047

== ENCOUNTER 2024-11-20 14:13 | Inpatient (IN) | payer MEDICARE, OTHER ==
[~2024-11-20] VITALS: Ht 152.4 cm; Wt 73.0 kg
[2024-11-20] VITALS (11 sets, daily range): BP systolic 102–209; BP diastolic 71–106
[~2024-11-20 14:13] MED LIST changes: +METO25 PO
[2024-11-20 15:28] LABS: BASOPHILS ABSOLUTE AUTO 0.01 K/mm3 (0.00-0.23); BASOPHILS PERCENT AUTO 0 % (0-2); EOSINOPHILS ABSOLUTE AUTO 0.14 K/mm3 (0.00-0.68); EOSINOPHILS PERCENT AUTO 2 % (0-6); Hematocrit 24.3 % (33.0-51.0); Hemoglobin 7.9 g/dL (11.5-16.0); IMMATURE GRAN ABSOLUTE AUTO 0.03 K/mm3 (0.00-0.10); IMMATURE GRAN PERCENT AUTO 0 % (0-1); LYMPHOCYTES ABSOLUTE AUTO 0.95 K/mm3 (0.84-5.20); LYMPHOCYTES PERCENT AUTO 11 % (21-46); MONOCYTES ABSOLUTE AUTO 0.32 K/mm3 (0.16-1.47); MONOCYTES PERCENT AUTO 4 % (4-13); Mean Corpuscular HGB 31.9 pg (26.0-34.0); Mean Corpuscular HGB Conc 32.5 g/dL (31.5-36.5); Mean Platelet Volume 10.9 fL (9.1-12.4); NEUTROPHILS ABSOLUTE AUTO 6.92 K/mm3 (1.96-9.15); NEUTROPHILS PERCENT AUTO 83 % (41-73); Platelet Count 143 K/mm3 (150-400); RDW Coefficient Variation 16.4 % (11.7-14.2); RDW Standard Deviation 52.5 fL (35.1-46.3); Red Blood Cell Count 2.48 M/mm3 (3.80-5.20); White Blood Cell Count 8.37 K/mm3 (4.00-11.30)
[2024-11-20 15:29] LABS: Mean Corpuscular Volume 98 fL (80-100)
[2024-11-20 15:40] LABS: Albumin/Globulin Ratio 0.8 (0.8-1.8); Bilirubin, Total 0.5 mg/dL (0.1-1.0); Bun/Creatinine Ratio 9.9 (12.0-20.0); Calcium, Blood 8.3 mg/dL (8.5-10.1); Creatinine, Blood 4.76 mg/dL (0.40-1.00); Globulin, Blood 3.6 g/dL (2.2-4.0); Potassium, Blood 5.3 mmol/L (3.5-5.5); Total Protein, Blood 6.6 g/dL (6.4-8.2)
[2024-11-20] MEDS ORDERED: PARO30 PO (17:40)
[2024-11-20] MEDS ORDERED: MIRALAX17 GM PO (17:41)
[2024-11-20] MEDS ORDERED: ROPI.25 PO ×2 (17:41→17:43)
[2024-11-20] MEDS ORDERED: SEVEC800 (17:44)
[2024-11-20] MEDS ORDERED: TRULICITY4.5 MG/0.5 IM (17:45)
[2024-11-20] MEDS ORDERED: VITAMIN D5000 UNIT PO (17:45)
[2024-11-20] MEDS ORDERED: FLU VACC TS2024-25(6MOS UP)/PF 45 MCG/0.5 ML SYRINGE IM ONE (18:05)
[2024-11-20] MEDS ORDERED: Calcium Acetate 667 MG Gel Cap PO SCH (18:30)
[2024-11-20] MEDS ORDERED: DULAGLUTIDE 4.5 MG/0.5 ML SC SCH (19:25)
[2024-11-20] MEDS ORDERED: Renvela800 MG PO (20:28)
[2024-11-20] MEDS ORDERED: Sacubitril/Valsartan 24 MG-26 MG Tab PO SCH (21:00)
[2024-11-20] MEDS ORDERED: Metoprolol Tartrate 25 MG Tab PO SCH (21:00)
[2024-11-20] MEDS ORDERED: Insulin Glargine-Yfgn 100 Unit/mL 3 ML SYR SC SCH (21:00)
[2024-11-20] MEDS ORDERED: Apixaban 5 MG Tab PO SCH (21:00)
[2024-11-20] MEDS ORDERED: Gabapentin 100 MG Cap PO SCH (21:00)
[2024-11-20] MEDS ORDERED: rOPINIRole HCl 0.25 MG Tab PO SCH (21:00)
[2024-11-20] MEDS ORDERED: Darbepoetin Alfa In Albumn Sol 40 MCG/0.4 ML SC SCH (22:00)
[2024-11-21] VITALS (16 sets, daily range): BP systolic 92–143; BP diastolic 51–76
--- NOTE | 2024-11-21 05:36 | NUR ---
Shift Summary Pt admitted to this floor from ED for shortness of breath related to fluid overload. She is a ESRD pt on HD, she got HD in the ED and they removed 2 L of fluid. Since arriving her breath sounds are mildly coarse and she has +1 edema BLE. She has been on 4L oxy mask or NC on cont. O2 monitoring. Per ED report she was requiring increasing amounts of O2 to maintane sat>90% up to 10L. She was reportedly doing better after having the 2L removed. I placed her on cont. O2 monitor, she has only required 4L and her O2 sat has been above 95%. She is AOx4, 1 assist to the BSC. She had one loose BM with blood in it, per pt she had a recent colonoscopy with some blood and the MD said not to have anticoagulants until 11/22. I held her anticoagulant and placed her on SCDs. Plan is for HD again today.
[2024-11-21 05:55] LABS: BASOPHILS ABSOLUTE AUTO 0.01 K/mm3 (0.00-0.23); BASOPHILS PERCENT AUTO 0 % (0-2); EOSINOPHILS ABSOLUTE AUTO 0.03 K/mm3 (0.00-0.68); EOSINOPHILS PERCENT AUTO 0 % (0-6); Hematocrit 23.1 % (33.0-51.0); Hemoglobin 7.5 g/dL (11.5-16.0); IMMATURE GRAN ABSOLUTE AUTO 0.03 K/mm3 (0.00-0.10); IMMATURE GRAN PERCENT AUTO 0 % (0-1); LYMPHOCYTES ABSOLUTE AUTO 0.91 K/mm3 (0.84-5.20); LYMPHOCYTES PERCENT AUTO 11 % (21-46); MONOCYTES ABSOLUTE AUTO 0.37 K/mm3 (0.16-1.47); MONOCYTES PERCENT AUTO 5 % (4-13); Mean Corpuscular HGB 31.5 pg (26.0-34.0); Mean Corpuscular HGB Conc 32.5 g/dL (31.5-36.5); Mean Corpuscular Volume 97 fL (80-100); Mean Platelet Volume 10.9 fL (9.1-12.4); NEUTROPHILS ABSOLUTE AUTO 6.81 K/mm3 (1.96-9.15); NEUTROPHILS PERCENT AUTO 83 % (41-73); Platelet Count 136 K/mm3 (150-400); RDW Coefficient Variation 16.5 % (11.7-14.2); RDW Standard Deviation 54.8 fL (35.1-46.3); Red Blood Cell Count 2.38 M/mm3 (3.80-5.20); White Blood Cell Count 8.16 K/mm3 (4.00-11.30)
[2024-11-21] MEDS ORDERED: Sodium Zirconium Cyclosilicate 10 GM Packet PO SCH (06:00)
[2024-11-21] MEDS ORDERED: Pantoprazole Sodium 40 MG Tab PO SCH (06:00)
[2024-11-21 06:15] LABS: Albumin, Blood 2.6 g/dL (3.4-5.0); Anion Gap 10 mmol/L (3-11); Blood Urea Nitrogen 32 mg/dL (8-24); Bun/Creatinine Ratio 8.8 (12.0-20.0); CO2, Blood 31 mmol/L (21-32); Calcium, Blood 8.3 mg/dL (8.5-10.1); Chloride, Blood 104 mmol/L (98-108); Creatinine, Blood 3.64 mg/dL (0.40-1.00); Glomerular Filtration Rate 14 (60-); Glucose, Blood 217 mg/dL (70-99); Magnesium, Blood 2.3 mg/dL (1.6-2.4); Phosphorus, Blood 4.5 mg/dL (2.5-4.9); Potassium, Blood 4.6 mmol/L (3.5-5.5); Sodium, Blood 140 mmol/L (136-145)
[2024-11-21] MEDS ORDERED: Anticoagulant Sod Citrate Soln 3 ML SYR INJ PRN (07:30)
[2024-11-21] MEDS ORDERED: Insulin Human Lispro 100 Units/ML 3ML Syringe SC SCH (07:30)
[2024-11-21] MEDS ORDERED: Albumin (Human) 25gm/100ml 100 ML IV PRN (09:00)
[2024-11-21] MEDS ORDERED: Cholecalciferol 1000 Unit Tablet (=25MCG) PO SCH (09:00)
[2024-11-21] MEDS ORDERED: Venlafaxine HCl 37.5 MG CapCR PO SCH (09:00)
[2024-11-21] MEDS ORDERED: Polyethylene Glycol 3350 17 gm PO SCH (09:00)
--- NOTE | 2024-11-21 16:21 | NUR ---
PT HAD NO C/O PAIN DURING THE SHIFT. PT HAD DIALYSIS EARLIER THIS MORNING AND HAS REMAINED TIRED AND LETHARGIC. PT HAS NO QUESTIONS OR CONCERNS AT THIS TIME
[2024-11-21] MEDS ORDERED: Acetaminophen 500 MG Tab PO PRN (17:50)
[2024-11-22] VITALS (19 sets, daily range): BP systolic 114–166; BP diastolic 59–90
--- NOTE | 2024-11-22 04:49 | NUR ---
Shift Summary Pt on 2L O2 NC which is her BL t/o the night, no desaturation events. She had a headache at the start of the night and was medicated x1 with Tylenol 500 mg. Other than that, no c/o of pain, SoB, or nausea. She slept well t/o the night.
[2024-11-22 06:00] LABS: BASOPHILS ABSOLUTE AUTO 0.02 K/mm3 (0.00-0.23); BASOPHILS PERCENT AUTO 0 % (0-2); EOSINOPHILS ABSOLUTE AUTO 0.18 K/mm3 (0.00-0.68); EOSINOPHILS PERCENT AUTO 3 % (0-6); Hematocrit 22.2 % (33.0-51.0); IMMATURE GRAN ABSOLUTE AUTO 0.02 K/mm3 (0.00-0.10); IMMATURE GRAN PERCENT AUTO 0 % (0-1); LYMPHOCYTES ABSOLUTE AUTO 1.01 K/mm3 (0.84-5.20); LYMPHOCYTES PERCENT AUTO 19 % (21-46); MONOCYTES ABSOLUTE AUTO 0.37 K/mm3 (0.16-1.47); MONOCYTES PERCENT AUTO 7 % (4-13); Mean Corpuscular HGB 31.4 pg (26.0-34.0); Mean Corpuscular HGB Conc 31.5 g/dL (31.5-36.5); Mean Corpuscular Volume 100 fL (80-100); Mean Platelet Volume 11.1 fL (9.1-12.4); NEUTROPHILS ABSOLUTE AUTO 3.76 K/mm3 (1.96-9.15); NEUTROPHILS PERCENT AUTO 70 % (41-73); Platelet Count 137 K/mm3 (150-400); RDW Standard Deviation 56.6 fL (35.1-46.3); Red Blood Cell Count 2.23 M/mm3 (3.80-5.20); White Blood Cell Count 5.36 K/mm3 (4.00-11.30)
[2024-11-22 06:22] LABS: Albumin, Blood 2.8 g/dL (3.4-5.0); Anion Gap 9 mmol/L (3-11); Blood Urea Nitrogen 30 mg/dL (8-24); Bun/Creatinine Ratio 8.4 (12.0-20.0); CO2, Blood 34 mmol/L (21-32); Calcium, Blood 8.5 mg/dL (8.5-10.1); Chloride, Blood 101 mmol/L (98-108); Creatinine, Blood 3.57 mg/dL (0.40-1.00); Glomerular Filtration Rate 14 (60-); Glucose, Blood 149 mg/dL (70-99); Magnesium, Blood 2.3 mg/dL (1.6-2.4); Phosphorus, Blood 3.8 mg/dL (2.5-4.9); Potassium, Blood 3.7 mmol/L (3.5-5.5); Sodium, Blood 140 mmol/L (136-145)
[2024-11-22] MEDS ORDERED: Apixaban 5 MG Tab PO SCH (09:00)
[2024-11-22] MEDS ORDERED: VENL37.5ER PO (12:19)
--- NOTE | 2024-11-22 16:00 | NUR ---
DISCHARGE DISCHARGE MEDICATIONS AND INSTRUCTIONS EXPLAINED TO PATIENT AND FAMILY AT BEDSIDE. THEY STATED UNDERSTANDING. IV REMOVED WITHOUT ISSUE. PATIENT TRANSFERED TO PRIVATE VEHICLE VIA WHEELCHAIR.
== END 2024-11-22 15:17 | disposition home health service (06) | DRG 189 ==
LOC: ER 14:13 → MEDS 14:14 → ER 18:00 → MEDS 18:00 → ERHOLD 18:00 → MEDS 21:15 → ERHOLD 21:15 → MEDS 11-21 14:51
PROVIDERS: Emergency Medicine; ADMIT Family Medicine
PROC: 5A1D70Z Performance of Urinary Filtration, Intermittent, Less than 6 Hours Per Day (ICD-10-PCS; principal; 2024-11-20)
PROC: 30233N1 Transfusion of Nonautologous Red Blood Cells into Peripheral Vein, Percutaneous Approach (ICD-10-PCS; 2024-11-20)
DX: J96.01 Acute respiratory failure with hypoxia (principal); N18.6 End stage renal disease; E87.1 Hypo-osmolality and hyponatremia; I50.32 Chronic diastolic (congestive) heart failure; I13.2 Hypertensive heart and chronic kidney disease with heart failure and with stage 5 chronic kidney disease, or end stage renal disease; D62 Acute posthemorrhagic anemia; N25.81 Secondary hyperparathyroidism of renal origin; Z66 Do not resuscitate; I48.0 Paroxysmal atrial fibrillation; E11.22 Type 2 diabetes mellitus with diabetic chronic kidney disease; Z79.4 Long term (current) use of insulin; J44.9 Chronic obstructive pulmonary disease, unspecified; F32.A Depression, unspecified; K74.60 Unspecified cirrhosis of liver; E87.5 Hyperkalemia; D63.1 Anemia in chronic kidney disease; Z98.890 Other specified postprocedural states; Z90.710 Acquired absence of both cervix and uterus; Z85.05 Personal history of malignant neoplasm of liver; Z79.01 Long term (current) use of anticoagulants; Z79.899 Other long term (current) drug therapy; Z88.8 Allergy status to other drugs, medicaments and biological substances; Z99.2 Dependence on renal dialysis; Z87.891 Personal history of nicotine dependence
CPT/HCPCS: 36415; 36430; 71046; 80053; 80069; 82947; 83735; 83880; 84484; 85025; 86850; 86900; 86901; 86923; 93005; 93010; 94762; 96372; 96374; 99285-25; A9270; G0378; J0881; J1815; P9016; P9047

== ENCOUNTER 2024-12-10 23:14 | Inpatient (IN) | payer MEDICARE, OTHER ==
[~2024-12-10] VITALS: Ht 152.4 cm; Wt 70.3 kg
[~2024-12-10 23:14] MED LIST changes: +ROPI.25 PO; +Renvela800 MG PO; +SEVEC800; +TRULICITY4.5 MG/0.5 IM; +VENL37.5ER PO
[2024-12-11] VITALS (14 sets, daily range): BP systolic 112–169; BP diastolic 59–106
[2024-12-11 00:16] LABS: Influenza A, PCR NEGATIVE (NEGATIVE); Influenza B, PCR NEGATIVE (NEGATIVE); Resp Syncytial Virus, PCR NEGATIVE (NEGATIVE); SARS-Cov-2 (COVID-19) PCR, MMC NEGATIVE (NEGATIVE)
[2024-12-11] MEDS ORDERED: MethylPREDNISolone Sod Succ 125 MG Vial IV ONE (00:40)
[2024-12-11] MEDS ORDERED: Ipratropium/Albuterol SulF 2.5-0.5MG/3 ML Amp INH ONE (00:40)
[2024-12-11 00:53] LABS: BASOPHILS ABSOLUTE AUTO 0.02 K/mm3 (0.00-0.23); BASOPHILS PERCENT AUTO 0 % (0-2); EOSINOPHILS ABSOLUTE AUTO 0.13 K/mm3 (0.00-0.68); EOSINOPHILS PERCENT AUTO 1 % (0-6); Hematocrit 24.5 % (33.0-51.0); Hemoglobin 7.5 g/dL (11.5-16.0); IMMATURE GRAN ABSOLUTE AUTO 0.08 K/mm3 (0.00-0.10); IMMATURE GRAN PERCENT AUTO 1 % (0-1); LYMPHOCYTES ABSOLUTE AUTO 0.65 K/mm3 (0.84-5.20); LYMPHOCYTES PERCENT AUTO 6 % (21-46); MONOCYTES ABSOLUTE AUTO 0.37 K/mm3 (0.16-1.47); MONOCYTES PERCENT AUTO 3 % (4-13); Mean Corpuscular HGB 32.1 pg (26.0-34.0); Mean Corpuscular HGB Conc 30.6 g/dL (31.5-36.5); Mean Corpuscular Volume 105 fL (80-100); Mean Platelet Volume 10.7 fL (9.1-12.4); NEUTROPHILS ABSOLUTE AUTO 9.75 K/mm3 (1.96-9.15); NEUTROPHILS PERCENT AUTO 89 % (41-73); Platelet Count 192 K/mm3 (150-400); RDW Coefficient Variation 18.9 % (11.7-14.2); RDW Standard Deviation 70.4 fL (35.1-46.3); Red Blood Cell Count 2.34 M/mm3 (3.80-5.20)
[2024-12-11 01:14] LABS: Albumin, Blood 3.2 g/dL (3.4-5.0); Albumin/Globulin Ratio 0.7 (0.8-1.8); Bilirubin, Total 0.5 mg/dL (0.1-1.0); Bun/Creatinine Ratio 13.5 (12.0-20.0); Calcium, Blood 9.5 mg/dL (8.5-10.1); Creatinine, Blood 4.83 mg/dL (0.40-1.00); Globulin, Blood 4.5 g/dL (2.2-4.0); Potassium, Blood 5.1 mmol/L (3.5-5.5); Total Protein, Blood 7.7 g/dL (6.4-8.2)
[2024-12-11] MEDS ORDERED: CefTRIAXone Sodium 1,000 MG in NS 100 ML IV ONE (05:10)
[2024-12-11] MEDS ORDERED: Doxycycline Hyclate 100 MG TAB PO ONE (05:10)
[2024-12-11] MEDS ORDERED: FLU VACC TS2024-25(6MOS UP)/PF 45 MCG/0.5 ML SYRINGE IM SCH (05:20)
[2024-12-11] MEDS ORDERED: Ondansetron HCl 2 MG / ML 2ML Vial IV PRN (05:20)
[2024-12-11] MEDS ORDERED: Ipratropium/Albuterol SulF 2.5-0.5MG/3 ML Amp INH PRN (05:25)
[2024-12-11] MEDS ORDERED: Phenyleph/Mineral Oil/Petrolat 1 APPLIC/57 GM Tube PR PRN (07:10)
[2024-12-11] MEDS ORDERED: MethylPREDNISolone Sod Succ 125 MG Vial IV SCH (09:00)
[2024-12-11] MEDS ORDERED: Azithromycin 500 MG in NS 250 ML IV SCH ×2 (09:00→14:00)
[2024-12-11] MEDS ORDERED: Heparin Sodium 5000 Units/ML 1ML MDV SC SCH ×2 (09:00→14:00)
[2024-12-11] MEDS ORDERED: GABA100 PO (12:58)
[2024-12-11] MEDS ORDERED: Metoprolol Tartrate 25 MG Tab PO SCH (14:00)
--- NOTE | 2024-12-11 15:43 | NUR ---
SPOKE WITH DR MCCURDY REGARDING CBG OF 487, ORDERS RECEIVED
[2024-12-11] MEDS ORDERED: SEVEC800 PO (15:58)
[2024-12-11] MEDS ORDERED: TRULICITY4.5 MG/0.5 SC (15:59)
[2024-12-11] MEDS ORDERED: Darbepoetin Alfa in Polysorbat 25 MCG/0.42 ML Syringe SC SCH (16:00)
[2024-12-11] MEDS ORDERED: Insulin Human Lispro 100 Units/ML 3ML Syringe SC SCH ×2 (16:30)
[2024-12-11] MEDS ORDERED: Sevelamer Carbonate 800 MG Tab PO SCH (17:30)
[2024-12-11] MEDS ORDERED: rOPINIRole HCl 0.25 MG Tab PO SCH (21:00)
[2024-12-11] MEDS ORDERED: Gabapentin 100 MG Cap PO SCH (21:00)
[2024-12-11] MEDS ORDERED: Insulin Glargine-Yfgn 100 Unit/mL 3 ML SYR SC SCH ×2 (21:00)
[2024-12-12] VITALS (16 sets, daily range): BP systolic 110–155; BP diastolic 60–79
--- NOTE | 2024-12-12 03:46 | NUR ---
SHIFT SUMMARY ON ROUNDS APPEARED TO BE RESTING WELL OVERNIGHT. ON TELEMETRY. AT ONSET OF SHIFT WAS IN A FLUTTER WITH HR IN 90s PER LAWNMOWER MECHANIC. WHEN CALLED FOX RAISER AT 0345 FOR UPDATE WAS REPORTED TO BE IN NSR WITH HR OF 82 AT THAT TIME. RUE FISTULA HAS A STRONG THRILL AND BRUIT, LT CHEST PORT SITE WDL W/DRESSING CDI. SKIN WARM,DRY AND PRURITIC, ENCOURAGED NOT TO SCRATCH SKIN , DISCUSSED WAYS TO KEEP PHOSPHORUS LEVEL DOWN INCLUDING BINDERS AND DIETARY RESTRICTIONS. O2 CONT. AT 3L/M VIA NASAL CANNULA, NO RESP DISTRESS, CRACKLES RESOLVED AT THIS TIME LCTA EXCEPT DIM BASES, VSS. CBG WAS DOWN TO 319 AT H.S. & RECEIVED LONG ACTING INSULIN AND SLIDING SCALE LISPRO PER DEC. ,
[2024-12-12 05:17] LABS: BASOPHILS ABSOLUTE AUTO 0.01 K/mm3 (0.00-0.23); BASOPHILS PERCENT AUTO 0 % (0-2); EOSINOPHILS PERCENT AUTO 1 % (0-6); Hematocrit 23.1 % (33.0-51.0); Hemoglobin 7.2 g/dL (11.5-16.0); IMMATURE GRAN ABSOLUTE AUTO 0.04 K/mm3 (0.00-0.10); IMMATURE GRAN PERCENT AUTO 1 % (0-1); LYMPHOCYTES ABSOLUTE AUTO 1.15 K/mm3 (0.84-5.20); LYMPHOCYTES PERCENT AUTO 17 % (21-46); MONOCYTES PERCENT AUTO 6 % (4-13); Mean Corpuscular HGB 32.3 pg (26.0-34.0); Mean Corpuscular HGB Conc 31.2 g/dL (31.5-36.5); Mean Corpuscular Volume 104 fL (80-100); Mean Platelet Volume 10.6 fL (9.1-12.4); NEUTROPHILS ABSOLUTE AUTO 5.22 K/mm3 (1.96-9.15); NEUTROPHILS PERCENT AUTO 76 % (41-73); Platelet Count 177 K/mm3 (150-400); RDW Coefficient Variation 19.1 % (11.7-14.2); RDW Standard Deviation 69.2 fL (35.1-46.3); Red Blood Cell Count 2.23 M/mm3 (3.80-5.20); White Blood Cell Count 6.92 K/mm3 (4.00-11.30)
[2024-12-12 05:58] LABS: Albumin/Globulin Ratio 0.7 (0.8-1.8); Bilirubin, Total 0.6 mg/dL (0.1-1.0); Bun/Creatinine Ratio 12.6 (12.0-20.0); Calcium, Blood 8.5 mg/dL (8.5-10.1); Creatinine, Blood 4.05 mg/dL (0.40-1.00); Globulin, Blood 4.5 g/dL (2.2-4.0); Magnesium, Blood 2.3 mg/dL (1.6-2.4); Phosphorus, Blood 3.3 mg/dL (2.5-4.9); Potassium, Blood 4.2 mmol/L (3.5-5.5); Total Protein, Blood 7.5 g/dL (6.4-8.2)
[2024-12-12] MEDS ORDERED: Pantoprazole Sodium 40 MG Tab PO SCH (06:00)
[2024-12-12] MEDS ORDERED: Venlafaxine HCl 37.5 MG CapCR PO SCH (09:00)
[2024-12-12] MEDS ORDERED: Beta-Carotene (A) W-C & E/Min 1 Tab PO SCH (09:00)
--- NOTE | 2024-12-12 09:52 | NUR ---
"Spiritual Care Visit | Pt. Request Pt. is awake and sitting up on the side of her bed when she welcomes this binder selector. Rapport is re-established as this binder selector has seen the Pt. on past hosptializations. Pt. vebralized that she is expecting to go to dialysis this morning. Pt. displays a pleasant countenance, and verbalizes a hopeful attitude. Prayed with Pt. Pt. verbalized gratitude for the spiritual care visit and welcomes this binder selector to return."
--- NOTE | 2024-12-12 17:29 | NUR ---
assumed care of pt. pt is a/o vss, no c/o pain no didtress is awaiting dialysis this morning. Blood sugar covered per protocol.
--- NOTE | 2024-12-12 17:31 | NUR ---
1130 pt sent down for dialysis. pt returned at 1400, 1.5L removed. pt at bedside with sister no complaints and is able o make needs known.
[2024-12-13] VITALS (21 sets, daily range): BP systolic 107–150; BP diastolic 60–78
[2024-12-13 05:19] LABS: Hematocrit 22.1 % (33.0-51.0); Hemoglobin 6.9 g/dL (11.5-16.0)
--- NOTE | 2024-12-13 06:24 | NUR ---
SHIFT SUMMARY REPORTS SLEPT VERY WELL, TELEMETRY SHOWS NSR WITH RATE IN 80s, LCTA, NO EDEMA, RUE FISTULA WITH +THRILL/BRUIT, NO COMPLAINTS OR EVENTS OVERNIGHT, VSS. 02 HAS BEEN ON AT 3L/M VIA NC. DECREASED TO 2L/M THIS MORNING AT 0630 , VOIDED A LARGE AMOUNT, APPETITE GOOD-WAITING FOR CBG CHECK AND THEN BREAKFAST. (WAS 275 AT HS AND RECEIVED LANTUS AND SLIDING SCALE LISPRO PER DEC).
[2024-12-13 06:43] LABS: Albumin, Blood 2.8 g/dL (3.4-5.0); Anion Gap 14 mmol/L (3-11); Blood Urea Nitrogen 39 mg/dL (8-24); Bun/Creatinine Ratio 10.6 (12.0-20.0); CO2, Blood 29 mmol/L (21-32); Calcium, Blood 8.3 mg/dL (8.5-10.1); Chloride, Blood 97 mmol/L (98-108); Creatinine, Blood 3.69 mg/dL (0.40-1.00); Glomerular Filtration Rate 13 (60-); Glucose, Blood 224 mg/dL (70-99); Phosphorus, Blood 4.5 mg/dL (2.5-4.9); Potassium, Blood 3.7 mmol/L (3.5-5.5); Sodium, Blood 136 mmol/L (136-145)
[2024-12-13] MEDS ORDERED: NS 250 ML IV PRN (11:30)
[2024-12-13] MEDS ORDERED: NS 500 ML IV SCH (13:15)
[2024-12-13] MEDS ORDERED: Metoprolol Tartrate 25 MG Tab PO ONE (17:00)
--- NOTE | 2024-12-13 17:54 | NUR ---
SHIFT SUMMARY PT A&OX4, VSS, ON 3L O2 NC, AMB W/ ASSIST, TOLERATING PO, VOIDING, AND DENIED PAIN. PT HGB 6.9 THIS AM AND NOTIFIED AND ORDER RECEIVED TO ADMINISTER 1 UNIT OF PRBC'S. PT CONVERTED TO AFIB THIS AM, BUT DENIED CHEST PAIN AND OR PRESSURE. ORDER RECEIVED TO GIVE ADDITIONAL DOSE OF LOPRESSOR. PT HAD DIALYSIS TX THIS SHIFT AND TOLERATED IT WELL. NO OTHER ACUTE CHANGES. CALL LIGHT WITHIN REACH AND PT ABLE TO MAKE NEEDS KNOWN.
[2024-12-13] MEDS ORDERED: Metoprolol Tartrate 25 MG Tab PO SCH (21:00)
[2024-12-14] VITALS (16 sets, daily range): BP systolic 137–165; BP diastolic 56–75
--- NOTE | 2024-12-14 03:50 | NUR ---
SHIFT SUMMARY A&OX4 WITH PLEASANT AFFECT, VSS, ON TELEMETRY ASN HAS CONVERTED FRON AFIB TO NSR HR HAE BEEN 80s TO 90s, ON O2 AT 3L/M VIA NC PER BASELINE AND NO RESP DISTRESS, LUNG SOUNDS WERE CLEAR AND DIMINISHED, NO RESPIRATORY DISTRESS REPORTED OR OBSERVED, VSS, UNEVENTFUL SHIFT.
[2024-12-14 05:53] LABS: Hematocrit 26.1 % (33.0-51.0); Hemoglobin 8.2 g/dL (11.5-16.0)
[2024-12-14 06:26] LABS: Albumin, Blood 2.9 g/dL (3.4-5.0); Anion Gap 12 mmol/L (3-11); Blood Urea Nitrogen 44 mg/dL (8-24); Bun/Creatinine Ratio 10.4 (12.0-20.0); CO2, Blood 29 mmol/L (21-32); Calcium, Blood 8.6 mg/dL (8.5-10.1); Chloride, Blood 100 mmol/L (98-108); Creatinine, Blood 4.24 mg/dL (0.40-1.00); Glomerular Filtration Rate 11 (60-); Glucose, Blood 218 mg/dL (70-99); Magnesium, Blood 2.1 mg/dL (1.6-2.4); Phosphorus, Blood 4.1 mg/dL (2.5-4.9); Potassium, Blood 4.1 mmol/L (3.5-5.5); Sodium, Blood 137 mmol/L (136-145)
--- NOTE | 2024-12-14 18:45 | NUR ---
SHIFT SUMMARY PT HAD DIALYSIS TODAY AND TOLERATED IT WELL. HGB WNL. NO ACUTE CHANGES. CALL LIGHT WITHIN REACH AND PT ABLE TO MAKE NEEDS KNOWN.
[2024-12-15] VITALS (14 sets, daily range): BP systolic 67–159; BP diastolic 49–79
--- NOTE | 2024-12-15 03:47 | NUR ---
AAOX4, INDEPENDENT IN ROOM.TELE IN PLACE, SR. 3L O2 VIA NC WHICH IS BASELINE. NO ACUTE NEEDS OVERNIGHT, SLEPT WELL. PLAN: DC HOME 11/19/24
[2024-12-15 06:52] LABS: Hematocrit 28.6 % (33.0-51.0)
[2024-12-15 07:33] LABS: Anion Gap 12 mmol/L (3-11); Blood Urea Nitrogen 48 mg/dL (8-24); Bun/Creatinine Ratio 10.2 (12.0-20.0); CO2, Blood 32 mmol/L (21-32); Calcium, Blood 9.1 mg/dL (8.5-10.1); Chloride, Blood 97 mmol/L (98-108); Creatinine, Blood 4.69 mg/dL (0.40-1.00); Glomerular Filtration Rate 10 (60-); Glucose, Blood 186 mg/dL (70-99); Magnesium, Blood 2.3 mg/dL (1.6-2.4); Phosphorus, Blood 4.3 mg/dL (2.5-4.9); Potassium, Blood 4.1 mmol/L (3.5-5.5); Sodium, Blood 137 mmol/L (136-145)
--- NOTE | 2024-12-15 07:35 | NUR ---
ASSUMED CARE OF PATIENT. AWAKE DURING SHIFT-CHANGE REPORT. NO ACUTE NEEDS. ANTICIPATE HD TODAY AND THEN DC. BED IN LOWEST POSITION. CALL LIGHT WITHIN REACH.
[2024-12-15] MEDS ORDERED: ROPI.25 PO (15:47)
[2024-12-15] MEDS ORDERED: HUMALOG KW100 UNIT/1 SC (15:47)
[2024-12-15] MEDS ORDERED: [UNRECOGNIZED DRUG - OTHER] PO (15:50)
--- NOTE | 2024-12-15 17:19 | NUR ---
DISCHARGE SUMMARY: A&Ox4. PLEASANT AND COOPERATIVE WITH CARE. CALLS APPROPRIATELY AND IS ABLE TO ADVOCATE NEEDS EFFECTIVELY. AMBULATES INDEPENDENTLY AND IS CONTINENT OF BOWEL AND BLADDER. LBM TODAY. DIALYSIS TODAY. MEDS WHOLE c FLUIDS. MEDICATIONS FAXED TO PHARMACY. INSTRUCTED TO FOLLOW-UP WITH PROVIDERS ORDERED. LEFT FLOOR AT WITH ALL BELONGINGS AND DISCHARGE PACKET, ESCORTED BY ANNETTE PARSONS. TRANSPORTATION PROVIDED BY [facility].
[2024-12-17] MEDS ORDERED: DULAGLUTIDE SC SCH (09:00)
[2024-12-17] MEDS ORDERED: [UNRECOGNIZED DRUG - OTHER] SC SCH (09:00)
== END 2024-12-15 16:24 | disposition home or self-care (01) | DRG 640 ==
LOC: ER 23:14 → MEDS 12-11 04:45 → ERHOLD 12-11 04:45 → MEDS 12-11 14:37
PROVIDERS: Internal Medicine Nephrology; Student in an Organized Health Care Education/Training Program; ADMIT Internal Medicine
PROC: 5A1D70Z Performance of Urinary Filtration, Intermittent, Less than 6 Hours Per Day (ICD-10-PCS; 2024-12-11)
PROC: 30233N1 Transfusion of Nonautologous Red Blood Cells into Peripheral Vein, Percutaneous Approach (ICD-10-PCS; principal; 2024-12-13)
DX: E87.70 Fluid overload, unspecified (principal); J18.9 Pneumonia, unspecified organism; J96.21 Acute and chronic respiratory failure with hypoxia; N18.6 End stage renal disease; I50.32 Chronic diastolic (congestive) heart failure; I13.2 Hypertensive heart and chronic kidney disease with heart failure and with stage 5 chronic kidney disease, or end stage renal disease; N25.81 Secondary hyperparathyroidism of renal origin; N17.9 Acute kidney failure, unspecified; J44.0 Chronic obstructive pulmonary disease with (acute) lower respiratory infection; E87.1 Hypo-osmolality and hyponatremia; I48.0 Paroxysmal atrial fibrillation; Z99.2 Dependence on renal dialysis; E11.22 Type 2 diabetes mellitus with diabetic chronic kidney disease; F32.A Depression, unspecified; G43.909 Migraine, unspecified, not intractable, without status migrainosus; E78.5 Hyperlipidemia, unspecified; F43.10 Post-traumatic stress disorder, unspecified; E11.40 Type 2 diabetes mellitus with diabetic neuropathy, unspecified; E11.51 Type 2 diabetes mellitus with diabetic peripheral angiopathy without gangrene; G25.81 Restless legs syndrome; D63.1 Anemia in chronic kidney disease; E87.5 Hyperkalemia; Z79.4 Long term (current) use of insulin; Z85.05 Personal history of malignant neoplasm of liver; Z88.8 Allergy status to other drugs, medicaments and biological substances; Z79.899 Other long term (current) drug therapy; Z79.01 Long term (current) use of anticoagulants; Z90.710 Acquired absence of both cervix and uterus; Z98.890 Other specified postprocedural states
CPT/HCPCS: 0241U; 36415; 36430; 71045; 80053; 80069; 82947; 83735; 83880; 84100; 84484; 85014; 85018; 85025; 86850; 86900; 86901; 86923; 93005; 93010; 94640; 94664; 94760; 96374; 99285-25; A9270; J0456; J0696; J0881; J1644; J1815; J2405; J2919; J7040; J7050; P9016

== ENCOUNTER 2024-12-25 04:42 | Inpatient (IN) | payer MEDICARE, OTHER ==
[2024-12-25] VITALS (29 sets, daily range): BP systolic 81–189; BP diastolic 63–105
[~2024-12-25] VITALS: Ht 152.4 cm; Wt 72.5 kg
[~2024-12-25 04:42] MED LIST changes: +HUMALOG KW100 UNIT/1 SC; +SEVEC800 PO; +[UNRECOGNIZED DRUG - OTHER] PO
[2024-12-25] MEDS ORDERED: Albuterol 2.5 MG/3 ML VIAL INH SCH (04:55)
[2024-12-25] MEDS ORDERED: MethylPREDNISolone Sod Succ 125 MG Vial IV ONE (04:55)
[2024-12-25 05:00] LABS: Base Excess Venous 4.5 mmol/L; Bicarbonate Venous 27.8 mmol/L (24.0-30.0); PCO2 Venous 46.4 mmHg (38-42); pH Blood Venous 7.41 (7.34-7.37)
[2024-12-25] MEDS ORDERED: LORazepam 2 MG/ML 1ML Injection IV ONE (05:00)
[2024-12-25 05:11] LABS: BASOPHILS ABSOLUTE AUTO 0.02 K/mm3 (0.00-0.23); BASOPHILS PERCENT AUTO 0 % (0-2); EOSINOPHILS ABSOLUTE AUTO 0.22 K/mm3 (0.00-0.68); EOSINOPHILS PERCENT AUTO 3 % (0-6); Hematocrit 32.4 % (33.0-51.0); Hemoglobin 9.9 g/dL (11.5-16.0); IMMATURE GRAN ABSOLUTE AUTO 0.03 K/mm3 (0.00-0.10); IMMATURE GRAN PERCENT AUTO 0 % (0-1); LYMPHOCYTES ABSOLUTE AUTO 1.03 K/mm3 (0.84-5.20); LYMPHOCYTES PERCENT AUTO 12 % (21-46); MONOCYTES PERCENT AUTO 5 % (4-13); Mean Corpuscular HGB 31.5 pg (26.0-34.0); Mean Corpuscular HGB Conc 30.6 g/dL (31.5-36.5); Mean Corpuscular Volume 103 fL (80-100); Mean Platelet Volume 10.7 fL (9.1-12.4); NEUTROPHILS ABSOLUTE AUTO 6.84 K/mm3 (1.96-9.15); NEUTROPHILS PERCENT AUTO 80 % (41-73); Platelet Count 185 K/mm3 (150-400); RDW Coefficient Variation 19.8 % (11.7-14.2); RDW Standard Deviation 72.8 fL (35.1-46.3); Red Blood Cell Count 3.14 M/mm3 (3.80-5.20); White Blood Cell Count 8.54 K/mm3 (4.00-11.30)
[2024-12-25] MEDS ORDERED: HydrALAZINE HCl 20 MG / ML 1ML Vial IV ONE (05:35)
[2024-12-25 05:38] LABS: Albumin, Blood 3.5 g/dL (3.4-5.0); Albumin/Globulin Ratio 0.7 (0.8-1.8); Bilirubin, Total 0.6 mg/dL (0.1-1.0); Bun/Creatinine Ratio 9.7 (12.0-20.0); Calcium, Blood 9.2 mg/dL (8.5-10.1); Creatinine, Blood 5.05 mg/dL (0.40-1.00); Globulin, Blood 4.9 g/dL (2.2-4.0); Magnesium, Blood 2.4 mg/dL (1.6-2.4); Potassium, Blood 4.2 mmol/L (3.5-5.5); Total Protein, Blood 8.4 g/dL (6.4-8.2)
[2024-12-25] MEDS ORDERED: FLU VACC TS2024-25(6MOS UP)/PF 45 MCG/0.5 ML SYRINGE IM ONE (05:50)
[2024-12-25] MEDS ORDERED: Ondansetron HCl 2 MG / ML 2ML Vial IV PRN (05:50)
[2024-12-25] MEDS ORDERED: HydrALAZINE HCl 20 MG / ML 1ML Vial IV PRN (06:00)
[2024-12-25] MEDS ORDERED: Insulin Human Lispro 100 Units/ML 3ML Syringe SC SCH ×2 (07:30→11:51)
[2024-12-25] MEDS ORDERED: Heparin Sodium 5000 Units/ML 1ML MDV SC SCH (09:00)
--- NOTE | 2024-12-25 10:37 | NUR ---
PT TO ICU 11, ESCORTED BY ED RN. PT ALERT AND ORIENTED. FOLLOWING COMMANDS AND COOPERATIVE c CARE. ON 4LPM O2 VIA NC WITH SATURATION > 92%. CONTINUOUS CARDIAC MONITORING SHOWS SR, HYPERTENSIVE. SEE ADMIT ASSESSMENT FOR FULL DETAILS.
--- NOTE | 2024-12-25 10:46 | NUR ---
HYPERTENSION - CALL TO DR. DE LA ROSA REGARDING PT SYSTOLIC BP IN 180'S. DR. DE LA ROSA STATES HE WILL BE DOWN TO ASSESS PATIENT.
[2024-12-25] MEDS ORDERED: GABA100 PO (11:45)
[2024-12-25 13:01] LABS: Adenovirus Not Detected (NOT DETECT); Bordetella pertussis Not Detected (NOT DETECT); Chlamydophila pneumoniae Not Detected (NOT DETECT); Coronavirus 229E Not Detected (NOT DETECT); Coronavirus HKU1 Not Detected (NOT DETECT); Coronavirus NL63 Not Detected (NOT DETECT); Coronavirus OC43 Not Detected (NOT DETECT); Human Metapneumovirus Not Detected (NOT DETECT); Human Rhinovirus/Enterovirus Not Detected (NOT DETECT); Influenza A/2009-H1 Not Detected (NOT DETECT); Influenza A/H1 Not Detected (NOT DETECT); Influenza A/H3 Not Detected (NOT DETECT); Influenza B Not Detected (NOT DETECT); Mycoplasma pneumoniae Not Detected (NOT DETECT); Parainfluenza Virus 1 Not Detected (NOT DETECT); Parainfluenza Virus 2 Not Detected (NOT DETECT); Parainfluenza Virus 3 Not Detected (NOT DETECT); Parainfluenza Virus 4 Not Detected (NOT DETECT); Respiratory Syncytial Virus Not Detected (NOT DETECT); SARS-Cov-2 (COVID-19), BioFire Not Detected (NOT DETECT)
[2024-12-25] MEDS ORDERED: HydrALAZINE HCl 25 MG Tab PO PRN (13:55)
--- NOTE | 2024-12-25 17:40 | NUR ---
SHIFT SUMMARY PT REMAINED ALERT AND ORIENTED X 4 T/O ENTIRETY OF SHIFT. ABLE TO FOLLOW COMMANDS, MAKE PURPOSEFUL MOVEMENTS, AND MAKE NEEDS KNOWN. AFEBRILE. REPORTS THAT SHE IS SORE FROM A FALL FEW DAYS PRIOR TO ADMISSION. CONTINOUS CARDIAC MONITORING IN PLACE SHOWS SR, BP STABLE c MAP > 65. ON 2LPM O2 VIA NC WITH O2 SATURATION > 92%. 2 SMALL BM'S THIS SHIFT, 100 mL URINE OUT. PT STATES SHE IS ON A 1 LITER DAILY FLUID RESTRICTION. TOLERATES PO INTAKE WELL. BRUISES NOTED IN CHART FROM ABOVE MENTIONED FALL. 20G LAC, PERMACATH TO L SUBCLAVIAN, R FISTULA. WILL CONTINUE TO MONITOR AND REPORT TO ONCOMING RN.
--- NOTE | 2024-12-25 17:49 | NUR ---
ASSUMED CARE OF PATIENT AT 1509 UPON ADMIT TO UNIT FROM ED. PT ARRIVED ON CPAP SUBSEQUENT, SWITCHED TO 15LPM NRB FOR TRANSFER TO ICU BED, THEN BACK ON CPAP c SETTINGS OF 7/70%. CONTINUOUS CARDIAC MONITORING SHOWS AFIB c HR UP TO 150'S. BP 78/58 c MAP OF 66. ESMOLOL INFUSING AT 25 MCG/KG/HR UPON ADMIT TO UNIT. PT ASKED TO PROVIDE HER NAME AND SHE STATED HER FIRST NAME, THEN STARTED SPELLING OUT WORDS. NOT FOLLOWING COMMANDS, NOT EASILY REDIRECTABLE. MAKES PURPOSEFUL MOVEMENTS, AND ATTEMPTED TO REMOVE BIPAP SEVERAL TIMES. SEE ADMIT ASSESSMENT FOR FULL DETAILS.
--- NOTE | 2024-12-25 17:58 | NUR ---
CARDIOVERSION DR. ELKINS AT BEDSIDE. 1544 - 1 MG VERSED ADMINISTERED 1547 - MONITOR SHOWS AFIB RVR c HR OF 122, BP 65/51. SHOCK OF 200J SYNC GIVEN 1548 - CONVERTED TO SINUS RHYTHM, PULSE 74, O2 93%, RR 22. 1551 - ESMOLOL ON SB PER DR. ELKINS, BP 81/60, PULSE 79, O2 93%
[2024-12-25] MEDS ORDERED: rOPINIRole HCl 0.25 MG Tab PO SCH (21:00)
[2024-12-25] MEDS ORDERED: Insulin Glargine-Yfgn 100 Unit/mL 3 ML SYR SC SCH (21:00)
[2024-12-25] MEDS ORDERED: Metoprolol Tartrate 25 MG Tab PO SCH (21:00)
[2024-12-25] MEDS ORDERED: Apixaban 5 MG Tab PO SCH (21:00)
[2024-12-26] VITALS (24 sets, daily range): BP systolic 76–161; BP diastolic 55–83
[2024-12-26 04:00] LABS: BASOPHILS ABSOLUTE AUTO 0.02 K/mm3 (0.00-0.23); BASOPHILS PERCENT AUTO 0 % (0-2); EOSINOPHILS ABSOLUTE AUTO 0.11 K/mm3 (0.00-0.68); EOSINOPHILS PERCENT AUTO 1 % (0-6); Hematocrit 27.5 % (33.0-51.0); Hemoglobin 8.5 g/dL (11.5-16.0); IMMATURE GRAN ABSOLUTE AUTO 0.02 K/mm3 (0.00-0.10); IMMATURE GRAN PERCENT AUTO 0 % (0-1); LYMPHOCYTES ABSOLUTE AUTO 1.29 K/mm3 (0.84-5.20); LYMPHOCYTES PERCENT AUTO 17 % (21-46); MONOCYTES ABSOLUTE AUTO 0.58 K/mm3 (0.16-1.47); MONOCYTES PERCENT AUTO 8 % (4-13); Mean Corpuscular HGB 31.6 pg (26.0-34.0); Mean Corpuscular HGB Conc 30.9 g/dL (31.5-36.5); Mean Corpuscular Volume 102 fL (80-100); Mean Platelet Volume 11.1 fL (9.1-12.4); NEUTROPHILS ABSOLUTE AUTO 5.72 K/mm3 (1.96-9.15); NEUTROPHILS PERCENT AUTO 74 % (41-73); Platelet Count 167 K/mm3 (150-400); RDW Coefficient Variation 19.8 % (11.7-14.2); RDW Standard Deviation 73.6 fL (35.1-46.3); Red Blood Cell Count 2.69 M/mm3 (3.80-5.20); White Blood Cell Count 7.74 K/mm3 (4.00-11.30)
[2024-12-26 04:22] LABS: Albumin, Blood 3.1 g/dL (3.4-5.0); Albumin/Globulin Ratio 0.7 (0.8-1.8); Bilirubin, Total 0.6 mg/dL (0.1-1.0); Bun/Creatinine Ratio 9.8 (12.0-20.0); Calcium, Blood 8.9 mg/dL (8.5-10.1); Creatinine, Blood 4.27 mg/dL (0.40-1.00); Globulin, Blood 4.3 g/dL (2.2-4.0); Magnesium, Blood 2.4 mg/dL (1.6-2.4); Phosphorus, Blood 2.5 mg/dL (2.5-4.9); Potassium, Blood 3.9 mmol/L (3.5-5.5); Total Protein, Blood 7.4 g/dL (6.4-8.2)
--- NOTE | 2024-12-26 05:22 | NUR ---
NOC SHIFT SUMMARY NO ACUTE EVENTS OVERNIGHT. PT ALERT AND ORIENTED, COOPERATIVE WITH CARE. PT ABLE TO TURN SELF INDEPENDENTLY ON BED. USING CALL LIGHT FOR NEEDS APPROPRIATELY. PT WORE 2L VIA NC WHILE AWAKE AND WAS PLACED ON BIPAP FOR BEDTIME- TOELRATED POORLY AND PLACED BACK ON 2L VIA NC. SATS>90%. PT ON CONTINUOUS MONITOR, NSR RATE OF 70S. BP STABLE. PT AFEBRILE. NO BM THIS SHIFT. IV IS PATENT AND SALINE LOCKED. PT ABLE TO TAKE PO MEDICATIONS W/ OUT ISSUE. CALL LIGHT W/ IN REACH. PLAN OF CARE ONGOING.
--- NOTE | 2024-12-26 08:30 | NUR ---
Care assumption / Dialysis Pt PCU status. A&O x4. VSS. Spo2 > 92% on 2L NC which pt reports being home baseline as 2L during night & PRN during day. Monitor showing SR-ST, HR 90S-110. Pt gone to dialysis @ approx 0830.
[2024-12-26] MEDS ORDERED: Venlafaxine HCl 37.5 MG CapCR PO SCH (09:00)
--- NOTE | 2024-12-26 09:58 | NUR ---
Convert to Afib Pt at dialysis. patient care technician instructor notified this RN of pt conversion from SR, HR 90s-110s to Afib, HR 100-130s. Dialysis nurse reports pt feeling SOB. Pt spo2 > 92% on home 2L NC. notified. No new orders at this time.
[2024-12-26] MEDS ORDERED: Metoprolol Tartrate 1 MG/ML 5 ML VIAL IV ONE (12:00)
--- NOTE | 2024-12-26 13:02 | NUR ---
"Spiritual Care | Pt./ Nurse request Pt. is awake in bed and welcomed my visit. Pt. is known to this blocker and polisher gold wheel from a previous hospital visit. Pts. sister is at bedside. Facilitated a lengthy update. Listen with interest and empathy. Pt. verbalized that she wasn't sure about her plan of care moving forward. Consdiered matters of william and belief. Pt. verbalized great hope because of her william and mentioned she knew she was in God's hands. Prayed with the Pt. Pt. displayed evidence of having been comforted by the visit, and welcomed this blocker and polisher gold wheel to return."
--- NOTE | 2024-12-26 13:40 | NUR ---
INITIAL PALLIATIVE CARE VISIT: MET WITH PT IN HER ROOM. DR. DE LA ROSA IS PRESENT AND PT CLOSE FRIEND. PERMISSION TO TALK IN FRONT OF FRIEND GIVEN. FAMILY REQUESTED INFORMATION ON HOSPICE SERVICES. DR. DE LA ROSA HAD CONVERSATION ABOUT HOSPICE SERVICES WITH PT. B/W DR. DE LA ROSA AND I WE ANSWER QUESTIONS ABOUT WHAT HOSPICE SERVICES PROVIDE. PT IS [place]ESTED IN [place] QUALITY OF LIFE BUT SHE IS AFRAID TO GO TOO FAR FROM THE HOSPITAL. WE DISCUSS ONCE ON HOSPICE FREIGHT HANDLER WITH [employer] CAN COORDINATE WITH PT TO HAVE SERVICE AVAILABLE IN THE TOWN SHE VIS[place]. PT IS THANKFUL FOR THE INFORMATION. SHE IS CURRENTLY WITH [facility]. SHE IS ADVISED THEY CAN TRANSITION HER TO HOSPICE WHEN SHE IS QUALIFIED OR WHEN SHE WANTS TO FORGO DIALYSIS. PT HAS POLST/AD ON FILE. POLST IS DNR/LIMITED. AD/POLST PLACED ON PT CHART. UPDATED PRIMARY RN. PERMISSION FROM PT AND DR. DE LA ROSA TO CHANGE CODE STATUS TO DNR. AD ON FILE INDICATES SHE HAS HEALTH CARE PROXY AND SHE DOES NOT WANT TO BE INTUBATED OR HAVE FEEDING TUBE ACCEPT IF MD RECOMMENDS FOR SHORT TERM.
[2024-12-26] MEDS ORDERED: Darbepoetin Alfa in Polysorbat 25 MCG/0.42 ML Syringe SC ONE (16:00)
--- NOTE | 2024-12-26 16:01 | NUR ---
Convert back to NSR Pt convert from Afib to NSR, HR 70s @ approx 1540.
--- NOTE | 2024-12-26 17:48 | NUR ---
End of Shift Pt PCU status. A&O x4. VSS. Spo2 > 92% on 2-3L NC this shift. Pt in SR-ST, HR 90s-110 beginning of shift, then w/ conversion to Afib while at dialysis. Monitor showing Afib, HR 100-130s from approx [phone], then w/ conversion back to SR, HR 70s. Pt code status changed from full code to DNR status per pt preference this shift. Pt 1 person assist for out of bed activity. Pt sitting up in chair today.
[2024-12-26] MEDS ORDERED: Insulin Human Lispro 100 Units/ML 3ML Syringe SC SCH (21:00)
[2024-12-27] VITALS (16 sets, daily range): BP systolic 107–148; BP diastolic 59–87
[2024-12-27 06:20] LABS: Hematocrit 29.6 % (33.0-51.0); Hemoglobin 9.4 g/dL (11.5-16.0)
--- NOTE | 2024-12-27 06:29 | NUR ---
END OF SHIFT SUMMARY NO ACUTE EVENTS OVERNIGHT. SHE WAS ABLE TO SLEEP FROM 0100 TO 0600 SOUNDLY. SHE IS A/O X4 AND ABLE TO MAKE HER NEEDS KNOWN. SPO2 >94% ON 3L NC; TOLERATED BIPAP FOR ABOUT AN HOUR. AFEBRILE. NSR ALL SHIFT WITH RATE 70'S. BP STABLE. TOLERATED 0000 SNACK AND PO FLUIDS WELL. AMBULATED TO BSC WITH ONE PERSON ASSIST FOR LINE MANAGMENT WELL. RUE FISTULA NOTED; LT SUBCLAVIAN PERMACATH IN PLACE WITH DRESSING C/D/I. WILL REPORT TO AM RN WHEN AVAILABLE.
[2024-12-27 06:58] LABS: Albumin, Blood 3.1 g/dL (3.4-5.0); Anion Gap 12 mmol/L (3-11); Blood Urea Nitrogen 55 mg/dL (8-24); CO2, Blood 30 mmol/L (21-32); Calcium, Blood 8.7 mg/dL (8.5-10.1); Chloride, Blood 97 mmol/L (98-108); Creatinine, Blood 4.57 mg/dL (0.40-1.00); Glomerular Filtration Rate 10 (60-); Glucose, Blood 232 mg/dL (70-99); Magnesium, Blood 2.1 mg/dL (1.6-2.4); Phosphorus, Blood 3.6 mg/dL (2.5-4.9); Potassium, Blood 3.9 mmol/L (3.5-5.5); Sodium, Blood 135 mmol/L (136-145)
--- NOTE | 2024-12-27 07:30 | NUR ---
[facility]DEN AT BEDSIDE
[2024-12-27] MEDS ORDERED: Ondansetron 4 MG SoluTab MM PRN (07:55)
--- NOTE | 2024-12-27 08:21 | NUR ---
ASSUMPTION OF CARE PT A&O X3. MAKES NEEDS KNOWN AND USES CALL LIGHT APPROPRIATELY. PT SITTING UP IN CHAIR THIS MORNING. GOOD MOOD. PT ON 3L O2 VIA NC. DENIES SOB/CHEST PAIN. HR 70S-80S. SINUS RHYTHM.MURMUR NOTED ON AUSCULTATION. SBP 120S THIS AM. LUNGS CLEAR,FINE CRACKLES IN BASES. PT REPORTED SLIGHT NAUSEA THIS MORNING. NO RECENT EPISODES OF N/V. PT HAS ZOFRAN AVAILABLE. NO IV ACCESS AT THIS TIME. DR DE LA ROSA IN ROOM AROUND 0730-DOES NOT THINK IV ACCESS IS NECESSARY. HE WILL BE CHANGING ALL MEDS TO PO. PT VOIDING SMALL AMOUNTS IN TOILET, 40ML DISCARDED THIS AM. PER PT, SHE KEEPS TO A FLUID RESTRICTION OF 4 CUPS A DAY. LAST BM 12/26/24. PT HAS FISTULA IN RIGHT FOREARM. PERMACATH IN LEFT CHEST WALL. PHYSICAL THERAPY IN ROOM AROUND 0815, PT WILLING AND PARTICIPATING.
--- NOTE | 2024-12-27 08:58 | NUR ---
PT TAKEN TO DIALYSIS UNIT BY EDILMA RN AND LESLIE ORDOÑEZ.
[2024-12-27 11:26] LABS: HEPATITIS B SURFACE ANTIBODY >1000.00 IU/L
[2024-12-27] MEDS ORDERED: Insulin Human Lispro 100 Units/ML 3ML Syringe SC SCH (11:30)
--- NOTE | 2024-12-27 11:50 | NUR ---
PT BACK TO ICU 11 FROM DIALYSIS UNIT. ESCORTED BACK BY MYSELF AND LESLIE ORDOÑEZ.
--- NOTE | 2024-12-27 12:09 | NUR ---
PT TAKEN OFF OF O2 BY CLINICAL REIMBURSEMENT SPECIALIST. O2 SATS MAINTAINIG >90%. PT REMAINS ON RA UPON ARRIVAL TO ICU.
--- NOTE | 2024-12-27 12:12 | NUR ---
DR DE LA ROSA IN PTS ROOM DISCUSSING PLAN OF CARE
[2024-12-27] MEDS ORDERED: Acetaminophen 500 MG Tab PO PRN (12:20)
[2024-12-27] MEDS ORDERED: ARANESP25 MCG/0.1 SC (13:05)
[2024-12-27] MEDS ORDERED: ONDA4 PO (13:06)
--- NOTE | 2024-12-27 13:29 | NUR ---
PT DISCHARGED WITH INSTRUCTIONS. SISTER TAKING HER HOME. PT WHEELED OUT IN BY ARMANI BRYANT.
[2024-12-27 17:18] LABS: HBV CORE ANTIBODIES,TOTAL Negative (Negative)
[2024-12-27 17:58] LABS: HEPATITIS B SURFACE ANTIGEN Negative (Negative)
[2024-12-27] MEDS ORDERED: Insulin Glargine-Yfgn 100 Unit/mL 3 ML SYR SC SCH (21:00)
== END 2024-12-27 13:30 | disposition home health service (06) | DRG 640 ==
LOC: ER 04:42 → ERHOLD 05:46 → ICUE 05:46
PROVIDERS: Emergency Medicine; Family Medicine; Internal Medicine Nephrology; ADMIT Internal Medicine
PROC: 5A09357 Assistance with Respiratory Ventilation, Less than 24 Consecutive Hours, Continuous Positive Airway Pressure (ICD-10-PCS; principal; 2024-12-25)
PROC: 5A1D70Z Performance of Urinary Filtration, Intermittent, Less than 6 Hours Per Day (ICD-10-PCS; 2024-12-25)
DX: E87.70 Fluid overload, unspecified (principal); J96.01 Acute respiratory failure with hypoxia; N18.6 End stage renal disease; J44.0 Chronic obstructive pulmonary disease with (acute) lower respiratory infection; I50.32 Chronic diastolic (congestive) heart failure; N25.81 Secondary hyperparathyroidism of renal origin; I16.1 Hypertensive emergency; C22.8 Malignant neoplasm of liver, primary, unspecified as to type; K55.1 Chronic vascular disorders of intestine; I13.2 Hypertensive heart and chronic kidney disease with heart failure and with stage 5 chronic kidney disease, or end stage renal disease; G25.81 Restless legs syndrome; E11.51 Type 2 diabetes mellitus with diabetic peripheral angiopathy without gangrene; K74.60 Unspecified cirrhosis of liver; I35.0 Nonrheumatic aortic (valve) stenosis; F32.A Depression, unspecified; F43.10 Post-traumatic stress disorder, unspecified; Z99.2 Dependence on renal dialysis; D63.1 Anemia in chronic kidney disease; E11.42 Type 2 diabetes mellitus with diabetic polyneuropathy; E11.22 Type 2 diabetes mellitus with diabetic chronic kidney disease; Z90.710 Acquired absence of both cervix and uterus; Z98.890 Other specified postprocedural states; Z79.01 Long term (current) use of anticoagulants; Z79.899 Other long term (current) drug therapy; Z88.8 Allergy status to other drugs, medicaments and biological substances; M81.0 Age-related osteoporosis without current pathological fracture; Z90.79 Acquired absence of other genital organ(s); Z90.722 Acquired absence of ovaries, bilateral; Z79.4 Long term (current) use of insulin; Z99.81 Dependence on supplemental oxygen
CPT/HCPCS: 0202U; 36415; 71045; 80053; 80069; 82803; 82947; 83735; 84100; 84145; 85014; 85018; 85025; 86704; 87340; 93005; 93010; 94640; 94660; 94664; 94762; 96374; 96375; 97112; 97116; 97161; 99285-25; A9270; J0360; J0881; J1644; J1815; J2060; J2919

== ENCOUNTER → 2025-03-18 | Outpatient (CLI) | payer MEDICARE, OTHER ==
[~2025-03-18] MED LIST changes: +ARANESP25 MCG/0.1 SC
[2025-03-18 19:07] LABS: Bacterial Vaginosis PCR Negative (NEGATIVE); Candida Group, PCR NOT DETECTED (NOT DETECT)
[2025-03-18 19:39] LABS: Candida glabrata-krusei, PCR DETECTED (NOT DETECT)
== END ==
LOC: LAB SHORT 13:44 → LAB 13:44
DX: N89.8 Other specified noninflammatory disorders of vagina (principal)
CPT/HCPCS: 81515

== ENCOUNTER 2025-05-04 14:52 | Emergency (ER) | payer MEDICARE, OTHER ==
[~2025-05-04] VITALS: Ht 157.5 cm; Wt 72.6 kg
[2025-05-04] MEDS ORDERED: Pantoprazole Sodium 40 MG Injection IV ONE (15:20)
[2025-05-04] MEDS ORDERED: Diltiazem HCl 5 MG / ML 5ML Vial IV ONE (15:30)
[2025-05-04] MEDS ORDERED: CefTRIAXone Sodium 1,000 MG in NS 100 ML IV ONE (15:35)
[2025-05-04] MEDS ORDERED: Aspir 8181 MG PO (15:58)
[2025-05-04 16:09] LABS: Alanine Aminotransfer (ALT/SGP 23.0 U/L (12-78); Albumin, Blood 3.2 g/dL (3.4-5.0); Albumin/Globulin Ratio 0.7 (0.8-1.8); Anion Gap 11.0 mmol/L (3-11); Aspartate Aminotrans (AST/SGOT 34.0 U/L (12-37); Bilirubin, Total 0.7 mg/dL (0.1-1.0); Blood Urea Nitrogen 36.0 mg/dL (8-24); CO2, Blood 28.0 mmol/L (21-32); Calcium, Blood 8.6 mg/dL (8.5-10.1); Chloride, Blood 93.0 mmol/L (98-108); Creatinine, Blood 3.04 mg/dL (0.40-1.00); Globulin, Blood 4.4 g/dL (2.2-4.0); Glucose, Blood 321.0 mg/dL (70-99); Potassium, Blood 3.4 mmol/L (3.5-5.5); Sodium, Blood 129.0 mmol/L (136-145); Total Protein, Blood 7.6 g/dL (6.4-8.2)
[2025-05-04 16:23] LABS: BASOPHILS ABSOLUTE AUTO 0.01 K/mm3 (0.00-0.23); BASOPHILS PERCENT AUTO 0 % (0-2); EOSINOPHILS ABSOLUTE AUTO 0.23 K/mm3 (0.00-0.68); EOSINOPHILS PERCENT AUTO 3 % (0-6); Hematocrit 26.4 % (33.0-51.0); Hemoglobin 8.6 g/dL (11.5-16.0); IMMATURE GRAN ABSOLUTE AUTO 0.01 K/mm3 (0.00-0.10); IMMATURE GRAN PERCENT AUTO 0 % (0-1); LYMPHOCYTES ABSOLUTE AUTO 1.39 K/mm3 (0.84-5.20); LYMPHOCYTES PERCENT AUTO 19 % (21-46); MONOCYTES ABSOLUTE AUTO 0.58 K/mm3 (0.16-1.47); MONOCYTES PERCENT AUTO 8 % (4-13); Mean Corpuscular HGB Conc 32.6 g/dL (31.5-36.5); Mean Corpuscular Volume 99 fL (80-100); NEUTROPHILS ABSOLUTE AUTO 5.04 K/mm3 (1.96-9.15); NEUTROPHILS PERCENT AUTO 70 % (41-73); NRBC ABSOLUTE 0.00 K/mm3 (0.00-0.02); NRBC Auto 0.0 /100 WBC (0.0-0.2); Platelet Count 142 K/mm3 (150-400); RDW Coefficient Variation 16.8 % (11.7-14.2); RDW Standard Deviation 60.2 fL (35.1-46.3)
[2025-05-04 16:38] LABS: Prothrombin Time Results 10.8 Sec (9.7-11.5)
[2025-05-04] MEDS ORDERED: Potassium Chloride 10 Meq Tablet SA PO ONE (16:55)
[2025-05-04] MEDS ORDERED: Inderal80 MG PO (17:59)
[2025-05-04] MEDS ORDERED: FURO80 PO (18:21)
[2025-05-04 19:01] LABS: Hematocrit 25.4 % (33.0-51.0); Hemoglobin 8.2 g/dL (11.5-16.0)
[2025-05-05] VITALS: BP 145/116
[2025-05-05] MEDS ORDERED: Diazepam 5 MG / ML 2ML SYR IV ONE ×2 (00:20→00:35)
[2025-05-05] MEDS ORDERED: Diazepam 5 MG / ML 2ML SYR ONE (00:25)
== END 2025-05-05 00:20 | disposition short-term general hospital (02) ==
LOC: ER 14:52
PROVIDERS: Student in an Organized Health Care Education/Training Program
DX: K92.2 Gastrointestinal hemorrhage, unspecified (principal); I48.91 Unspecified atrial fibrillation; K72.90 Hepatic failure, unspecified without coma; I13.2 Hypertensive heart and chronic kidney disease with heart failure and with stage 5 chronic kidney disease, or end stage renal disease; N18.6 End stage renal disease; I50.9 Heart failure, unspecified; J44.9 Chronic obstructive pulmonary disease, unspecified; E78.5 Hyperlipidemia, unspecified; F43.10 Post-traumatic stress disorder, unspecified; E11.22 Type 2 diabetes mellitus with diabetic chronic kidney disease; E11.319 Type 2 diabetes mellitus with unspecified diabetic retinopathy without macular edema; E11.51 Type 2 diabetes mellitus with diabetic peripheral angiopathy without gangrene; Z79.4 Long term (current) use of insulin; Z79.82 Long term (current) use of aspirin; Z79.899 Other long term (current) drug therapy; Z88.8 Allergy status to other drugs, medicaments and biological substances
CPT/HCPCS: 71045; 74176; 80053; 83690; 83880; 84484; 85014; 85018; 85025; 85610; 85730; 86850; 86900; 86901; 93005; 93010; 96365; 96367; 96375; 99285-25; A9270; J0696; J2354; J2470; J3360

== ENCOUNTER 2025-06-03 23:29 | Inpatient (IN) | payer MEDICARE, OTHER ==
[~2025-06-03] VITALS: Ht 152.4 cm; Wt 71.0 kg
[~2025-06-03 23:29] MED LIST changes: +Aspir 8181 MG PO; +Inderal80 MG PO
[2025-06-03 23:59] LABS: BASOPHILS ABSOLUTE AUTO 0.02 K/mm3 (0.00-0.23); BASOPHILS PERCENT AUTO 0 % (0-2); EOSINOPHILS ABSOLUTE AUTO 0.25 K/mm3 (0.00-0.68); EOSINOPHILS PERCENT AUTO 3 % (0-6); Hematocrit 28.4 % (33.0-51.0); Hemoglobin 8.9 g/dL (11.5-16.0); IMMATURE GRAN ABSOLUTE AUTO 0.02 K/mm3 (0.00-0.10); IMMATURE GRAN PERCENT AUTO 0 % (0-1); LYMPHOCYTES ABSOLUTE AUTO 0.91 K/mm3 (0.84-5.20); LYMPHOCYTES PERCENT AUTO 11 % (21-46); MONOCYTES ABSOLUTE AUTO 0.40 K/mm3 (0.16-1.47); MONOCYTES PERCENT AUTO 5 % (4-13); Mean Corpuscular HGB Conc 31.3 g/dL (31.5-36.5); Mean Corpuscular Volume 103 fL (80-100); NEUTROPHILS ABSOLUTE AUTO 6.40 K/mm3 (1.96-9.15); NEUTROPHILS PERCENT AUTO 80 % (41-73); NRBC ABSOLUTE 0.00 K/mm3 (0.00-0.02); NRBC Auto 0.0 /100 WBC (0.0-0.2); Platelet Count 135 K/mm3 (150-400); RDW Coefficient Variation 17.2 % (11.7-14.2); RDW Standard Deviation 63.7 fL (35.1-46.3)
[2025-06-04] VITALS (13 sets, daily range): BP systolic 92–157; BP diastolic 57–82
[2025-06-04 00:22] LABS: Alanine Aminotransfer (ALT/SGP 39.0 U/L (12-78); Albumin, Blood 3.4 g/dL (3.4-5.0); Albumin/Globulin Ratio 0.8 (0.8-1.8); Anion Gap 11.0 mmol/L (3-11); Aspartate Aminotrans (AST/SGOT 37.0 U/L (12-37); Bilirubin, Total 0.9 mg/dL (0.1-1.0); Blood Urea Nitrogen 57.0 mg/dL (8-24); CO2, Blood 26.0 mmol/L (21-32); Calcium, Blood 7.6 mg/dL (8.5-10.1); Chloride, Blood 106.0 mmol/L (98-108); Creatinine, Blood 4.99 mg/dL (0.40-1.00); Globulin, Blood 4.5 g/dL (2.2-4.0); Glucose, Blood 161.0 mg/dL (70-99); Potassium, Blood 3.8 mmol/L (3.5-5.5); Sodium, Blood 139.0 mmol/L (136-145); Total Protein, Blood 7.9 g/dL (6.4-8.2)
[2025-06-04] MEDS ORDERED: Midazolam HCl 1MG / ML 2ML Vial IV ONE (01:00)
[2025-06-04] MEDS ORDERED: HydrALAZINE HCl 20 MG / ML 1ML Vial IV PRN (03:30)
[2025-06-04 04:33] LABS: Source, Urine Clean Catch
[2025-06-04 04:56] LABS: BASOPHILS ABSOLUTE AUTO 0.03 K/mm3 (0.00-0.23); BASOPHILS PERCENT AUTO 0 % (0-2); EOSINOPHILS ABSOLUTE AUTO 0.19 K/mm3 (0.00-0.68); EOSINOPHILS PERCENT AUTO 2 % (0-6); Hematocrit 29.2 % (33.0-51.0); Hemoglobin 9.2 g/dL (11.5-16.0); IMMATURE GRAN ABSOLUTE AUTO 0.02 K/mm3 (0.00-0.10); IMMATURE GRAN PERCENT AUTO 0 % (0-1); LYMPHOCYTES ABSOLUTE AUTO 0.87 K/mm3 (0.84-5.20); LYMPHOCYTES PERCENT AUTO 10 % (21-46); MONOCYTES ABSOLUTE AUTO 0.40 K/mm3 (0.16-1.47); MONOCYTES PERCENT AUTO 5 % (4-13); Mean Corpuscular HGB Conc 31.5 g/dL (31.5-36.5); Mean Corpuscular Volume 104 fL (80-100); NEUTROPHILS ABSOLUTE AUTO 7.07 K/mm3 (1.96-9.15); NEUTROPHILS PERCENT AUTO 83 % (41-73); NRBC ABSOLUTE 0.00 K/mm3 (0.00-0.02); NRBC Auto 0.0 /100 WBC (0.0-0.2); Platelet Count 127 K/mm3 (150-400); RDW Coefficient Variation 17.4 % (11.7-14.2); RDW Standard Deviation 65.5 fL (35.1-46.3)
[2025-06-04 04:59] LABS: Bilirubin, Urine Neg (Neg); Glucose Qualitative, Urine 2+ (Neg); Ketones, Urine Neg (Neg); Leukocyte Esterase, Urine Neg (Neg); Protein, Urine 3+ (Neg); Specific Gravity, Urine 1.015 (1.003-1.022); Urobilinogen, Urine NORM (Normal)
[2025-06-04 05:05] LABS: Color, Urine Yellow (P-Yellow)
[2025-06-04 05:29] LABS: Albumin, Blood 3.3 g/dL (3.4-5.0); Anion Gap 13 mmol/L (3-11); Blood Urea Nitrogen 59 mg/dL (8-24); CO2, Blood 23 mmol/L (21-32); Calcium, Blood 8.0 mg/dL (8.5-10.1); Chloride, Blood 107 mmol/L (98-108); Creatinine, Blood 4.99 mg/dL (0.40-1.00); Glucose, Blood 239 mg/dL (70-99); Phosphorus, Blood 5.7 mg/dL (2.5-4.9); Potassium, Blood 4.0 mmol/L (3.5-5.5); Sodium, Blood 139 mmol/L (136-145)
[2025-06-04] MEDS ORDERED: Insulin Human Lispro 100 Units/ML 3ML Syringe SC SCH (07:30)
[2025-06-04] MEDS ORDERED: Heparin Sodium,Porcine 5,000 UNIT/0.5 ML SDV SC SCH (09:00)
[2025-06-04] MEDS ORDERED: Darbepoetin (Pharmacy Consult) XX PRN (13:15)
[2025-06-04] MEDS ORDERED: Darbepoetin Alfa in Polysorbat 25 MCG/0.42 ML Syringe SC SCH (16:00)
[2025-06-04] MEDS ORDERED: Calcium Acetate 667 MG Gel Cap PO SCH (17:30)
--- NOTE | 2025-06-04 18:44 | NUR ---
SHIFT SUMMARY PT TRANSFERED FROM PCU 9 TO ROOM 351 AROUND 1800, PT NOTED TO BE A&O X4 AND STAND BY ASSIT. PT NOTED TO BE ON 2L/NC THIS IS PT BASELINE. PT NOTED TO BE ON A RENAL DIET WITH A 1L FLUID RESTRICTION. PT IS A DAILY WT AND ACHS ACC CHECK. PT NOTED TO CALL APPROPRIATE AND ABLE TO MAKE NEEDS KNOWN. PT RECIEVED HEMODIALYSIS THIS SHIFT. PLAN IS TO DC TOMORROW.
[2025-06-04] MEDS ORDERED: Insulin Glargine-Yfgn 100 Unit/mL 3 ML SYR SC SCH (21:00)
[2025-06-05] VITALS (15 sets, daily range): BP systolic 96–147; BP diastolic 46–74
--- NOTE | 2025-06-05 04:35 | NUR ---
SHIFT SUMMARY: PT AOX4, CALLS APPROPRIATELY ABLE TO MAKE NEEDS KNOWN. PLEASANT AND COOPERATIVE IN CARE. TOLERATING MEDICATIONS WELL. NO ACUTE OVERNIGHT EVENTS. COMPLIANT IN FLUID RESTRICTION. PT IN BED RESTING, BED IN LOWEST POSITION, CALL LIGHT IN REACH. CONTINUING CARE.
[2025-06-05 06:31] LABS: Hematocrit 27.0 % (33.0-51.0); Hemoglobin 8.8 g/dL (11.5-16.0)
[2025-06-05 07:02] LABS: Albumin, Blood 3.2 g/dL (3.4-5.0); Anion Gap 12 mmol/L (3-11); Blood Urea Nitrogen 56 mg/dL (8-24); CO2, Blood 30 mmol/L (21-32); Calcium, Blood 7.8 mg/dL (8.5-10.1); Chloride, Blood 95 mmol/L (98-108); Creatinine, Blood 5.11 mg/dL (0.40-1.00); Glucose, Blood 205 mg/dL (70-99); Magnesium, Blood 2.4 mg/dL (1.6-2.4); Phosphorus, Blood 5.9 mg/dL (2.5-4.9); Potassium, Blood 3.3 mmol/L (3.5-5.5); Sodium, Blood 134 mmol/L (136-145)
[2025-06-05] MEDS ORDERED: Potassium Chloride 10 Meq Tablet SA PO ONE (10:20)
[2025-06-05] MEDS ORDERED: BUPRENO-NALOX1 EAC2 SL (13:27)
[2025-06-05] MEDS ORDERED: ZOLOFT10013 PO (13:28)
[2025-06-05] MEDS ORDERED: METOPROLOL TART25 MG PO (13:30)
[2025-06-05] MEDS ORDERED: ATORVASTATIN CA20 MG PO (13:37)
[2025-06-05] MEDS ORDERED: FURO80 PO (14:40)
[2025-06-05] MEDS ORDERED: SEVEC800 PO (14:42)
--- NOTE | 2025-06-05 16:03 | NUR ---
DISCHARGE PT DISCHARGED HOME WITH SISTER. ALL MEDICATIONS REVIEWED, EDUCATION PROVIDED. PT WHEELED OUT WITH BOILER COVERER HELPER.
== END 2025-06-05 14:53 | disposition home or self-care (01) | DRG 640 ==
LOC: ER 23:29 → MEDS 23:30 → ERHOLD 23:30 → MEDS 23:30 → PCU 06-04 12:49 → MEDS 06-04 17:54
PROVIDERS: Emergency Medicine; Family Medicine; Internal Medicine Nephrology; ADMIT Internal Medicine
PROC: 5A09357 Assistance with Respiratory Ventilation, Less than 24 Consecutive Hours, Continuous Positive Airway Pressure (ICD-10-PCS; principal; 2025-06-04)
PROC: 5A1D70Z Performance of Urinary Filtration, Intermittent, Less than 6 Hours Per Day (ICD-10-PCS; 2025-06-04)
DX: E87.70 Fluid overload, unspecified (principal); J96.21 Acute and chronic respiratory failure with hypoxia; N18.6 End stage renal disease; I13.2 Hypertensive heart and chronic kidney disease with heart failure and with stage 5 chronic kidney disease, or end stage renal disease; I50.32 Chronic diastolic (congestive) heart failure; E11.22 Type 2 diabetes mellitus with diabetic chronic kidney disease; Z66 Do not resuscitate; Z99.2 Dependence on renal dialysis; Z99.81 Dependence on supplemental oxygen; D63.1 Anemia in chronic kidney disease; I48.0 Paroxysmal atrial fibrillation; E11.51 Type 2 diabetes mellitus with diabetic peripheral angiopathy without gangrene; G25.81 Restless legs syndrome; F32.9 Major depressive disorder, single episode, unspecified; F41.9 Anxiety disorder, unspecified; G89.29 Other chronic pain; K74.60 Unspecified cirrhosis of liver; J44.9 Chronic obstructive pulmonary disease, unspecified; M81.0 Age-related osteoporosis without current pathological fracture; E11.42 Type 2 diabetes mellitus with diabetic polyneuropathy; I25.10 Atherosclerotic heart disease of native coronary artery without angina pectoris; E78.5 Hyperlipidemia, unspecified; E83.39 Other disorders of phosphorus metabolism; B18.2 Chronic viral hepatitis C; Z60.2 Problems related to living alone; Z88.8 Allergy status to other drugs, medicaments and biological substances; Z79.4 Long term (current) use of insulin; Z79.01 Long term (current) use of anticoagulants; Z79.82 Long term (current) use of aspirin; Z79.85 Long-term (current) use of injectable non-insulin antidiabetic drugs; Z85.05 Personal history of malignant neoplasm of liver; Z87.891 Personal history of nicotine dependence
CPT/HCPCS: 36415; 71046; 80053; 80069; 81001; 82947; 83735; 84484; 85014; 85018; 85025; 93005; 93010; 94660; 94762; 96374; 96375; 99285-25; A9270; G0378; J0881; J1815; J1938; J2250; J2470

== ENCOUNTER 2025-06-26 05:32 | Day surgery (SDC) | payer MEDICARE, OTHER ==
[2025-06-26] VITALS (8 sets, daily range): BP systolic 130–162; BP diastolic 73–82
[~2025-06-26 05:32] MED LIST changes: +ATORVASTATIN CA20 MG PO; +BUPRENO-NALOX1 EAC2 SL; +FURO80 PO; +METOPROLOL TART25 MG PO; +ZOLOFT10013 PO
[2025-06-26] MEDS ORDERED: NS 1,000 ML IV ONE (06:21)
[2025-06-26] MEDS ORDERED: Benzocaine Oral Spray 0.5ML UD ONE (06:25)
--- NOTE | 2025-06-26 07:18 | NUR ---
ASSUMED CARE FROM ANESTHESIA. PT AWAKE AND VERBALIZING WELL.
--- NOTE | 2025-06-26 07:35 | NUR ---
PT AND FAMILY VERBALIZED UNDERSTANDING OF WRITTEN AND VERBAL D/C INST. IV REMOVED. PT WILL BE TAKEN OUT VIA W/C.
[2025-06-26] MEDS ORDERED: Propofol 10mg/ml 20 ml Vial (Procedural) IV ONE (10:47)
== END 2025-06-26 23:01 | disposition home or self-care (01) ==
LOC: MHTC 05:32
DX: I48.0 Paroxysmal atrial fibrillation (principal); I35.0 Nonrheumatic aortic (valve) stenosis; I35.1 Nonrheumatic aortic (valve) insufficiency; I34.0 Nonrheumatic mitral (valve) insufficiency; H34.213 Partial retinal artery occlusion, bilateral; I13.2 Hypertensive heart and chronic kidney disease with heart failure and with stage 5 chronic kidney disease, or end stage renal disease; E11.22 Type 2 diabetes mellitus with diabetic chronic kidney disease; N18.6 End stage renal disease; I50.32 Chronic diastolic (congestive) heart failure; E11.43 Type 2 diabetes mellitus with diabetic autonomic (poly)neuropathy; K31.84 Gastroparesis; J44.9 Chronic obstructive pulmonary disease, unspecified; E11.51 Type 2 diabetes mellitus with diabetic peripheral angiopathy without gangrene; E78.5 Hyperlipidemia, unspecified; Z79.4 Long term (current) use of insulin; Z79.899 Other long term (current) drug therapy; Z87.891 Personal history of nicotine dependence; Z99.2 Dependence on renal dialysis; Z88.6 Allergy status to analgesic agent; Z88.8 Allergy status to other drugs, medicaments and biological substances; Z91.09 Other allergy status, other than to drugs and biological substances; Z90.710 Acquired absence of both cervix and uterus
CPT/HCPCS: 93312; 93325; A9270; J2704; J7030

== ENCOUNTER → 2025-08-15 | Outpatient (CLI) | payer MEDICARE, OTHER ==
[2025-08-15 11:38] LABS: Color, Urine Yellow (P-Yellow); Glucose Qualitative, Urine Neg (Neg); Ketones, Urine Neg (Neg); Leukocyte Esterase, Urine Neg (Neg); Protein, Urine 3+ (Neg); Specific Gravity, Urine 1.015 (1.003-1.022); Urobilinogen, Urine NORM (Normal)
[2025-08-15 11:48] LABS: Bilirubin, Urine 1+ (Neg)
== END | disposition home or self-care (01) ==
LOC: LAB SHORT 03:00 → LAB 03:00
PROVIDERS: Internal Medicine Nephrology
DX: N18.6 End stage renal disease (principal)
CPT/HCPCS: 81001

== ENCOUNTER 2025-09-07 06:44 | Day surgery (SDC) | payer MEDICARE, OTHER ==
[2025-09-07] VITALS (17 sets, daily range): BP systolic 121–170; BP diastolic 51–111
[~2025-09-07] VITALS: Ht 152.4 cm; Wt 72.5 kg
[2025-09-07] MEDS ORDERED: Norco 5-325 Ta1 EACH PO (07:33)
[2025-09-07] MEDS ORDERED: Heparin Sodium 1000 Units/ML 10ML MDV ONE ×2 (07:52→07:58)
[2025-09-07] MEDS ORDERED: NS 250 ML IV ONE (07:52)
[2025-09-07] MEDS ORDERED: NS 100 ML IV ONE (07:52)
[2025-09-07] MEDS ORDERED: NS 1,000 ML IV ONE ×2 (07:52→07:58)
[2025-09-07] MEDS ORDERED: Midazolam HCl 1MG / ML 2ML Vial ONE (08:27)
[2025-09-07] MEDS ORDERED: FentaNYL Citrate 50 MCG/ML 2 ML Injection ONE ×5 (08:28→15:03)
[2025-09-07] MEDS ORDERED: Nitroglycerin 2 MG/20 ML BTL ONE (09:13)
[2025-09-07] MEDS ORDERED: Verapamil HCL 2.5 MG/ML 2ML Injection ONE (09:13)
--- NOTE | 2025-09-07 11:39 | NUR ---
patient arrived to recovery room from medical lab technician. alert and responds appropriately review of left leg: left ankt swollen and left leg. left leg is wrapped with coban. Pt denies pain. Left myra reviewed with Cami RT. no change since medical lab technician. dressing to ankle D&I. right sarah soft and nonetender, Dressing D&I. no hematoma.
[2025-09-07] MEDS ORDERED: CLOP75 PO (11:49)
--- NOTE | 2025-09-07 12:58 | NUR ---
PT C/O LEFT CALF PAIN GETTING WORSE. PT TEARY EYED. DR SILVA IN ROOM TO SEE PT. SEE NEW ORDERS FOR FENTANYL. LEFT CALF MEASURED 36.5 CM. LEFT DP DOPPLER. CALL LIGHT IN REACH. PT AWAITING INPATIENT BED.
--- NOTE | 2025-09-07 13:05 | NUR ---
patient pain 6/10 scale after 50 mcg fentnyl
--- NOTE | 2025-09-07 13:22 | NUR ---
pt hob up right groin site dressing changes, skin ooz from patient moving around seen. no swelling, no hematoma. pain level for right calf decreased to 4/10 scale.
--- NOTE | 2025-09-07 14:59 | NUR ---
Dr Qureshi here to assess patient 50 mcg fentnyl iv given for pain 7/10 scale
--- NOTE | 2025-09-07 15:17 | NUR ---
patient states that pain level now 4/10 scale left calf measuremt un changed 36.5cm
--- NOTE | 2025-09-07 15:34 | NUR ---
MEASUREMENT OF LEFT CALF 36.5 CM
--- NOTE | 2025-09-07 16:00 | NUR ---
patient transferred via bed to PCU5. report given to Can ORDOÑEZ. left calf, left pedal site and right groin reviewed with them. no further questions.
[2025-09-07] MEDS ORDERED: FLU VACC TS2025-26(6MOS UP)/PF 45 MCG/0.5 ML SYRINGE IM SCH (16:20)
[2025-09-07] MEDS ORDERED: HYDROcodone 5-APAP 325 TAB PO PRN (16:20)
--- NOTE | 2025-09-07 16:21 | NUR ---
ADMISSION: PT ARRIVED TO PCU 5 1605 VIA GURNEY. PT ALERT AND ORIENTED X4, ABLE TO FOLLOW COMMANDS AND MAKE NEEDS KNOWN. STRENGTH EQUAL BILATERALLY. BP AND HR STABLE. AFEBRILE. SPO2 >98% ON 2L NC. LUNG SOUNDS CLEAR THROUGHOUT. RESPIRTAIONS EVEN AND UNLABORED. ABD SOFT, NON TENDER, BOWEL SOUNDS +. PT INC OF URINE, ATTENDS IN PLACE. PT POST REVASC W/ R. GROIN SIDE AND L. PEDAL SITE. HEMATOMAS NOTED AROUND L. PEDAL SITE. R GROIN SITE C/D/I. NO HEMATOMA, BLEEDING NOTED. L. LOWER EXTREMITY WITH MOD AMOUNT OF SWELLING. PT WITH 7/10 PAIN. CALF MEASURING 36.5 AROUND. PULSE FOUND VIA DOPPLER. MEASURING CALF Q30. PT DIALYSIS PT, POSSIBLE DIALYSIS IN AM. PT ORIENTED TO ROOM AND CALL LIGHT SYSTEM. BED IN LOW, CALL LIGHT IN REACH.
[2025-09-07] MEDS ORDERED: Insulin Human Lispro 100 Units/ML 3ML Syringe SC SCH (16:30)
[2025-09-07] MEDS ORDERED: Cholecalciferol 1000 Unit Tablet (=25MCG) PO SCH (21:00)
[2025-09-07] MEDS ORDERED: Buprenorphine HCL/Naloxone HCL 2-0.5MG 1 EA SL SCH (21:00)
[2025-09-08] VITALS (15 sets, daily range): BP systolic 112–142; BP diastolic 58–99
--- NOTE | 2025-09-08 04:15 | NUR ---
SHIFT SUMMARY:: PT IS A&OX4, PLEASANT AND COOPERATIVE WITH CARE.. VSS ON 2L VIA NC WHICH IS HER BASELINE. SPO2 > 95%. SR 80 S-90 S. PT C/O OF PAIN TO HER LEFT LEG AT THE BEGINNING OF THE SHIFT BUT SHE STATED THAT THE PAINS MUCH BETTER. SHE WAS MEDICATED WITH NORCO WITH GOOD PAIN RELIEF. HER LEG SWELLING HAS GONE DOWN FROM 36.5 TO 34CM. WITH DECREASED TIGHTNESS TO CALF. SHE HAS GOOD PEDAL PULSES WITH A DOPPLER. SHE HAS IT ELEVATED ON PILLOWS. LABS WERE DONE AND SHE WILL PROBABLY GO TO DIALYSIS TODAY. HER NORMAL DIALYSIS DAYS ARE Wed AND WED. TOLERATING A RENAL DIET. TAKES MEDS WHOLE WITH WATER. BLOOD SUGARS DONE AC. . HAS BEEN USING THE BEDPAN TO URINATE. . BED IN LOWEST POSITION, CALL LIGHT WITHIN REACH. CALLS APPROPRIATELY AND IS ABLE TO ADVOCATE NEEDS EFFECTIVELY. SHES A POSSIBLE DISCHARGE FOR TODAY.
[2025-09-08 04:22] LABS: BASOPHILS ABSOLUTE AUTO 0.02 K/mm3 (0.00-0.23); BASOPHILS PERCENT AUTO 0 % (0-2); EOSINOPHILS ABSOLUTE AUTO 0.21 K/mm3 (0.00-0.68); EOSINOPHILS PERCENT AUTO 3 % (0-6); Hematocrit 32.4 % (33.0-51.0); Hemoglobin 10.1 g/dL (11.5-16.0); IMMATURE GRAN ABSOLUTE AUTO 0.03 K/mm3 (0.00-0.10); IMMATURE GRAN PERCENT AUTO 0 % (0-1); LYMPHOCYTES ABSOLUTE AUTO 0.84 K/mm3 (0.84-5.20); LYMPHOCYTES PERCENT AUTO 10 % (21-46); MONOCYTES ABSOLUTE AUTO 0.76 K/mm3 (0.16-1.47); MONOCYTES PERCENT AUTO 9 % (4-13); Mean Corpuscular HGB Conc 31.2 g/dL (31.5-36.5); Mean Corpuscular Volume 103 fL (80-100); NEUTROPHILS ABSOLUTE AUTO 6.47 K/mm3 (1.96-9.15); NEUTROPHILS PERCENT AUTO 78 % (41-73); NRBC ABSOLUTE 0.00 K/mm3 (0.00-0.02); NRBC Auto 0.0 /100 WBC (0.0-0.2); Platelet Count 124 K/mm3 (150-400); RDW Coefficient Variation 17.8 % (11.7-14.2); RDW Standard Deviation 66.0 fL (35.1-46.3)
[2025-09-08 04:56] LABS: Alanine Aminotransfer (ALT/SGP 31.0 U/L (12-78); Albumin, Blood 3.1 g/dL (3.4-5.0); Albumin/Globulin Ratio 0.7 (0.8-1.8); Anion Gap 16.0 mmol/L (3-11); Aspartate Aminotrans (AST/SGOT 28.0 U/L (12-37); Bilirubin, Total 0.7 mg/dL (0.1-1.0); Blood Urea Nitrogen 88.0 mg/dL (8-24); CO2, Blood 23.0 mmol/L (21-32); Calcium, Blood 7.1 mg/dL (8.5-10.1); Chloride, Blood 97.0 mmol/L (98-108); Creatinine, Blood 6.55 mg/dL (0.40-1.00); Globulin, Blood 4.2 g/dL (2.2-4.0); Glucose, Blood 182.0 mg/dL (70-99); Potassium, Blood 4.4 mmol/L (3.5-5.5); Sodium, Blood 132.0 mmol/L (136-145); Total Protein, Blood 7.3 g/dL (6.4-8.2)
--- NOTE | 2025-09-08 05:08 | NUR ---
CALLED DR. MILLER AND INFORMED HIM OF PTS LABS AND HE STATED TO INFORM DIALYSIS NURSE AT 0700 TO GIVE HER DIALYSIS AND ADD HER TO [facility].
[2025-09-08] MEDS ORDERED: Vitamin B Cmplx/Vit C/Folic Ac 1 Tab PO SCH (06:00)
[2025-09-08] MEDS ORDERED: Insulin Glargine 100 Unit/ML 3 ML SYR SC SCH (09:00)
--- NOTE | 2025-09-08 09:47 | NUR ---
UPDATE: PT TO DIALYSIS @0830 VIA BED. VSS.
--- NOTE | 2025-09-08 12:27 | NUR ---
UPDATE: PT BACK FRM DIALYSIS. VSS.
--- NOTE | 2025-09-08 15:03 | NUR ---
DISCHARGE: PT D/C @1503 VIA WHEELCHAIR. DISCHARGE INSTRUCTIONS AND EDUCATION PROVIDED. ALL BELONGINGS WITH PT.
== END 2025-09-08 15:08 | disposition home or self-care (01) ==
LOC: MHTC 06:44 → PCU 06:44 → MHTC 06:47 → PCU 15:42 → MHTC 09-08 15:08
PROVIDERS: Internal Medicine
DX: I70.222 Atherosclerosis of native arteries of extremities with rest pain, left leg (principal); N18.6 End stage renal disease; I50.30 Unspecified diastolic (congestive) heart failure; Z99.2 Dependence on renal dialysis; E11.40 Type 2 diabetes mellitus with diabetic neuropathy, unspecified; E11.22 Type 2 diabetes mellitus with diabetic chronic kidney disease; I13.2 Hypertensive heart and chronic kidney disease with heart failure and with stage 5 chronic kidney disease, or end stage renal disease; I25.10 Atherosclerotic heart disease of native coronary artery without angina pectoris; Z88.8 Allergy status to other drugs, medicaments and biological substances; Z79.899 Other long term (current) drug therapy
CPT/HCPCS: 36415; 76937; 80053; 82947; 85025; 85347; 90471; 97161; 97530; 99152; 99153; A9270; C1725; C1760; C1769; C1874; C1887; C1894; C2623; G0257; J0572; J1644; J1815; J2250; J3010; J7030; J7050; Q9967

== ENCOUNTER 2025-09-09 14:37 | Emergency (ER) | payer MEDICARE, OTHER ==
[~2025-09-09] VITALS: Ht 152.4 cm; Wt 68.0 kg
[~2025-09-09 14:37] MED LIST changes: +Norco 5-325 Ta1 EACH PO
[2025-09-09 15:33] LABS: BASOPHILS ABSOLUTE AUTO 0.02 K/mm3 (0.00-0.23); BASOPHILS PERCENT AUTO 0 % (0-2); EOSINOPHILS ABSOLUTE AUTO 0.14 K/mm3 (0.00-0.68); EOSINOPHILS PERCENT AUTO 2 % (0-6); Hematocrit 29.0 % (33.0-51.0); Hemoglobin 9.1 g/dL (11.5-16.0); IMMATURE GRAN ABSOLUTE AUTO 0.02 K/mm3 (0.00-0.10); IMMATURE GRAN PERCENT AUTO 0 % (0-1); LYMPHOCYTES ABSOLUTE AUTO 0.91 K/mm3 (0.84-5.20); LYMPHOCYTES PERCENT AUTO 13 % (21-46); MONOCYTES ABSOLUTE AUTO 0.59 K/mm3 (0.16-1.47); MONOCYTES PERCENT AUTO 8 % (4-13); Mean Corpuscular HGB Conc 31.4 g/dL (31.5-36.5); Mean Corpuscular Volume 101 fL (80-100); NEUTROPHILS ABSOLUTE AUTO 5.61 K/mm3 (1.96-9.15); NEUTROPHILS PERCENT AUTO 77 % (41-73); NRBC ABSOLUTE 0.00 K/mm3 (0.00-0.02); NRBC Auto 0.0 /100 WBC (0.0-0.2); Platelet Count 110 K/mm3 (150-400); RDW Coefficient Variation 17.5 % (11.7-14.2); RDW Standard Deviation 64.8 fL (35.1-46.3)
[2025-09-09 15:43] LABS: Alanine Aminotransfer (ALT/SGP 23.0 U/L (12-78); Albumin, Blood 3.3 g/dL (3.4-5.0); Albumin/Globulin Ratio 0.8 (0.8-1.8); Anion Gap 13.0 mmol/L (3-11); Aspartate Aminotrans (AST/SGOT 28.0 U/L (12-37); Bilirubin, Total 0.9 mg/dL (0.1-1.0); Blood Urea Nitrogen 68.0 mg/dL (8-24); CO2, Blood 27.0 mmol/L (21-32); Calcium, Blood 7.6 mg/dL (8.5-10.1); Chloride, Blood 93.0 mmol/L (98-108); Creatinine, Blood 6.43 mg/dL (0.40-1.00); Globulin, Blood 4.3 g/dL (2.2-4.0); Glucose, Blood 199.0 mg/dL (70-99); Potassium, Blood 3.3 mmol/L (3.5-5.5); Sodium, Blood 130.0 mmol/L (136-145); Total Protein, Blood 7.6 g/dL (6.4-8.2)
[2025-09-09] MEDS ORDERED: HYDROcodone 10-APAP 325 TAB PO ONE (17:50)
[2025-09-09 18:51] VITALS: BP 130/53
== END 2025-09-09 18:55 | disposition home or self-care (01) ==
LOC: ER 14:37
PROVIDERS: Physician Assistant
DX: G89.18 Other acute postprocedural pain (principal); M25.572 Pain in left ankle and joints of left foot; M79.652 Pain in left thigh; I13.2 Hypertensive heart and chronic kidney disease with heart failure and with stage 5 chronic kidney disease, or end stage renal disease; I50.30 Unspecified diastolic (congestive) heart failure; E11.22 Type 2 diabetes mellitus with diabetic chronic kidney disease; N18.6 End stage renal disease; Z99.2 Dependence on renal dialysis; J44.9 Chronic obstructive pulmonary disease, unspecified; E78.5 Hyperlipidemia, unspecified; K74.60 Unspecified cirrhosis of liver; K72.90 Hepatic failure, unspecified without coma; M81.0 Age-related osteoporosis without current pathological fracture; E11.40 Type 2 diabetes mellitus with diabetic neuropathy, unspecified; Z87.891 Personal history of nicotine dependence; Z88.6 Allergy status to analgesic agent; Z88.8 Allergy status to other drugs, medicaments and biological substances; Z79.85 Long-term (current) use of injectable non-insulin antidiabetic drugs; Z79.4 Long term (current) use of insulin; Z79.82 Long term (current) use of aspirin; Z79.02 Long term (current) use of antithrombotics/antiplatelets; Z79.899 Other long term (current) drug therapy
CPT/HCPCS: 80053; 85025; 93926; 99284-25; A9270